=== PATIENT | female | born 1995 | race Caucasian/White ===

== ENCOUNTER 2018-04-11 11:09 | Day surgery (SDC) | payer OTHER, SELFPAY ==
[2018-04-11 11:51] VITALS: BP 120/74; PULSE 85; RESP 16; TEMP 37.8; O2SAT 100; BMI 29.8
[2018-04-11] MEDS: Celecoxib 200 MG Capsule 400 MG PO (12:02)
[2018-04-11] MEDS: Acetaminophen 500 MG Tablet 1000 MG PO (12:02)
[2018-04-11 12:16] LABS: Internal QC Validated? YES +Cl - CLEAR BKGD; Pregnancy, Urine Negative Negative
--- NOTE | 2018-04-11 14:37 | PCM.DC.TUB ---
Discharge Diet: No Restrictions - Increase fluid intake for the next 48 hours. Discharge Activity: Return to Normal Activity, May Drive - when you are no longer taking pain/narcotic meds., May Shower, May Take a Tub Bath - in 7 days Return to work on:: 04/16/18 May shower in (days): 1 May resume sexual activity in: 1-2 weeks Additional Activity Instructions:: Ambulate often the next week after surgery. Nothing in the vagina for 5 days. Call your doctor if your incision/area has: Continuous Slow Oozing, Sudden Increased Bleeding, Increased Pain/ Swelling, Increased Redness, Foul Smelling Discharge Call your doctor if you observe: Fever of 101 or Higher, Using more than one pad per hour Cleanse incision/area with: Soap & Water - YOur incisions have skin glue, it can get wet Allergies/Adverse Reactions: Allergies Penicillins Allergy (Verified 04/05/18 11:02) Hives Medications to take at Discharge Desogestrel-Ethinyl Estradiol [Apri 28 Day Tablet] 1 each PO DAILY 04/05/18 Primary Care Physician: Care Physician,No Primary [Primary Care Provider] - Test Results: Test results from this visit will be discussed in further detail at your follow-up appointment, if applicable. Please Follow Up With: Cayla Schulte MD - [phone] When: 2-4 weeks or as needed in my office
[2018-04-11] MEDS: Bupivacaine Mpf 0.5% 30 ML VIAL (14:44)
--- NOTE | 2018-04-11 15:11 | PCM.OPRPT ---
Report of Operation Date of Procedure: 04/11/18 Pre-Operative Diagnosis: chronic pelvic pain, left ovarian cyst Post-Operative Diagnosis: same, left ovarian dermoid cyst Surgery/Procedure Performed:: laparoscopic left ovarian cystectomy Description of Surgical Findings:: enlarged left ovary with complex cyst w/ hair and firm tissue and serrous fluid, normal tubes bilaterally, normal right ovary in service coordinator: Ana Toscano in service coordinator: Marvin Ramos Type of Anesthesia:: General Anesthesiologist: Delvin Daniels Special Medications: none Specimen's removed: left ovarian cyst Drains: none Estimated Blood Loss (mL): 10cc Fluids Replaced: 1300 cc Description of Procedure: The patient was taken to the operating room where she was prepped and draped in the dorsolithotomy position. A weighted speculum was placed in the vagina and the anterior lip of the cervix was grasped with a tenaculum. The Synqera uterine manipulator was placed and the remainder of the instruments were removed from the vagina. The uterus sounded to 8 cm. Attention was turned to the abdomen. All port sites were infiltrated with 0.5% Marcaine before skin incisions were made. A 5 mm intraumbilical incision was made. The anterior abdominal wall was tented up with 2 towel clamps while a 5 mm blade less trocar and sleeve were directly inserted. Intraperitoneal placement was confirmed with the laparoscope. The pneumoperitoneum was created and the underlying abdominal contents were intact. The patient was placed in Trendelenburg. Right and left lower quadrant ports were placed under direct visualization lateral to the inferior epigastric vessels. The bowel was swept away and the above findings were noted. The antimesenteric portion of the left ovarian cyst was cauterized with the scissors in a linear fashion and then an incision in the cyst wall was made. A small amount of serous fluid returned. Suction admin dir was used to suction out this fluid. The cyst wall was then stretched and the ovarian capsule was stretched to allow access to the ovarian cyst. The ovarian cyst was complex there was some hair and sebaceous type material is also some firm fleshy colored material. This was peeled away from the underlying ovarian stroma. Care was taken to ensure that the entire cyst wall was removed. The base of the cyst was hemostatic. Some fibrillar was placed into the cyst cavity and the ovary was folded over onto the fibrillar to make sure that all the exposed internal ovarian tissue was closed upon itself. The site was again examined and found to be hemostatic. The umbilical trocar sleeve was removed and the fascial incision dressed with a Kavya clamp and the skin incision extended slightly. An Endo Catch bag was placed through the umbilical port site and opened and the cyst contents were placed in the bag. The bag was brought up to the umbilical incision and the cyst was ruptured to allow to collapse more and be able to brought out through the umbilical incision. The lateral ports were removed under direct visualization and no active bleeding was noted. The pneumoperitoneum was released. The skin incisions were closed with Monocryl suture in a subcuticular fashion and skin glue by . The vaginal instruments were removed and the vaginal sweep was completed by me. The procedure was performed by me with assistance other than as dictated above. All sponge and needle counts were correct and the patient was taken to the recovery room in stable condition. Grafts/Implants Used: none - Complications none - Admit VTE Documentation VTE Present on Admission: No VTE Mechan Device Prophylaxis: SCD's VTE Pharm Prophylaxis ordered?: No Reason prophylaxis not ordered:: Procedure Not Indicated
[2018-04-11 15:28] VITALS: BP 120/74; BP 131/82; PULSE 80; RESP 16; TEMP 36.6; O2SAT 99
[2018-04-11 15:42] VITALS: BP 117/71; BP 120/74; PULSE 62; RESP 16; O2SAT 100
[2018-04-11 16:00] VITALS: BP 111/65; BP 120/74; PULSE 63; RESP 16; TEMP 36.7; O2SAT 100
[2018-04-11 17:53] VITALS: BP 110/69; BP 120/74; PULSE 81; RESP 16; TEMP 36.2; O2SAT 100
--- NOTE | 2018-04-12 | OV_PTH ---
PATIENT: BASIM OLEARY [place] [facility] [place][id number] AGE/SX: 22/F ROOM: RE04/11/[address]: Dr. Cayla Schulte MD : 1995 BED: DIS: 04/11/2018 SPEC #: [id number] RECD: 04/12/18 11:50 STATUS: JANE KAREY #: [id number] DOROTHEA: 04/12/18 00:[address]: Cayla Schulte DEPT: SURGICAL PATHOLOGY RECD BY: Narciso Segura ENTERED: 04/12/18 11:50 SP TYPE: OVARY OTHR DR: No Primary Care Phys Tissues: Left ovary Procedures: Decalcification bone/plaque Surgery Specimen Level V HEADER OPERATION: Laparoscopic ovarian cystectomy PRE-OP DIAGNOSIS: Chronic left pelvic pain, left ovarian cyst TISSUE SUBMITTED: Left ovarian cyst MICROSCOPIC DIAGNOSIS Left ovarian cyst, cystectomy: Mature cystic teratoma (dermoid cyst). SJ:all 04/17/18 MICROSCOPIC DESCRIPTION Slides are reviewed. GROSS DESCRIPTION Received in fixative is one container labeled with the patient's name and designated left ovarian cyst. The specimen consists of an ovoid previously ruptured ovary measuring 5 x 3.5 x 3 cm. Also present in the container are three detached pieces of soft tissue mixed with hemorrhagic tissue measuring in aggregate 2.5 x 2.5 x 0.7 cm. Multiple hairs are projecting through the ruptured cystic ovary. Sections reveal kimble, solid cut surfaces mixed with area of bone and teeth. Sections of the ovary and detached pieces reveal pink, solid cut surfaces mixed with area of bone including teeth formation. The entire specimen is submitted in 13 cassettes. Cassettes 8-13 are submitted after decalcification. / SJ:all 04/12/18 TC:1 CPT: 73716, 34111
== END 2018-04-11 18:08 | disposition home or self-care (01) ==
LOC: SDC 11:11 → AC 11:11
PROVIDERS: Anesthesiology; Visit Provider Obstetrics & Gynecology
PROC: (CPT 58662; principal; 2018-04-11 12:25)
DX: D27.1 Benign neoplasm of left ovary (principal)
CPT/HCPCS: 00840; 58662; 81025; 88305; 88307; 88311; J7120; J2405

== ENCOUNTER 2018-06-17 21:20 | Emergency (ER) | payer OTHER, SELFPAY ==
[2018-06-17 21:21] VITALS: BP 124/72; PULSE 101; RESP 14; TEMP 36.8; O2SAT 98; BMI 29.2
[2018-06-17] MEDS: hydrOXYzine PAM 25 MG Capsule 50 MG PO (22:17)
[2018-06-17] MEDS: predniSONE 20 MG Tablet 40 MG PO (22:17)
--- NOTE | 2018-06-17 22:35 | ED.DCSUM_ITS ---
- ER Visit Summary Date of Service: 06/17/18 Chief Complaint: rash after bactrim History of Present Illness: The patient is a 23 F who presents for a rash with onset earlier this evening. Patient is currently on Bactrim for a UTI and is taken a total of 3 doses. Rash began on her ankles and is very pruritic. It is now spread to the dorsum of her feet, her knee regions, her shoulders and her chest. Patient was not able to take Benadryl, as she becomes very anxious feeling from Benadryl. She denies fever, chest pain, shortness of breath, eye pain, oral lesions, any vaginal pain, or worsening dysuria. She is still having mild dysuria related to her recent UTI. Physical Examination: Vital signs: afebrile, hemodynamically stable, no hypoxia on room air General: well nourished, well developed, in no distress Skin: warm, dry, maculopapular rash scattered on the bilateral ankles, dorsum of the feet, distal thighs and proximal lower legs, knees, bilateral shoulders, and chest. Secondary excoriations noted. No petechiae, purpura, bullae or blisters. HEENT: normocephalic and atraumatic; PERRL, EOMI, moist mucous membranes no oropharyngeal lesions, conjunctiva are clear without erythema or discharge. Cardiovascular: regular rate and rhythm without murmurs, no peripheral edema, 2+ pulses all distal extremities Respiratory: No increased work of breathing, lungs are clear to auscultation bilaterally, no rales, rhonchi or wheezing Abdominal: Abdomen is soft, nontender with normoactive bowel sounds, no guarding or rebound, no masses MSK: Moves all extremities, no deformities, normal strength Neuro: Awake and alert, oriented ?4. No facial droop, sensation and motor f unction intact and symmetric Test Results: [] Emergency Department Course and Treatment: Patient has no findings on her exam that are concerning for acute anaphylaxis or Freire-Aníbal syndrome. Her rash appears more consistent with a drug exanthem rather than an urticarial rash. Patient was advised to stop the Bactrim and not to take it again. Patient was given nitrofurantoin to complete her course of treatment for UTI. Patient's symptoms were reviewed, and all involved lower abdominal and lower back pain with dysuria, making pyelonephritis less likely, thus nitrofurantoin was deemed appropriate. Patient was given hydroxyzine and prednisone in the emergency department for her symptoms. She was given prescriptions for the same. Return precautions were discussed, including signs to watch for that might indicate Freire-Aníbal syndrome. Patient agreed and was discharged home with pruritus somewhat improved after the hydroxyzine. Treatment Plan: [] Disposition: [] Impression: Drug exanthem secondary to Bactrim This note was generated with [employer] dictation software. It may contain incorrect words, spelling, and punctuation that were not noted in review of the chart prior to signing ED Disposition - Plan for ED Patient: Disposition: Home or Assisted Living Chief Complaint: Rash Instructions: ED Dermatitis Non Specific Rash Prescriptions: RX: Prednisone [Deltasone] 40 mg PO DAILY #10 tab Nitrofurantoin Macrocrystal [Nitrofurantoin] 100 mg PO BID #10 cap RX: Hydroxyzine Pamoate 25 mg PO TID PRN #20 cap PRN Reason: Itching Referrals: Andrew Alexis III, MD [STAFF PHYSICIAN] - 3-5 Days if not improving Care Physician,No Primary [Primary Care Provider] - Additional Instructions: Your rash is most likely due to the Bactrim use. Stop Bactrim and do not take it again. Use the nitrofurantoin to finish treating your urine infection. Use the hydroxyzine for itching and the prednisone to help calm the rash down. If at any point you develop a high fever, sores in your mouth, nose, genitals, or any redness and discomfort in your eyes, or if your rash becomes blistering, return immediately to the emergency department for another evaluation.
--- NOTE | 2018-06-17 22:35 | ED.DEP ---
ED Disposition - Plan for ED Patient: Disposition: Home or Assisted Living Chief Complaint: Rash Instructions: ED Dermatitis Non Specific Rash Prescriptions: Prednisone [Deltasone] 40 mg PO DAILY #10 tab Nitrofurantoin Macrocrystal [Nitrofurantoin] 100 mg PO BID #10 cap Hydroxyzine Pamoate 25 mg PO TID PRN #20 cap PRN Reason: Itching Referrals: Care Physician,No Primary [Primary Care Provider] - Andrew Alexis III, MD [STAFF PHYSICIAN] - 3-5 Days if not improving Additional Instructions: Your rash is most likely due to the Bactrim use. Stop Bactrim and do not take it again. Use the nitrofurantoin to finish treating your urine infection. Use the hydroxyzine for itching and the prednisone to help calm the rash down. If at any point you develop a high fever, sores in your mouth, nose, genitals, or any redness and discomfort in your eyes, or if your rash becomes blistering, return immediately to the emergency department for another evaluation.
[2018-06-17 22:58] VITALS: RESP 16
== END 2018-06-17 23:02 | disposition home or self-care (01) ==
PROVIDERS: Emergency Provider Emergency Medicine
DX: L27.0 Generalized skin eruption due to drugs and medicaments taken internally (principal); T37.0X5A Adverse effect of sulfonamides, initial encounter; Y92.9 Unspecified place or not applicable; N39.0 Urinary tract infection, site not specified
CPT/HCPCS: 99283

== ENCOUNTER 2019-05-21 18:55 | Emergency (ER) | payer OTHER, SELFPAY ==
[2019-05-21 18:56] VITALS: BP 148/80; PULSE 103; RESP 16; TEMP 36.8; BMI 32.1
--- NOTE | 2019-05-21 19:13 | CT_ITS ---
STUDY: CTA HEAD AND NECK WITH CONTRAST REASON FOR EXAM: Female, 23 years old. Vertigo and migraines RADIATION DOSAGE (If Supplied By Facility): CTDIvol = ( 28.59 ) mGy, DLP = ( 1503.07 ) mGycm TECHNIQUE: CT angiography was performed with a multi-detector CT scanner. Data acquisition was obtained from the skull base through the vertex following intravenous administration of IV Isovue 370 100. MIP images were reconstructed from the axial data set. Post-processing of the angiographic images was performed, with multiplanar reformation and 3D reconstruction. Individualized dose optimization techniques were used for this CT. COMPARISON: No relevant priors. FINDINGS: Normal bilateral petrous carotid arteries. Normal right cavernous carotid artery with a normal supraclinoid bifurcation. Normal left cavernous carotid artery with a normal supraclinoid bifurcation. Normal right A1 segments of the anterior cerebral artery. Normal left A1 segments of the anterior cerebral artery. Anterior communicating artery not visualized consistent with normal variant Normal bilateral A2 segments of the anterior cerebral arteries. Normal right M1 and M2 segments of the middle cerebral arteries, with a normal M1 bifurcation. Normal left M1 and M2 segments of the middle cerebral arteries, with a normal M1 bifurcation. Posterior communicating arteries are not visualized consistent with normal variant.). Normal bilateral vertebral arteries. Normal basilar artery with a normal basilar bifurcation. The visualized bilateral superior cerebellar (SCA) arteries are normal. Normal bilateral P1, P2 and visualized P3 segments of the posterior cerebral arteries. There is no demonstrated aneurysm of the [place] of [place]. There is no demonstrated abnormality of the visualized brain. AORTIC ARCH: Normal visualized aortic arch. Normal origins of the brachiocephalic, left common carotid, and left subclavian arteries. RIGHT CAROTID ARTERIES: Normal right common carotid artery (CCA). Normal right common carotid bulb. Normal origin of the right internal carotid (ICA) artery without a hemodynamically significant stenosis. Normal visualized cervical portion of the right internal carotid artery. Normal origin of the right external carotid artery (ECA). LEFT CAROTID ARTERIES: Normal left common carotid artery (CCA). Normal left common carotid bulb. Normal origin of the left internal carotid (ICA) artery without a hemodynamically significant stenosis. Normal visualized cervical portion of the left internal carotid artery. Normal origin of the left external carotid artery (ECA). VERTEBRAL ARTERIES: Normal bilateral vertebral arteries. Incidental finding of nonspecific bilateral thyroid enlargement without discrete nodule.. CT/CTA Head AND Neck W/ Contrast IMPRESSION: Normal CTA Head and neck with contrast. Incidental finding of nonspecific bilateral thyroid enlargement without well-defined nodule. Ultrasound would be helpful for further evaluation if clinically warranted Electronically Signed: Bharath De Paz MD at 20:07 EDT , Service support ,
[2019-05-21] MEDS: 0.9% Normal Saline 1,000 ML 1000 ML IV (19:32)
[2019-05-21] MEDS: DiphenhydrAMINE 50 MG/ML Syringe 25 MG IV (19:33)
[2019-05-21] MEDS: Metoclopramide 10 MG/2 ML Vial IV (19:33)
[2019-05-21 19:50] LABS: Internal QC Validated? YES +Cl - CLEAR BKGD; Pregnancy, Serum, hCG Quali. NEGATIVE Negative
[2019-05-21] MEDS: Ketorolac 30 MG/ML Syringe IV (20:08)
--- NOTE | 2019-05-21 20:11 | ED.VISSUMM ---
- ER Visit Summary Date of Service: 05/21/19 Chief Complaint: [Headache] History of Present Illness: The patient is a 23 F [presents to the emergency department with a headache is been worse since yesterday. She describes it as right side of her head and currently rates it a 4 5 out of 10 and is throbbing and a lot of pressure behind her right eye. Patient states that she gets headaches almost daily and she has for years but this headache seems different than usual. Patient's had some nausea with it she does have intermittent photophobia. Patient states over the last year her headaches have become more frequent. There is no family history of brain tumors or aneurysms. She denies recent illness. She denies recent head injury. Patient currently being treated for Graves' disease] Physical Examination: [HEENT-PERRLA, EOMI. Cranial nerves II through XII grossly intact. TMs clear. Mucous membranes moist. No adenopathy. Cardiovascular-regular rate and rhythm without murmur or ectopy Lungs-clear to auscultation, chest wall stable without crepitus or subcu emphysema Abdomen-normoactive bowel sounds, soft, nontender, no rebound or rigidity, no peritoneal signs. Neuro errv-kjvddm-fa-nose and heel cosby testing within normal limits, negative Romberg, negative , Fundi benign Extremities-intact ?4, normal range of motion, normal pulses, atraumatic] Test Results: [hCG was negative. Patient had CTAs of the head and neck which were unremarkable other than incidentally they noted enlargement of the thyroid gland.] Emergency Department Course and Treatment: [Patient was medicated with Reglan, Benadryl, and Toradol and she had significant improvement in her headache and the headache is mostly gone at this time.] Treatment Plan: [Patient will be referred to neurology for follow-up.] Disposition: [Discharged home in stable condition.] Impression: [Headache-suspect migraine] This note was generated with [employer] dictation software. It may contain incorrect words, spelling, and punctuation that were not noted in review of the chart prior to signing ED Disposition - Plan for ED Patient: Referrals: Emy Valencia MD [Primary Care Provider] -
--- NOTE | 2019-05-21 20:13 | ED.DEP ---
ED Disposition - Plan for ED Patient: Instructions: HEADACHE, Unspecified Referrals: Emy Valencia MD [Primary Care Provider] - Candi Forrest MD [STAFF PHYSICIAN] - 3-5 Days
== END 2019-05-21 20:48 | disposition home or self-care (01) ==
PROVIDERS: Emergency Provider Emergency Medicine; Family Provider Internal Medicine; PCP Internal Medicine
DX: R51 Headache (principal); E05.00 Thyrotoxicosis with diffuse goiter without thyrotoxic crisis or storm; Z79.899 Other long term (current) drug therapy
CPT/HCPCS: 70496; 70498; 84703; 96361; 96374; 96375; 99283; J7030; Q9967; A4216

== ENCOUNTER 2022-10-14 20:37 | Emergency (ER) | payer BC, SELFPAY ==
[2022-10-14 20:38] VITALS: BP 122/80; BP 122/86; PULSE 106; RESP 18; TEMP 36; BMI 25.9
--- NOTE | 2022-10-14 20:53 | ED.VIS.FEGU ---
HPI HPI - Female History of Present Illness Chief Complaint: Vag Bleeding Detail of Chief Complaint: Vaginal spotting for the past several days. Estimated gestation 6 weeks Informant: patient and spouse/S.O. Pain Pain: Positive for Pelvic Pain (Crampy) Onset: Days Context: Sudden Onset Timing: Intermittent Quality: Positive for Cramping Location: - (Pelvis) Current Severity: Mild Maximum Severity: Moderate Worsened by: - (Nothing specific) Relieved by: - (Nothing) Bleeding Issue: Positive for Vaginal bleeding; Negative for Passing clots or Passing tissue Onset: Days Context: Sudden Onset Timing: Intermittent Current Severity: Spotting Maximum Severity: Spotting Associated Symptoms Associated Symptoms: Positive for Frequency; Negative for Dysuria, Urgency or Hematuria Last known menstrual period: Approximately 8 weeks ago Test: Positive Sexually: Positive for Active Control: No control P: 0 Ab: 0 Narrative Narrative: Patient is a 27-year-old woman with history of ovarian cysts who is scheduled to see Dr. aDvies October 30 for her . This is her first . Significant other has A+ blood. Patient does not know blood type. She presents because of increased bleeding and darker color. She is spotting at best. She has not used more than 1 pad. She is complaining of intermittent cramping pelvic pain. She also complains of pain radiating to the lower back sacral area. She does endorse frequency. Denies dysuria or hematuria. There is family history of maternal grandmother with 6 miscarriages. Mother had history of fibroids. There is also family with history of endometriosis. Patient denies history of STI. Patient denies history of endometriosis. Prior similar symptoms: No Recent Illness/Hospitalization: No [facility] Medical History (Updated 10/14/22 @ 22:[address] Meet Reyna MD) Ovarian cyst Home Medications fluoxetine 10 mg capsule 10 mg PO DAILY 05/21/19 [History Last Taken Unknown] methimazole 5 mg tablet 5 mg PO TID 05/21/19 [History Last Taken Unknown] Allergy/AdvReac Type Severity Reaction Status Date / Time Penicillins Allergy Hives Verified 05/21/19 20:12 sulfamethoxazole Allergy Hives Verified 05/21/19 20:12 [From Bactrim] trimethoprim [From Bactrim] Allergy Hives Verified 05/21/19 20:12 Surgical History no surgical history no surgical history Social History (Updated 10/14/22 @ 20:[address] Meet Reyna MD) household members: significant other Smoking Status: Never smoker substance use type: does not use ROS ROS ED Constitutional Constitutional ED: Denies chills or fever(s) Cardiovascular Cardiovascular: Denies chest pain or palpitations Respiratory/Chest Respiratory/Chest: Denies dyspnea Gastrointestinal Gastrointestinal: Denies abdominal pain, nausea or vomiting Genitourinary Genitourinary ED: Reports urinary frequency; Denies dysuria or hematuria Musculoskeletal Musculoskeletal: Denies arthralgias, myalgias or neck pain Integumentary Denies rash Neurologic Neurologic: Denies paresthesias or weakness Psychiatric Psychiatric: Reports anxiety Hematologic/Lymphatic Hematologic/Lymphatic: Denies easy bleeding or easy bruising EXAM Physical Exam Const Vital Signs: 10/14/22 20:38 10/14/22 20:38 Temperature 96.8 F L 96.8 F L Temperature Source Temporal Temporal Pulse Rate 106 H 106 H Respiratory Rate 18 18 Blood Pressure 122/80 H 122/86 H Blood Pressure Mean 94 98 Positive well developed; Negative for obese General Appearance ED: well developed and NAD; Negative for odor of alcohol detected or pallor Nutritional Appearance: Negative for obese HEENT Reports moist mucous membranes HEENT Narrative: Head is atraumatic normocephalic. Ears normal. Nares patent. Eyes PERRL and EOMs intact bilaterally General Eye ED: Negative for pale conjunctiva or scleral icterus Neck no lymphadenopathy, supple and no JVD Chest Wall inspection of chest normal Resp normal respiratory effort and clear to auscultation bilaterally Cardio regular rate, regular rhythm, S1 normal heart sound, no murmurs and no JVD GI normal to inspection, nondistended, normoactive bowel sounds, soft to palpation, non-distended and no masses; Negative for non-tender Palpation: tender suprapubic and guarding other (Supra prepubic region.); Negative for hepatomegaly or splenomegaly Narrative: External genitalia normal. Vaginal Koza normal. Positive Pacific sign. Os is closed and circular. There is minimal blood noted. Uterus is slightly enlarged. There is no cervical motion tenderness. There is no adnexal mass or tenderness. There is no discomfort with pressure against the bladder. Neuro oriented x3 and CN's II-XII intact bilaterally Sensorium / Orientation: alert Psych Mood & Affect: anxious Skin General Skin Exam: Negative for jaundice or pallor MDM MDM MDM Narrative Medical decision making narrative: Patient presents with vaginal bleeding. Since blood type is unknown his significant other has a positive blood will need to obtain ABO Rh testing. Serum quantitative hCG was obtained. We will perform pelvic exam and transabdominal ultrasound to assess if bleeding is coming from the uterus or not and determine if there is heart tones noted. Lab Data Attestation: I reviewed the patient's lab results. Lab results narrative: hCG is 5789. On Sunday her hCG was approximately 2700. Patient has a positive blood. RhoGAM not indicated. Labs: Laboratory Results - last 24 hr 10/14/22 10/14/22 21:00 21:00 HCG, Quant 5789 H Blood Type A POSITIVE Treatment and Re-Evaluation Narrative: Patient was informed her blood type is a positive. She was informed that the quantitative hCG had doubled. She was informed that she has a threatened miscarriage. She will need to follow-up with her hyperbaric technologist Dr. Davies. Procedures Other Procedures Procedure(s): Transabdominal ultrasound was performed. There was a sac. Able to appreciate a head. Unable to appreciate a heartbeat. Patient was made aware of this. Discharge Plan Triage Chief Complaint: Vag Bleeding ED Provider: Meet Reyna Dx/Rx/DC Orders Clinical Impression: Vaginal bleeding affecting early Instructions: Bleeding During Early Prescriptions: No Action fluoxetine 10 MG capsule 10 mg PO DAILY methimazole 5 MG tablet 5 mg PO TID Primary Care Provider: Emy Valencia Referrals: Emy Valencia MD [Primary Care Provider] - Lata Miller MD [Med Staff - Active Staff] - [facility] appointment Disposition Disposition: Home, Self Care
[2022-10-14 21:48] LABS: hCG Titer Quant., Serum 5789 mIU/mL (1-3)
== END 2022-10-14 22:27 | disposition home or self-care (01) ==
PROVIDERS: Emergency Provider Emergency Medicine; PCP Internal Medicine; Visit Provider Emergency Medicine
DX: O20.9 Hemorrhage in early pregnancy, unspecified (principal); Z3A.01 Less than 8 weeks gestation of pregnancy; O26.891 Other specified pregnancy related conditions, first trimester; R10.2 Pelvic and perineal pain; O99.891 Other specified diseases and conditions complicating pregnancy; R35.0 Frequency of micturition
CPT/HCPCS: 84702; 86900; 86901; 99283; A4216

== ENCOUNTER 2022-10-17 13:30 | Emergency (ER) | payer BC, SELFPAY ==
[2022-10-17 13:30] VITALS: BP 135/78; PULSE 90; RESP 16; TEMP 36.6; O2SAT 99; BMI 25.6
[2022-10-17 14:32] LABS: Absolute Lymphocyte Count 1.38 X10^3/uL (0.83-4.51); Basophil# 0.05 X10^3/uL; Basophil% 0.7 % (0-1); Eosinophils% 1.4 % (0-5); Hematocrit 41.4 % (37-47); Lymphocyte # 1.38 X10^3/ul (0.83-4.51); Lymphocyte % 19.3 % (19-41); Mean Corp Hgb Conc 33.8 g/dL (32-36); Mean Corpuscular Hgb 29.4 pg (27.0-32.0); Mean Platelet Vol. 9.8 fl (6.2-12.0); Monocyte# 0.56 X10^3/uL; Monocyte% 7.8 % (0-10); NRBC Flagged by Analyzer 0 % (0-5); Neutrophil # 5.01 X10^3/uL (2.7-7.7); Neutrophil % 70.2 % (47-70); Platelet Count 276 K/mm3 (150-450); RBC Distribution Width CV 12.2 % (11.6-14.6); RBC Distribution Width SD 38.8 fl (35.1-43.9); Red Blood Count 4.76 M/mm3 (4.2-5.4); White Blood Count 7.1 K/mm3 (4.4-11.0)
[2022-10-17 14:45] LABS: Anion Gap 8 (5-15); BUN 7 mg/dL (7-18); BUN/Creat Ratio 9.7 RATIO (10-20); Calcium,Total 9.8 mg/dL (8.5-10.1); Chloride 107 mmol/L (98-107); Creatinine, Serum 0.72 mg/dL (0.55-1.02); EST Glomerular Filtration Rate 102 mL/min (>60); Est Glom Filt Rate - Afr Amer 124 mL/min (>60); Estimated Creatinine Clearance 117.35 ml/min; Glucose 90 mg/dL (74-106); Potassium 3.9 mmol/L (3.5-5.1); Sodium Level 138 mmol/L (136-145)
[2022-10-17] MEDS: 0.9% Normal Saline 1,000 ML 999 ML IV (14:55)
[2022-10-17 15:02] LABS: Color, Urine Yellow (Yellow); Glucose, Dipstick Normal (Normal); Leukocyte Esterase-Dipstick 100 /ul (Negative); Nitrite-Dipstick Negative (Negative); Occult Blood-Urine 150 /ul (Negative); Protein-Dipstick 30 mg/dl (Negative); Specific Gravity, Urine 1.025 (1.002-1.030); Urine Bilirubin Dipstick Negative (Negative); Urine Clarity Sl. Cloudy (Clear); Urine Urobilinogen Normal (Normal)
[2022-10-17 15:05] LABS: Ketone-Dipstick 150 mg/dl (Negative)
[2022-10-17 15:08] LABS: Bacteria 2+ /hpf (None Seen); Mucous, Urine 2+ /hpf (<or=2+); Red Blood Cells-Urine 10-25 SEEN /hpf (0-5); Squamous Epithelial Cells - UA 0-5 SEEN /hpf (5-10); White Blood Cells 10-25 SEEN /hpf (0-5)
[2022-10-17] MEDS: proMETHazine 25 MG Tablet PO (15:17)
--- NOTE | 2022-10-17 15:19 | EDS_ITS ---
HPI HPI - GI History of Present Illness Chief Complaint: Nausea/Vomiting Narrative Narrative: 27-year-old female currently approximately 7 weeks gestation HPI G1, presenting with continued nausea. She was seen a few days ago in the emergency room for vaginal spotting in . Blood type was a positive. She has not been drinking a lot of fluids but has not been vomiting. Patient states she called her TAX REVENUE OFFICER today as she has not seen her for this yet. She was referred to the ER today and she is a follow-up appointment for tomorrow. Patient states he is also having reflux symptoms. She is on omeprazole for this. She does not have any lower abdominal pain. She does have some spotting which she had from her previous visit. Previous diagnosis of threatened carriage. [facility] Medical History Ovarian cyst Home Medications fluoxetine 10 mg capsule 10 mg PO DAILY 05/21/19 [History Last Taken Unknown] methimazole 5 mg tablet 5 mg PO TID 05/21/19 [History Last Taken Unknown] promethazine 25 mg tablet 25 mg PO TID PRN nausea and vomiting #14 tabs 10/17/22 [Rx Last Taken Unknown] Allergy/AdvReac Type Severity Reaction Status Date / Time Penicillins Allergy Hives Verified 10/17/22 13:32 sulfamethoxazole Allergy Hives Verified 10/17/22 13:32 [From Bactrim] trimethoprim [From Bactrim] Allergy Hives Verified 10/17/22 13:32 Social History (Updated 10/14/22 @ 20:[address] Meet Reyna MD) household members: significant other Smoking Status: Never smoker substance use type: does not use ROS ROS ED Constitutional Constitutional ED: Denies chills or fever(s) ENT ENT ED: Denies rhinorrhea or sore throat Cardiovascular Cardiovascular: Denies chest pain Respiratory/Chest Respiratory/Chest: Denies cough or dyspnea Gastrointestinal Gastrointestinal: Reports nausea; Denies abdominal pain or vomiting Genitourinary Genitourinary ED: Denies dysuria or hematuria Musculoskeletal Musculoskeletal: Denies arthralgias or back pain Integumentary Denies abscess Neurologic Neurologic: Denies headache(s) Psychiatric Psychiatric: Denies anxiety or depression EXAM Physical Exam Const Vital Signs: 10/17/22 13:30 Temperature 98 F Temperature Source Temporal Pulse Rate 90 Respiratory Rate 16 Blood Pressure 135/78 H Blood Pressure Mean 97 Pulse Ox 99 Oxygen Delivery Method Room Air Positive well nourished General Appearance ED: Negative for pallor HEENT Reports moist mucous membranes normocephalic and atraumatic Eyes PERRL Neck no lymphadenopathy Resp normal respiratory effort Effort and Inspection: Negative for respiratory distress Cardio regular rate and regular rhythm GI non-tender and non-distended Neuro CN's II-XII intact bilaterally Sensorium / Orientation: alert Motor Exam: strength 5/5 throughout Psych mental status grossly normal Skin no wounds General Skin Exam: Negative for jaundice or pallor MDM MDM MDM Narrative Medical decision making narrative: 27-year-old female presenting with nausea and decreased p.o. intake. She is currently about 7 weeks . She supposed to see her TAX REVENUE OFFICER tomorrow. She is not reporting any vomiting or abdominal pain with exception of epigastric discomfort from a history of GERD. She is on a PPI for this. Patient has had a little bit of spotting and is known to have threatened miscarriage. She was sent to the ER by her TAX REVENUE OFFICER for dehydration and to get IV fluids. CBC was obtained to assess white blood cell count, hemoglobin, platelets, differential. BMP to assess renal function, electrolytes, glucose, anion gap. Urinalysis to assess for UTI urine ketones. Patient given a liter normal saline. She reports to me that Zofran does not help her nausea and she was given Phenergan. This did help her nausea significantly. CBC and BMP are ultimately unremarkable. Urinalysis shows urine ketones. Urinalysis also shows some occult blood and is contaminated with 10-25 white blood cells however no pleuritic she has had some vaginal spotting. She does not have any urinary symptoms. I will send the urine for culture. Patient feeling much improved so she will be discharged home follow-up with OB tomorrow. Patient given prescription for Phenergan. Return precautions discussed. Impression: 1. Trimester 2. Threatened miscarriage 3. Nausea/vomiting Lab Data Labs: Laboratory Results - last 24 hr 10/17/22 10/17/22 10/17/22 13:20 13:20 14:45 WBC 7.1 RBC 4.76 Hgb 14.0 Hct 41.4 MCV 87.0 MCH 29.4 MCHC 33.8 RDW Std Deviation 38.8 RDW Coeff of Ria 12.2 Plt Count 276 MPV 9.8 Immature Gran % (Auto) 0.600 Neut % (Auto) 70.2 H Lymph % (Auto) 19.3 [place]unnels % (Auto) 7.8 Eos % (Auto) 1.4 Baso % (Auto) 0.7 Absolute Neuts (auto) 5.0 Absolute Lymphs (auto) 1.38 Nucleated RBC % 0 Sodium 138 Potassium 3.9 Chloride 107 Carbon Dioxide 23.0 Anion Gap 8 BUN 7 Creatinine 0.72 Estim Creat Clear Calc 117.35 Est GFR (MDRD) Af Amer 124 Est GFR (MDRD) Non-Af 102 BUN/Creatinine Ratio 9.7 L Glucose 90 Calcium 9.8 Urine Color Yellow Urine Clarity Sl. Cloudy Urine pH 5.0 Ur Specific Mauldin 1.025 Urine Protein 30 H Urine Glucose (UA) Normal Urine Ketones 150 A* Urine Occult Blood 150 H Urine Nitrite Negative Urine Bilirubin Negative Urine Urobilinogen Normal Ur Leukocyte Esterase 100 H Urine RBC 10-25 SEEN Urine WBC 10-25 SEEN Ur Squamous Epith Cells 0-5 SEEN Urine Bacteria 2+ Urine Mucus 2+ Discharge Plan Triage Chief Complaint: Nausea/Vomiting ED Provider: oVn Gonzalez Dx/Rx/DC Orders Instructions: 1st Trimester, Bleeding During Early Prescriptions: New promethazine 25 mg tablet 25 mg PO TID PRN (Reason: nausea and vomiting) Qty: 14 0RF No Action fluoxetine 10 MG capsule 10 mg PO DAILY methimazole 5 MG tablet 5 mg PO TID Primary Care Provider: Emy Valencia Referrals: Emy Valencia MD [Primary Care Provider] - Disposition Disposition: Home, Self Care
[2022-10-17] MEDS: Famotidine 20 MG Tablet PO (15:27)
[2022-10-17 16:30] VITALS: BP 118/78; PULSE 78; RESP 16; O2SAT 98
== END 2022-10-17 16:32 | disposition home or self-care (01) ==
PROVIDERS: Emergency Provider Student in an Organized Health Care Education/Training Program; PCP Internal Medicine; Visit Provider Student in an Organized Health Care Education/Training Program
DX: O21.9 Vomiting of pregnancy, unspecified (principal); E86.0 Dehydration; O20.0 Threatened abortion; O99.281 Endocrine, nutritional and metabolic diseases complicating pregnancy, first trimester; O99.891 Other specified diseases and conditions complicating pregnancy; Z3A.01 Less than 8 weeks gestation of pregnancy
CPT/HCPCS: 80048; 81001; 85025; 87086; 96360; 99284; J7030; A4216

== ENCOUNTER → 2022-10-26 | Outpatient (CLI) | payer BC, SELFPAY ==
[2022-10-26 10:51] VITALS: BP 109/72; PULSE 96; RESP 16; TEMP 36.1; O2SAT 100
[2022-10-26] MEDS: Lactated Ringers 1,000 ML 999 ML IV (11:02)
[2022-10-26] MEDS: 0.9% NaCl Peripheral Flush Adult/Peds IV (11:02)
[2022-10-26] MEDS: Famotidine 20 MG in 0.9% NS 10 ML 300 MG IV (11:03)
[2022-10-26] MEDS: Metoclopramide 10 MG/2 ML Vial IV (11:09)
[2022-10-26] MEDS: Potassium Chloride 10 MEQ in Dext 5%-0.45% NS 1,000 ML 250 MEQ IV (12:29)
[2022-10-26 16:53] VITALS: BP 108/70; PULSE 88
== END | disposition home or self-care (01) ==
LOC: MEDOUTP 10:34
PROVIDERS: PCP Internal Medicine; Referring Provider Obstetrics & Gynecology; Visit Provider Obstetrics & Gynecology
DX: R11.10 Vomiting, unspecified (principal)
CPT/HCPCS: 96365; 96361; 96375 ×2; J7120; A4216; J2405; J3490; J7799

== ENCOUNTER → 2022-11-03 | Outpatient (CLI) | payer BC, SELFPAY ==
[2022-11-03] MEDS: 0.9% NaCl Peripheral Flush Adult/Peds IV (08:30)
[2022-11-03] MEDS: Dext 5%-0.45% NS 1,000 ML 999 ML IV (08:37)
[2022-11-03 08:39] VITALS: BP 107/63; PULSE 81; RESP 16; O2SAT 100
[2022-11-03] MEDS: Famotidine 20 MG in 0.9% NS 10 ML 300 MG IV (08:43)
[2022-11-03] MEDS: Dext 5%-0.45% NS 1,000 ML 333 ML IV (10:19)
[2022-11-03 13:33] VITALS: BP 110/68; PULSE 94; RESP 16
== END | disposition home or self-care (01) ==
LOC: MEDOUTP 08:13
PROVIDERS: PCP Internal Medicine; Referring Provider Obstetrics & Gynecology; Visit Provider Obstetrics & Gynecology
DX: R11.10 Vomiting, unspecified (principal)
CPT/HCPCS: 96365; 96375; 96361; A4216; J2405; J3490; J7799

== ENCOUNTER 2023-03-26 21:28 | Outpatient (CLI) | payer BC, SELFPAY ==
[2023-03-26 21:39] VITALS: BMI 26.6
[2023-03-26 21:49] VITALS: BP 119/74; PULSE 68; TEMP 36.5; O2SAT 99
[2023-03-26 22:04] VITALS: BP 112/68; PULSE 75
[2023-03-26] MEDS: Lactated Ringers 1,000 ML 999 ML IV (22:38)
[2023-03-26] MEDS: Acetaminophen 500 MG Tablet 1000 MG PO (22:42)
[2023-03-26 23:43] VITALS: BP 110/66; PULSE 69
--- NOTE | 2023-03-27 07:22 | OB.TRI.NOTE ---
HPI - General HPI Narrative BASIM OLEARY, is a 27 F at 28 weeks gestation who presents to triage with decreased movement and headache. She reports history of migraines that only Ibuprofen and medical marijuana relieve. Upon arrival to unit she stated she started feeling movement. PFSH PFSH Medical History Ovarian cyst Home Medications promethazine 25 mg tablet 25 mg PO TID PRN nausea and vomiting #14 tabs 10/17/22 [Rx Last Taken Unknown] famotidine 20 mg tablet (Pepcid) 20 mg PO BID 10/26/22 [History Last Taken 03/26/23 21:00] ondansetron HCl 4 mg tablet 4 mg PO Q6H 10/26/22 [History Last Taken 03/24/23] Allergy/AdvReac Type Severity Reaction Status Date / Time Penicillins Allergy Hives Verified 03/26/23 21:52 sulfamethoxazole Allergy Hives Verified 03/26/23 21:52 [From Bactrim] trimethoprim [From Bactrim] Allergy Hives Verified 03/26/23 21:52 Social History household members: significant other Smoking Status: Never smoker substance use type: does not use ROS Eyes Eyes: Denies blurry vision Cardiovascular Cardiovascular: Reports none; Denies chest pain at rest, chest pain with activity or dizziness Respiratory/Chest Respiratory/Chest: Denies cough or dyspnea Gastrointestinal Gastrointestinal: Reports none and other; Denies diarrhea or vomiting Genitourinary Genitourinary: Denies dysuria Musculoskeletal Musculoskeletal: Reports none Integumentary Integumentary: Reports none; Denies rash Neurologic Neurologic: Reports as per HPI and headache(s); Denies dizziness or other visual disturbances Psychiatric Psychiatric: Reports none Physical Exam Const alert and no apparent distress General Appearance: cooperative Orientation / Consciousness: awake Exam Limitations: no limitations HEENT normocephalic Eyes General Eye: normal appearance of both eyes Neck full ROM Chest inspection of chest normal Resp normal respiratory effort and normal air movement Effort and Inspection: symmetric chest movement Auscultation: clear to auscultation bilaterally Cardio regular rate GI soft to palpation, non-tender and non-distended Inspection: and other Back/Spine normal ROM Extremity full ROM, normal capillary refill and no calf tenderness Skin no rashes or lesions noted Neuro oriented x3 and CN's II-XII intact bilaterally Psych mental status grossly normal NST FHR Rate Baby A Baseline: 130 Variability:: Moderate Accelerations:: 15 x 15 Decelerations:: None NST Reactive:: Yes FHR Category:: Category I Uterine Activity:: None Assessment & Plan (1) Decreased movement: (2) 28 weeks gestation of : (3) Migraine: (4) Headache: PLAN: Plan LR 1000 cc bolus Tylenol 1000 mg PO x 1 NST reactive Patient has felt movement since arrival Patient reports headache has improved D/C home with follow up in office
== END 2023-03-26 23:55 | disposition home or self-care (01) ==
LOC: WPOUT 21:35 → WP 21:35
PROVIDERS: PCP Internal Medicine; Referring Provider Advanced Practice Midwife; Visit Provider Advanced Practice Midwife
DX: O36.8130 Decreased fetal movements, third trimester, not applicable or unspecified (principal); Z3A.28 28 weeks gestation of pregnancy; O99.353 Diseases of the nervous system complicating pregnancy, third trimester; G43.909 Migraine, unspecified, not intractable, without status migrainosus
CPT/HCPCS: 96360; 59025; 59050; 99221; J7120; G0378

== ENCOUNTER 2023-06-01 07:07 | Inpatient (IN) | payer BC, SELFPAY ==
[2023-06-01] VITALS (23 sets, daily range): BP systolic 96–130; BP diastolic 50–78; PULSE 68–91; TEMP 36.1–36.7; O2SAT 97–100; BMI 28.2
[2023-06-01] MEDS: Lactated Ringers 1,000 ML 50 ML IV (07:45)
[2023-06-01] MEDS: miSOPROStol 25 MCG TABLET PO ×2 (08:01→12:48)
[2023-06-01] MEDS: Ondansetron 4 MG/2 ML Vial IV (08:03)
--- NOTE | 2023-06-01 08:03 | PCM.HP.OB ---
Documented by User: Digna Hill CNM 06/01/23 08:10 HPI - General General Date of Admission: 06/01/23 Maternal Data Information GARY Calculator Estimated Delivery Date Method Current WG Current Estimate 06/12/23 Manual 38w 3d PFSH PFSH Medical History Ovarian cyst Home Medications ondansetron HCl 4 mg tablet 4 mg PO Q6H PRN nausea and vomiting 10/26/22 [History Last Taken 03/24/23] omeprazole 20 mg capsule,delayed release 20 mg PO DAILY heartburn 06/01/23 [History Last Taken 05/31/23] Allergy/AdvReac Type Severity Reaction Status Date / Time Penicillins Allergy Hives Verified 06/01/23 07:27 sulfamethoxazole Allergy Hives Verified 06/01/23 07:27 [From Bactrim] trimethoprim [From Bactrim] Allergy Hives Verified 06/01/23 07:27 caffeine AdvReac Other Verified 06/01/23 07:27 metoclopramide [From Reglan] AdvReac Other Verified 06/01/23 07:27 Social History household members: significant other Smoking Status: Never smoker substance use type: does not use Labs Labs Labs: Blood Type A POSITIVE Antibody Screen Pending Hct 32.7 % (37-47) L Hgb 10.6 g/dL (12.0-15.0) L Syphilis Total Ab Pending Assessment & Plan (1) 38 weeks gestation of : (2) Encounter for induction of labor: (3) Cholestasis during : (4) History of anxiety: Documented by User: Lyudmila Lazcano CNM 06/01/23 08:13 HPI - General General Date of Admission: 06/01/23 HPI Narrative BASIM OLEARY, is a 27 F at 38.3 weeks gestation who presents for induction of labor for suspected cholestasis. Maternal Data Information GARY Calculator Estimated Delivery Date Method Current WG Current Estimate 06/12/23 Manual 38w 3d PFSH PFSH Medical History Ovarian cyst Home Medications ondansetron HCl 4 mg tablet 4 mg PO Q6H PRN nausea and vomiting 10/26/22 [History Last Taken 03/24/23] omeprazole 20 mg capsule,delayed release 20 mg PO DAILY heartburn 06/01/23 [History Last Taken 05/31/23] Allergy/AdvReac Type Severity Reaction Status Date / Time Penicillins Allergy Hives Verified 06/01/23 07:27 sulfamethoxazole Allergy Hives Verified 06/01/23 07:27 [From Bactrim] trimethoprim [From Bactrim] Allergy Hives Verified 06/01/23 07:27 caffeine AdvReac Other Verified 06/01/23 07:27 metoclopramide [From Reglan] AdvReac Other Verified 06/01/23 07:27 Social History household members: significant other Smoking Status: Never smoker substance use type: does not use ROS Eyes Eyes: Denies blurry vision, change in vision or spots in vision ENT HEENT: Denies dizziness or headache(s) Cardiovascular Cardiovascular: Denies abdominal pain, chest pain or dyspnea Respiratory/Chest Respiratory/Chest: Denies cough, dyspnea, shortness of breath at rest or shortness of breath with exertion Gastrointestinal Gastrointestinal: Denies abdominal pain, diarrhea or vomiting Genitourinary Genitourinary: Denies change in urinary stream, difficulty urinating or dysuria Musculoskeletal Musculoskeletal: Reports none Integumentary Integumentary: Denies rash Neurologic Neurologic: Denies dizziness, headache(s), memory loss or weakness Psychiatric Psychiatric: Reports none Vital Signs Vital Signs Vital Signs: Weight Weight: 185 lb 12.8 oz Body Mass Index (BMI) 28.2 Physical Exam Narrative Patient seen at bedside. Continues prurtis of hands and feet. Was unable to sleep last night. Const alert and no apparent distress General Appearance: cooperative and comfortable Exam Limitations: no limitations HEENT normocephalic Eyes General Eye: normal appearance of both eyes Neck full ROM General: normal visual inspection Chest Chest: symmetrical chest wall rise Resp normal respiratory effort and normal air movement Effort and Inspection: symmetric chest movement Auscultation: clear to auscultation bilaterally Cardio regular rate and regular rhythm GI normal to inspection, nondistended, normoactive bowel sounds Back/Spine normal ROM Extremity full ROM and no calf tenderness General Extremity: normal exam except as noted Skin no rashes or lesions noted Neuro CN's II-XII intact bilaterally Psych mental status grossly normal Labs Labs Labs: Blood Type A POSITIVE Antibody Screen Pending Hct 32.7 % (37-47) L Hgb 10.6 g/dL (12.0-15.0) L Syphilis Total Ab Pending GBS negative Assessment & Plan (1) 38 weeks gestation of : (2) Encounter for induction of labor: (3) Cholestasis during : (4) History of anxiety: PLAN: Plan Admit to labor and delivery Routine labs Start Cytotec 25 mcg PO every 4 hours x 6 doses total Anticipate placement of gar bulb GBS negative
[2023-06-01 08:10] LABS: Absolute Lymphocyte Count 1.92 X10^3/uL (0.83-4.51); Absolute Neutrophil Count 6.1 X10^3/uL (2.0-7.7); Basophil# 0.04 X10^3/uL; Basophil% 0.4 % (0-1); Eosinophil# 0.09 X10^3/uL; Hematocrit 32.7 % (37-47); Hemoglobin 10.6 g/dL (12.0-15.0); Lymphocyte # 1.92 X10^3/ul (0.83-4.51); Lymphocyte % 21.5 % (19-41); Mean Corp Hgb Conc 32.4 g/dL (32-36); Mean Corpuscular Hgb 28.4 pg (27.0-32.0); Mean Corpuscular Volume 87.7 fL (81-99); Mean Platelet Vol. 10.2 fl (6.2-12.0); Monocyte# 0.67 X10^3/uL; Monocyte% 7.5 % (0-10); NRBC Flagged by Analyzer 0 % (0-5); Neutrophil # 6.13 X10^3/uL (2.7-7.7); Neutrophil % 68.7 % (47-70); Platelet Count 227 K/mm3 (150-450); RBC Distribution Width CV 12.9 % (11.6-14.6); RBC Distribution Width SD 40.2 fl (35.1-43.9); Red Blood Count 3.73 M/mm3 (4.2-5.4); White Blood Count 8.9 K/mm3 (4.4-11.0)
[2023-06-01] MEDS: 0.9% Normal Saline Single 100 ML IV.SOLN. INTRA-UTER (08:35)
--- NOTE | 2023-06-01 08:56 | PN.OBGYN_ITS ---
Subjective Subjective Resting comfortably in bed, partner at bedside Objective Data Objective Data Gar inserted through cervix with stylus, 30ml NS instilled. Patient tolerated well FT/50/-2 vertex, IBOW Vital Signs: Vital Signs Temp Pulse BP Pulse Ox 98.0 F 75 110/68 99 06/01/23 08:25 06/01/23 08:25 06/01/23 08:25 06/01/23 08:25 Weight: 185 lb 12.8 oz Body Mass Index (BMI) 28.2 Intake & Output: Intake and Output for Last 24 Hours 05/30/23 05/31/23 06/01/23 23:59 23:59 23:59 Intake Total 33.33 / 33.33 Balance 33.33 / 33.33 Lab / Micro Data 06/01/23 07:45 Labs: Laboratory Results - last 24 hr 06/01/23 07:45: WBC 8.9, RBC 3.73 L, Hgb 10.6 L, Hct 32.7 L, MCV 87.7, MCH 28.4, MCHC 32.4, RDW Std Deviation 40.2, RDW Coeff of Ria 12.9, Plt Count 227, MPV 10.2, Immature Gran % (Auto) 0.900, Neut % (Auto) 68.7, Lymph % (Auto) 21.5, [place] % (Auto) 7.5, Eos % (Auto) 1.0, Baso % (Auto) 0.4, Absolute Neuts (auto) 6.1, Absolute Lymphs (auto) 1.92, Nucleated RBC % 0 NST FHR Rate Baby A Baseline: 135 Variability:: Moderate Accelerations:: 15 x 15 Decelerations:: None FHR Category:: Category I Uterine Activity:: None Assessment & Plan (1) History of anxiety: (2) Cholestasis during : (3) Encounter for induction of labor: (4) 38 weeks gestation of : PLAN: Plan gar and cytotec for cervical ripening, will then start Pitocin per policy [address]James marcano physician and notified of patient status
[2023-06-01] MEDS: Acetaminophen 500 MG Tablet PO (09:06)
[2023-06-01 09:38] LABS: Syphilis Antibodies Non-reactive
[2023-06-01] MEDS: Oxytocin 15 Units/NS 250ml 15 UNITS/250 ML IV.SOLN 2 UNITS IV (16:55)
[2023-06-01] MEDS: 0.9% Saline Lock 10 ML Syringe IV (16:55)
[2023-06-01] MEDS: fentaNYL-bupivacaine (epidural) 100 ML BAG EPIDURAL (20:10)
--- NOTE | 2023-06-01 22:02 | NURSING ---
this RN to intermittently straight cath pt due to epidural placement.
[2023-06-01] MEDS: Lactated Ringers 1,000 ML 200 ML IV (23:36)
[2023-06-02] VITALS (38 sets, daily range): BP systolic 99–130; BP diastolic 46–90; PULSE 69–116; RESP 14–18; TEMP 36.1–36.8; O2SAT 94–100
[2023-06-02] MEDS: fentaNYL-bupivacaine (epidural) 100 ML BAG EPIDURAL ×2 (00:15→04:32)
[2023-06-02] MEDS: Mag Hydrox/Al Hydrox/Simeth 30 ML UDC PO (00:25)
[2023-06-02] MEDS: Ondansetron 4 MG/2 ML Vial IV ×2 (00:29→05:58)
[2023-06-02] MEDS: 0.9% Saline Lock 10 ML Syringe IV ×2 (00:30→05:58)
[2023-06-02] MEDS: Lactated Ringers 1,000 ML 200 ML IV (04:32)
[2023-06-02] MEDS: LACTATED RINGERS 500 ML 999 ML IV (05:58)
--- NOTE | 2023-06-02 09:28 | EX.PCM.OBRPT ---
Assessment & Plan (1) Cholestasis during : (2) Vaginal delivery: (3) First degree perineal laceration: (4) Laceration of periurethral tissue with delivery: (5) Lactating mother: Maternal Data Information GARY Calculator Estimated Delivery Date Method Current WG Current Estimate 06/12/23 Manual 38w 4d Vaginal Delivery Maternal Presentation Maternal Presentation: Medically Indicated Induction (cholestasis) Type of Induction: Pitocin, Carr Bulb and Cytotec Operative Information Date of Procedure: 06/02/23 Pre-Operative Diagnosis: Medically Indicated Induction of labor for cholestasis Post-Operative Diagnosis: , first degree perineal laceration Surgery / Procedure Performed: Spontaneous Vaginal Delivery Type of Anesthesia: Epidural Estimated Blood Loss: 350 ml Time of Delivery: 08:24 Findings Description of Procedure: Progressed to complete with urge to push . Epidural for pain management. of viable female with first degree perineal laceration . APGARS 8/9 respectively. Infant head delivered with body immediately forthcoming. CAN X 1, delivered through. Placed on maternal abdomen, strong cry. Mouth and nares suctioned for secretions.Pitocin started for active 3rd stage management. Cord double clamped and cut by FOB after pulsation ceased, delayed cord clamping. Placenta delivered intact via figueroa, 3 vessel cord intact. Perineum inspected and revealed first degree laceration and periurethral laceration Repaired with 3.0 vicryl rapide x2 and epidural. Fundus firm and hemostasis achieved. EBL 350. Mom and baby stable, planning to breast feed. Family bonding well. Dr. Arias notified of delivery. RUPINDER Mcdaniel present for delivery. Presentation: Vertex and MARIA EUGENIA Amniotic Membrane Rupture Type: Artificial Time of Membrane Rupture: 06/02/2023 0610 Amniotic Fluid Description: Clear Placental Delivery Description: Spontaneous Placenta Disposition: [facility] Cord Vessel Description: 3 Vessels Cord Entanglement: Around neck x 1, loose Infant A Gender: Female (1 minute): 8 (5 minute): 9 Delayed Cord Clamping: Yes Post Vaginal Delivery Medications Given After Delivery: IV Pitocin Episiotomy Description: None Laceration: Periurethral Extnsion/lac, Perineal Extension/lac and 1st degree Complication Complications: None
[2023-06-02] MEDS: Oxytocin 15 Units/NS 250ml 15 UNITS/250 ML IV.SOLN 83 UNITS IV (09:45)
[2023-06-02] MEDS: Ibuprofen 600 MG Tablet PO ×3 (10:36→23:52)
--- NOTE | 2023-06-02 13:19 | CASEMGMT ---
Social Work Labor and Delivery Unit Date/Time of Referral: 06/01/23 Referred by: RN Date/Time of assessment: 06/02/23, 1:10pm Reason for Referral: History of anxiety and depression. History obtained from: MOB and FOB Parent/guardian status: Both parents are guardians of this baby. Household composition: MOB, FOB and now baby Becky. MOB and FOB have been together for 10 years Medical History: MOB--history of cholestasis, anxiety, depression. Baby--born 06/02/[birth year], 8:35am, 2730 grams. Baby's Apgars were 8 and 9 at one and five minutes. Educational Status: MOB completed high school, FOB completed college Financial Status: No concerns. 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 Both plan to continue working. supplies: They have all needed supplies including diapers, wipes, crib, bassinet, clothing, bottles, formula, car seats Childcare/Caregivers: Both grandmas are available to help. Also, MOB works from home. Transportation: They have two vehicles Programs/Agencies Involved: None Children Services/Legal Issues: None Behavioral Health issues: FOB: Mental Health--no history. Substance abuse-- no history. MOB: Substance abuse: No history. No tox screens in chart for MOB or baby. Mental Health: history of anxiety and depression. DELANEY states was diagnosed in 2017. She has been on medication in the past, but not since 2019. MOB has been in counseling in the past as well, but not since November of this year. MOB would return to her prior place of counseling should she feel she needs it again. Family/Social Stressors: None Support systems: Maternal and Paternal Grandmothers Depression and Anxiety/Safe Sleeping/Help Me Grow/Shaken Baby/Mental health resources: SW gave MOB information on all of these topics and reviewed w/MOB and FOB. SW reviewed in particular information regarding depression, and warning signs. SW advised if having symptoms to speak w/PCP or CERTIFIED COURT/MEDICAL INTERPRETER about it, spoke about how going on medication short term can be helpful at times. MOB states understanding. SW also encouraged MOB to get back into counseling should she have any symptoms of depression/anxiety. MOB states understanding. Assessment: MOB and FOB both appropriate in speaking w/SW, asked all questions, good eye contact. Both seem excited to be going home tomorrow and to be new parents. FOB holding baby Becky, appropriate in his handling of the baby. Plan: Baby to go home w/MOB and FOB at discharge. No further needs anticipated at this time. CLINT Mcgrath
[2023-06-02] MEDS: SimETHICONE 80 MG Chewable Tablet PO (23:51)
[2023-06-02] MEDS: Acetaminophen 500 MG Tablet 1000 MG PO (23:51)
[2023-06-03 03:28] VITALS: BP 109/65; PULSE 75; O2SAT 99
[2023-06-03 03:30] VITALS: PULSE 73; RESP 18; TEMP 36.6; O2SAT 99
[2023-06-03] MEDS: Acetaminophen 500 MG Tablet 1000 MG PO (05:31)
[2023-06-03] MEDS: Ibuprofen 600 MG Tablet PO (05:32)
[2023-06-03 08:19] VITALS: BP 97/52; PULSE 72; O2SAT 99
[2023-06-03 08:25] VITALS: BP 97/52; PULSE 73; RESP 14; TEMP 36.1; O2SAT 99
--- NOTE | 2023-06-03 09:29 | PCM.PN.OB ---
Subjective Subjective Doing well per patient and nursing staff. Ambulating and taking PO without difficulty. Voiding and passing flatus. Pain controlled. , services for assistance. Denies headache, visual changes, chest pain, shortness of breath, leg pain or increased bleeding. Lochia normal. Objective Data Objective Data Vital Signs: Vital Signs Temp Pulse Resp BP Pulse Ox O2 Del Method 97.0 F L 73 14 97/52 L 99 Room Air 06/03/23 08:25 06/03/23 08:25 06/03/23 08:25 06/03/23 08:25 06/03/23 08:25 06/03/23 08:25 Oxygen Delivery Method Room Air Weight: 185 lb 12.8 oz Body Mass Index (BMI) 28.2 Intake & Output: Intake and Output for Last 24 Hours 06/01/23 06/02/23 06/03/23 23:59 23:59 23:59 Intake Total 2067.84 / 2067.84 2847.67 / 2847.67 Output Total 900 / 900 1450 / 1450 200 / 200 Balance 1167.84 / 1167.84 1397.67 / 1397.67 -200 / -200 Lab / Micro Data 06/01/23 07:45 ROS Constitutional Constitutional: Reports systems reviewed and no addt'l complaints, except as documented; Denies headache(s) Eyes Eyes: Denies acute decrease in peripheral vision, blurry vision or change in vision ENT HEENT: Reports systems reviewed and no addt'l complaints, except as documented Cardiovascular Cardiovascular: Denies chest pain or dizziness Respiratory/Chest Respiratory/Chest: Denies cough, dyspnea, dyspnea on exertion, shortness of breath at rest or shortness of breath with exertion Gastrointestinal Gastrointestinal: Denies abdominal pain, diarrhea, nausea or vomiting Genitourinary Genitourinary: Denies abdominal discomfort Musculoskeletal Musculoskeletal: Denies limited range of motion Integumentary Integumentary: Reports systems reviewed and no addt'l complaints, except as documented Neurologic Neurologic: Reports systems reviewed and no addt'l complaints, except as documented Psychiatric Psychiatric: Reports systems reviewed and no addt'l complaints, except as documented Endocrine Endocrinology: Reports systems reviewed and no addt'l complaints, except as documented Hematologic/Lymphatic Hematologic/Lymphatic: Reports systems reviewed and no addt'l complaints, except as documented Allergic/Immunologic Allergic/Immunologic: Reports systems reviewed and no addt'l complaints, except as documented Physical Exam Const alert and oriented x3 General Appearance: cooperative Orientation / Consciousness: awake, oriented to person, oriented to place and oriented to time Exam Limitations: no limitations HEENT normocephalic Head and Scalp: normal to inspection, normocephalic and atraumatic Face and Sinus: normal facial exam Eyes General Eye: normal appearance of both eyes Neck full ROM Chest Chest: symmetrical chest wall rise Resp normal respiratory effort and normal air movement Auscultation: clear to auscultation bilaterally Cardio regular rate, regular rhythm, S1 normal heart sound, S2 normal heart sound, no murmurs, no rub, no gallops and no clicks GI normal to inspection, nondistended, normoactive bowel sounds and non-tender appearance of the vagina normal Bladder / Kidney Exam: no CVA tenderness Back/Spine normal ROM Extremity normal to inspection and full ROM Skin no rashes or lesions noted Neuro oriented x3, CN's II-XII intact bilaterally and moves all extremities Sensorium / Orientation: awake, alert and oriented to person Assessment & Plan (1) Lactating mother: (2) Laceration of periurethral tissue with delivery: (3) First degree perineal laceration: (4) Vaginal delivery: (5) History of anxiety: PLAN: Plan 1) PPD#1 2) I&O 3) Pain management 4) 5) D/C home today 6) Follow up in 2 weeks and 6 weeks PP
--- NOTE | 2023-06-03 11:22 | PCM.DC.SUM ---
Providers Date of Admission: 06/01/23 Primary Care Physician: Dr. Emy Valencia MD Reason For Visit: VAGINAL DELIVERY Diagnosis Discharge Diagnosis (1) Lactating mother: Status: Acute Code(s): Z39.1 - Encounter for care and examination of lactating mother (2) Laceration of periurethral tissue with delivery: Status: Acute Code(s): O71.89 - Other specified obstetric trauma (3) First degree perineal laceration: Status: Acute Code(s): O70.0 - First degree perineal laceration during delivery (4) Vaginal delivery: Status: Acute Code(s): O80 - Encounter for full-term uncomplicated delivery (5) History of anxiety: Status: Acute Code(s): Z86.59 - Personal history of other mental and behavioral disorders Plan 1) PPD#1 2) I&O 3) Pain management 4) 5) D/C home today 6) Follow up in 2 weeks and 6 weeks PP Medications at Discharge Home Medications ondansetron HCl 4 mg tablet 4 mg PO Q6H PRN nausea and vomiting 10/26/22 omeprazole 20 mg capsule,delayed release 20 mg PO DAILY heartburn 06/01/23 Hospital Course Summary of Care Provided Minutes Spent on Discharge: 15 Weight / BMI Weight Weight: 185 lb 12.8 oz Body Mass Index (BMI) 28.2 ABG / Lab / Microbiology Data 06/01/23 07:45 Discharge Plan Admission Admit Date/Time: 06/01/23 07:07 Primary Reason for Your Visit: Vaginal Delivery Attending Provider: Digna Hill Primary Care Provider: Emy Valencia Instructions Patient Instructions: After a Vaginal Discharge Orders/Prescriptions Prescriptions: No Action ondansetron HCl [Zofran] 4 mg Tablet 4 mg PO Q6H PRN (Reason: nausea and vomiting) omeprazole 20 mg capsule,delayed release(DR/EC) 20 mg PO DAILY Referrals / Follow Up: Emy Valencia MD [Primary Care Provider] -
--- NOTE | 2023-06-03 11:24 | PCM.DC.SUM ---
Providers Date of Admission: 06/01/23 Primary Care Physician: Dr. Emy Valencia MD Reason For Visit: VAGINAL DELIVERY Diagnosis Discharge Diagnosis (1) Lactating mother: Status: Acute Code(s): Z39.1 - Encounter for care and examination of lactating mother (2) Laceration of periurethral tissue with delivery: Status: Acute Code(s): O71.89 - Other specified obstetric trauma (3) First degree perineal laceration: Status: Acute Code(s): O70.0 - First degree perineal laceration during delivery (4) Vaginal delivery: Status: Acute Code(s): O80 - Encounter for full-term uncomplicated delivery (5) History of anxiety: Status: Acute Code(s): Z86.59 - Personal history of other mental and behavioral disorders Plan 1) PPD#1 2) I&O 3) Pain management 4) 5) D/C home today 6) Follow up in 2 weeks and 6 weeks PP Medications at Discharge Home Medications ondansetron HCl 4 mg tablet 4 mg PO Q6H PRN nausea and vomiting 10/26/22 omeprazole 20 mg capsule,delayed release 20 mg PO DAILY heartburn 06/01/23 Weight / BMI Weight Weight: 185 lb 12.8 oz Body Mass Index (BMI) 28.2 ABG / Lab / Microbiology Data 06/01/23 07:45 Meaningful Use Info Meaningful Use Diagnoses (Choose all that apply): None applicable Discharge Plan Admission Admit Date/Time: 06/01/23 07:07 Primary Reason for Your Visit: Vaginal Delivery Attending Provider: Digna Hill Primary Care Provider: Emy Vaelncia Instructions Patient Instructions: After a Vaginal Discharge Orders/Prescriptions Prescriptions: No Action ondansetron HCl [Zofran] 4 mg Tablet 4 mg PO Q6H PRN (Reason: nausea and vomiting) omeprazole 20 mg capsule,delayed release(DR/EC) 20 mg PO DAILY Referrals / Follow Up: Digna Hill CNM [Med Staff - Adv Practice Prof] - (follow up in 2 weeks and 6 weeks PP) Emy Valencia MD [Primary Care Provider] - Disposition Disposition (needs filled in before D/C Order can be placed): Home, Self Care
[2023-06-03 12:12] VITALS: BP 117/65; PULSE 80; RESP 16; TEMP 36.2; O2SAT 97
[2023-06-03 12:13] VITALS: BP 117/65; PULSE 81
== END 2023-06-03 12:45 | disposition home or self-care (01) | DRG 805 ==
PROVIDERS: Advanced Practice Midwife; Admitting Provider Advanced Practice Midwife; PCP Internal Medicine; Referring Provider Advanced Practice Midwife; Visit Provider Advanced Practice Midwife
DX: O26.62 Liver and biliary tract disorders in childbirth (principal); Z37.0 Single live birth; K83.1 Obstruction of bile duct; O70.0 First degree perineal laceration during delivery; Z3A.38 38 weeks gestation of pregnancy
CPT/HCPCS: 59025; 59050; 85025; 86780; 86850; 86900; 86901; 99221; J7120; A4216; G0378; J2405

== ENCOUNTER 2023-08-03 04:01 | Emergency (ER) | payer BC, SELFPAY ==
[2023-08-03 04:02] VITALS: BP 124/77; PULSE 89; RESP 22; TEMP 36.8; O2SAT 100; BMI 26.6
[2023-08-03 04:22] LABS: Absolute Lymphocyte Count 2.15 X10^3/uL (0.83-4.51); Absolute Neutrophil Count 4.1 X10^3/uL (2.0-7.7); Basophil# 0.05 X10^3/uL; Basophil% 0.7 % (0-1); Eosinophil# 0.13 X10^3/uL; Eosinophils% 1.9 % (0-5); Hematocrit 36.8 % (37-47); Hemoglobin 11.5 g/dL (12.0-15.0); Lymphocyte # 2.15 X10^3/ul (0.83-4.51); Lymphocyte % 30.7 % (19-41); Mean Corp Hgb Conc 31.3 g/dL (32-36); Mean Corpuscular Hgb 26.9 pg (27.0-32.0); Mean Corpuscular Volume 86.2 fL (81-99); Mean Platelet Vol. 9.3 fl (6.2-12.0); Monocyte% 8.6 % (0-10); NRBC Flagged by Analyzer 0 % (0-5); Neutrophil # 4.05 X10^3/uL (2.7-7.7); Neutrophil % 57.7 % (47-70); Platelet Count 246 K/mm3 (150-450); RBC Distribution Width CV 13.2 % (11.6-14.6); RBC Distribution Width SD 41.3 fl (35.1-43.9); Red Blood Count 4.27 M/mm3 (4.2-5.4)
--- NOTE | 2023-08-03 04:33 | RAD_ITS ---
STUDY: X-RAY CHEST REASON FOR EXAM: Female, 28 years old. Chest pain TECHNIQUE: Single AP portable view of the chest. COMPARISON: None. FINDINGS: There is a hazy appearance of the right lung base allowing for technique. There is no demonstrated pleural abnormality. Normal size heart. Normal mediastinum and keira. Normal visualized pulmonary arteries. Normal visualized aortic arch and descending thoracic aorta. Normal visualized thoracic spine. Normal visualized ribs, clavicles, and shoulders. There is no demonstrated abnormality of the visualized soft tissue structures of the upper abdomen. RAD/Chest 1 View (Portable) IMPRESSION: Hazy appearance of the right lung base which may represent a developing infiltrate possible pneumonia, allowing for technique. Consider follow-up PA and lateral film of the chest to clarify. Electronically Signed: Sandhya Miranda MD at 5:01 EST ,
[2023-08-03 04:41] LABS: Anion Gap 8 (5-15); BUN 13 mg/dL (7-18); BUN/Creat Ratio 14.9 RATIO (10-20); Calcium,Total 9.4 mg/dL (8.5-10.1); Chloride 111 mmol/L (98-107); Creatinine, Serum 0.87 mg/dL (0.55-1.02); EST Glomerular Filtration Rate 81 mL/min (>60); Est Glom Filt Rate - Afr Amer 99 mL/min (>60); Estimated Creatinine Clearance 96.25 ml/min; Glucose 103 mg/dL (74-106); Potassium 3.5 mmol/L (3.5-5.1); Sodium Level 141 mmol/L (136-145); Troponin-I HS (w/2H Reflex) 4 pg/mL (3.0-54.0)
[2023-08-03 04:55] LABS: D-Dimer Quantitative (DVT/PE) 0.59 FEU/ug/m (0.27-0.49)
--- OUTSIDE RECORDS SUMMARY | 2023-08-03 04:55 | XMS RPT_ITS | CCD ---
Author Name Unknown Address [address] [place] [address] Organization [facility] Care Team Providers Care Insurance Marketing Rep Name Role Phone Annie COELHO, Wilson Primary Care Provider [phone] YOUSUF MENDOZA Admitting Unavailable YOUSUF MENDOZA Attending Unavailable GANTA, WILSON Primary Care Unavailable Annie COELHO, Wilson Primary Care Provider [phone] Annie COELHO, [facility] Primary Care Provider Anine COELHO, [facility] Primary Care Provider [phone] GANTA, WILSON Primary Care Unavailable SHELBY, KARMON Referring Unavailable GANTA, WILSON Primary Care Unavailable SHELBY, KARMON Referring Unavailable SHELBY, KARMON Referring Unavailable GANTA, WILSON Primary Care Unavailable GANTA, WILSON Primary Care Unavailable SHELBY, KARMON Referring Unavailable GANTA, WILSON Primary Care Unavailable SHELBY, KARMON Referring Unavailable GANTA, WILSON Primary Care Unavailable SHELBY, KARMON Referring Unavailable GANTA, WILSON Primary Care Unavailable SHELBY, KARMON Referring Unavailable GANTA, WILSON Primary Care Unavailable SHELBY, KARMON Referring Unavailable GANTA, WILSON Primary Care Unavailable SHELBY, KARMON Referring Unavailable GANTA, WILSON Primary Care Unavailable SHELBY, KARMON Referring Unavailable GANTA, WILSON Primary Care Unavailable SHELBY, KARMON Referring Unavailable GANTA, WILSON Primary Care Unavailable SHELBY, KARMON Referring Unavailable GANTA, WILSON Primary Care Unavailable SHELBY, KARMON Referring Unavailable SHELBY, KARMON Referring Unavailable GANTA, WILSON Primary Care Unavailable SHELBY, KARMON Referring Unavailable GANTA, WILSON Primary Care Unavailable GANTA, WILSON Primary Care Unavailable SHELBY, KARMON Referring Unavailable GANTA, WILSON Primary Care Unavailable LYUDMILA LAZCANO Attending Unavailable GANTA, WILSON Primary Care Unavailable SELF Referring Unavailable DIGNA HILL Attending Unavailable GANTA, WILSON Primary Care Unavailable HILL, DIGNA Referring Unavailable GANTA, WILSON Primary Care Unavailable GANTA, WILSON Primary Care Unavailable GANTA, WILSON Primary Care Unavailable NORA, RADHA Referring Unavailable KAYLEIGH PETERS Attending Unavailable NORA, RADHA Referring Unavailable GANTA, WILSON Primary Care Unavailable HILL, DIGNA Referring Unavailable GANTA, WILSON Primary Care Unavailable GANTA, WILSON Primary Care Unavailable HILL DIGNA Attending Unavailable GANTA, WILSON Primary Care Unavailable RADHA HILLSSICA Attending Unavailable GANTA, WILSON Primary Care Unavailable NORA, RADHA Referring Unavailable NORA, RADHA Attending Unavailable GANTA, WILSON Primary Care Unavailable ANANTH TOSCANO Attending Unavailable GANTA, WILSON Primary Care Unavailable NORA, RADHA Referring Unavailable GANTA, WILSON Primary Care Unavailable NORA, RADHA Attending Unavailable GANTA, WILSON Primary Care Unavailable NORA, RADHA Attending Unavailable NEAPRYLT HENRIQUEZARMINDA ELENARE Attending Unavail able GANTA, WILSON Primary Care Unavailable NEYHART HENRIQUEZ, LATA Referring Unavail able GANTA, WILSON Primary Care Unavailable NEYHART HENRIQUEZ, LATA Referring Unavail able NEYHART HENRIQUEZ, LATA Attending Unavail able GANTA, WILSON Primary Care Unavailable GANTA, WILSON Primary Care Unavailable NEAPRLYT FLORENCE LATA Attending Unavail able LYUDMILA LAZCANO Attending Unavailable GANTA, WILSON Primary Care Unavailable GANTA, WILSON Primary Care Unavailable NEYHART HENRIQUEZ, LATA Attending Unavail able GANTA, WILSON Primary Care Unavailable ANGEL LYUDMILA Referring Unavailable GANTA, WILSON Primary Care Unavailable GANTA, WILSON Attending Unavailable RADHA COOPERSSICA Attending Unavailable GANTA, WILSON Primary Care Unavailable GANTA, WILSON Primary Care Unavailable STRASBURG, DIGNA Referring Unavailable GANTA, WILSON Primary Care Unavailable GANTA, WILSON Primary Care Unavailable LUCI RYAN Attending Unavailable GANTA, WILSON Primary Care Unavailable NORA RADHA Attending Unavailable GANTA, WILSON Primary Care Unavailable LUCI RYAN Attending Unavailable GANTA, WILSON Primary Care Unavailable NORA, RADHA Attending Unavailable GANTA, WILSON Primary Care Unavailable NORA, RADHA Referring Unavailable GANTA, WILSON Primary Care Unavailable GANTA, WILSON Primary Care Unavailable GANTA, WILSON Primary Care Unavailable PIPER PEREZ Attending Unavailable LUCI RYAN Referring Unavailable GANTA, WILSON Primary Care Unavailable RADHA MELENDEZ Referring Unavailable Allergies Allergy Classification Reported Allergen(s) Allergy Type Date of Onset Reaction(s) Facility (20 sources) Caffeine; Translations: [CAFFEINE] Drug Allergy 1 Other: See Comments [facility] Work Phone: (10 sources) Penicillins; Translations: [PENICILLINS] Drug Allergy 1 [facility] Work Phone: (20 sources) Sulfamethoxazole / Trimethoprim; Translations: [SULFAMETHOXAZOLE-TR IMETHOPRIM] Drug Allergy 8 [facility] Work Phone: (20 sources) Penicillins Drug Allergy 1 [facility] Work Phone: (20 sources) Metoclopramide; Translations: [METOCLOPRAMIDE] Drug Allergy 3 Mental Status Change [facility] Medications Current Medications Medication Drug Class(es) Dates Sig (Normalized) Sig (Original) benzonatate 100 mg oral capsule (1 source) Non-narcotic Antitussive Start: 03-14-2022 End: 03-24-2022 take 1 capsule by mouth three times daily as needed benzonatate (TESSALON PERLE) 100 mg capsule Indications: Viral URI with cough Take 1 capsule by mouth three times daily as needed for up to 10 days. 30 capsule 0 03/14/2022 03/24/2022 Active Completed/Discontinued Medications Medication Drug Class(es) Dates Sig (Normalized) Sig (Original) acetaminophen 500 mg oral tablet (20 sources) Start: 05-29-2022 take 2 tablets by mouth every six hours acetaminophen (TYLENOL EXTRA STRENGTH) 500 mg tablet Take 2 tablets by mouth every 6 hours. 60 tablet 0 05/29/2022 Active Problems Active Problems Problem Classification Problem Date Documented Da te Episodic/Chronic Administrative/social admission (8 sources) Patient encounter status; Translations: [Dietary counseling and surveillance] Episodic Anal and rectal conditions (3 sources) Anorectal pain; Translations: [Other specified diseases of anus and rectum] Episodic Anxiety disorders (20 sources) Anxiety; Translations: [Anxiety disorder, unspecified] Onset: 05-16-2019 05-16-2019 Chronic Esophageal disorders (20 sources) Huizar's esophagus; Translations: [Huizar's esophagus without dysplasia] Onset: 05-10-2022 Chronic Female infertility (1 source) Female infertility; Translations: [Female infertility, unspecified] Chronic Hemorrhoids (1 source) Hemorrhoids; Translations: [Unspecified hemorrhoids] Episodic Menstrual disorders (9 sources) Dysmenorrhea; Translations: [Dysmenorrhea, unspecified] Onset: 05-29-2022 Chronic Other and unspecified benign neoplasm (2 sources) Mature cystic teratoma of left ovary; Translations: [Benign neoplasm of left ovary] 03-02-2023 Episodic Other and unspecified benign neoplasm (3 sources) Benign neoplasm, unspecified site; Translations: [Benign neoplasm of unspecified site] Onset: 07-10-2023 07-10-2023 Episodic Other complications of (14 sources) Spotting per vagina in ; Translations: [Spotting complicating , unspecified trimester] Onset: 10-05-2022 Episodic Other complications of (1 source) Mild hyperemesis gravidarum; Translations: [Mild hyperemesis gravidarum] Episodic Other complications of (1 source) Hyperemesis gravidarum before end of 22 week gestation with dehydration; Translations: [Hyperemesis gravidarum with metabolic disturbance] Episodic Other complications of (1 source) Nausea and vomiting; Translations: [Vomiting of , unspecified] 04-24-2023 Episodic Other complications of (1 source) Cholestasis of ; Translations: [Intrahepatic cholestasis of in third trimester] 05-31-2023 Episodic Other connective tissue disease (1 source) Female pelvic floor dysfunction; Translations: [Other specified disorders of muscle] Episodic Other connective tissue disease (1 source) Spasm; Translations: [Other muscle spasm] Episodic Other female genital disorders (1 source) Dyspareunia; Translations: [Other specified dyspareunia] Chronic Other female genital disorders (1 source) Vaginal discharge; Translations: [Other specified noninflammatory disorders of vagina] 07-10-2023 Episodic Other female genital disorders (1 source) Other specified noninflammatory disorders of vagina; Translations: [Vaginal discharge] Onset: 07-10-2023 Episodic Other gastrointestinal disorders (3 sources) Pain associated with defecation; Translations: [Constipation, unspecified] Episodic Other gastrointestinal disorders (2 sources) Diarrhea; Translations: [Diarrhea, unspecified] Episodic Other gastrointestinal disorders (1 source) Constipation, unspecified; Translations: [Dyschezia] Onset: 05-29-2022 Episodic Other nervous system disorders (2 sources) Central pain syndrome; 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 Other nervous system disorders (1 source) Central pain syndrome; 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] Onset: 09-08-2022 Chronic Other nutritional; endocrine; and metabolic disorders (2 sources) Obesity; Translations: [Obesity, unspecified] Chronic Other nutritional; endocrine; and metabolic disorders (1 source) Body mass index 30+ - obesity; Translations: [Obesity, unspecified] Chronic Other and delivery including normal (12 sources) Normal ; Translations: [Encounter for supervision of normal first , first trimester] Onset: 10-30-2022 Episodic Other upper respiratory infections (2 sources) Sore throat symptom; Translations: [Acute pharyngitis, unspecified] Episodic Ovarian cyst (20 sources) Cyst of left ovary; Translations: [Unspecified ovarian cyst, left side] Onset: 02-01-2023 02-01-2023 Episodic Residual codes; unclassified (3 sources) Postoperative state; Translations: [Other specified postprocedural states] Episodic Residual codes; unclassified (1 source) Gestation period, 7 weeks; Translations: [Less than 8 weeks gestation of ] Episodic Residual codes; unclassified (1 source) Gestation period, 11 weeks; Translations: [11 weeks gestation of ] Episodic Residual codes; unclassified (1 source) Gestation period, 21 weeks; Translations: [21 weeks gestation of ] Episodic Residual codes; unclassified (1 source) Gestation period, 25 weeks; Translations: [25 weeks gestation of ] 03-02-2023 Episodic Residual codes; unclassified (1 source) Gestation period, 30 weeks; Translations: [30 weeks gestation of ] 04-06-2023 Episodic Residual codes; unclassified (1 source) Gestation period, 32 weeks; Translations: [32 weeks gestation of ] 04-20-2023 Episodic Residual codes; unclassified (1 source) Gestation period, 33 weeks; Translations: [33 weeks gestation of ] 04-24-2023 Episodic Residual codes; unclassified (1 source) Gestation period, 34 weeks; Translations: [34 weeks gestation of ] 05-04-2023 Episodic Residual codes; unclassified (1 source) Gestation period, 36 weeks; Translations: [36 weeks gestation of ] 05-18-2023 Episodic Residual codes; unclassified (1 source) Gestation period, 37 weeks; Translations: [37 weeks gestation of ] 05-25-2023 Episodic Residual codes; unclassified (1 source) Gestation period, 38 weeks; Translations: [38 weeks gestation of ] 05-31-2023 Episodic Residual codes; unclassified (1 source) 37 weeks gestation of ; Translations: [37 weeks gestation of ] Onset: 05-25-2023 Episodic Substance-related disorders (20 sources) History of clinical finding in subject; Translations: [History of marijuana use] Onset: 10-05-2022 Chronic Thyroid disorders (20 sources) Hyperthyroidism; Translations: [Thyrotoxicosis, unspecified without thyrotoxic crisis or storm] Onset: 10-30-2018 10-30-2018 Chronic Unclassified (1 source) Physical Therapy Onset: 02-07-2023 Urinary tract infections (1 source) Cystitis; Translations: [Cystitis, unspecified without hematuria] Episodic Past or Other Problems Problem Classification Problem Date Documented Da te Episodic/Chronic Abdominal pain (20 sources) Pain in female pelvis; Translations: [Pelvic and perineal pain] Onset: 01-30-2023 Episodic Cardiac dysrhythmias (20 sources) Palpitations; Translations: [Palpitations] Onset: 12-31-2015 12-31-2015 Episodic Contraceptive and procreative management (1 source) Encounter for other procreative management; Translations: [Encounter for fertility planning] Onset: 09-08-2022 Episodic Fluid and electrolyte disorders (2 sources) Dehydration; Translations: [Dehydration] Onset: 10-25-2022 Episodic Gastrointestinal hemorrhage (2 sources) Rectal hemorrhage; Translations: [Hemorrhage of anus and rectum] Onset: 01-16-2023 Episodic Genitourinary symptoms and ill-defined conditions (4 sources) Dysuria; Translations: [Dysuria] Onset: 09-08-2022 Episodic Nausea and vomiting (2 sources) Nausea; Translations: [Nausea] Onset: 09-08-2022 Episodic Other aftercare (20 sources) Marijuana user; Translations: [Other terminal computer operator (current) drug therapy] Onset: 05-10-2022 Episodic Other complications of (20 sources) ; Translations: [Supervision of with history of infertility, unspecified trimester] Onset: 10-05-2022 Episodic Other complications of (20 sources) Morning sickness; Translations: [Other specified related conditions, unspecified trimester] Onset: 10-05-2022 Episodic Other complications of (1 source) Vomiting of , unspecified; Translations: [Nausea and vomiting in ] Onset: 10-30-2022 Episodic Other complications of (1 source) Supervision of with history of infertility, unspecified trimester; Translations: [ with history of infertility, antepartum] Onset: 10-05-2022 Episodic Other complications of (1 source) Hyperemesis gravidarum with metabolic disturbance; Translations: [Hyperemesis gravidarum before end of 22 week gestation with dehydration] Onset: 10-25-2022 Episodic Other complications of (1 source) Spotting complicating , unspecified trimester; Translations: [Spotting in early ] Onset: 10-03-2022 Episodic Other female genital disorders (20 sources) Pelvic floor dysfunction; Translations: [Other specified conditions associated with female genital organs and menstrual cycle] Onset: 04-21-2022 Episodic Other female genital disorders (3 sources) Other specified conditions associated with female genital organs and menstrual cycle; Translations: [High-tone pelvic floor dysfunction] Onset: 04-21-2022 Episodic Other nervous system disorders (20 sources) H/O: brain disorder; Translations: [Personal history of other diseases of the nervous system and sense organs] Onset: 05-10-2022 05-10-2022 Episodic Other nutritional; endocrine; and metabolic disorders (20 sources) H/O: hyperthyroidism; Translations: [Personal history of other endocrine, nutritional and metabolic disease] Onset: 05-10-2022 Episodic Other nutritional; endocrine; and metabolic disorders (1 source) Personal history of other endocrine, nutritional and metabolic disease; Translations: [History of hyperthyroidism] Onset: 10-05-2022 Episodic Other screening for suspected conditions (not mental disorders or infectious disease) (2 sources) Encounter for other specified screening; Translations: [Encounter for screening, unspecified] Onset: 01-15-2023 Episodic Residual codes; unclassified (1 source) 30 weeks gestation of ; Translations: [30 weeks gestation of ] Onset: 04-06-2023 Episodic Residual codes; unclassified (1 source) 25 weeks gestation of ; Translations: [25 weeks gestation of ] Onset: 03-23-2023 Episodic Residual codes; unclassified (1 source) 21 weeks gestation of ; Translations: [21 weeks gestation of ] Onset: 01-31-2023 Episodic Residual codes; unclassified (1 source) 18 weeks gestation of ; Translations: [18 weeks gestation of ] Onset: 01-15-2023 Episodic Residual codes; unclassified (1 source) 15 weeks gestation of ; Translations: [15 weeks gestation of ] Onset: 12-25-2022 Episodic Residual codes; unclassified (1 source) Less than 8 weeks gestation of ; Translations: [7 weeks gestation of ] Onset: 10-30-2022 Episodic Screening and history of mental health and substance abuse codes (20 sources) H/O: depression; Translations: [Personal history of other mental and behavioral disorders] Onset: 10-05-2022 Episodic Results Test Name Value Interpretation Reference Range Facil ity Vital Signs Date Time Vital Sign Value Performing Clinician Rose tolbert 07-10-2023 15:16-0500 Body weight 78.29 kg Digna Hill APRN.CNM Work Phone: [facility] 07-10-2023 15:16-0500 Diastolic blood pressure 64 mm[Hg] Digna Hill APRN.CNM Work Phone: [facility] 07-10-2023 15:16-0500 Systolic blood pressure 100 mm[Hg] Digna Hill APRN.CNM Work Phone: [facility] 05-31-2023 11:05-0400 Body weight 84.82 kg Lyudmila Lazcano APRN.CNM Work Phone: [facility] 05-31-2023 11:05-0400 Diastolic blood pressure 72 mm[Hg] Lyudmila Lazcano APRN.CNM Work Phone: [facility] 05-31-2023 11:05-0400 Systolic blood pressure 120 mm[Hg] Lyudmila Lazcano APRN.CNM Work Phone: [facility] 05-25-2023 15:30-0400 Body weight 84.82 kg Lata Henriquez MD Work Phone: [facility] 05-25-2023 15:30-0400 Diastolic blood pressure 66 mm[Hg] Lata Henriquez MD Work Phone: [facility] 05-25-2023 15:30-0400 Systolic blood pressure 110 mm[Hg] Lata Henriquez MD Work Phone: [facility] 05-18-2023 15:25-0400 Body weight 84.82 kg Radha Melendez MD Work Phone: [facility] 05-18-2023 15:25-0400 Diastolic blood pressure 72 mm[Hg] Radha Melendez MD Work Phone: [facility] 05-18-2023 15:25-0400 Systolic blood pressure 106 mm[Hg] Radha Melendez MD Work Phone: [facility] 05-04-2023 14:46-0400 Body weight 83.83 kg Luci Ryan MD Work Phone: [facility] 05-04-2023 14:46-0400 Diastolic blood pressure 64 mm[Hg] Luci Ryan MD Work Phone: [facility] 05-04-2023 14:46-0400 Systolic blood pressure 96 mm[Hg] Luci Ryan MD Work Phone: [facility] 04-24-2023 11:25-0400 Diastolic blood pressure 64 mm[Hg] Ob Ultrasound Work Phone: [facility] 04-24-2023 11:25-0400 Systolic blood pressure 104 mm[Hg] Ob Ultrasound Work Phone: [facility] 04-20-2023 15:26-0400 Body weight 82.1 kg Radha Melendez MD Work Phone: [facility] 04-20-2023 15:26-0400 Diastolic blood pressure 68 mm[Hg] Radha Melendez MD Work Phone: [facility] 04-20-2023 15:26-0400 Systolic blood pressure 108 mm[Hg] Radha Melendez MD Work Phone: [facility] 04-06-2023 14:28-0400 Body weight 80.74 kg Luci Ryan MD Work Phone: [facility] 04-06-2023 14:28-0400 Diastolic blood pressure 62 mm[Hg] Luci Ryan MD Work Phone: [facility] 04-06-2023 14:28-0400 Systolic blood pressure 116 mm[Hg] Luci Ryan MD Work Phone: [facility] 03-02-2023 13:26-0400 Body weight 77.11 kg Lyudmila Lazcano [employer].CNM Work Phone: [facility] 03-02-2023 13:26-0400 Diastolic blood pressure 66 mm[Hg] Lyudmila Plotts [employer].CNM Work Phone: [facility] 03-02-2023 13:26-0400 Systolic blood pressure 118 mm[Hg] Lyudmila Plotts [employer].CNM Work Phone: [facility] 02-04-2023 12:32-0400 Body temperature 98.2 [degF] Chante Kukich PA-C Work Phone: [facility] 02-04-2023 12:32-0400 Diastolic blood pressure 66 mm[Hg] Chante Kukich PA-C Work Phone: [facility] 02-04-2023 12:32-0400 Heart rate 87 /min Chante Kukich PA-C Work Phone: [facility] 02-04-2023 12:32-0400 Respiratory rate 16 /min Chante Kukich PA-C Work Phone: [facility] 02-04-2023 12:32-0400 Systolic blood pressure 102 mm[Hg] Chante Kukich PA-C Work Phone: [facility] 01-31-2023 14:51-0400 Body height 172.7 cm Kayleigh Peters MD Work Phone: [facility] 01-31-2023 14:51-0400 Body weight 73.03 kg Kayleigh Peters MD Work Phone: [facility] 01-16-2023 13:04-0400 Body height 172.7 cm Piper Perez MD Work Phone: [facility] 01-16-2023 13:04-0400 Body temperature 97.81 [degF] Piper Perez MD Work Phone: [facility] 01-16-2023 13:04-0400 Body weight 73.48 kg Piper Perez MD Work Phone: [facility] 01-16-2023 13:04-0400 Diastolic blood pressure 68 mm[Hg] Piper Perez MD Work Phone: [facility] 01-16-2023 13:04-0400 Heart rate 83 /min Piper Perez MD Work Phone: [facility] 01-16-2023 13:04-0400 SaO2% (BldA) [Mass fraction] 98 % Piper Perez MD Work Phone: [facility] 01-16-2023 13:04-0400 Systolic blood pressure 105 mm[Hg] Piper Perez MD Work Phone: [facility] 11-27-2022 15:09-0400 Body weight 73.48 kg Radha Melendez MD Work Phone: [facility] 11-27-2022 15:09-0400 Diastolic blood pressure 74 mm[Hg] Radha Melendez MD Work Phone: [facility] 11-27-2022 15:09-0400 Systolic blood pressure 112 mm[Hg] Radha Melendez MD Work Phone: [facility] 10-25-2022 15:44-0400 Body weight 73.94 kg Radha Melendez MD Work Phone: [facility] 10-25-2022 15:44-0400 Diastolic blood pressure 70 mm[Hg] Radha Melendez MD Work Phone: [facility] 10-25-2022 15:44-0400 Systolic blood pressure 112 mm[Hg] Radha Melendez MD Work Phone: [facility] 10-18-2022 11:20-0400 Body weight 76.66 kg Radha Melendez MD Work Phone: [facility] 10-18-2022 11:20-0400 Diastolic blood pressure 60 mm[Hg] Radha Melendez MD Work Phone: [facility] 10-18-2022 11:20-0400 Systolic blood pressure 108 mm[Hg] Radha Melendez MD Work Phone: [facility] 08-18-2022 14:11-0500 Body height 171.5 cm Wilson Rogers MD Work Phone: [facility] 08-18-2022 14:11-0500 Body temperature 98.1 [degF] Wilson Rogers MD Work Phone: [facility] 08-18-2022 14:11-0500 Body weight 82.56 kg Wilson Rogers MD Work Phone: [facility] 08-18-2022 14:11-0500 Diastolic blood pressure 56 mm[Hg] Wilson Rogers MD Work Phone: [facility] 08-18-2022 14:11-0500 Heart rate 77 /min Wilson Rogers MD Work Phone: [facility] 08-18-2022 14:11-0500 Respiratory rate 12 /min Wilson Rogers MD Work Phone: [facility] 08-18-2022 14:11-0500 SaO2% (BldA) [Mass fraction] 99 % Wilson Rogers MD Work Phone: [facility] 08-18-2022 14:11-0500 Systolic blood pressure 118 mm[Hg] Wilson Rogers MD Work Phone: [facility] 07-17-2022 13:03-0500 Body height 171.5 cm Yousuf Resendiz MD Work Phone: [facility] 07-17-2022 13:03-0500 Body weight 84.82 kg Yousuf Resendiz MD Work Phone: [facility] 07-17-2022 13:03-0500 Diastolic blood pressure 88 mm[Hg] Yousuf Resendiz MD Work Phone: [facility] 07-17-2022 13:03-0500 Heart rate 78 /min Yousuf Resendiz MD Work Phone: [facility] 07-17-2022 13:03-0500 Systolic blood pressure 133 mm[Hg] Yousuf Resendiz MD Work Phone: [facility] 07-05-2022 16:02-0500 Body height 171.5 cm Digna Cooper MD Work Phone: [facility] 07-05-2022 16:02-0500 Body weight 84.37 kg Digna Cooper MD Work Phone: [facility] 07-05-2022 16:02-0500 Diastolic blood pressure 80 mm[Hg] Digna Cooper MD Work Phone: [facility] 07-05-2022 16:02-0500 Systolic blood pressure 118 mm[Hg] Digna Cooper MD Work Phone: [facility] 05-29-2022 17:31-0400 Diastolic blood pressure 58 mm[Hg] Yousuf Resendiz MD Work Phone: [facility] 05-29-2022 17:31-0400 Heart rate 84 /min Yousuf Resendiz MD Work Phone: [facility] 05-29-2022 17:31-0400 Respiratory rate 16 /min Yousuf Resendiz MD Work Phone: [facility] 05-29-2022 17:31-0400 SaO2% (BldA) [Mass fraction] 98 % Yousuf Resendiz MD Work Phone: [facility] 05-29-2022 17:31-0400 Systolic blood pressure 107 mm[Hg] Yousuf Resendiz MD Work Phone: [facility] 05-29-2022 15:33-0400 Body temperature 97.2 [degF] Yousuf Resendiz MD Work Phone: [facility] 05-29-2022 13:20-0400 Body height 172.7 cm Yousuf Resendiz MD Work Phone: [facility] 05-29-2022 13:20-0400 Body weight 83.92 kg Yousuf Resendiz MD Work Phone: [facility] 05-10-2022 17:05-0400 Body height 172.7 cm [facility] 05-10-2022 17:05-0400 Body weight 83.92 kg [facility] 05-10-2022 17:05-0400 Heart rate 84 /min [facility] 04-21-2022 10:00-0400 Diastolic blood pressure 88 mm[Hg] Jenny Diaz PT Work Phone: [facility] 04-21-2022 10:00-0400 Systolic blood pressure 118 mm[Hg] Jenny Diaz PT Work Phone: [facility] 04-12-2022 14:49-0400 Body weight 87.09 kg Yousuf Resendiz MD Work Phone: [facility] 04-12-2022 14:49-0400 Diastolic blood pressure 81 mm[Hg] Yousuf Resendiz MD Work Phone: [facility] 04-12-2022 14:49-0400 Heart rate 77 /min Yousuf Resendiz MD Work Phone: [facility] 04-12-2022 14:49-0400 Systolic blood pressure 120 mm[Hg] Yousuf Resendiz MD Work Phone: [facility] 03-14-2022 11:47-0400 Body temperature 98.01 [degF] Violet Praisler-Wood COMMANDER INTERNAL AFFAIRS.DAIRY NUTRITIONIST Work Phone: [facility] 03-14-2022 11:47-0400 Body weight 87 kg Violet Praisler-Wood COMMANDER INTERNAL AFFAIRS.DAIRY NUTRITIONIST Work Phone: [facility] 03-14-2022 11:47-0400 Diastolic blood pressure 80 mm[Hg] Violet Praisler-Wood COMMANDER INTERNAL AFFAIRS.DAIRY NUTRITIONIST Work Phone: [facility] 03-14-2022 11:47-0400 Heart rate 81 /min Violet Praisler-Wood COMMANDER INTERNAL AFFAIRS.DAIRY NUTRITIONIST Work Phone: [facility] 03-14-2022 11:47-0400 Respiratory rate 18 /min Violet Praisler-Wood COMMANDER INTERNAL AFFAIRS.DAIRY NUTRITIONIST Work Phone: [facility] 03-14-2022 11:47-0400 SaO2% (BldA) [Mass fraction] 99 % Violet Praisler-Wood COMMANDER INTERNAL AFFAIRS.DAIRY NUTRITIONIST Work Phone: [facility] 03-14-2022 11:47-0400 Systolic blood pressure 122 mm[Hg] Violet Praisler-Wood COMMANDER INTERNAL AFFAIRS.DAIRY NUTRITIONIST Work Phone: [facility] 02-21-2022 13:32-0400 Body height 170.2 cm Digna Cooper MD Work Phone: [facility] 02-21-2022 13:32-0400 Body weight 88 kg Digna Cooper MD Work Phone: [facility] 02-21-2022 13:32-0400 Diastolic blood pressure 80 mm[Hg] Digna Cooper MD Work Phone: [facility] 02-21-2022 13:32-0400 Systolic blood pressure 118 mm[Hg] Digna Cooper MD Work Phone: [facility] 02-20-2022 14:45-0400 Body weight 88.45 kg Digna Hill APRN.CNM Work Phone: [facility] 02-20-2022 14:45-0400 Diastolic blood pressure 80 mm[Hg] Digna Hill COMMANDER INTERNAL AFFAIRS.CNM Work Phone: [facility] 02-20-2022 14:45-0400 Systolic blood pressure 118 mm[Hg] Digna Hill COMMANDER INTERNAL AFFAIRS.CNM Work Phone: [facility] 12-30-2021 09:24-0400 Body weight 87.54 kg Judie Older COMMANDER INTERNAL AFFAIRS.DAIRY NUTRITIONIST Work Phone: [facility] 12-30-2021 09:24-0400 Diastolic blood pressure 76 mm[Hg] Judie Older COMMANDER INTERNAL AFFAIRS.DAIRY NUTRITIONIST Work Phone: [facility] 12-30-2021 09:24-0400 Heart rate 88 /min Judie Older COMMANDER INTERNAL AFFAIRS.DAIRY NUTRITIONIST Work Phone: [facility] 12-30-2021 09:24-0400 Respiratory rate 16 /min Judie Older COMMANDER INTERNAL AFFAIRS.DAIRY NUTRITIONIST Work Phone: [facility] 12-30-2021 09:24-0400 Systolic blood pressure 112 mm[Hg] Judie Older COMMANDER INTERNAL AFFAIRS.DAIRY NUTRITIONIST Work Phone: [facility] 12-28-2021 14:45-0400 Body height 170.2 cm Piper Perez MD Work Phone: [facility] 12-28-2021 14:45-0400 Body temperature 97.59 [degF] Piper Perez MD Work Phone: [facility] 12-28-2021 14:45-0400 Body weight 88.91 kg Piper Perez MD Work Phone: [facility] 12-28-2021 14:45-0400 Diastolic blood pressure 78 mm[Hg] Piper Perez MD Work Phone: [facility] 12-28-2021 14:45-0400 Heart rate 122 /min Piper Perez MD Work Phone: [facility] 12-28-2021 14:45-0400 SaO2% (BldA) [Mass fraction] 100 % Piper Perez MD Work Phone: [facility] 12-28-2021 14:45-0400 Systolic blood pressure 102 mm[Hg] Piper Perez MD Work Phone: [facility] 12-02-2021 14:02-0400 Body weight 91.17 kg Judie Older COMMANDER INTERNAL AFFAIRS.DAIRY NUTRITIONIST Work Phone: [facility] 12-02-2021 14:02-0400 Diastolic blood pressure 84 mm[Hg] Judie Older COMMANDER INTERNAL AFFAIRS.DAIRY NUTRITIONIST Work Phone: [facility] 12-02-2021 14:02-0400 Heart rate 92 /min Judie Older COMMANDER INTERNAL AFFAIRS.DAIRY NUTRITIONIST Work Phone: [facility] 12-02-2021 14:02-0400 Respiratory rate 16 /min Judie Older COMMANDER INTERNAL AFFAIRS.DAIRY NUTRITIONIST Work Phone: [facility] 12-02-2021 14:02-0400 Systolic blood pressure 122 mm[Hg] Judie Older COMMANDER INTERNAL AFFAIRS.DAIRY NUTRITIONIST Work Phone: [facility] 11-04-2021 14:10-0400 Body weight 93.44 kg Judie Older COMMANDER INTERNAL AFFAIRS.DAIRY NUTRITIONIST Work Phone: [facility] 11-04-2021 14:10-0400 Diastolic blood pressure 76 mm[Hg] Judie Older COMMANDER INTERNAL AFFAIRS.DAIRY NUTRITIONIST Work Phone: [facility] 11-04-2021 14:10-0400 Heart rate 92 /min Judie Older COMMANDER INTERNAL AFFAIRS.DAIRY NUTRITIONIST Work Phone: [facility] 11-04-2021 14:10-0400 Respiratory rate 16 /min Judie Older COMMANDER INTERNAL AFFAIRS.DAIRY NUTRITIONIST Work Phone: [facility] 11-04-2021 14:10-0400 Systolic blood pressure 122 mm[Hg] Judie Older COMMANDER INTERNAL AFFAIRS.DAIRY NUTRITIONIST Work Phone: [facility] Encounters Encounter Date Encounter Type Care Provider Facility Start: 07-13-2023 End: 07-13-2023 [facility] Start: 07-13-2023 End: 07-13-2023 Subsequent hospital visit by physician [facility] Work Phone: Radiology Procedures Date Procedure Procedure Detail Performing Clinician Start: 05-31-2023 URINE OB DIP B/O Roscoe Lazcano COMMANDER INTERNAL AFFAIRS.CNM Work Phone: Start: 05-25-2023 URINE OB DIP B/O Lata Henriquez MD Work Phone: Start: 05-18-2023 URINE OB DIP B/O Mitzy Melendez MD Work Phone: Start: 05-04-2023 URINE OB DIP B/O Luci Ryan MD Work Phone: Start: 04-24-2023 Us preg uterus after 1st trimest 08/06 gestation Radha Melendez MD Work Phone: Start: 04-20-2023 URINE OB DIP B/O Mitzy Melendez MD Work Phone: Start: 04-06-2023 URINE OB DIP B/O Luci Ryan MD Work Phone: Start: 03-02-2023 URINE OB DIP B/O Roscoe Lazcano COMMANDER INTERNAL AFFAIRS.CNM Work Phone: Start: 02-04-2023 Urnls dip stick/tabl et rgnt auto w/o microscopy Chante Suárez PA-C Work Phone: Start: 01-31-2023 Us preg uterus after 1st trimest 08/06 gestation Radha Melendez MD Work Phone: Start: 11-27-2022 URINE OB DIP B/O Mitzy Melendez MD Work Phone: Start: 10-30-2022 Antibody screen [facility] Plan of Treatment Date Care Activity Detail Author Start: 10-30-2025 PAP TESTING PAP TESTING [facility] Start: 05-18-2024 Urine microalbumin profile DTa P,Tdap,Td Vaccine (1 - Tdap) [facility] Immunizations Immunization Date Immunization Notes Care Provider Fa cilitiny 05-16-2019 influenza virus vacc ine, unspecified formulation Hector Tabellion PT Work Phone: [facility] Payers Date Payer Category Payer Unknown YVONNE TOBIN PPO [id number] 2020-Present [phone] [address] [place] [address] PPO [id number] 2020 Unknown [id number] 2020 Unknown [id number] Social History Date Type Detail Facility Start: 05-24-2011 End: 03-14-2022 Tobacco smoking status NHIS Never smoked tobacco [facility] Work Phone: Start: 05-24-2011 End: 03-14-2022 Tobacco use and exposure Smokeless tobacco non-user [facility] Work Phone: Start: 10-04-2021 End: 08-18-2022 Alcohol intake Current drinker of alcohol (finding) [facility] Start: 02-12-2020 End: 03-16-2021 History SDOH Alcohol Frequency 1 [facility] Start: 09-10-2020 History SDOH Alcohol Comment occasionally [facility] Start: 03-16-2021 History SDOH Social Connections Phone 5 [facility] Start: 03-16-2021 History SDOH Social Connections Congregation 3 [facility] Start: 03-16-2021 End: 11-25-2021 History SDOH Physical Activity DPW 2 [facility] Start: 03-16-2021 History SDOH Physical Activity MPS 9 [facility] Start: 12-02-2019 Education 12 [facility] Start: 1995 Sex Assigned At Not on file [facility] Start: 09-04-2021 End: 07-05-2022 Exposure to SARS-CoV-2 (event) Not sure [facility] Start: 10-25-2021 End: 12-30-2021 Exposure to SARS-CoV-2 (event) Unable to assess [facility] Start: 05-10-2022 History SDOH Alcohol Comment rarely [facility] Start: 10-05-2022 End: 07-10-2023 Alcohol intake Ex-drinker (finding) [facility] Start: 10-05-2022 Education 13 [facility] Start: 09-19-2022 [facility] Start: 03-15-2021 End: 12-25-2022 History of Social function [facility] Start: 03-15-2021 End: 12-25-2022 Social connection and isolation panel [facility] Do you belong to any clubs or organizations such as confucianism groups, unions, fraternal or athletic groups, or school groups? Yes [facility] Are you now , , , , never or living with a partner? [facility] How often to you hav e a drink containing alcohol? Never [facility] Average Number of Drinks Not on file [facility] Do you feel stress - tense, restless, nervous, or anxious, or unable to sleep at night because your mind is troubled all the time - these days [OSQ] To some extent [facility] (I/We) worried wheth er (my/our) food would run out before (I/we) got money to buy more. Never true [facility] In the past 12 month s, was there a time when you were not able to pay the mortgage or rent on time? No [facility] Clinical Notes 10-30-2018 to 07-10-2023 Digna Hill APRN.CNM - 07/10/2023 3:08 PM ESTPrenatal Quick Notes - Lyudmila Lazcano APRN.CNM - 05/31/2023 2:24 PM EDTPrenatal Quick Notes - Lyudmila Lazcano APRN.CNM - 05/31/2023 11:34 AM EDT Note Date & Type Note Facility 07-10-2023 Note HNO ID: [id number] Author: Digna Hill APRN.CNM Service: ? Author Type: [employer] Type: Progress Notes Filed: 07/10/2023 3:37 PM Note Text: VISIT Mary Oleary is a 28 year old year old here for visit. Delivery Summary: Date: 06/02/2023 Time: 8:24am Sex: F Name: Becky Weight: 6# 0oz Outcome: Anesthesia: Epidural Delivered by: DINO Perineal repair: 1st degree perineal lac. ROS/ Recovery: Feeding: Bottle feeding problems: None Menses since delivery: None Menstrual pattern prior to : Regular periods Waka since delivery: Not resumed Depression: denies symptoms of depression. OB Depression and Anxiety Screening- This Encounter (since 07/09/2023) Over the past 2 weeks have you felt down, depressed, or hopeless? Negative Over the past two weeks, have you felt little interest or pleasure in doing things?? Negative Feeling nervous, anxious or on edge 0-Not at all Not being able to stop or control worrying 0-Not al all Anxiety Pre-Screening Total (If >/= 3 additional questions will be reviewed) 0 Emotional support: Yes Bowel symptoms: Negative for abdominal discomfort, blood in stools or black stools Abdomen: N/A Bladder symptoms: No dysuria, gross hematuria, urinary frequency, urinary urgency, or incontinence Other issues: None Last Pap: 2019 normal HPV: N/A PAST MEDICAL HISTORY Diagnosis Date Anal fissure Anxiety Huizar's esophagus Chronic constipation Depression Hemorrhoids internal and external History of hyperthyroidism 05/10/2022 History of seizures as a child Hyperthyroidism Hyperthyroidism 10/30/2018 Infertility, female Ovarian cyst PAST SURGICAL HISTORY Procedure Laterality Date COLONOSCOPY 07/13/2021 gastritis and colitis found EGD 07/13/2021 LAPAROSCOPY W/RMVL ADNEXAL STRUCTURES Left 04/11/2018 Left ovarian cystectomy for dermoid cyst OVARIAN CYSTECTOMY Left 2018 FAMILY HISTORY Problem Relation Age of Onset Hypothyroidism Mother Migraines Mother Hypertension Father Migraines Brother other (ginette cyst) Brother Hypertension Maternal Grandmother other (Tachycardia) Maternal Grandmother Diabetes Maternal Grandfather Heart Maternal Grandfather Hypertension Paternal Grandmother Hyperlipidemia Paternal Grandmother Ischemic Heart Disease Paternal Grandfather History of heart attacks Stroke Paternal Grandfather Hyperlipidemia Paternal Grandfather Hypertension Paternal Grandfather Aneurysm Paternal Grandfather Anesthesia Problems No Family History Social History Tobacco Use Smoking status: Never Smokeless tobacco: Never Vaping Use Vaping Use: Former Quit date: 09/30/2022 Substances: THC Substance Use Topics Alcohol use: Not Currently Comment: rarely Drug use: Yes Frequency: 7.0 times per week Types: Marijuana Comment: medical marijuana PHYSICAL EXAMINATION: LMP 09/05/2022 BP 100/64 Wt 172 lb 9.6 oz (78.3 kg) LMP 09/05/2022 (Exact Date) No BMI 26.24 kg/m? GENERAL: pleasant, female in no apparent distress HEENT: Normocephalic, atraumatic, mucus membranes moist, and no lesions NECK: Supple, full range of motion, no adenopathy, and thyroid normal DERMATOLOGY: Normal, without lesions, non-icteric, and non-hirsute BREAST: soft, non-tender, symmetric, no dominant mass, normal nipple-areolar complex, no lymphadenopathy, and no nipple discharge CHEST: Clear to auscultation, Normal inspiratory effort, Regular rate and rhythm, and No murmurs, clicks, rubs or gallops ABDOMEN: soft, non-tender, and no masses. INCISION: N/A PELVIC: external genitalia normal, normal Bartholin's glands, urethra, Peters's glands, no vulvar lesions, no cervical lesions, good vaginal support, physiologic discharge present, normal appearing perineal body and perianal region BIMANUAL: uterus normal size, shape and consistency, no adnexal masses, and non-tender NEURO: alert and oriented x3,exam grossly non-focal EXTREMITIES: normal ASSESSMENT AND PLAN: 28 year old status post with normal course. Contraception plan: condoms Follow up: RTC for annual exams and PRN, Pelvic US for prior dermoid cyst Digna Hill APRN.[facility] 07-10-2023 History of Presen t illness Narrative VISIT Mary Oleary is a 28 year old year old here for visit. Delivery Summary: Date: 06/02/2023 Time: 8:24am Sex: F Name: Becky Weight: 6# 0oz Outcome: Anesthesia: Epidural Delivered by: DINO Perineal repair: 1st degree perineal lac. ROS/ Recovery: Feeding: Bottle feeding problems: None Menses since delivery: None Menstrual pattern prior to : Regular periods Waka since delivery: Not resumed Depression: denies symptoms of depression. OB Depression and Anxiety Screening- This Encounter (since 07/09/2023) Over the past 2 weeks have you felt down, depressed, or hopeless? Negative Over the past two weeks, have you felt little interest or pleasure in doing things? Negative Feeling nervous, anxious or on edge 0-Not at all Not being able to stop or control worrying 0-Not al all Anxiety Pre-Screening Total (If >/= 3 additional questions will be reviewed) 0 Emotional support: Yes Bowel symptoms: Negative for abdominal discomfort, blood in stools or black stools Abdomen: N/A Bladder symptoms: No dysuria, gross hematuria, urinary frequency, urinary urgency, or incontinence Other issues: None Last Pap: 2019 normal HPV: N/A PAST MEDICAL HISTORY Diagnosis Date Anal fissure Anxiety Huizar's esophagus Chronic constipation Depression Hemorrhoids internal and external History of hyperthyroidism 05/10/2022 History of seizures as a child Hyperthyroidism Hyperthyroidism 10/30/2018 Infertility, female Ovarian cyst PAST SURGICAL HISTORY Procedure Laterality Date COLONOSCOPY 07/13/2021 gastritis and colitis found EGD 07/13/2021 LAPAROSCOPY W/RMVL ADNEXAL STRUCTURES Left 04/11/2018 Left ovarian cystectomy for dermoid cyst OVARIAN CYSTECTOMY Left 2018 FAMILY HISTORY Problem Relation Age of Onset Hypothyroidism Mother Migraines Mother Hypertension Father Migraines Brother other (ginette cyst) Brother Hypertension Maternal Grandmother other (Tachycardia) Maternal Grandmother Diabetes Maternal Grandfather Heart Maternal Grandfather Hypertension Paternal Grandmother Hyperlipidemia Paternal Grandmother Ischemic Heart Disease Paternal Grandfather History of heart attacks Stroke Paternal Grandfather Hyperlipidemia Paternal Grandfather Hypertension Paternal Grandfather Aneurysm Paternal Grandfather Anesthesia Problems No Family History Social History Tobacco Use Smoking status: Never Smokeless tobacco: Never Vaping Use Vaping Use: Former Quit date: 09/30/2022 Substances: THC Substance Use Topics Alcohol use: Not Currently Comment: rarely Drug use: Yes Frequency: 7.0 times per week Types: Marijuana Comment: medical marijuana PHYSICAL EXAMINATION: LMP 09/05/2022 BP 100/64 Wt 172 lb 9.6 oz (78.3 kg) LMP 09/05/2022 (Exact Date) No BMI 26.24 kg/m GENERAL: pleasant, female in no apparent distress HEENT: Normocephalic, atraumatic, mucus membranes moist, and no lesions NECK: Supple, full range of motion, no adenopathy, and thyroid normal DERMATOLOGY: Normal, without lesions, non-icteric, and non-hirsute BREAST: soft, non-tender, symmetric, no dominant mass, normal nipple-areolar complex, no lymphadenopathy, and no nipple discharge CHEST: Clear to auscultation, Normal inspiratory effort, Regular rate and rhythm, and No murmurs, clicks, rubs or gallops ABDOMEN: soft, non-tender, and no masses. INCISION: N/A PELVIC: external genitalia normal, normal Bartholin's glands, urethra, Peters's glands, no vulvar lesions, no cervical lesions, good vaginal support, physiologic discharge present, normal appearing perineal body and perianal region BIMANUAL: uterus normal size, shape and consistency, no adnexal masses, and non-tender NEURO: alert and oriented x3,exam grossly non-focal EXTREMITIES: normal ASSESSMENT AND PLAN: 28 year old status post with normal course. Contraception plan: condoms Follow up: RTC for annual exams and PRN, Pelvic US for prior dermoid cyst Digna Hill APRN.CNM documented in this encounter [facility] 06-04-2023 Note HNO ID: [id number] Author: Arely Louis RN Service: ? Author Type: ? Type: Progress Notes Filed: 06/04/2023 9:53 AM Note Text: Patient delivered via at [facility] on 06/02/23 per Digna Hill CNM. See OB Outcome note. Arely Louis RN [facility] 05-31-2023 Miscellaneous Notes Patient spoke with and decided would like to start induction of labor tonight. Unit called and patient scheduled for 7 pm. Lyudmila Lazcano APRN.CNM Mary Oleary is a 27 year old female who presents as add on visit for itchy hands and feet. Stated for the past two days has noticed soles of feet and palms itching. Unable to sleep last night due to itching. Not taking any medications. Positive movement. Occasional contractions. CE - C/T/H S=D ASSESSMENT/PLAN: 1. Encounter for supervision of normal first in third trimester - ICD9: V22.0, ICD10: Z34.03 (primary diagnosis) 2. 38 weeks gestation of - ICD9: V22.2, ICD10: Z3A.38 3. Intrahepatic cholestasis of in third trimester - ICD9: 646.73, 576.8, ICD10: O26.643 - Reviewed ICP diagnosis and lab work to confirm diagnosis - Discussed recommendation of delivery is 37-38.6 weeks gestation if bile salts are <40 - Bile salts take over 1 week to return - options are to start medications today for itching, draw labs and close monitoring as outpatient or induction of labor today. - R/B/A to induction of labor reviewed with patient - Patient asking for primary elective C/S initially but unsure after discussing options for induction of labor and asking questions - Patient would like to go home and discuss with - will call office - Dr. Toscano aware and involved with plan of care. Lyudmila Lazcano APRN.CNM documented in this encounter [facility] 05-31-2023 Instructions Kaushik Mathis Cma - 05/31/2023 11:02 AM EDT SEQUENTIAL SCREENINGS The [facility] offers sequential screenings for women who are interested in screenings for chromosomal abnormalities and certain defects during a . The sequential screen combines ultrasound and blood tests to determine the risk of chromosomal abnormalities, including Down's Syndrome (Trisomy 21) and Trisomy 18, as well as open neural tube defects including spina bifida. Ultrasound examination is performed between 11 weeks and 13 weeks gestational age. Blood tests are drawn after the ultrasound and again later in the between 15 and 21 weeks gestational age. Please let your physician know if you are interested in this testing. It will require an appointment with our lidar technician. This is not an ultrasound performed by a physician in our office during a routine visit. SIGNS AND SYMPTOMS OF LABOR 1. Contractions every 10 minutes or more often 2. Clear, pink, or brownish fluid (water) leaking from vagina 3. Feeling that baby is pushing down, pressure 4. Low, dull backache 5. Cramps that feel like a period 6. Cramps with or without diarrhea If you notice any of the above symptoms, contact our office at [phone] and ask to speak with a nurse. After hours, you can call doctors registry at [phone] OR call [facility] at [phone] and ask to have the doctor resident surgeon paged. If you consider this an emergency, dial [phone] or go to your nearest emergency department. NEED HELP? Are you dealing with a violent or abusive relationship? Are you a victim of rape or sexual assult? Call [facility] ([place]) 24 hour Crisis Hotline: 241.153.5915 or 435-497-9039. MANUAL Your Guide to a Healthy manual is now on-line. Visit [email or web address] to download your free copy documented in this encounter [facility] 05-31-2023 Miscellaneous Notes Spoke with pt and she was assisted to schedule appointment to be seen today. Karla Matamoros LPN Please work patient into office visit today. Lyudmila Lazcano APRN.CNM Please see pt's mychart and advise from here. Karla Matamoros LPN' documented in this encounter [facility] 05-29-2023 Note Patient Outreach (SUAD PLATAAV) MARY OLEARY ([id number]) 1995 F Date Time Provider Department 05/29/23 CHITRA MONAHAN During your visit today, we recorded the following information about you: Chitra Monahan MA 05/29/2023 11:29 AM Signed POPULATION HEALTH NAVIGATION OUTREACH Action/FYI Called and spoke with pt and updated hospice clinical marketer. Patient Identified by Name and : YES, via phone Outreach Outcome/Action OB/PEDS field updated Did you use a PCP flex slot to schedule this appointment? N/A Reason for Outreach Payer: Payor: YVONNE / Plan: BLUE ACCESS PPO / Product Type: PPO / Care Gap Reviewed:: N/A Reminder: Reminder note to check Health Maintenance for items below Health Maintenance items due: Hepatitis B Vaccine(1 of 3 - 3-dose series) Never done Covid-19 Vaccine(1) Never done Navigation Signature: Chitra Fernandez MA May 29, 2023 11:28 AM Allergies As of Date: 05/29/2023 Noted Allergy Reaction BACTRIM (SULFAMETHOXAZOLE-TRIMETH*2017 4 - Hives CAFFINE (CAFFEINE) 05/24/2011 14 - Other: See Comments Comments: tachycardia PENICILLINS 05/24/2011 4 - Hives REGLAN (METOCLOPRAMIDE) 11/27/2022 1 - Mental Status Change Date Reviewed: 05/25/2023 Reviewed by: Rina Lambert Ma - Fully Assessed Reason for Visit: Population Health Navigation Outreach [3910] Cmt: Peds/OB Prescriptions as of 05/29/2023 - omeprazole magnesium (PRILOSEC ORAL) Take by mouth. - Dzkperpd-Kd-Fho-Fe-FA tab Take 1 tablet by mouth once daily. - ferrous sulfate (SLOW FE) 140 mg (45 mg iron) TbER Take 1 tablet by mouth every other day. Facility-Administered Medications as of 05/29/2023 - onabotulinum toxin type A 100 Units injection (BOTOX) Problem List As Of Date 05/29/2023 Noted Resolved Palpitation [R00.2] 12/31/2015 11/27/2022 Hyperthyroidism [E05.90] 10/30/2018 08/18/2022 Anxiety [F41.9] 05/16/2019 High-tone pelvic floor dysfunction [N94.89] 04/21/2022 Medical marijuana use [Z79.899] 05/10/2022 Huizar's esophagus without dysplasia [K22.70] 05/10/2022 History of hyperthyroidism [Z86.39] 05/10/2022 History of seizures as a child [Z86.69] 05/10/2022 with history of infertility, antepart*10/05/2022 History of depression [Z86.59] 10/05/2022 Spotting in [O26.859] 10/05/2022 11/27/2022 History of marijuana use [F12.91] 10/05/2022 related nausea, antepartum [O26.899, *10/05/2022 Ovarian cyst, left [N83.202] 02/01/2023 Encounter Status:Closed by CHITRA MONAHAN on 05/29/23 [facility] 05-29-2023 Note HNO ID: [id number] Author: Chitra Monahan MA Service: ? Author Type: Director Perioperative Type: Progress Notes Filed: 05/29/2023 11:29 AM Note Text: POPULATION HEALTH NAVIGATION OUTREACH Action/FYI Called and spoke with pt and updated hospice clinical marketer. Patient Identified by Name and : YES, via phone Outreach Outcome/Action OB/PEDS field updated Did you use a PCP flex slot to schedule this appointment? N/A Reason for Outreach Payer: Payor: YVONNE / Plan: BLUE ACCESS PPO / Product Type: PPO / Care Gap Reviewed:: N/A Reminder: Reminder note to check Health Maintenance for items below Health Maintenance items due: Hepatitis B Vaccine(1 of 3 - 3-dose series) Never done Covid-19 Vaccine(1) Never done Navigation Signature: Chitra Fernandez MA May 29, 2023 11:28 AM [facility] 05-29-2023 History of Presen t illness Narrative POPULATION HEALTH NAVIGATION OUTREACH Action/FYI Called and spoke with pt and updated hospice clinical marketer. Patient Identified by Name and : YES, via phone Outreach Outcome/Action OB/PEDS field updated Did you use a PCP flex slot to schedule this appointment? N/A Reason for Outreach Derry Payer: Payor: YVONNE / Plan: BLUE ACCESS PPO / Product Type: PPO / Care Gap Reviewed:: N/A Reminder: Reminder note to check Health Maintenance for items below Health Maintenance items due: Hepatitis B Vaccine(1 of 3 - 3-dose series) Never done Covid-19 Vaccine(1) Never done Navigation Signature: Chitra Fernandez MA May 29, 2023 11:28 AM documented in this encounter [facility] 05-25-2023 Miscellaneous Notes DM- Pt doing well today. Denies Vaginal Bleeding, Leaking fluid, or contractions. Pt reports good movement. GBS negative. RTO 1 week. Kick counts and labor reviewed. Lata Miller MD documented in this encounter [facility] 05-25-2023 Instructions Rina Lambert Ma - 05/25/2023 3:26 PM EDT SEQUENTIAL SCREENINGS The [facility] offers sequential screenings for women who are interested in screenings for chromosomal abnormalities and certain defects during a . The sequential screen combines ultrasound and blood tests to determine the risk of chromosomal abnormalities, including Down's Syndrome (Trisomy 21) and Trisomy 18, as well as open neural tube defects including spina bifida. Ultrasound examination is performed between 11 weeks and 13 weeks gestational age. Blood tests are drawn after the ultrasound and again later in the between 15 and 21 weeks gestational age. Please let your physician know if you are interested in this testing. It will require an appointment with our lidar technician. This is not an ultrasound performed by a physician in our office during a routine visit. SIGNS AND SYMPTOMS OF LABOR 1. Contractions every 10 minutes or more often 2. Clear, pink, or brownish fluid (water) leaking from vagina 3. Feeling that baby is pushing down, pressure 4. Low, dull backache 5. Cramps that feel like a period 6. Cramps with or without diarrhea If you notice any of the above symptoms, contact our office at [phone] and ask to speak with a nurse. After hours, you can call doctors registry at [phone] OR call [facility] at [phone] and ask to have the doctor resident surgeon paged. If you consider this an emergency, dial 9-1-7 or go to your nearest emergency department. NEED HELP? Are you dealing with a violent or abusive relationship? Are you a victim of rape or sexual assult? Call [facility] ([place]) 24 hour Crisis Hotline: 209.722.4709 or 634-878-6979. MANUAL Your Guide to a Healthy manual is now on-line. Visit [email or web address] to download your free copy documented in this encounter [facility] 05-18-2023 Miscellaneous Notes RR- No VB/LOF. Good FM. No regular ctxs. F./units in 1 week or prn GBS done declines flu vaccine declines tdap brief US confirms vtx Radha Melendez MD documented in this encounter [facility] 05-18-2023 Instructions Kateryna Vergara Ma - 05/18/2023 3:09 PM EDT SEQUENTIAL SCREENINGS The [facility] offers sequential screenings for women who are interested in screenings for chromosomal abnormalities and certain defects during a . The sequential screen combines ultrasound and blood tests to determine the risk of chromosomal abnormalities, including Down's Syndrome (Trisomy 21) and Trisomy 18, as well as open neural tube defects including spina bifida. Ultrasound examination is performed between 11 weeks and 13 weeks gestational age. Blood tests are drawn after the ultrasound and again later in the between 15 and 21 weeks gestational age. Please let your physician know if you are interested in this testing. It will require an appointment with our lidar technician. This is not an ultrasound performed by a physician in our office during a routine visit. SIGNS AND SYMPTOMS OF LABOR 1. Contractions every 10 minutes or more often 2. Clear, pink, or brownish fluid (water) leaking from vagina 3. Feeling that baby is pushing down, pressure 4. Low, dull backache 5. Cramps that feel like a period 6. Cramps with or without diarrhea If you notice any of the above symptoms, contact our office at [phone] and ask to speak with a nurse. After hours, you can call doctors registry at [phone] OR call [facility] at [phone] and ask to have the doctor resident surgeon paged. If you consider this an emergency, dial 04-06-4 or go to your nearest emergency department. NEED HELP? Are you dealing with a violent or abusive relationship? Are you a victim of rape or sexual assult? Call [facility] ([place]) 24 hour Crisis Hotline: 670.612.8005 or 165-303-2037. MANUAL Your Guide to a Healthy manual is now on-line. Visit [email or web address] to download your free copy documented in this encounter [facility] 05-16-2023 Note HNO ID: [id number] Author: Hector Muniz PT Service: ? Author Type: Physical Therapist Type: Progress Notes Filed: 05/16/2023 8:05 AM Note Text: 05/16/2023 [facility]TS [facility]ER[facility] PHYSICAL THERAPY DISCONTINUANCE OF CARE Plan of Care Period: Start of Care Date: 01/30/23 Last Visit Date: 04/19/2023 Therapy Program: Patient did not return for follow up care as planned. Please refer to last visit note for interventions provided for this episode of care.Patient feels like she has all the tools she needs to be successful until she has the baby. Going to continue with HEP at home. Assessment: Unable to formally assess goal achievement. Reason for Discontinuation of Care: Patient has not returned to therapy or scheduled additional follow-up appointments. Hector Muniz PT [facility] 05-04-2023 Miscellaneous Notes KJ - No VB/LOF/ctxs. Reports good FM. A&P: Reviewed normal growth US from last week Reviewed PTL & FM precautions Luci Ryan MD documented in this encounter [facility] 05-04-2023 Instructions Lana Pepe Marilyn - 05/04/2023 2:41 PM EDT SEQUENTIAL SCREENINGS The [facility] offers sequential screenings for women who are interested in screenings for chromosomal abnormalities and certain defects during a . The sequential screen combines ultrasound and blood tests to determine the risk of chromosomal abnormalities, including Down's Syndrome (Trisomy 21) and Trisomy 18, as well as open neural tube defects including spina bifida. Ultrasound examination is performed between 11 weeks and 13 weeks gestational age. Blood tests are drawn after the ultrasound and again later in the between 15 and 21 weeks gestational age. Please let your physician know if you are interested in this testing. It will require an appointment with our lidar technician. This is not an ultrasound performed by a physician in our office during a routine visit. SIGNS AND SYMPTOMS OF LABOR 1. Contractions every 10 minutes or more often 2. Clear, pink, or brownish fluid (water) leaking from vagina 3. Feeling that baby is pushing down, pressure 4. Low, dull backache 5. Cramps that feel like a period 6. Cramps with or without diarrhea If you notice any of the above symptoms, contact our office at [phone] and ask to speak with a nurse. After hours, you can call doctors registry at [phone] OR call [facility] at [phone] and ask to have the doctor resident surgeon paged. If you consider this an emergency, dial 9-1-1 or go to your nearest emergency department. NEED HELP? Are you dealing with a violent or abusive relationship? Are you a victim of rape or sexual assult? Call [facility] ([place]) 24 hour Crisis Hotline: 114.212.2619 or 056-248-7259. MANUAL Your Guide to a Healthy manual is now on-line. Visit [email or web address] to download your free copy documented in this encounter [facility] 04-24-2023 Miscellaneous Notes Anatomy ultrasound reviewed. No abnormalities identified. Follow up as clinically indicated. Please place copy in ob chart. Radha Melendez MD documented in this encounter [facility] 04-20-2023 Miscellaneous Notes RR- VB No. LOF No. CTXS No. Movement: present. Other c/o: No. Medication list reviewed. Physical Exam See Flow Sheet Abd: soft, nontender, gravid Ext: edema: Trace A/P 32w3d Estimated Date of Delivery: 06/12/23 Growth US scheduled, recommended at anatomy US f/u in 2 weeks or prn. declines flu vaccine Radha Melendez M.D. documented in this encounter [facility] 04-20-2023 Instructions Rina Lambert Ma - 04/20/2023 3:26 PM EDT SEQUENTIAL SCREENINGS The [facility] offers sequential screenings for women who are interested in screenings for chromosomal abnormalities and certain defects during a . The sequential screen combines ultrasound and blood tests to determine the risk of chromosomal abnormalities, including Down's Syndrome (Trisomy 21) and Trisomy 18, as well as open neural tube defects including spina bifida. Ultrasound examination is performed between 11 weeks and 13 weeks gestational age. Blood tests are drawn after the ultrasound and again later in the between 15 and 21 weeks gestational age. Please let your physician know if you are interested in this testing. It will require an appointment with our lidar technician. This is not an ultrasound performed by a physician in our office during a routine visit. SIGNS AND SYMPTOMS OF LABOR 1. Contractions every 10 minutes or more often 2. Clear, pink, or brownish fluid (water) leaking from vagina 3. Feeling that baby is pushing down, pressure 4. Low, dull backache 5. Cramps that feel like a period 6. Cramps with or without diarrhea If you notice any of the above symptoms, contact our office at [phone] and ask to speak with a nurse. After hours, you can call doctors registry at [phone] OR call [facility] at [phone] and ask to have the doctor resident surgeon paged. If you consider this an emergency, dial 04-06- or go to your nearest emergency department. NEED HELP? Are you dealing with a violent or abusive relationship? Are you a victim of rape or sexual assult? Call [facility] ([place]) 24 hour Crisis Hotline: 755.581.2272 or 247-157-5135. MANUAL Your Guide to a Healthy manual is now on-line. Visit [email or web address] [email or web address] to download your free copy documented in this encounter [facility] 04-19-2023 Note HNO ID: [id number] Author: Hector Muniz, PT Service: ? Author Type: Physical Therapist Type: Progress Notes Filed: 04/19/2023 4:40 PM Note Text: Episode Visit Count: 16 Therapist That Will Accept/Oversee The Plan Of Care: HECTOR MUNIZ Start of Care Date: 01/30/23 Onset Date: 04/21/18 Patient Identified by Name and Date of : Yes REHABILITATION AND SPORTS THERAPY PHYSICAL THERAPY TREATMENT NOTE ASSESSMENT: Mary Oleary tolerated the session with expected muscle soreness. She demonstrated difficulty with burning during trigger point release internally. She did have slightly less pain and burning during treatment today and after treatment. The patient will continue to benefit from ongoing skilled physical therapy to progress toward set goals. Current Frequency: 1x every other week Duration: 8 weeks Total Number of Visits Planned: 4 Planned Treatment Interventions: Therapeutic exercise (97510), Neuromuscular re-education (95203), Manual therapy (83033), Therapeutic activities (82411), Self-usp management (94647), Patient/Family/Caregiver Education PLAN FOR NEXT VISIT: Internal TPR SUBJECTIVE: She ordered the pelvic wand. She walked around the fair and was in a pretty good amount of pain, but it did subside with rest. She would like to decrease to every other week instead of 2x a week. This would be more doable for her. Pain: OBJECTIVE MEASURES WITH LEVEL OF FUNCTION: Pelvic Floor Muscle Assessment Consent for pelvic assessment/testing and treatment: Patient was educated regarding pelvic floor physical therapy assessment/treatment which may include pelvic floor and girdle muscle assessment externally or internally (vaginal or rectal approach)., Patient verbalized consent for the above treatment approaches today. Patient understands they have control of the treatment and an opportunity to stop treatment at any time. Pelvic Floor Manual Assessment Levator Ani: Bilateral (R 2/2 L 2+/3-) Bulbocavernosus: Bilateral (R 2/2 L 2+/3-) Superficial transverse perineal: Bilateral (R 2/2 L 2+/3-) Ischiocavernosus: Bilateral (R 2/2 L 2+/3-) Deep transverse perineal: Bilateral (R 2/2 L 2+/3-) Anterior pelvic floor: Bilateral (R 2/2 L 2+/3-) Iliococcygeus: Bilateral (R 2+/2 L 2+/3) Coccygeus: Bilateral (R 2+/2 L 2+/3) Obturator internus: Bilateral (R 2/2 L 2+/3-) Pubococcygeus: Bilateral (R 2+/2 L 2+/3) Puborectalis: Bilateral (R 2+/2 L 2+/3) Tissue Restriction/Tenderness Scale: 1= mild, 2= moderate, 3= severe TREATMENT: Manual Therapy: 1: Internal PFM TPR layers 1 and 2 using gentle distraction and stumming to muscle bellys. Skilled Intervention: Manual skills to improve joint mobility, ROM, and decrease pain. Utilized anatomy knowledge of the therapist, and assessment of patient's response to intervention. Self-Senior Care Management: 2: Discussed current HEP and continuing with therapy. PAtient still with significant muscle spasm and became emotional thinking about not continuing. Decided that every other week would be a better option for her to help manage her muscle spasm until she delivers. Skilled Intervention: Reviewed patient specific diagnosis in relation to activities of daily living/home management. Billing Manual TherapyTreatment Minutes: 45 Self-Care/Home Management Treatment Minutes: 10 Total Session Time (minutes): 55 Session Start Time : 1445 Session Stop Time : 1540 Hector Muniz, PT [facility] 04-19-2023 Miscellaneous Notes Addended by: HECTOR MUNIZ on: 04/19/2023 04:41 PM Modules accepted: Orders documented in this encounter [facility] 04-19-2023 History of Presen t illness Narrative Episode Visit Count: 16 Therapist That Will Accept/Oversee The Plan Of Care: HECTOR MUNIZ Start of Care Date: 01/30/23 Onset Date: 04/21/18 Patient Identified by Name and Date of : Yes REHABILITATION AND SPORTS THERAPY PHYSICAL THERAPY TREATMENT NOTE ASSESSMENT: Mary Oleary tolerated the session with expected muscle soreness. She demonstrated difficulty with burning during trigger point release internally. She did have slightly less pain and burning during treatment today and after treatment. The patient will continue to benefit from ongoing skilled physical therapy to progress toward set goals. Current Frequency: 1x every other week Duration: 8 weeks Total Number of Visits Planned: 4 Planned Treatment Interventions: Therapeutic exercise (76298), Neuromuscular re-education (24702), Manual therapy (01527), Therapeutic activities (27254), Self-usp management (45317), Patient/Family/Caregiver Education PLAN FOR NEXT VISIT: Internal TPR SUBJECTIVE: She ordered the pelvic wand. She walked around the fair and was in a pretty good amount of pain, but it did subside with rest. She would like to decrease to every other week instead of 2x a week. This would be more doable for her. Pain: OBJECTIVE MEASURES WITH LEVEL OF FUNCTION: Pelvic Floor Muscle Assessment Consent for pelvic assessment/testing and treatment: Patient was educated regarding pelvic floor physical therapy assessment/treatment which may include pelvic floor and girdle muscle assessment externally or internally (vaginal or rectal approach)., Patient verbalized consent for the above treatment approaches today. Patient understands they have control of the treatment and an opportunity to stop treatment at any time. Pelvic Floor Manual Assessment Levator Ani: Bilateral (R 2/2 L 2+/3-) Bulbocavernosus: Bilateral (R 2/2 L 2+/3-) Superficial transverse perineal: Bilateral (R 2/2 L 2+/3-) Ischiocavernosus: Bilateral (R 2/2 L 2+/3-) Deep transverse perineal: Bilateral (R 2/2 L 2+/3-) Anterior pelvic floor: Bilateral (R 2/2 L 2+/3-) Iliococcygeus: Bilateral (R 2+/2 L 2+/3) Coccygeus: Bilateral (R 2+/2 L 2+/3) Obturator internus: Bilateral (R 2/2 L 2+/3-) Pubococcygeus: Bilateral (R 2+/2 L 2+/3) Puborectalis: Bilateral (R 2+/2 L 2+/3) Tissue Restriction/Tenderness Scale: 1= mild, 2= moderate, 3= severe TREATMENT: Manual Therapy: 1: Internal PFM TPR layers 1 and 2 using gentle distraction and stumming to muscle bellys. Skilled Intervention: Manual skills to improve joint mobility, ROM, and decrease pain. Utilized anatomy knowledge of the therapist, and assessment of patient's response to intervention. Self-Senior Care Management: 2: Discussed current HEP and continuing with therapy. PAtient still with significant muscle spasm and became emotional thinking about not continuing. Decided that every other week would be a better option for her to help manage her muscle spasm until she delivers. Skilled Intervention: Reviewed patient specific diagnosis in relation to activities of daily living/home management. Billing Manual TherapyTreatment Minutes: 45 Self-Care/Home Management Treatment Minutes: 10 Total Session Time (minutes): 55 Session Start Time : 1445 Session Stop Time : 1540 Hector Muniz PT documented in this encounter [facility] 04-16-2023 Note HNO ID: [id number] Author: Hector Muniz PT Service: ? Author Type: Physical Therapist Type: Progress Notes Filed: 04/16/2023 2:27 PM Note Text: Episode Visit Count: 15 Therapist That Will Accept/Oversee The Plan Of Care: HECTOR MUNIZ Start of Care Date: 01/30/23 Onset Date: 04/21/18 REHABILITATION AND SPORTS THERAPY PHYSICAL THERAPY TREATMENT NOTE ASSESSMENT: Mary Oleary tolerated the session with expected muscle soreness. She demonstrated difficulty with severe muscle tenderness and stiffness on the left side of her pelvic floor greater than the right side he has had difficulty being consistent with her dilatorsshe feels like she cannot reach places that. The therapist reaches during treatment. Today discussed using the pelvic wand for HEP to reach these places better than the dilator. Patient reports she does have a lot of tools at home she is preparing for baby, and next visit she may be comfortable with discharge. The patient will continue to benefit from ongoing skilled physical therapy for reassessment by supervising therapist. PLAN FOR NEXT VISIT: Discussed further needs with therapy and possible discharge progress note. SUBJECTIVE: She has not been as consistent using her dilators. She feels like she cannot reach some places with her dilators and she potentially may need to purchase the pelvic wand. Pain: OBJECTIVE MEASURES WITH LEVEL OF FUNCTION: Pelvic Floor Muscle Assessment Consent for pelvic assessment/testing and treatment: Patient was educated regarding pelvic floor physical therapy assessment/treatment which may include pelvic floor and girdle muscle assessment externally or internally (vaginal or rectal approach)., Patient verbalized consent for the above treatment approaches today. Patient understands they have control of the treatment and an opportunity to stop treatment at any time. Pelvic Floor Manual Assessment Levator Ani: Bilateral (R 2/2 L 2+/3-) Bulbocavernosus: Bilateral (R 2/2 L 2+/3-) Superficial transverse perineal: Bilateral (R 2/2 L 2+/3-) Ischiocavernosus: Bilateral (R 2/2 L 2+/3-) Deep transverse perineal: Bilateral (R 2/2 L 2+/3-) Anterior pelvic floor: Bilateral (R 2/2 L 2+/3-) Iliococcygeus: Bilateral (R 2+/2 L 2+/3) Coccygeus: Bilateral (R 2+/2 L 2+/3) Obturator internus: Bilateral (R 2/2 L 2+/3-) Pubococcygeus: Bilateral (R 2+/2 L 2+/3) Puborectalis: Bilateral (R 2+/2 L 2+/3) Pelvic Floor Tenderness/Hyperactivity Comments: Tenderness and burning on the left side greater than right Tissue Restriction/Tenderness Scale: 1= mild, 2= moderate, 3= severe TREATMENT: Manual Therapy: 1: Internal PFM TPR layers 1 and 2 using gentle distraction and stumming to muscle bellys. Skilled Intervention: Manual skills to improve joint mobility, ROM, and decrease pain. Utilized anatomy knowledge of the therapist, and assessment of patient's response to intervention. Self-Senior Care Management: 1: They discussed possible discharge with patient. She is 31 weeks she has a lot of tools at home to use for her pain. She is wearing an abdominal binder when she does work around the house, she understands how to use her dilators, and she is going to purchase the pelvic wand. Next visit potentially discuss further needs and possible discharge. Skilled Intervention: Reviewed patient specific diagnosis in relation to activities of daily living/home management. Billing Manual TherapyTreatment Minutes: 30 Self-Care/Home Management Treatment Minutes: 8 Skilled Treatment Time Minutes (timed and untimed codes): 38 Total Session Time (minutes): 40 Session Start Time : 1337 Session Stop Time : 1417 Hector Muniz, PT [facility] 04-16-2023 History of Presen t illness Narrative Episode Visit Count: 15 Therapist That Will Accept/Oversee The Plan Of Care: HECTOR MUNIZ Start of Care Date: 01/30/23 Onset Date: 04/21/18 REHABILITATION AND SPORTS THERAPY PHYSICAL THERAPY TREATMENT NOTE ASSESSMENT: Mary Olaery tolerated the session with expected muscle soreness. She demonstrated difficulty with severe muscle tenderness and stiffness on the left side of her pelvic floor greater than the right side he has had difficulty being consistent with her dilatorsshe feels like she cannot reach places that. The therapist reaches during treatment. Today discussed using the pelvic wand for HEP to reach these places better than the dilator. Patient reports she does have a lot of tools at home she is preparing for baby, and next visit she may be comfortable with discharge. The patient will continue to benefit from ongoing skilled physical therapy for reassessment by supervising therapist. PLAN FOR NEXT VISIT: Discussed further needs with therapy and possible discharge progress note. SUBJECTIVE: She has not been as consistent using her dilators. She feels like she cannot reach some places with her dilators and she potentially may need to purchase the pelvic wand. Pain: OBJECTIVE MEASURES WITH LEVEL OF FUNCTION: Pelvic Floor Muscle Assessment Consent for pelvic assessment/testing and treatment: Patient was educated regarding pelvic floor physical therapy assessment/treatment which may include pelvic floor and girdle muscle assessment externally or internally (vaginal or rectal approach)., Patient verbalized consent for the above treatment approaches today. Patient understands they have control of the treatment and an opportunity to stop treatment at any time. Pelvic Floor Manual Assessment Levator Ani: Bilateral (R 2/2 L 2+/3-) Bulbocavernosus: Bilateral (R 2/2 L 2+/3-) Superficial transverse perineal: Bilateral (R 2/2 L 2+/3-) Ischiocavernosus: Bilateral (R 2/2 L 2+/3-) Deep transverse perineal: Bilateral (R 2/2 L 2+/3-) Anterior pelvic floor: Bilateral (R 2/2 L 2+/3-) Iliococcygeus: Bilateral (R 2+/2 L 2+/3) Coccygeus: Bilateral (R 2+/2 L 2+/3) Obturator internus: Bilateral (R 2/2 L 2+/3-) Pubococcygeus: Bilateral (R 2+/2 L 2+/3) Puborectalis: Bilateral (R 2+/2 L 2+/3) Pelvic Floor Tenderness/Hyperactivity Comments: Tenderness and burning on the left side greater than right Tissue Restriction/Tenderness Scale: 1= mild, 2= moderate, 3= severe TREATMENT: Manual Therapy: 1: Internal PFM TPR layers 1 and 2 using gentle distraction and stumming to muscle bellys. Skilled Intervention: Manual skills to improve joint mobility, ROM, and decrease pain. Utilized anatomy knowledge of the therapist, and assessment of patient's response to intervention. Self-Senior Care Management: 1: They discussed possible discharge with patient. She is 31 weeks she has a lot of tools at home to use for her pain. She is wearing an abdominal binder when she does work around the house, she understands how to use her dilators, and she is going to purchase the pelvic wand. Next visit potentially discuss further needs and possible discharge. Skilled Intervention: Reviewed patient specific diagnosis in relation to activities of daily living/home management. Billing Manual TherapyTreatment Minutes: 30 Self-Care/Home Management Treatment Minutes: 8 Skilled Treatment Time Minutes (timed and untimed codes): 38 Total Session Time (minutes): 40 Session Start Time : 1337 Session Stop Time : 1417 Hector Tabellion, PT documented in this encounter [facility] 04-06-2023 Miscellaneous Notes KJ - No VB/LOF/ctxs. Reports good FM. A&P: High tone pelvic floor - continue pelvic floor PT. Patient plans for epidural in labor. Discussed would minimize cervical exams prior to epidural. Reviewed PTL & FM precautions Luci yRan MD documented in this encounter [facility] 04-06-2023 Instructions Rina Lambert Ma - 04/06/2023 2:27 PM EDT SEQUENTIAL SCREENINGS The [facility] offers sequential screenings for women who are interested in screenings for chromosomal abnormalities and certain defects during a . The sequential screen combines ultrasound and blood tests to determine the risk of chromosomal abnormalities, including Down's Syndrome (Trisomy 21) and Trisomy 18, as well as open neural tube defects including spina bifida. Ultrasound examination is performed between 11 weeks and 13 weeks gestational age. Blood tests are drawn after the ultrasound and again later in the between 15 and 21 weeks gestational age. Please let your physician know if you are interested in this testing. It will require an appointment with our lidar technician. This is not an ultrasound performed by a physician in our office during a routine visit. SIGNS AND SYMPTOMS OF LABOR 1. Contractions every 10 minutes or more often 2. Clear, pink, or brownish fluid (water) leaking from vagina 3. Feeling that baby is pushing down, pressure 4. Low, dull backache 5. Cramps that feel like a period 6. Cramps with or without diarrhea If you notice any of the above symptoms, contact our office at [phone] and ask to speak with a nurse. After hours, you can call doctors registry at [phone] OR call [facility] at [phone] and ask to have the doctor resident surgeon paged. If you consider this an emergency, dial 9-- or go to your nearest emergency department. NEED HELP? Are you dealing with a violent or abusive relationship? Are you a victim of rape or sexual assult? Call [facility] ([place]) 24 hour Crisis Hotline: 327.940.9772 or 296-084-2645. MANUAL Your Guide to a Healthy manual is now on-line. Visit [email or web address] to download your free copy documented in this encounter [facility] 03-26-2023 Note HNO ID: [id number] Author: Hector Muniz, PT Service: ? Author Type: Physical Therapist Type: Progress Notes Filed: 03/26/2023 6:31 PM Note Text: Episode Visit Count: 14 Therapist That Will Accept/Oversee The Plan Of Care: HECTOR MUNIZ Start of Care Date: 01/30/23 Onset Date: 04/21/18 Patient Identified by Name and Date of : Yes REHABILITATION AND SPORTS THERAPY PHYSICAL THERAPY TREATMENT NOTE ASSESSMENT: Mary Oleary tolerated the session with no issues. She demonstrated improvements in overwhelm and anxiety after the treatment session discussing options and weighing pros and cons. The patient will continue to benefit from ongoing skilled physical therapy to progress toward set goals. PLAN FOR NEXT VISIT: tailbone mobilizations. SUBJECTIVE: She is afraid her baby will get stuck in her pelvis, or that her tailbone would break. She is feeling very overwhelmed with information and would like help with her plan. Pain: OBJECTIVE MEASURES WITH LEVEL OF FUNCTION: TREATMENT: Self-Senior Care Management: 1: At patient request assisted her with plan. Discussed and educated patient on options regarding birthing positions, pain managment, educated vaginal vs options such as a gentle . 2: Educated the patient that plans can change and she may want to prepare herself for changes in her plan if needed. That at any time she can deny treatment and state a different preferance. Skilled Intervention: Reviewed patient specific diagnosis in relation to activities of daily living/home management. Billing Self-Care/Home Management Treatment Minutes: 25 Total Treatment Time Minutes (timed/untimed): 30 Session Start Time : 1430 Session Stop Time : 1500 Hector Muniz PT [facility] 03-26-2023 History of Presen t illness Narrative Episode Visit Count: 14 Therapist That Will Accept/Oversee The Plan Of Care: HECTOR MUNIZ Start of Care Date: 01/30/23 Onset Date: 04/21/18 Patient Identified by Name and Date of : Yes REHABILITATION AND SPORTS THERAPY PHYSICAL THERAPY TREATMENT NOTE ASSESSMENT: Mary Oleary tolerated the session with no issues. She demonstrated improvements in overwhelm and anxiety after the treatment session discussing options and weighing pros and cons. The patient will continue to benefit from ongoing skilled physical therapy to progress toward set goals. PLAN FOR NEXT VISIT: tailbone mobilizations. SUBJECTIVE: She is afraid her baby will get stuck in her pelvis, or that her tailbone would break. She is feeling very overwhelmed with information and would like help with her plan. Pain: OBJECTIVE MEASURES WITH LEVEL OF FUNCTION: TREATMENT: Self-Senior Care Management: 1: At patient request assisted her with plan. Discussed and educated patient on options regarding birthing positions, pain managment, educated vaginal vs options such as a gentle . 2: Educated the patient that plans can change and she may want to prepare herself for changes in her plan if needed. That at any time she can deny treatment and state a different preferance. Skilled Intervention: Reviewed patient specific diagnosis in relation to activities of daily living/home management. Billing Self-Care/Home Management Treatment Minutes: 25 Total Treatment Time Minutes (timed/untimed): 30 Session Start Time : 1430 Session Stop Time : 1500 Hector Muniz PT documented in this encounter [facility] 03-22-2023 Note HNO ID: [id number] Author: Hector Muniz PT Service: ? Author Type: Physical Therapist Type: Progress Notes Filed: 03/22/2023 4:00 PM Note Text: Episode Visit Count: 13 Therapist That Will Accept/Oversee The Plan Of Care: HECTOR MUNIZ Start of Care Date: 01/30/23 Onset Date: 04/21/18 Patient Identified by Name and Date of : Yes REHABILITATION AND SPORTS THERAPY PHYSICAL THERAPY TREATMENT NOTE ASSESSMENT: Mary Oleary tolerated the session with expected muscle soreness and severe pain in the anal sphincters. She demonstrated improvements in soft tissue extensibility after treatment.. The patient will continue to benefit from ongoing skilled physical therapy to progress toward set goals. PLAN FOR NEXT VISIT: tailbone mobilizations. SUBJECTIVE: She had a lot of pain and could barely walk the evening after her last session. Pain: OBJECTIVE MEASURES WITH LEVEL OF FUNCTION: Pelvic Floor Muscle Assessment Consent for pelvic assessment/testing and treatment: Patient was educated regarding pelvic floor physical therapy assessment/treatment which may include pelvic floor and girdle muscle assessment externally or internally (vaginal or rectal approach)., Patient verbalized consent for the above treatment approaches today. Patient understands they have control of the treatment and an opportunity to stop treatment at any time. Pelvic Floor Manual Assessment Pelvic Floor Tenderness/Hyperactivity: Tested Rectally in Tested Rectally in : Sidelying Levator Ani: Bilateral (3/3) Deep transverse perineal: Bilateral (3/3) Iliococcygeus: Bilateral (3/3) Coccygeus: Bilateral (3/3) Obturator internus: Bilateral (3/3) Pubococcygeus: Bilateral (3/3) Puborectalis: Bilateral (3/3) Anterior pelvic floor: Bilateral (3/3) Coccyx: Bilateral (3/3) /Tissue Restriction/Tenderness Scale: 1= mild, 2= moderate, 3= severe TREATMENT: Manual Therapy: 1: Internal PFM TPR layers 1 and 2 using gentle distraction and stumming to muscle bellys. 2: Try to do internal rectal at home with xsmall dilator. Skilled Intervention: Manual skills to improve joint mobility, ROM, and decrease pain. Utilized anatomy knowledge of the therapist, and assessment of patient's response to intervention. Billing Manual TherapyTreatment Minutes: 40 Total Treatment Time Minutes (timed/untimed): 45 Session Start Time : 1400 Session Stop Time : 1445 Hector Muniz, PT [facility] 03-22-2023 History of Presen t illness Narrative Episode Visit Count: 13 Therapist That Will Accept/Oversee The Plan Of Care: HECTOR MUNIZ Start of Care Date: 01/30/23 Onset Date: 04/21/18 Patient Identified by Name and Date of : Yes REHABILITATION AND SPORTS THERAPY PHYSICAL THERAPY TREATMENT NOTE ASSESSMENT: Mary Oleary tolerated the session with expected muscle soreness and severe pain in the anal sphincters. She demonstrated improvements in soft tissue extensibility after treatment.. The patient will continue to benefit from ongoing skilled physical therapy to progress toward set goals. PLAN FOR NEXT VISIT: tailbone mobilizations. SUBJECTIVE: She had a lot of pain and could barely walk the evening after her last session. Pain: OBJECTIVE MEASURES WITH LEVEL OF FUNCTION: Pelvic Floor Muscle Assessment Consent for pelvic assessment/testing and treatment: Patient was educated regarding pelvic floor physical therapy assessment/treatment which may include pelvic floor and girdle muscle assessment externally or internally (vaginal or rectal approach)., Patient verbalized consent for the above treatment approaches today. Patient understands they have control of the treatment and an opportunity to stop treatment at any time. Pelvic Floor Manual Assessment Pelvic Floor Tenderness/Hyperactivity: Tested Rectally in Tested Rectally in : Sidelying Levator Ani: Bilateral (3/3) Deep transverse perineal: Bilateral (3/3) Iliococcygeus: Bilateral (3/3) Coccygeus: Bilateral (3/3) Obturator internus: Bilateral (3/3) Pubococcygeus: Bilateral (3/3) Puborectalis: Bilateral (3/3) Anterior pelvic floor: Bilateral (3/3) Coccyx: Bilateral (3/3) /Tissue Restriction/Tenderness Scale: 1= mild, 2= moderate, 3= severe TREATMENT: Manual Therapy: 1: Internal PFM TPR layers 1 and 2 using gentle distraction and stumming to muscle bellys. 2: Try to do internal rectal at home with xsmall dilator. Skilled Intervention: Manual skills to improve joint mobility, ROM, and decrease pain. Utilized anatomy knowledge of the therapist, and assessment of patient's response to intervention. Billing Manual TherapyTreatment Minutes: 40 Total Treatment Time Minutes (timed/untimed): 45 Session Start Time : 1400 Session Stop Time : 1445 Hector Muniz PT documented in this encounter [facility] 03-20-2023 Note HNO ID: [id number] Author: Hector Muniz PT Service: ? Author Type: Physical Therapist Type: Progress Notes Filed: 03/20/2023 3:23 PM Note Text: Episode Visit Count: 12 Therapist That Will Accept/Oversee The Plan Of Care: HECTOR MUNIZ Start of Care Date: 01/30/23 Onset Date: 04/21/18 REHABILITATION AND SPORTS THERAPY PHYSICAL THERAPY TREATMENT NOTE ASSESSMENT: Mary Oleary tolerated the session with expected muscle soreness. She demonstrated difficulty with the pelvic rebalancing exercise. Therefore did the right sidelying pelvic correction and she was able to correct her postural faults independently without pain. Gave for HEP. The patient will continue to benefit from ongoing skilled physical therapy to progress toward set goals. PLAN FOR NEXT VISIT: tailbone mobilizations. SUBJECTIVE: She has a flexed tailbone. She is worried about tailbone fracture with baby delivery. She is in the 3rd trimester. She is wondering if all the manual work is not holding because she has to wait to get into the chiropractor to correct her pelvic alignment. Pain: OBJECTIVE MEASURES WITH LEVEL OF FUNCTION: Significantly flexed coccyx. TREATMENT: Neuromuscular Re-Education: 1: Discussed log rolling to get up and get down. 2: Pelvic rebalancing exercise 1 3: Right sidelying correction 4: Gave handout for stretches. 5: Discussed wearing a brace Skilled Intervention: Education in proprioceptive/kinesthetic awareness during dynamic activities. Provided written instruction for home program to facilitate proper performance and compliance. Correct performance of home program was facilitated with verbal and tactile cueing. Billing Neuromuscular Re-Education Treatment Minutes: 40 Total Treatment Time Minutes (timed/untimed): 45 Session Start Time : 1430 Session Stop Time : 1522 Hector Muniz PT [facility] 03-20-2023 History of Presen t illness Narrative Episode Visit Count: 12 Therapist That Will Accept/Oversee The Plan Of Care: HECTOR MUNIZ Start of Care Date: 01/30/23 Onset Date: 04/21/18 REHABILITATION AND SPORTS THERAPY PHYSICAL THERAPY TREATMENT NOTE ASSESSMENT: Mary Oleary tolerated the session with expected muscle soreness. She demonstrated difficulty with the pelvic rebalancing exercise. Therefore did the right sidelying pelvic correction and she was able to correct her postural faults independently without pain. Gave for HEP. The patient will continue to benefit from ongoing skilled physical therapy to progress toward set goals. PLAN FOR NEXT VISIT: tailbone mobilizations. SUBJECTIVE: She has a flexed tailbone. She is worried about tailbone fracture with baby delivery. She is in the 3rd trimester. She is wondering if all the manual work is not holding because she has to wait to get into the chiropractor to correct her pelvic alignment. Pain: OBJECTIVE MEASURES WITH LEVEL OF FUNCTION: Significantly flexed coccyx. TREATMENT: Neuromuscular Re-Education: 1: Discussed log rolling to get up and get down. 2: Pelvic rebalancing exercise 1 3: Right sidelying correction 4: Gave handout for stretches. 5: Discussed wearing a brace Skilled Intervention: Education in proprioceptive/kinesthetic awareness during dynamic activities. Provided written instruction for home program to facilitate proper performance and compliance. Correct performance of home program was facilitated with verbal and tactile cueing. Billing Neuromuscular Re-Education Treatment Minutes: 40 Total Treatment Time Minutes (timed/untimed): 45 Session Start Time : 1430 Session Stop Time : 1522 Hector Muniz PT documented in this encounter [facility] 03-16-2023 Note HNO ID: [id number] Author: Hecotr Muniz PT Service: ? Author Type: Physical Therapist Type: Progress Notes Filed: 03/16/2023 3:34 PM Note Text: Episode Visit Count: 11 Therapist That Will Accept/Oversee The Plan Of Care: HECTOR MUNIZ Start of Care Date: 01/30/23 Onset Date: 04/21/18 REHABILITATION AND SPORTS THERAPY PHYSICAL THERAPY TREATMENT NOTE ASSESSMENT: Mary Oleary tolerated the session with expected muscle soreness. She demonstrated difficulty with trigger points releasing today. Mild or no release in tissues today. May use her dilators in the future for perineal stretching and massage and other manual techniques to the pelvis to help with relaxation. The patient will continue to benefit from ongoing skilled physical therapy to progress toward set goals. PLAN FOR NEXT VISIT: Dry needling, lumbar parspinals, left glutes, hip, pelvic floor, sacrotuberous ligament. sacral rocking and sacral mobs SUBJECTIVE: She is on the medium and large dilator. She as sore after last treatment from the chiropractor and from PT. Pain: OBJECTIVE MEASURES WITH LEVEL OF FUNCTION: TREATMENT: Manual Therapy: 1: Internal PFM TPR layers 1 and 2 using gentle distraction and stumming to muscle bellys. Skilled Intervention: Manual skills to improve joint mobility, ROM, and decrease pain. Utilized anatomy knowledge of the therapist, and assessment of patient's response to intervention. Billing Manual TherapyTreatment Minutes: 55 Total Treatment Time Minutes (timed/untimed): 60 Session Start Time : 1420 Session Stop Time : 1530 Hector Muniz PT [facility] 03-16-2023 History of Presen t illness Narrative Episode Visit Count: 11 Therapist That Will Accept/Oversee The Plan Of Care: HECTOR MUNIZ Start of Care Date: 01/30/23 Onset Date: 04/21/18 REHABILITATION AND SPORTS THERAPY PHYSICAL THERAPY TREATMENT NOTE ASSESSMENT: Mary Oleary tolerated the session with expected muscle soreness. She demonstrated difficulty with trigger points releasing today. Mild or no release in tissues today. May use her dilators in the future for perineal stretching and massage and other manual techniques to the pelvis to help with relaxation. The patient will continue to benefit from ongoing skilled physical therapy to progress toward set goals. PLAN FOR NEXT VISIT: Dry needling, lumbar parspinals, left glutes, hip, pelvic floor, sacrotuberous ligament. sacral rocking and sacral mobs SUBJECTIVE: She is on the medium and large dilator. She as sore after last treatment from the chiropractor and from PT. Pain: OBJECTIVE MEASURES WITH LEVEL OF FUNCTION: TREATMENT: Manual Therapy: 1: Internal PFM TPR layers 1 and 2 using gentle distraction and stumming to muscle bellys. Skilled Intervention: Manual skills to improve joint mobility, ROM, and decrease pain. Utilized anatomy knowledge of the therapist, and assessment of patient's response to intervention. [facility] Manual TherapyTreatment Minutes: 55 Total Treatment Time Minutes (timed/untimed): 60 Session Start Time : 1419 Session Stop Time : 1530 Hector Muniz PT documented in this encounter [facility] 03-14-2023 Note HNO ID: [id number] Author: Hector Muniz PT Service: ? Author Type: Physical Therapist Type: Progress Notes Filed: 03/14/2023 4:15 PM Note Text: Episode Visit Count: 10 Therapist That Will Accept/Oversee The Plan Of Care: HECTOR MUNIZ Start of Care Date: 01/30/23 Onset Date: 04/21/18 Patient Identified by Name and Date of : Yes REHABILITATION AND SPORTS THERAPY PHYSICAL THERAPY TREATMENT NOTE ASSESSMENT: Mary Oleary tolerated the session with expected muscle soreness. She demonstrated improvements in pain and pressure after treatment. Severe tension and tenderness. The patient will continue to benefit from ongoing skilled physical therapy to progress toward set goals. PLAN FOR NEXT VISIT: Dry needling, Sacrotuberous ligament release, internal rectal release. SUBJECTIVE: She was just at the chiropractor. She said her tailbone points to the right which pulls the left hip up. Makes it looks like its a leg length difference. Left sacrotuberous ligament needs worked on . She was adjusted (her tailbone) and he hurt really bad so she went to lay on ice. She also said her tailbone is extended. Pain: OBJECTIVE MEASURES WITH LEVEL OF FUNCTION: Pelvic Floor Muscle Assessment Consent for pelvic assessment/testing and treatment: Patient was educated regarding pelvic floor physical therapy assessment/treatment which may include pelvic floor and girdle muscle assessment externally or internally (vaginal or rectal approach)., Patient verbalized consent for the above treatment approaches today. Patient understands they have control of the treatment and an opportunity to stop treatment at any time. Pelvic Floor Manual Assessment Pelvic Floor Tenderness/Hyperactivity: Tested Rectally in Tested Rectally in : Sidelying Levator Ani: Bilateral (3/3) Deep transverse perineal: Bilateral (3/3) Iliococcygeus: Bilateral (3/3) Coccygeus: Bilateral (3/3) Obturator internus: Bilateral (3/3) Pubococcygeus: Bilateral (3/3) Puborectalis: Bilateral (3/3) Anterior pelvic floor: Bilateral (3/3) Coccyx: Bilateral (3/3) Tissue Restriction/Tenderness Scale: 1= mild, 2= moderate, 3= severe TREATMENT: Manual Therapy: 1: Internal PFM TPR rectally gentle distraction and strumming to muscle listed in objective above concurrent with DB for lengthening, and mobilization along muscle belly, with use of STM, MFR, TPR, strain/counterstrain, hold/relax, and sweeping techniques to layers 1-3 PFMs in order to address myofascial restrictions, pain, TrP, tenderness to palpation, and spasm. 2: Sacrotuberous ligament release Skilled Intervention: Manual skills to improve joint mobility, ROM, and decrease pain. Utilized anatomy knowledge of the therapist, and assessment of patient's response to intervention. Billing Manual TherapyTreatment Minutes: 40 Total Treatment Time Minutes (timed/untimed): 44 Session Start Time : 1425 Session Stop Time : 1530 Hector Muniz, PT [facility] 03-14-2023 History of Presen t illness Narrative Episode Visit Count: 10 Therapist That Will Accept/Oversee The Plan Of Care: HECTOR MUNIZ Start of Care Date: 01/30/23 Onset Date: 04/21/18 Patient Identified by Name and Date of : Yes REHABILITATION AND SPORTS THERAPY PHYSICAL THERAPY TREATMENT NOTE ASSESSMENT: Mary Oleary tolerated the session with expected muscle soreness. She demonstrated improvements in pain and pressure after treatment. Severe tension and tenderness. The patient will continue to benefit from ongoing skilled physical therapy to progress toward set goals. PLAN FOR NEXT VISIT: Dry needling, Sacrotuberous ligament release, internal rectal release. SUBJECTIVE: She was just at the chiropractor. She said her tailbone points to the right which pulls the left hip up. Makes it looks like its a leg length difference. Left sacrotuberous ligament needs worked on . She was adjusted (her tailbone) and he hurt really bad so she went to lay on ice. She also said her tailbone is extended. Pain: OBJECTIVE MEASURES WITH LEVEL OF FUNCTION: Pelvic Floor Muscle Assessment Consent for pelvic assessment/testing and treatment: Patient was educated regarding pelvic floor physical therapy assessment/treatment which may include pelvic floor and girdle muscle assessment externally or internally (vaginal or rectal approach)., Patient verbalized consent for the above treatment approaches today. Patient understands they have control of the treatment and an opportunity to stop treatment at any time. Pelvic Floor Manual Assessment Pelvic Floor Tenderness/Hyperactivity: Tested Rectally in Tested Rectally in : Sidelying Levator Ani: Bilateral (3/3) Deep transverse perineal: Bilateral (3/3) Iliococcygeus: Bilateral (3/3) Coccygeus: Bilateral (3/3) Obturator internus: Bilateral (3/3) Pubococcygeus: Bilateral (3/3) Puborectalis: Bilateral (3/3) Anterior pelvic floor: Bilateral (3/3) Coccyx: Bilateral (3/3) Tissue Restriction/Tenderness Scale: 1= mild, 2= moderate, 3= severe TREATMENT: Manual Therapy: 1: Internal PFM TPR rectally gentle distraction and strumming to muscle listed in objective above concurrent with DB for lengthening, and mobilization along muscle belly, with use of STM, MFR, TPR, strain/counterstrain, hold/relax, and sweeping techniques to layers 1-3 PFMs in order to address myofascial restrictions, pain, TrP, tenderness to palpation, and spasm. 2: Sacrotuberous ligament release Skilled Intervention: Manual skills to improve joint mobility, ROM, and decrease pain. Utilized anatomy knowledge of the therapist, and assessment of patient's response to intervention. Billing Manual TherapyTreatment Minutes: 40 Total Treatment Time Minutes (timed/untimed): 44 Session Start Time : 1425 Session Stop Time : 1530 Hector Muniz PT documented in this encounter [facility] 03-12-2023 Miscellaneous Notes Please see pt's IndexTank message and further advise. Karla Matamoros LPN documented in this encounter [facility] 03-09-2023 Note HNO ID: [id number] Author: Hector Muniz PT Service: ? Author Type: Physical Therapist Type: Progress Notes Filed: 03/09/2023 3:52 PM Note Text: Episode Visit Count: 9 Therapist That Will Accept/Oversee The Plan Of Care: HECTOR MUNIZ Start of Care Date: 01/30/23 Onset Date: 04/21/18 REHABILITATION AND SPORTS THERAPY PHYSICAL THERAPY TREATMENT NOTE ASSESSMENT: Mary Oleary tolerated the session with expected muscle soreness. She demonstrated improvements in soft tissue extensibility after treatment. Overall tone improved slightly on the right side and she was not as sore after treatment as she was the first time she had an internal PF treatment. The patient will continue to benefit from ongoing skilled physical therapy to progress toward set goals. PLAN FOR NEXT VISIT: SUBJECTIVE: She is having some pain over the weekend and was having a difficult time walking. She was able to use the largest dilator int he medium pack. It was very painful. She had to start and work her way up. She does it every day in the shower. Pain: OBJECTIVE MEASURES WITH LEVEL OF FUNCTION: Pelvic Floor Muscle Assessment Consent for pelvic assessment/testing and treatment: Patient was educated regarding pelvic floor physical therapy assessment/treatment which may include pelvic floor and girdle muscle assessment externally or internally (vaginal or rectal approach)., Patient verbalized consent for the above treatment approaches today. Patient understands they have control of the treatment and an opportunity to stop treatment at any time. Pelvic Floor Manual Assessment Levator Ani: Bilateral (R 2/2 L 2+/3-) Bulbocavernosus: Bilateral (R 2/2 L 2+/3-) Superficial transverse perineal: Bilateral (R 2/2 L 2+/3-) Ischiocavernosus: Bilateral (R 2/2 L 2+/3-) Deep transverse perineal: Bilateral (R 2/2 L 2+/3-) Anterior pelvic floor: Bilateral (R 2/2 L 2+/3-) Obturator internus: Bilateral (R 2/2 L 2+/3-) Tissue Restriction/Tenderness Scale: 1= mild, 2= moderate, 3= severe TREATMENT: Manual Therapy: 1: Internal PFM TPR ntle distraction and strumming to muscle listed in objective above concurrent with DB for lengthening, and mobilization along muscle belly, with use of STM, MFR, TPR, strain/counterstrain, hold/relax, and sweeping techniques to layers 1-3 PFMs in order to address myofascial restrictions, pain, TrP, tenderness to palpation, and spasm. Skilled Intervention: Manual skills to improve joint mobility, ROM, and decrease pain. Utilized anatomy knowledge of the therapist, and assessment of patient's response to intervention. Billing Manual TherapyTreatment Minutes: 40 Total Treatment Time Minutes (timed/untimed): 45 Session Start Time : 1420 Session Stop Time : 1510 Hector Muniz, PT [facility] 03-09-2023 History of Presen t illness Narrative Episode Visit Count: 9 Therapist That Will Accept/Oversee The Plan Of Care: HECTOR MUNIZ Start of Care Date: 01/30/23 Onset Date: 04/21/18 REHABILITATION AND SPORTS THERAPY PHYSICAL THERAPY TREATMENT NOTE ASSESSMENT: Mary Oleary tolerated the session with expected muscle soreness. She demonstrated improvements in soft tissue extensibility after treatment. Overall tone improved slightly on the right side and she was not as sore after treatment as she was the first time she had an internal PF treatment. The patient will continue to benefit from ongoing skilled physical therapy to progress toward set goals. PLAN FOR NEXT VISIT: SUBJECTIVE: She is having some pain over the weekend and was having a difficult time walking. She was able to use the largest dilator int he medium pack. It was very painful. She had to start and work her way up. She does it every day in the shower. Pain: OBJECTIVE MEASURES WITH LEVEL OF FUNCTION: Pelvic Floor Muscle Assessment Consent for pelvic assessment/testing and treatment: Patient was educated regarding pelvic floor physical therapy assessment/treatment which may include pelvic floor and girdle muscle assessment externally or internally (vaginal or rectal approach)., Patient verbalized consent for the above treatment approaches today. Patient understands they have control of the treatment and an opportunity to stop treatment at any time. Pelvic Floor Manual Assessment Levator Ani: Bilateral (R 2/2 L 2+/3-) Bulbocavernosus: Bilateral (R 2/2 L 2+/3-) Superficial transverse perineal: Bilateral (R 2/2 L 2+/3-) Ischiocavernosus: Bilateral (R 2/2 L 2+/3-) Deep transverse perineal: Bilateral (R 2/2 L 2+/3-) Anterior pelvic floor: Bilateral (R 2/2 L 2+/3-) Obturator internus: Bilateral (R 2/2 L 2+/3-) Tissue Restriction/Tenderness Scale: 1= mild, 2= moderate, 3= severe TREATMENT: Manual Therapy: 1: Internal PFM TPR ntle distraction and strumming to muscle listed in objective above concurrent with DB for lengthening, and mobilization along muscle belly, with use of STM, MFR, TPR, strain/counterstrain, hold/relax, and sweeping techniques to layers 1-3 PFMs in order to address myofascial restrictions, pain, TrP, tenderness to palpation, and spasm. Skilled Intervention: Manual skills to improve joint mobility, ROM, and decrease pain. Utilized anatomy knowledge of the therapist, and assessment of patient's response to intervention. Billing Manual TherapyTreatment Minutes: 40 Total Treatment Time Minutes (timed/untimed): 45 Session Start Time : 1420 Session Stop Time : 1510 Hector Muniz PT documented in this encounter [facility] 03-06-2023 Miscellaneous Notes Patient notified. Arely Louis RN That would be fine to use nolvia. Still considered safe. Radha Melendez MD 26w0d Asking if she can take Nolvia for allergies. States that typically what she uses instead of benadryl, Claritin or zyrtec and would rather take that if able. Please advise. Krystina Cha RN documented in this encounter [facility] 03-02-2023 Miscellaneous Notes Mary Oleary is a 27 year old female who presents at 25w3d Estimated Date of Delivery: 06/12/23 for a routine visit. Good movement. Denies current headache, visual changes, chest pain, shortness of breath, vaginal bleeding, leakage of fluid, or dysuria. Reports weekly headaches/possible tension or migraine. Discussed trying Zyrtec daily. Currently involved with pelvic floor therapy. Concerned over diagnosis of high tone pelvic floor dysfunction . She is considering elective primary section for delivery mode. Would like to speak with physician in more depth. ASSESSMENT/PLAN: 1. 25 weeks gestation of - ICD9: V22.2, ICD10: Z3A.25 (primary diagnosis) 2. High-tone pelvic floor dysfunction - ICD9: 629.89, ICD10: N94.89 - Continue pelvic floor therapy - Starting direct care worker next week 3. Dermoid cyst of left ovary - ICD9: 220, ICD10: D27.1 - Reevaluate in 3rd trimester PTL precautions reviewed. RTC in 3 weeks for AMANDA with GCT Lyudmila Lazcano APRN.CNM documented in this encounter [facility] 03-02-2023 Instructions Kaushik Mathis Cma - 03/02/2023 1:24 PM EDT SEQUENTIAL SCREENINGS The [facility] offers sequential screenings for women who are interested in screenings for chromosomal abnormalities and certain defects during a . The sequential screen combines ultrasound and blood tests to determine the risk of chromosomal abnormalities, including Down's Syndrome (Trisomy 21) and Trisomy 18, as well as open neural tube defects including spina bifida. Ultrasound examination is performed between 11 weeks and 13 weeks gestational age. Blood tests are drawn after the ultrasound and again later in the between 15 and 21 weeks gestational age. Please let your physician know if you are interested in this testing. It will require an appointment with our lidar technician. This is not an ultrasound performed by a physician in our office during a routine visit. SIGNS AND SYMPTOMS OF LABOR 1. Contractions every 10 minutes or more often 2. Clear, pink, or brownish fluid (water) leaking from vagina 3. Feeling that baby is pushing down, pressure 4. Low, dull backache 5. Cramps that feel like a period 6. Cramps with or without diarrhea If you notice any of the above symptoms, contact our office at [phone] and ask to speak with a nurse. After hours, you can call doctors registry at [phone] OR call [facility] at [phone] and ask to have the doctor resident surgeon paged. If you consider this an emergency, dial or go to your nearest emergency department. NEED HELP? Are you dealing with a violent or abusive relationship? Are you a victim of rape or sexual assult? Call [facility] ([place]) 24 hour Crisis Hotline: 459.230.1793 or 159-925-7584. MANUAL Your Guide to a Healthy manual is now on-line. Visit [email or web address] to download your free copy documented in this encounter [facility] 03-01-2023 Note HNO ID: [id number] Author: Hector Muniz PT Service: ? Author Type: Physical Therapist Type: Progress Notes Filed: 03/01/2023 4:10 PM Note Text: Episode Visit Count: 8 Therapist That Will Accept/Oversee The Plan Of Care: HECTOR MUNIZ Start of Care Date: 01/30/23 Onset Date: 04/21/18 Patient Identified by Name and Date of : Yes REHABILITATION AND SPORTS THERAPY PHYSICAL THERAPY TREATMENT NOTE ASSESSMENT: Mary Oleary tolerated the session with expected muscle soreness. She demonstrated difficulty with burning on the left side with even gentle palpation. Burning after treatment present today. Gave ice [ack for car ride home.. The patient will continue to benefit from ongoing skilled physical therapy to progress toward set goals. PLAN FOR NEXT VISIT: dr arellano? Pelvic rebalancing and then external TPR pFM SUBJECTIVE: This morning she woke up and really had to urinate and she kamila had to push to start again. It has only happened one time this extreme. Pain: OBJECTIVE MEASURES WITH LEVEL OF FUNCTION: Pelvic Floor Muscle Assessment Consent for pelvic assessment/testing and treatment: Patient was educated regarding pelvic floor physical therapy assessment/treatment which may include pelvic floor and girdle muscle assessment externally or internally (vaginal or rectal approach)., Patient verbalized consent for the above treatment approaches today. Patient understands they have control of the treatment and an opportunity to stop treatment at any time. Pelvic Floor Manual Assessment Levator Ani: Bilateral (R 2+/2 L 2+/3) Bulbocavernosus: Bilateral (R 2+/2 L 2+/3) Superficial transverse perineal: Bilateral (R 2+/2 L 2+/3) Ischiocavernosus: Bilateral (R 2+/2 L 2+/3) Deep transverse perineal: Bilateral (R 2+/2 L 2+/3) Anterior pelvic floor: Bilateral (R 2+/2 L 2+/3) TREATMENT: Manual Therapy: 1: Internal PFM TPR using sustained holds concurrently with DB and hip ER/IR for soft tissue release. 2: Educated on pelvivc floor try needling. Skilled Intervention: Manual skills to improve joint mobility, ROM, and decrease pain. Utilized anatomy knowledge of the therapist, and assessment of patient's response to intervention. Billing Manual TherapyTreatment Minutes: 40 Total Treatment Time Minutes (timed/untimed): 45 Session Start Time : 1452 Session Stop Time : 1530 Hector Muniz, PT [facility] 03-01-2023 History of Presen t illness Narrative Episode Visit Count: 8 Therapist That Will Accept/Oversee The Plan Of Care: HECTOR MUNIZ Start of Care Date: 01/30/23 Onset Date: 04/21/18 Patient Identified by Name and Date of : Yes REHABILITATION AND SPORTS THERAPY PHYSICAL THERAPY TREATMENT NOTE ASSESSMENT: Mary Oleary tolerated the session with expected muscle soreness. She demonstrated difficulty with burning on the left side with even gentle palpation. Burning after treatment present today. Gave ice [ack for car ride home.. The patient will continue to benefit from ongoing skilled physical therapy to progress toward set goals. PLAN FOR NEXT VISIT: dr arellano? Pelvic rebalancing and then external TPR pFM SUBJECTIVE: This morning she woke up and really had to urinate and she kamila had to push to start again. It has only happened one time this extreme. Pain: OBJECTIVE MEASURES WITH LEVEL OF FUNCTION: Pelvic Floor Muscle Assessment Consent for pelvic assessment/testing and treatment: Patient was educated regarding pelvic floor physical therapy assessment/treatment which may include pelvic floor and girdle muscle assessment externally or internally (vaginal or rectal approach)., Patient verbalized consent for the above treatment approaches today. Patient understands they have control of the treatment and an opportunity to stop treatment at any time. Pelvic Floor Manual Assessment Levator Ani: Bilateral (R 2+/2 L 2+/3) Bulbocavernosus: Bilateral (R 2+/2 L 2+/3) Superficial transverse perineal: Bilateral (R 2+/2 L 2+/3) Ischiocavernosus: Bilateral (R 2+/2 L 2+/3) Deep transverse perineal: Bilateral (R 2+/2 L 2+/3) Anterior pelvic floor: Bilateral (R 2+/2 L 2+/3) TREATMENT: Manual Therapy: 1: Internal PFM TPR using sustained holds concurrently with DB and hip ER/IR for soft tissue release. 2: Educated on pelvivc floor try needling. Skilled Intervention: Manual skills to improve joint mobility, ROM, and decrease pain. Utilized anatomy knowledge of the therapist, and assessment of patient's response to intervention. Billing Manual TherapyTreatment Minutes: 40 Total Treatment Time Minutes (timed/untimed): 45 Session Start Time : 2 Session Stop Time : 1530 Hector Muniz PT documented in this encounter [facility] 02-26-2023 Note HNO ID: [id number] Author: Hector Muniz PT Service: ? Author Type: Physical Therapist Type: Progress Notes Filed: 02/26/2023 5:35 PM Note Text: Episode Visit Count: 7 Therapist That Will Accept/Oversee The Plan Of Care: HECTOR MUNIZ Start of Care Date: 01/30/23 Onset Date: 04/21/18 Patient Identified by Name and Date of : Yes REHABILITATION AND SPORTS THERAPY PHYSICAL THERAPY TREATMENT NOTE ASSESSMENT: Mary Oleary tolerated the session with expected muscle soreness. She demonstrated improvements in soft tissue extensibility after treatment. She reported greater relief of pain with external PFM TPR than internal. She could relax a little better. The patient will continue to benefit from ongoing skilled physical therapy to progress toward set goals. PLAN FOR NEXT VISIT: Pelvic rebalancing and then external TPR pFM SUBJECTIVE: She uses the dilators every day in the shower. She has progress to the medium dilator. Inserting it is painful and then it goes away and she doesn't feel the dilator anymore. When she takes it out it is painful, and it hurts after for awhile. Pain: OBJECTIVE MEASURES WITH LEVEL OF FUNCTION: TREATMENT: Manual Therapy: 1: External PFM TPR B gentle distraction and strumming to muscle listed in objective above concurrent with DB for lengthening, and mobilization along muscle belly, with use of STM, MFR, TPR, strain/counterstrain, hold/relax, and sweeping techniques to layers 1-3 PFMs in order to address myofascial restrictions, pain, TrP, tenderness to palpation, and spasm. Skilled Intervention: Manual skills to improve joint mobility, ROM, and decrease pain. Utilized anatomy knowledge of the therapist, and assessment of patient's response to intervention. Self-Senior Care Management: 1: Trying lubircation in the shower to help with insertion and removal pain from the dilator. 2: Do happy baby, cat cow and big hip circles in quadruped 3: Remined her to wear her SI belt if she is feeling uncomfortable in her pubic area as well as do the pelvic corrections. Skilled Intervention: Reviewed patient specific diagnosis in relation to activities of daily living/home management. Billing Manual TherapyTreatment Minutes: 30 Self-Care/Home Management Treatment Minutes: 10 Total Treatment Time Minutes (timed/untimed): 40 Session Start Time : 1544 Session Stop Time : 1625 Hector Muniz PT [facility] 02-20-2023 Note HNO ID: [id number] Author: Hector Muniz PT Service: ? Author Type: Physical Therapist Type: Progress Notes Filed: 02/20/2023 3:32 PM Note Text: Episode Visit Count: 6 Therapist That Will Accept/Oversee The Plan Of Care: HECTOR MUNIZ Start of Care Date: 01/30/23 Onset Date: 04/21/18 REHABILITATION AND SPORTS THERAPY PHYSICAL THERAPY TREATMENT NOTE ASSESSMENT: Mary Oleary tolerated the session with no issues. She demonstrated Good understanding of all education this visit. . The patient will continue to benefit from ongoing skilled physical therapy to progress toward set goals. PLAN FOR NEXT VISIT: Internal TPR SUBJECTIVE: she feels like she got some relief with her back pain after internal. She feels like she is not making progress with the dilators. She is only doing it a few times a week. She is on the smallest dilator in her set from intimate sunni. She has the medium set. Pain: OBJECTIVE MEASURES WITH LEVEL OF FUNCTION: TREATMENT: Self-Senior Care Management: 1: plan discussion. Would like to go naturally. Fear is she wont be able to. She is not against an epidural. 2: Advised on labor positions with and without an epidural. Discussed the stages of labor and postions for each stage and benefits of each positions 3: Discussed pain managment besides epidural 4: Encouraged patient to be more compliant with her dilator HEP to avoid tearing during delivery. Skilled Intervention: Educated the patient regarding recommendations and provided written instruction to facilitate compliance. Billing Self-Care/Home Management Treatment Minutes: 45 Total Treatment Time Minutes (timed/untimed): 50 Hector Muniz PT [facility] 02-20-2023 History of Presen t illness Narrative Episode Visit Count: 6 Therapist That Will Accept/Oversee The Plan Of Care: HECTOR MUNIZ Start of Care Date: 01/30/23 Onset Date: 04/21/18 REHABILITATION AND SPORTS THERAPY PHYSICAL THERAPY TREATMENT NOTE ASSESSMENT: Mary Oleary tolerated the session with no issues. She demonstrated Good understanding of all education this visit. . The patient will continue to benefit from ongoing skilled physical therapy to progress toward set goals. PLAN FOR NEXT VISIT: Internal TPR SUBJECTIVE: she feels like she got some relief with her back pain after internal. She feels like she is not making progress with the dilators. She is only doing it a few times a week. She is on the smallest dilator in her set from intimate sunni. She has the medium set. Pain: OBJECTIVE MEASURES WITH LEVEL OF FUNCTION: TREATMENT: Self-Senior Care Management: 1: plan discussion. Would like to go naturally. Fear is she wont be able to. She is not against an epidural. 2: Advised on labor positions with and without an epidural. Discussed the stages of labor and postions for each stage and benefits of each positions 3: Discussed pain managment besides epidural 4: Encouraged patient to be more compliant with her dilator HEP to avoid tearing during delivery. Skilled Intervention: Educated the patient regarding recommendations and provided written instruction to facilitate compliance. Billing Self-Care/Home Management Treatment Minutes: 45 Total Treatment Time Minutes (timed/untimed): 50 Hector Muniz PT documented in this encounter [facility] 02-14-2023 Note HNO ID: [id number] Author: Hector Muniz PT Service: ? Author Type: Physical Therapist Type: Progress Notes Filed: 02/14/2023 4:12 PM Note Text: Episode Visit Count: 5 Therapist That Will Accept/Oversee The Plan Of Care: HECTOR MUNIZ Start of Care Date: 01/30/23 Onset Date: 04/21/18 REHABILITATION AND SPORTS THERAPY PHYSICAL THERAPY TREATMENT NOTE ASSESSMENT: Mary Oleary tolerated the session with expected muscle soreness. She demonstrated improvements in pain after treatment. The patient will continue to benefit from ongoing skilled physical therapy to progress toward set goals. PLAN FOR NEXT VISIT: Internal TPR? Has she tried wearing the heel lift? How did she do after the dry needling. SUBJECTIVE: The heel lift is in, but she has not had a chance to wear it. Pain: Post Treatment Pain Post Treatment Pain Level: Better OBJECTIVE MEASURES WITH LEVEL OF FUNCTION: TREATMENT: Manual Therapy: 1: MFr to lower abdomen. Gave patient ilya to do at home. Dry Needling: Dry needling to following Homeostatic points: Superior cluneal and Inferior glutenal and Paravertebral points: L1, L2, L3, L4, and L5 Needle length: 30mm 1.2 in and 50mm 2.0 in . Dry needling technique used Basic needling. Patient education on purpose, precautions, safety, risks, and other treatment options regarding dry needling. Verbal consent received.Dry needling performed to cause a micro lesion within pathological tissue decreasing tension/tone, inhibit a reflex arc from the nervous system to the tissue, normalizing the inflammatory response, centrally mediating pain and decreasing peripheral neurogenic sensitivity. Skilled Intervention: Manual skills to improve joint mobility, ROM, and decrease pain. Utilized anatomy knowledge of the therapist, and assessment of patient's response to intervention. Billing Manual TherapyTreatment Minutes: 40 Total Treatment Time Minutes (timed/untimed): 45 Hector Muniz, PT [facility] 02-14-2023 History of Presen t illness Narrative Episode Visit Count: 5 Therapist That Will Accept/Oversee The Plan Of Care: HECTOR MUNIZ Start of Care Date: 01/30/23 Onset Date: 04/21/18 REHABILITATION AND SPORTS THERAPY PHYSICAL THERAPY TREATMENT NOTE ASSESSMENT: Mary Oleary tolerated the session with expected muscle soreness. She demonstrated improvements in pain after treatment. The patient will continue to benefit from ongoing skilled physical therapy to progress toward set goals. PLAN FOR NEXT VISIT: Internal TPR? Has she tried wearing the heel lift? How did she do after the dry needling. SUBJECTIVE: The heel lift is in, but she has not had a chance to wear it. Pain: Post Treatment Pain Post Treatment Pain Level: Better OBJECTIVE MEASURES WITH LEVEL OF FUNCTION: TREATMENT: Manual Therapy: 1: MFr to lower abdomen. Gave patient ilya to do at home. Dry Needling: Dry needling to following Homeostatic points: Superior cluneal and Inferior glutenal and Paravertebral points: L1, L2, L3, L4, and L5 Needle length: 30mm 1.2 in and 50mm 2.0 in . Dry needling technique used Basic needling. Patient education on purpose, precautions, safety, risks, and other treatment options regarding dry needling. Verbal consent received.Dry needling performed to cause a micro lesion within pathological tissue decreasing tension/tone, inhibit a reflex arc from the nervous system to the tissue, normalizing the inflammatory response, centrally mediating pain and decreasing peripheral neurogenic sensitivity. Skilled Intervention: Manual skills to improve joint mobility, ROM, and decrease pain. Utilized anatomy knowledge of the therapist, and assessment of patient's response to intervention. Billing Manual TherapyTreatment Minutes: 40 Total Treatment Time Minutes (timed/untimed): 45 Hector Muniz PT documented in this encounter [facility] 02-12-2023 Note HNO ID: [id number] Author: Hector Muniz PT Service: ? Author Type: Physical Therapist Type: Progress Notes Filed: 02/12/2023 3:19 PM Note Text: Episode Visit Count: 4 Therapist That Will Accept/Oversee The Plan Of Care: HECTOR MUNIZ Start of Care Date: 01/30/23 Onset Date: 04/21/18 REHABILITATION AND SPORTS THERAPY PHYSICAL THERAPY TREATMENT NOTE ASSESSMENT: Mary Oleary tolerated the session with decreased symptoms. She demonstrated a stretch with the 3rd exercise for pelvic rebalancing. No pain with any of the exercises. She could really feel a difference when standing on the 3 magazines and an instant relief in symptoms in her pelvis and back. The patient will continue to benefit from ongoing skilled physical therapy to progress toward set goals. PLAN FOR NEXT VISIT: heel lift.. Dry needling to back paraspinals and sacrum.... MET for SI, internal TPR. SUBJECTIVE: I feel like I use the dilators, but I am getting the same result. She has not received her SI belt yet. Pain: OBJECTIVE MEASURES WITH LEVEL OF FUNCTION: [place] test for leg length - 3 magazines TREATMENT: Neuromuscular Re-Education: 1: [place] test for heel lift 2: Pelvic rebalancing exercise 1 3: PElvic rebalancing exercise 2A 4: Pelvic rebalancing exercise 3 5: Discussed purchasing a heel lift on [employer] to help with leg length symptoms. Skilled Intervention: Education and demonstration for posture and positioning for tone management. Provided written instruction for home program to facilitate proper performance and compliance. Patient education as noted. Billing Neuromuscular Re-Education Treatment Minutes: 38 Total Treatment Time Minutes (timed/untimed): 40 Hector Muniz PT [facility] 02-12-2023 History of Presen t illness Narrative Episode Visit Count: 4 Therapist That Will Accept/Oversee The Plan Of Care: HECTOR MUNIZ Start of Care Date: 01/30/23 Onset Date: 04/21/18 REHABILITATION AND SPORTS THERAPY PHYSICAL THERAPY TREATMENT NOTE ASSESSMENT: Mary Oleary tolerated the session with decreased symptoms. She demonstrated a stretch with the 3rd exercise for pelvic rebalancing. No pain with any of the exercises. She could really feel a difference when standing on the 3 magazines and an instant relief in symptoms in her pelvis and back. The patient will continue to benefit from ongoing skilled physical therapy to progress toward set goals. PLAN FOR NEXT VISIT: heel lift.. Dry needling to back paraspinals and sacrum.... MET for SI, internal TPR. SUBJECTIVE: I feel like I use the dilators, but I am getting the same result. She has not received her SI belt yet. Pain: OBJECTIVE MEASURES WITH LEVEL OF FUNCTION: [place] test for leg length - 3 magazines TREATMENT: Neuromuscular Re-Education: 1: [place] test for heel lift 2: Pelvic rebalancing exercise 1 3: PElvic rebalancing exercise 2A 4: Pelvic rebalancing exercise 3 5: Discussed purchasing a heel lift on [employer] to help with leg length symptoms. Skilled Intervention: Education and demonstration for posture and positioning for tone management. Provided written instruction for home program to facilitate proper performance and compliance. Patient education as noted. Billing Neuromuscular Re-Education Treatment Minutes: 38 Total Treatment Time Minutes (timed/untimed): 40 Hector Muniz PT documented in this encounter [facility] 02-07-2023 Note HNO ID: [id number] Author: Hector Muniz PT Service: ? Author Type: Physical Therapist Type: Progress Notes Filed: 02/07/2023 4:36 PM Note Text: Episode Visit Count: 3 Therapist That Will Accept/Oversee The Plan Of Care: HECTOR MUNIZ Start of Care Date: 01/30/23 Onset Date: 04/21/18 REHABILITATION AND SPORTS THERAPY PHYSICAL THERAPY TREATMENT NOTE ASSESSMENT: Mary Oleary tolerated the session with expected muscle soreness. She demonstrated difficulty with releasing trigger points and relaxing secondary to pain especially on the left side.. The patient will continue to benefit from ongoing skilled physical therapy to progress toward set goals. PLAN FOR NEXT VISIT: LEg length discrepancy Gentle internal PF SUBJECTIVE: She was very sore after last visit. It took a few hours and then it went away. Her HEP is going good. She called and got an appt with zs Pain: OBJECTIVE MEASURES WITH LEVEL OF FUNCTION: Pelvic Floor Manual Assessment Pelvic Floor Tenderness/Hyperactivity: Tested Vaginally in Tested Vaginally in : Supine/hooklying Levator Ani: Bilateral (R 2+/2 L 2+/3) Bulbocavernosus: Bilateral (R 2+/2 L 2+/3) Superficial transverse perineal: Bilateral (R 2+/2 L 2+/3) Ischiocavernosus: Bilateral (R 2+/2 L 2+/3) Deep transverse perineal: Bilateral (R 2+/2 L 2+/3) Anterior pelvic floor: Bilateral (R 2+/2 L 2+/3) Tissue Restriction/Tenderness Scale: 1= mild, 2= moderate, 3= severe TREATMENT: Manual Therapy: 1: Internal PFM TPR to layers 1 and 2 using sustained pressure concurrently with diaphragmatic breathing Skilled Intervention: Manual skills to improve joint mobility, ROM, and decrease pain. Utilized anatomy knowledge of the therapist, and assessment of patient's response to intervention. Self-Senior Care Management: 1: Tried on SI belt. [place] relief. Advised to purchase a belt to provide stabilization and pain relief Skilled Intervention: Reviewed patient specific diagnosis in relation to activities of daily living/home management. Billing Manual TherapyTreatment Minutes: 55 Self-Care/Home Management Treatment Minutes: 5 Total Treatment Time Minutes (timed/untimed): 60 Hector Muniz PT [facility] 02-07-2023 History of Presen t illness Narrative Episode Visit Count: 3 Therapist That Will Accept/Oversee The Plan Of Care: HECTOR MUNIZ Start of Care Date: 01/30/23 Onset Date: 04/21/18 REHABILITATION AND SPORTS THERAPY PHYSICAL THERAPY TREATMENT NOTE ASSESSMENT: Mary Oleary tolerated the session with expected muscle soreness. She demonstrated difficulty with releasing trigger points and relaxing secondary to pain especially on the left side.. The patient will continue to benefit from ongoing skilled physical therapy to progress toward set goals. PLAN FOR NEXT VISIT: LEg length discrepancy Gentle internal PF SUBJECTIVE: She was very sore after last visit. It took a few hours and then it went away. Her HEP is going good. She called and got an appt with zs Pain: OBJECTIVE MEASURES WITH LEVEL OF FUNCTION: Pelvic Floor Manual Assessment Pelvic Floor Tenderness/Hyperactivity: Tested Vaginally in Tested Vaginally in : Supine/hooklying Levator Ani: Bilateral (R 2+/2 L 2+/3) Bulbocavernosus: Bilateral (R 2+/2 L 2+/3) Superficial transverse perineal: Bilateral (R 2+/2 L 2+/3) Ischiocavernosus: Bilateral (R 2+/2 L 2+/3) Deep transverse perineal: Bilateral (R 2+/2 L 2+/3) Anterior pelvic floor: Bilateral (R 2+/2 L 2+/3) Tissue Restriction/Tenderness Scale: 1= mild, 2= moderate, 3= severe TREATMENT: Manual Therapy: 1: Internal PFM TPR to layers 1 and 2 using sustained pressure concurrently with diaphragmatic breathing Skilled Intervention: Manual skills to improve joint mobility, ROM, and decrease pain. Utilized anatomy knowledge of the therapist, and assessment of patient's response to intervention. Self-Senior Care Management: 1: Tried on SI belt. [place] relief. Advised to purchase a belt to provide stabilization and pain relief Skilled Intervention: Reviewed patient specific diagnosis in relation to activities of daily living/home management. Billing Manual TherapyTreatment Minutes: 55 Self-Care/Home Management Treatment Minutes: 5 Total Treatment Time Minutes (timed/untimed): 60 Hector Muniz PT documented in this encounter [facility] 02-05-2023 Note HNO ID: [id number] Author: Hector Muniz PT Service: ? Author Type: Physical Therapist Type: Progress Notes Filed: 02/05/2023 6:05 PM Note Text: Episode Visit Count: 2 Therapist That Will Accept/Oversee The Plan Of Care: HECTOR MUNIZ Start of Care Date: 01/30/23 Onset Date: 04/21/18 REHABILITATION AND SPORTS THERAPY PHYSICAL THERAPY TREATMENT NOTE ASSESSMENT: Mary Oleary tolerated the session with expected muscle soreness. She demonstrated difficulty with increased symptoms after treatment. Burning on the left. The patient will continue to benefit from ongoing skilled physical therapy to progress toward set goals. PLAN FOR NEXT VISIT: Chiro? LEg length discrepancy Gentle internal PF SUBJECTIVE: Yesterday she went to urgent care with UTI symptoms and she did not test + for a UTI. She has also been having headaches. She tried the extra small dilator 1x and she had pain with just putting it in. She has pain when she walks vaginally. Constant left sided pain. Could be round ligament pain. Pain: OBJECTIVE MEASURES WITH LEVEL OF FUNCTION: Dr Kitchen internal exam. Pelvic Floor Muscle Assessment Consent for pelvic assessment/testing and treatment: Patient was educated regarding pelvic floor physical therapy assessment/treatment which may include pelvic floor and girdle muscle assessment externally or internally (vaginal or rectal approach)., Patient verbalized consent for the above treatment approaches today. Patient understands they have control of the treatment and an opportunity to stop treatment at any time. Pelvic Floor Muscle Assessment: Muscle Dynamics Contracton Pressure: Weak squeeze, felt as flick at various points along finger surface, not all the way around Recruitment of pelvic floor muscles: Coordinated Ability to Lengthen pelvic floor: Yes Relaxation Postcontraction: Yes Paradoxical Contraction: No Breathing Pattern : Required cuing for deep breathing during internal TPR. Breath holding and shallow breathing present Diaphragmatic Breathing : Fair Pelvic Floor Manual Assessment Pelvic Floor Tenderness/Hyperactivity: Tested Vaginally in, Pelvic Floor Tenderness/Hyperactivity Comments Tested Vaginally in : Supine/hooklying Levator Ani: Bilateral (R 2+/2 L 2+/3) Bulbocavernosus: Bilateral (R 2+/2 L 2+/3) Superficial transverse perineal: Bilateral (R 2+/2 L 2+/3) Ischiocavernosus: Bilateral (R 2+/2 L 2+/3) Deep transverse perineal: Bilateral (R 2+/2 L 2+/3) Anterior pelvic floor: Bilateral (R 2+/2 L 2+/3) Iliococcygeus: Bilateral (R 2+/2 L 2+/3) Coccygeus: Bilateral (R 2+/2 L 2+/3) Obturator internus: Bilateral (R 2+/2 L 2+/3) Pubococcygeus: Bilateral (R 2+/2 L 2+/3) Puborectalis: Bilateral (R 2+/2 L 2+/3) Pelvic Floor Tenderness/Hyperactivity Comments: Tenderness and burning on the left side greater than right Tissue Restriction/Tenderness Scale: 1= mild, 2= moderate, 3= severe Special Tests - Hip and Spine Special Test Comments: Patient's left leg is shorter than the right in supine and in hooklying left knee lower than right. TREATMENT: Manual Therapy: 1: Internal PFM TPR to layers 1 and 2 using sustained pressure concurrently with diaphragmatic breathing 2: Internal PFM assessment 3: *HEP 2 BREATHS AND LENGTHEN HOLD FOR 3 SECS. CAN DO DURING THE DAY IF FEELING TIGHT OR PAINFUL Skilled Intervention: Manual skills to improve joint mobility, ROM, and decrease pain. Utilized anatomy knowledge of the therapist, and assessment of patient's response to intervention. Billing Manual TherapyTreatment Minutes: 40 Total Treatment Time Minutes (timed/untimed): 45 Hector Muniz, PT [facility] 02-05-2023 History of Presen t illness Narrative Episode Visit Count: 2 Therapist That Will Accept/Oversee The Plan Of Care: HECTOR MUNIZ Start of Care Date: 01/30/23 Onset Date: 04/21/18 REHABILITATION AND SPORTS THERAPY PHYSICAL THERAPY TREATMENT NOTE ASSESSMENT: Mary Oleary tolerated the session with expected muscle soreness. She demonstrated difficulty with increased symptoms after treatment. Burning on the left. The patient will continue to benefit from ongoing skilled physical therapy to progress toward set goals. PLAN FOR NEXT VISIT: Chiro? LEg length discrepancy Gentle internal PF SUBJECTIVE: Yesterday she went to urgent care with UTI symptoms and she did not test + for a UTI. She has also been having headaches. She tried the extra small dilator 1x and she had pain with just putting it in. She has pain when she walks vaginally. Constant left sided pain. Could be round ligament pain. Pain: OBJECTIVE MEASURES WITH LEVEL OF FUNCTION: Dr Kitchen internal exam. Pelvic Floor Muscle Assessment Consent for pelvic assessment/testing and treatment: Patient was educated regarding pelvic floor physical therapy assessment/treatment which may include pelvic floor and girdle muscle assessment externally or internally (vaginal or rectal approach)., Patient verbalized consent for the above treatment approaches today. Patient understands they have control of the treatment and an opportunity to stop treatment at any time. Pelvic Floor Muscle Assessment: Muscle Dynamics Contracton Pressure: Weak squeeze, felt as flick at various points along finger surface, not all the way around Recruitment of pelvic floor muscles: Coordinated Ability to Lengthen pelvic floor: Yes Relaxation Postcontraction: Yes Paradoxical Contraction: No Breathing Pattern : Required cuing for deep breathing during internal TPR. Breath holding and shallow breathing present Diaphragmatic Breathing : Fair Pelvic Floor Manual Assessment Pelvic Floor Tenderness/Hyperactivity: Tested Vaginally in, Pelvic Floor Tenderness/Hyperactivity Comments Tested Vaginally in : Supine/hooklying Levator Ani: Bilateral (R 2+/2 L 2+/3) Bulbocavernosus: Bilateral (R 2+/2 L 2+/3) Superficial transverse perineal: Bilateral (R 2+/2 L 2+/3) Ischiocavernosus: Bilateral (R 2+/2 L 2+/3) Deep transverse perineal: Bilateral (R 2+/2 L 2+/3) Anterior pelvic floor: Bilateral (R 2+/2 L 2+/3) Iliococcygeus: Bilateral (R 2+/2 L 2+/3) Coccygeus: Bilateral (R 2+/2 L 2+/3) Obturator internus: Bilateral (R 2+/2 L 2+/3) Pubococcygeus: Bilateral (R 2+/2 L 2+/3) Puborectalis: Bilateral (R 2+/2 L 2+/3) Pelvic Floor Tenderness/Hyperactivity Comments: Tenderness and burning on the left side greater than right Tissue Restriction/Tenderness Scale: 1= mild, 2= moderate, 3= severe Special Tests - Hip and Spine Special Test Comments: Patient's left leg is shorter than the right in supine and in hooklying left knee lower than right. TREATMENT: Manual Therapy: 1: Internal PFM TPR to layers 1 and 2 using sustained pressure concurrently with diaphragmatic breathing 2: Internal PFM assessment 3: *HEP 2 BREATHS AND LENGTHEN HOLD FOR 3 SECS. CAN DO DURING THE DAY IF FEELING TIGHT OR PAINFUL Skilled Intervention: Manual skills to improve joint mobility, ROM, and decrease pain. Utilized anatomy knowledge of the therapist, and assessment of patient's response to intervention. Billing Manual TherapyTreatment Minutes: 40 Total Treatment Time Minutes (timed/untimed): 45 Hector Muniz PT documented in this encounter [facility] 02-05-2023 Miscellaneous Notes Spoke to patient. She did take 1000mg of Tylenol and has tried caffeine today along with increasing water intake and resting. States she does have BP monitor and her blood pressure this morning was 102/66. Asking if she still needs to come in or if that BP is sufficient? Krystina Cha RN If she has tried 1000 mg Tylenol with a little caffeine, increasing hydration, rest, and BLISS is severe and persistent needs to come in for BP check given > 20 weeks. If BP ok can try Reglan and Benadryl 21w6d today. documented in this encounter [facility] 02-04-2023 Note HNO ID: [id number] Author: Chante Suárez PA-C Service: ? Author Type: Physician Print Line Inspector Type: Progress Notes Filed: 02/04/2023 12:56 PM Note Text: This note was created using Proximagenriter. Subjective Mary Oleary is a 27 year old female. Cc - 'Burning with urination started last night, worse this morning. Currently . HPI This is a 27-year-old female with 21.5 weeks gestation presenting [facility] for the onset of burning during urination that started yesterday. Patient notes symptoms increased on awakening this morning. Additional symptoms include urinary urgency and frequency. Currently denies any fever or chills, nausea or vomiting, abdominal pain, dysuria, flank pain, hematuria, vaginal bleeding or discharge. Denies any treatment to date. Review of Systems Constitutional: Negative for chills, fatigue and fever. Gastrointestinal: Negative for abdominal pain, diarrhea, nausea and vomiting. Genitourinary: Positive for frequency and urgency. Negative for dysuria, flank pain, hematuria, vaginal bleeding and vaginal discharge. Burning during urination Skin: Negative for rash. Neurological: Negative for light-headedness and headaches. Objective BP 102/66 (BP Site: Left Arm, BP Position: Sitting, BP Cuff Size: Regular Adult) Pulse 87 Temp 36.8 ?C (98.2 ?F) Resp 16 LMP 09/05/2022 (Exact Date) PAST MEDICAL HISTORY Diagnosis Date Anal fissure Anxiety Huziar's esophagus Chronic constipation Depression Hemorrhoids internal and external History of hyperthyroidism 05/10/2022 History of seizures as a child Hyperthyroidism Hyperthyroidism 10/30/2018 Infertility, female Ovarian cyst PAST SURGICAL HISTORY Procedure Laterality Date COLONOSCOPY 07/13/2021 gastritis and colitis found EGD 07/13/2021 LAPAROSCOPY W/RMVL ADNEXAL STRUCTURES Left 04/11/2018 Left ovarian cystectomy for dermoid cyst OVARIAN CYSTECTOMY Left 2018 ALLERGIES Bactrim [Sulfamethoxazole-Trimethoprim], Caffine [Caffeine], Penicillins, and Reglan [Metoclopramide] MEDICATIONS ondansetron orally disintegrating (ZOFRAN ODT) 4 mg disintegrating tabletTake 2 tablets by mouth three times daily as needed for nausea/vomiting. 30 min before mealsDisp: 90 tabletRfl: 1 promethazine (PHENERGAN) 25 mg tabletTake 0.5-1 tablets by mouth every 6 hours as needed.Disp: 30 tabletRfl: 1 famotidine (PEPCID) 20 mg tabletTake 1 tablet by mouth twice daily.Disp: 60 tabletRfl: 1 FAMILY HISTORY Problem Relation Age of Onset Hypothyroidism Mother Migraines Mother Hypertension Father Migraines Brother other (ginette cyst) Brother Hypertension Maternal Grandmother other (Tachycardia) Maternal Grandmother Diabetes Maternal Grandfather Heart Maternal Grandfather Hypertension Paternal Grandmother Hyperlipidemia Paternal Grandmother Ischemic Heart Disease Paternal Grandfather History of heart attacks Stroke Paternal Grandfather Hyperlipidemia Paternal Grandfather Hypertension Paternal Grandfather Aneurysm Paternal Grandfather Anesthesia Problems No Family History Social History Tobacco Use Smoking status: Never Smokeless tobacco: Never Vaping Use Vaping Use: Former Quit date: 09/30/2022 Substances: THC Substance Use Topics Alcohol use: Not Currently Comment: rarely Drug use: Yes Frequency: 7.0 times per week Types: Marijuana Comment: medical marijuana Physical Exam Constitutional: General: She is not in acute distress. Appearance: Normal appearance. She is not ill-appearing or toxic-appearing. HENT: Head: Normocephalic and atraumatic. Eyes: Conjunctiva/sclera: Conjunctivae normal. Cardiovascular: Rate and Rhythm: Normal rate and regular rhythm. Heart sounds: Normal heart sounds. Pulmonary: Effort: Pulmonary effort is normal. No respiratory distress. Comments: CTA x 4 w/o wheezes, rhonchi or crackles. No retractions or accessory muscle usage noted. Abdominal: Palpations: Abdomen is soft. Tenderness: There is no abdominal tenderness. There is no right CVA tenderness or left CVA tenderness. Musculoskeletal: Cervical back: Neck supple. Skin: General: Skin is warm and dry. Findings: No rash. Neurological: Mental Status: She is alert. Psychiatric: Mood and Affect: Mood normal. Assessment and Plan ASSESSMENT/PLAN: 1. UTI symptoms - ICD9: 788.99, ICD10: R39.9 (primary diagnosis) - UA DIP, URINE (POC) - Protein, Trace Leuks - URINE CULTURE Will contact patient with any necessary treatment changes pending results 2. Cystitis - ICD9: 595.9, ICD10: N30.90 - Maintain good hydration - Follow up with PCP / Hair Colorist if continued or worsening symptoms. - Reviewed warning signs of worsening disease and need for immediate eval in ER. - Pt acknowledges understanding and is in agreement with plan. - Pt discharged in stable condition DHIRAJ Timmons; SHAVONNE [facility] 02-04-2023 Instructions Chante Suárez PA-C - 02/04/2023 12:48 PM EDT ASSESSMENT/PLAN: 1. UTI symptoms - ICD9: 788.99, ICD10: R39.9 (primary diagnosis) - UA DIP, URINE (POC) - Protein, Trace Leuks - URINE CULTURE Will contact patient with any necessary treatment changes pending results 2. Cystitis - ICD9: 595.9, ICD10: N30.90 - Maintain good hydration - Follow up with PCP / Hair Colorist if continued or worsening symptoms. - Reviewed warning signs of worsening disease and need for immediate eval in ER. - Pt acknowledges understanding and is in agreement with plan. - Pt discharged in stable condition DHIRAJ Timmons; SHAVONNE documented in this encounter [facility] 02-04-2023 History of Presen t illness Narrative This note was created using Framebench. Subjective Mary Oleary is a 27 year old female. Cc - 'Burning with urination started last night, worse this morning. Currently . HPI This is a 27-year-old female with 21.5 weeks gestation [facility] for the onset of burning during urination that started yesterday. Patient notes symptoms increased on awakening this morning. Additional symptoms include urinary urgency and frequency. Currently denies any fever or chills, nausea or vomiting, abdominal pain, dysuria, flank pain, hematuria, vaginal bleeding or discharge. Denies any treatment to date. Review of Systems Constitutional: Negative for chills, fatigue and fever. Gastrointestinal: Negative for abdominal pain, diarrhea, nausea and vomiting. Genitourinary: Positive for frequency and urgency. Negative for dysuria, flank pain, hematuria, vaginal bleeding and vaginal discharge. Burning during urination Skin: Negative for rash. Neurological: Negative for light-headedness and headaches. Objective BP 102/66 (BP Site: Left Arm, BP Position: Sitting, BP Cuff Size: Regular Adult) Pulse 87 Temp 36.8 C (98.2 F) Resp 16 LMP 09/05/2022 (Exact Date) PAST MEDICAL HISTORY Diagnosis Date Anal fissure Anxiety Huizar's esophagus Chronic constipation Depression Hemorrhoids internal and external History of hyperthyroidism 05/10/2022 History of seizures as a child Hyperthyroidism Hyperthyroidism 10/30/2018 Infertility, female Ovarian cyst PAST SURGICAL HISTORY Procedure Laterality Date COLONOSCOPY 07/13/2021 gastritis and colitis found EGD 07/13/2021 LAPAROSCOPY W/RMVL ADNEXAL STRUCTURES Left 04/11/2018 Left ovarian cystectomy for dermoid cyst OVARIAN CYSTECTOMY Left 2018 ALLERGIES Bactrim [Sulfamethoxazole-Trimethoprim], Caffine [Caffeine], Penicillins, and Reglan [Metoclopramide] MEDICATIONS ondansetron orally disintegrating (ZOFRAN ODT) 4 mg disintegrating tablet^Take 2 tablets by mouth three times daily as needed for nausea/vomiting. 30 min before meals^Disp: 90 tablet^Rfl: 1 promethazine (PHENERGAN) 25 mg tablet^Take 0.5-1 tablets by mouth every 6 hours as needed.^Disp: 30 tablet^Rfl: 1 famotidine (PEPCID) 20 mg tablet^Take 1 tablet by mouth twice daily.^Disp: 60 tablet^Rfl: 1 FAMILY HISTORY Problem Relation Age of Onset Hypothyroidism Mother Migraines Mother Hypertension Father Migraines Brother other (ginette cyst) Brother Hypertension Maternal Grandmother other (Tachycardia) Maternal Grandmother Diabetes Maternal Grandfather Heart Maternal Grandfather Hypertension Paternal Grandmother Hyperlipidemia Paternal Grandmother Ischemic Heart Disease Paternal Grandfather History of heart attacks Stroke Paternal Grandfather Hyperlipidemia Paternal Grandfather Hypertension Paternal Grandfather Aneurysm Paternal Grandfather Anesthesia Problems No Family History Social History Tobacco Use Smoking status: Never Smokeless tobacco: Never Vaping Use Vaping Use: Former Quit date: 09/30/2022 Substances: THC Substance Use Topics Alcohol use: Not Currently Comment: rarely Drug use: Yes Frequency: 7.0 times per week Types: Marijuana Comment: medical marijuana Physical Exam Constitutional: General: She is not in acute distress. Appearance: Normal appearance. She is not ill-appearing or toxic-appearing. HENT: Head: Normocephalic and atraumatic. Eyes: Conjunctiva/sclera: Conjunctivae normal. Cardiovascular: Rate and Rhythm: Normal rate and regular rhythm. Heart sounds: Normal heart sounds. Pulmonary: Effort: Pulmonary effort is normal. No respiratory distress. Comments: CTA x 4 w/o wheezes, rhonchi or crackles. No retractions or accessory muscle usage noted. Abdominal: Palpations: Abdomen is soft. Tenderness: There is no abdominal tenderness. There is no right CVA tenderness or left CVA tenderness. Musculoskeletal: Cervical back: Neck supple. Skin: General: Skin is warm and dry. Findings: No rash. Neurological: Mental Status: She is alert. Psychiatric: Mood and Affect: Mood normal. Assessment and Plan ASSESSMENT/PLAN: 1. UTI symptoms - ICD9: 788.99, ICD10: R39.9 (primary diagnosis) - UA DIP, URINE (POC) - Protein, Trace Leuks - URINE CULTURE Will contact patient with any necessary treatment changes pending results 2. Cystitis - ICD9: 595.9, ICD10: N30.90 - Maintain good hydration - Follow up with PCP / Hair Colorist if continued or worsening symptoms. - Reviewed warning signs of worsening disease and need for immediate eval in ER. - Pt acknowledges understanding and is in agreement with plan. - Pt discharged in stable condition DHIRAJ Timmons; SHAVONNE documented in this encounter [facility] 01-30-2023 Note HNO ID: [id number] Author: Hector Muniz PT Service: ? Author Type: Physical Therapist Type: Progress Notes Filed: 01/30/2023 9:17 AM Note Text: Episode Visit Count: 1 Therapist That Will Accept/Oversee The Plan Of Care: HECTOR MUNIZ Start of Care Date: 01/30/23 Onset Date: 04/21/18 Patient Identified by Name and Date of : Yes REHABILITATION AND SPORTS THERAPY PHYSICAL THERAPY EVALUATION PLAN OF CARE: Assessment: Mary Oleary presents with chief complaint of pain with intercourse, urination, and bowel movements. She is currently 20 weeks and she feels like her constipation and her pain is gradually getting worse. Her symptoms interfere with bladder function, bowel function, altered sexual function . She presents with impairments in ADL's, coordination, independence in exercise, overall function, posture, strength, stress management, symptom management, and tissue tenderness. PROMIS? (Patient-Reported Outcomes Measurement Information System) scores were reviewed and physical function domain identified as a rehabilitation concern. Prognosis for therapy is Good due to: current objective clinical presentation . She will benefit from skilled therapy services to meet the goals established for this plan of care as noted below. Goals for Episode of Care: created on 01/30/23 through 07/17/23 Patient demonstrates independence and compliance with home exercise program. Patient displays improved range of motion, coordination, and muscle dynamics of pelvic floor as evidenced by the ability to lengthen without paradoxical contraction at least 75% of the time to normalize bladder/bowel function; reduce pelvic pain. Patient reports at least 75% less pain with voiding bladder/bowels to normalize bladder/bowel function. Patient demonstrates ability to perform diaphragmatic breathing and relaxation practice independently to allow for decreased muscle tightness, decreased pain, and improved bladder/bowel function. Coordinate pelvic floor with thoracic diaphragm during Functional mobility and change in position to decreasing incontinence and/or pain. Patient will report decreased pain rating by 2 points to meet minimal clinical important difference for numeric pain rating scale. Patient to report at least 75% improvement in pain with sexual intercourse and activities of daily living. Patient Goals: To go to the bathroom without pain. And without manual assistance. Planned Interventions, Frequency, and Duration: Current Frequency: 1x/week Duration: (24 WEEKS) Total Number of Visits Planned: 24 Planned Treatment Interventions: Therapeutic exercise (83827), Neuromuscular re-education (02629), Manual therapy (73416), Therapeutic activities (33495), Self-usp management (03012), Patient/Family/Caregiver Education PLAN FOR NEXT VISIT: With Dr. KURTZ will do internal treatment rectally for PFM spasm. Patient demonstrates good understanding of plan of care and treatment. The above goals and plan of care were discussed and agreed upon by patient/family. SUBJECTIVE: Mary Oleary is a 27 year old female seen today for She was in pelvic floor therapy at the end of 2021 and june. At that time they said she had high tone in her pelvic floor. She is now and her pain has gotten way worse than it was before. Now it is to the point she can hardly have BM and urination is becoming more painful and difficult to empty. She does not know what to do. She is 20 weeks along. She can not have intercourse either. She has had pain since she was 13. When she tried to wear tampons she couldn't. She has had consitpation for years. Hemrhoids and fissures. Patient Goals: To go to the bathroom without pain. And without manual assistance. Functional Limitations: bladder function, bowel function, altered sexual function Relevant History Employment: [employer]: See Comment [employer] Occupation: [employer] Recreation / Current Exercise: none (in PT previously she did breathing exercises. Pushing out. She has dilators but she hasn't used them because she did not know what she was restricted with with , the stretches she was given is painful.) Home Environment Patient Lives With: Spouse Intake Information: Prescription present Previous Treatment: Pelvic Floor Physical Therapy Pain: Pain Pain Level: 3 Pain Location: Vaginal (Round ligament pain maybe too) Description: Burning (Was [facility] pelvic [facility] and they thought it was nerves.) Frequency: Intermittent Detailed Pain Score: Yes Worst Pain Level: 5 Average Pain Level: 3 Best Pain Level: 2 PROMIS Scales Higher is Better 01/30/2023 06/21/2020 Phys Func - Score 40 (mild dysfunction) 47 (within normal limits) Phys Func - Percentile 16 % 38 % Self-Eff Symptom - Score 43 (Average) - Self-Eff Symptom - Percentile 24 % - T-scores: mean of gen (more content not included)... [facility] 01-30-2023 History of Presen t illness Narrative Episode Visit Count: 1 Therapist That Will Accept/Oversee The Plan Of Care: HECTOR MUNIZ Start of Care Date: 01/30/23 Onset Date: 04/21/18 Patient Identified by Name and Date of : Yes REHABILITATION AND SPORTS THERAPY PHYSICAL THERAPY EVALUATION PLAN OF CARE: Assessment: Mary Oleary presents with chief complaint of pain with intercourse, urination, and bowel movements. She is currently 20 weeks and she feels like her constipation and her pain is gradually getting worse. Her symptoms interfere with bladder function, bowel function, altered sexual function . She presents with impairments in ADL's, coordination, independence in exercise, overall function, posture, strength, stress management, symptom management, and tissue tenderness. PROMIS (Patient-Reported Outcomes Measurement Information System) scores were reviewed and physical function domain identified as a rehabilitation concern. Prognosis for therapy is Good due to: current objective clinical presentation . She will benefit from skilled therapy services to meet the goals established for this plan of care as noted below. Goals for Episode of Care: created on 01/30/23 through 07/17/23 Patient demonstrates independence and compliance with home exercise program. Patient displays improved range of motion, coordination, and muscle dynamics of pelvic floor as evidenced by the ability to lengthen without paradoxical contraction at least 75% of the time to normalize bladder/bowel function; reduce pelvic pain. Patient reports at least 75% less pain with voiding bladder/bowels to normalize bladder/bowel function. Patient demonstrates ability to perform diaphragmatic breathing and relaxation practice independently to allow for decreased muscle tightness, decreased pain, and improved bladder/bowel function. Coordinate pelvic floor with thoracic diaphragm during Functional mobility and change in position to decreasing incontinence and/or pain. Patient will report decreased pain rating by 2 points to meet minimal clinical important difference for numeric pain rating scale. Patient to report at least 75% improvement in pain with sexual intercourse and activities of daily living. Patient Goals: To go to the bathroom without pain. And without manual assistance. Planned Interventions, Frequency, and Duration: Current Frequency: 1x/week Duration: (24 WEEKS) Total Number of Visits Planned: 24 Planned Treatment Interventions: Therapeutic exercise (12596), Neuromuscular re-education (11282), Manual therapy (03073), Therapeutic activities (85275), Self-usp management (76303), Patient/Family/Caregiver Education PLAN FOR NEXT VISIT: With Dr. KURTZ will do internal treatment rectally for PFM spasm. Patient demonstrates good understanding of plan of care and treatment. The above goals and plan of care were discussed and agreed upon by patient/family. SUBJECTIVE: Mary Oleary is a 27 year old female seen today for She was in pelvic floor therapy at the end of 2021 and june. At that time they said she had high tone in her pelvic floor. She is now and her pain has gotten way worse than it was before. Now it is to the point she can hardly have BM and urination is becoming more painful and difficult to empty. She does not know what to do. She is 20 weeks along. She can not have intercourse either. She has had pain since she was 13. When she tried to wear tampons she couldn't. She has had consitpation for years. Hemrhoids and fissures. Patient Goals: To go to the bathroom without pain. And without manual assistance. 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 Pushing out. She has dilators but she hasn't used them because she did not know what she was restricted with with , the stretches she was given is painful.) Home Environment Patient Lives With: Spouse Intake Information: Prescription present Previous Treatment: Pelvic Floor Physical Therapy Pain: Pain Pain Level: 3 Pain Location: Vaginal (Round ligament pain maybe too) Description: Burning (Was seeing pelvic pain at [facility] and they thought it was nerves.) Frequency: Intermittent Detailed Pain Score: Yes Worst Pain Level: 5 Average Pain Level: 3 Best Pain Level: 2 PROMIS Scales Higher is Better 01/30/2023 06/21/2020 Phys Func - Score 40 (mild dysfunction) 47 (within normal limits) Phys Func - Percentile 16 % 38 % Self-Eff Symptom - Score 43 (Average) - Self-Eff Symptom - Percentile 24 % - T-scores: mean of general population = 50. 5 points is clinically meaningfully difference Percentiles provide an indication of how the patient's score ranks in relation to the general population. Higher percentile rankings indicate better function/quality of life. 50th percentile is the average of the general population and indicates half of respondents had a worse score. OBJECTIVE MEASURES WITH LEVEL OF FUNCTION: Pelvic Floor Menstruation: 20 weeks Pregnancies: 1 Births: 0 Aggravates Pain: Walking, Waka, Sitting, Urination, Defecation Alleviates Pain: Rest Pain with penetration: Deep and superficial, Pain during intercourse, Pain after intercourse, Pain with internal medical exam, Fear avoidance Sexual Health: It is almost like it is closed off and nothing can even go in there. History of low back pain: Yes (worse with ovulation and period. Intermittent. Sometimes goes down her legs.) Urinary/Bowel History : Urinary History, Bowel History Difficulty starting stream: Yes slow or intermittent stream: Yes strains to void: Sometimes Incomplete emptying: No Spraying: Yes Hesitancy: Yes Post Void Dribble: No Urgency: Sometimes Frequency of Urgency Episodes: 1x a day Frequency of Leaks Secondary to Urge: none Nocturia (times per night): 1 Daytime Frequency (hours): Every 2 hours Fluid Intake: Water, Juice Water : 64oz or more. Juice : Cranapple or Crangrape not often Enuresis: No Difficulty evacuating / Excessive Straining: Yes Incomplete emptying: Yes Bowel Movement Frequency: 2x a week Bowel Movement Consistency ([place]) : 2: Sausage-shaped but lumpy Bloating / abdominal pain: No Fecal incontinence: No Decreased warning time: No Daily Dietary Fiber/ Food Intake: Lots of puking lately. She lost 30lbs and in and out of the hospital. Within the last 3 weeks starting to get back to normal diet. Bowel Aides / Supplements: Prunes trying 5-6 a day, drinks apple juice, trying to eat more fiber, Education: Education Learning Preferences: Demonstration, Explanation, Performance, Printed Materials Barriers: None Learning/educational needs: Lifestyle changes, Health promotion, Home exercise program, Plan of Care, Posture Education Provided: Yes, see treatment interventions for education provided Education Provided To: Patient Education Mode/Type: Explanation/Discussion, Literature/Printed Materials Response to Education/Teach Back: States/Identifies TREATMENT: PT Treatment Interventions: Self-Senior Care Management Evaluation Self-Senior Care Management: 1: Today reached out to the physician to okay internal work for her pelvic floor 2: Educated the patient that as long as she is cleared to have intercourse that she can do internal work with her dilators at home and reviewed dilator technique 3: Discussed doing stretching of her external anal sphincters using the extra small dilator that was given to her today to help reduce pain and anal fissures with bowel movements 4: Educated the patient on fiber type soluble and insoluble. Advised the patient to search eating flaxseeds or Darwin seeds to help soften the stool as well as begin natural calm to help soften the stool for more regular bowel movements 5: Educated the patient in order to have a bowel movement she needs to relax both her nervous system and for pelvic floor. If she starts to find herself guarding due to pain to stop and take a deep breath practice for diaphragmatic breathing to see if she cannot relax enough to allow bowel movements to come out. If she is having pain then to maybe get up and come back later and try to have a bowel movement. Also advised the patient to get the squatty potty or stool so that way her toileting posture eases evacuation. Skilled Intervention: Provided written instruction for activities of daily living techniques to facilitate proper performance and compliance. Reviewed patient specific diagnosis in relation to activities of daily living/home management. Billing * Evaluation Low Complexity: 1 Unit Self-Care/Home Management Treatment Minutes: 25 Total Treatment Time Minutes (timed/untimed): 45 Hector Muniz PT documented in this encounter [facility] 01-16-2023 Note HNO ID: [id number] Author: Piper Perez MD Service: ? Author Type: Physician Type: Progress Notes Filed: 01/20/2023 4:07 PM Note Text: Mary Oleary 1995 REFERRING PHYSICIAN: Luci Ryan MD CHIEF COMPLAINT: Consult (Chronic constipation, internal and external hemorrhoids, anal fissure and rectal bleeding. ) HPI: The patient is a 27 year old female with a complaint of bright red blood - rectal bleeding She had a colonoscopy in July 2021 - findings of hemorrhoids. She also note recurrent anal fissures, has had multiple treatments with nifedipine cream. She is presently and due in June. She does note chronic constipation She has been diagnosed with hypertonic pelvic musculature. PAST MEDICAL HISTORY Diagnosis Date Anal fissure Anxiety Huizar's esophagus Chronic constipation Depression Hemorrhoids internal and external History of hyperthyroidism 05/10/2022 History of seizures as a child Hyperthyroidism Hyperthyroidism 10/30/2018 Infertility, female Ovarian cyst PAST SURGICAL HISTORY Procedure Laterality Date COLONOSCOPY 07/13/2021 gastritis and colitis found EGD 07/13/2021 LAPAROSCOPY W/RMVL ADNEXAL STRUCTURES Left 04/11/2018 Left ovarian cystectomy for dermoid cyst OVARIAN CYSTECTOMY Left 2018 Current Outpatient Medications Medication Sig ondansetron orally disintegrating (ZOFRAN ODT) 4 mg disintegrating tablet Take 2 tablets by mouth three times daily as needed for nausea/vomiting. 30 min before meals promethazine (PHENERGAN) 25 mg tablet Take 0.5-1 tablets by mouth every 6 hours as needed. famotidine (PEPCID) 20 mg tablet Take 1 tablet by mouth twice daily. ALLERGIES: Bactrim [Sulfamethoxazole-Trimethoprim], Caffine [Caffeine], Penicillins, and Reglan [Metoclopramide] PERSONAL HISTORY: Social History Tobacco Use Smoking status: Never Smokeless tobacco: Never Vaping Use Vaping Use: Former Quit date: 09/30/2022 Substances: THC Substance Use Topics Alcohol use: Not Currently Comment: rarely Drug use: Yes Frequency: 7.0 times per week Types: Marijuana Comment: medical marijuana FAMILY HISTORY Problem Relation Age of Onset Hypothyroidism Mother Migraines Mother Hypertension Father Migraines Brother other (ginette cyst) Brother Hypertension Maternal Grandmother other (Tachycardia) Maternal Grandmother Diabetes Maternal Grandfather Heart Maternal Grandfather Hypertension Paternal Grandmother Hyperlipidemia Paternal Grandmother Ischemic Heart Disease Paternal Grandfather History of heart attacks Stroke Paternal Grandfather Hyperlipidemia Paternal Grandfather Hypertension Paternal Grandfather Aneurysm Paternal Grandfather Anesthesia Problems No Family History The review of systems data was entered by the nurse and reviewed by az Nursing Notes: Shaista Crystal RN 01/16/2023 2:07 PM Signed REVIEW OF SYSTEMS: General: The patient NOTES fatigue, NOTES weight loss, denies weight gain, denies feeling hot, and denies feelings of cold. Eyes: The patient denies glaucoma, denies eye injury/surgery, does not wear glasses or contacts. Ear/Nose/Throat: The patient NOTES allergies, denies hayfever, denies ear infections, and denies bloody noses. Cardiovascular: The patient denies chest pain, denies heart disease, denies high blood pressure,denies cardiac stent, denies prior heart attack, denies irregular heart beat, denies high cholesterol, denies poor circulation, denies heart failure, other cardiac issues, denies claudication, denies cold feet, denies peripheral arterial stent. Respiratory: The patient denies tuberculosis, denies pneumonia, denies frequent cough, denies pulmonary embolism, denies shortness of breath, and denies coughing up blood. Gastrointestinal: The patient denies difficulty swallowing, NOTES acid reflux, denies ulcers, denies vomiting, denies jaundice/hepatitis, denies gallbladder problems, denies black or tarry stools, NOTES hemorrhoids, NOTES bleeding from rectum, denies diverticulitis, NOTES constipation, denies diarrhea, denies loss of stool control, and denies hernias. Kidney/Bladder: The patient denies kidney stones, denies urine infections, and denies bloody urine. Skin: The patient denies a history of skin cancer, denies bleeding/changing moles, and denies a history of skin rash. Neurologic: The patient NOTES a history of epilepsy/convulsions, NOTES headaches, denies head/spinal injuries, and denies stroke/TIA. Psychiatric: The patient denies psychiatric medications, NOTES depression, and denies voices, denies substance abuse. Endocrine: The patient NOTES thyroid disorders, denies diabetes, and denies hormonal problems. Hematologic: The patient denies a history of bruising, denies bleeding, and denies anemia, denies blood clots. Infections: The patient denies a history of measles and mumps, denies rheumatic fever, and chris (more content not included)... [facility] 01-16-2023 History of Presen t illness Narrative Mary Nilson Oleary 1995 REFERRING PHYSICIAN: Luci Ryan MD CHIEF COMPLAINT: Consult (Chronic constipation, internal and external hemorrhoids, anal fissure and rectal bleeding. ) HPI: The patient is a 27 year old female with a complaint of bright red blood - rectal bleeding She had a colonoscopy in July 2021 - findings of hemorrhoids. She also note recurrent anal fissures, has had multiple treatments with nifedipine cream. She is presently and due in June. She does note chronic constipation She has been diagnosed with hypertonic pelvic musculature. PAST MEDICAL HISTORY Diagnosis Date Anal fissure Anxiety Huizar's esophagus Chronic constipation Depression Hemorrhoids internal and external History of hyperthyroidism 05/10/2022 History of seizures as a child Hyperthyroidism Hyperthyroidism 10/30/2018 Infertility, female Ovarian cyst PAST SURGICAL HISTORY Procedure Laterality Date COLONOSCOPY 07/13/2021 gastritis and colitis found EGD 07/13/2021 LAPAROSCOPY W/RMVL ADNEXAL STRUCTURES Left 04/11/2018 Left ovarian cystectomy for dermoid cyst OVARIAN CYSTECTOMY Left 2018 Current Outpatient Medications Medication Sig ondansetron orally disintegrating (ZOFRAN ODT) 4 mg disintegrating tablet Take 2 tablets by mouth three times daily as needed for nausea/vomiting. 30 min before meals promethazine (PHENERGAN) 25 mg tablet Take 0.5-1 tablets by mouth every 6 hours as needed. famotidine (PEPCID) 20 mg tablet Take 1 tablet by mouth twice daily. ALLERGIES: Bactrim [Sulfamethoxazole-Trimethoprim], Caffine [Caffeine], Penicillins, and Reglan [Metoclopramide] PERSONAL HISTORY: Social History Tobacco Use Smoking status: Never Smokeless tobacco: Never Vaping Use Vaping Use: Former Quit date: 09/30/2022 Substances: THC Substance Use Topics Alcohol use: Not Currently Comment: rarely Drug use: Yes Frequency: 7.0 times per week Types: Marijuana Comment: medical marijuana FAMILY HISTORY Problem Relation Age of Onset Hypothyroidism Mother Migraines Mother Hypertension Father Migraines Brother other (ginette cyst) Brother Hypertension Maternal Grandmother other (Tachycardia) Maternal Grandmother Diabetes Maternal Grandfather Heart Maternal Grandfather Hypertension Paternal Grandmother Hyperlipidemia Paternal Grandmother Ischemic Heart Disease Paternal Grandfather History of heart attacks Stroke Paternal Grandfather Hyperlipidemia Paternal Grandfather Hypertension Paternal Grandfather Aneurysm Paternal Grandfather Anesthesia Problems No Family History The review of systems data was entered by the nurse and reviewed by me Nursing Notes: Shaista Crystal RN 01/16/2023 2:07 PM Signed REVIEW OF SYSTEMS: General: The patient NOTES fatigue, NOTES weight loss, denies weight gain, denies feeling hot, and denies feelings of cold. Eyes: The patient denies glaucoma, denies eye injury/surgery, does not wear glasses or contacts. Ear/Nose/Throat: The patient NOTES allergies, denies hayfever, denies ear infections, and denies bloody noses. Cardiovascular: The patient denies chest pain, denies heart disease, denies high blood pressure,denies cardiac stent, denies prior heart attack, denies irregular heart beat, denies high cholesterol, denies poor circulation, denies heart failure, other cardiac issues, denies claudication, denies cold feet, denies peripheral arterial stent. Respiratory: The patient denies tuberculosis, denies pneumonia, denies frequent cough, denies pulmonary embolism, denies shortness of breath, and denies coughing up blood. Gastrointestinal: The patient denies difficulty swallowing, NOTES acid reflux, denies ulcers, denies vomiting, denies jaundice/hepatitis, denies gallbladder problems, denies black or tarry stools, NOTES hemorrhoids, NOTES bleeding from rectum, denies diverticulitis, NOTES constipation, denies diarrhea, denies loss of stool control, and denies hernias. Kidney/Bladder: The patient denies kidney stones, denies urine infections, and denies bloody urine. Skin: The patient denies a history of skin cancer, denies bleeding/changing moles, and denies a history of skin rash. Neurologic: The patient NOTES a history of epilepsy/convulsions, NOTES headaches, denies head/spinal injuries, and denies stroke/TIA. Psychiatric: The patient denies psychiatric medications, NOTES depression, and denies voices, denies substance abuse. Endocrine: The patient NOTES thyroid disorders, denies diabetes, and denies hormonal problems. Hematologic: The patient denies a history of bruising, denies bleeding, and denies anemia, denies blood clots. Infections: The patient denies a history of measles and mumps, denies rheumatic fever, and denies sexually transmitted diseases. Musculoskeletal: The patient denies back pain/injury, denies back problems, denies sciatica, denies knee/foot trouble, denies arthritis, or denies gout. When was patient's last Mammogram screening? N/A Last Colonoscopy: None Shaista Crystal RN PHYSICAL EXAMINATION: General: The patient is 27 year old female, well nourished, well hydrated in no acute distress. The patient is oriented to time, place, and person. VITALS: Blood pressure 105/68, pulse 83, temperature 36.6 C (97.8 F), height 172.7 cm (5' 8 ), weight 73.5 kg (162 lb), last menstrual period 09/05/2022, SpO2 98 %. Body mass index is 24.63 kg/m . Head - Normocephalic. EOM intact with sclera clear and no icterus noted. Neck - supple with no jugular venous distention noted. Trachea is midline. Lungs - clear to auscultation. Normal breath sounds. No rales/rhonchi/wheezing noted. No labored breathing noted, such as retractions. No cough heard. Heart - normal S1 and S2 auscultated. No rubs/clicks/murmurs noted. Regular rate. Abdomen - soft and benign. Rectal - small posterior anal fissure with sentinel tag, small external hemorrhoidal tags, grade 2 internal hemorrhoids Extremities - no calf tenderness noted. No pitting edema noted. Skin - normal skin integrity. Neurological - gait normal, no focal deficits noted. Psych - calm and appropriate Assessment IMPRESSION: chronic anal fissure, hemorrhoidal disease PLAN: I have discussed the above with the patient and her who is present with her. I have recommended consideration for Botox injections. She will be referred to main [facility] for this after her delivery. Consider use of mineral oil to lubricate stools. Avoid prolonged sitting on toilet, etc. The patient acknowledges the above I have answered all questions to the patient s satisfaction and the patient has no further questions. I have confirmed and edited as necessary, the PFSH and ROS obtained by others. Consultation requested by Dr. Luci Ryan for an opinion regarding patient's chronic anal fissures. My final recommendations will be communicated back to the requesting physician by way of shared Medical record or letter to requesting physician via US mail. . Diagnoses: (K60.2) Anal fissure Medical Decision Making: Problems: Minimal: Self-limited or minor problem Risk: Low: Low risk from testing/treatment Medical Decision Making Level: 2 - Straightforward Piper Perez MD documented in this encounter [facility] 01-16-2023 Nurse Note REVIEW OF SYSTEMS: General: The patient NOTES fatigue, NOTES weight loss, denies weight gain, denies feeling hot, and denies feelings of cold. Eyes: The patient denies glaucoma, denies eye injury/surgery, does not wear glasses or contacts. Ear/Nose/Throat: The patient NOTES allergies, denies hayfever, denies ear infections, and denies bloody noses. Cardiovascular: The patient denies chest pain, denies heart disease, denies high blood pressure,denies cardiac stent, denies prior heart attack, denies irregular heart beat, denies high cholesterol, denies poor circulation, denies heart failure, other cardiac issues, denies claudication, denies cold feet, denies peripheral arterial stent. Respiratory: The patient denies tuberculosis, denies pneumonia, denies frequent cough, denies pulmonary embolism, denies shortness of breath, and denies coughing up blood. Gastrointestinal: The patient denies difficulty swallowing, NOTES acid reflux, denies ulcers, denies vomiting, denies jaundice/hepatitis, denies gallbladder problems, denies black or tarry stools, NOTES hemorrhoids, NOTES bleeding from rectum, denies diverticulitis, NOTES constipation, denies diarrhea, denies loss of stool control, and denies hernias. Kidney/Bladder: The patient denies kidney stones, denies urine infections, and denies bloody urine. Skin: The patient denies a history of skin cancer, denies bleeding/changing moles, and denies a history of skin rash. Neurologic: The patient NOTES a history of epilepsy/convulsions, NOTES headaches, denies head/spinal injuries, and denies stroke/TIA. Psychiatric: The patient denies psychiatric medications, NOTES depression, and denies voices, denies substance abuse. Endocrine: The patient NOTES thyroid disorders, denies diabetes, and denies hormonal problems. Hematologic: The patient denies a history of bruising, denies bleeding, and denies anemia, denies blood clots. Infections: The patient denies a history of measles and mumps, denies rheumatic fever, and denies sexually transmitted diseases. Musculoskeletal: The patient denies back pain/injury, denies back problems, denies sciatica, denies knee/foot trouble, denies arthritis, or denies gout. When was patient's last Mammogram screening? N/A Last Colonoscopy: None Shaista Crystal RN documented in this encounter [facility] 01-11-2023 Miscellaneous Notes Pelvic floor PT consult order placed. Also consult to general surgery placed for rectal bleeding. I would encourage her to try eating 5-6 prunes and 1 kiwi per day in addition to the other measures for constipation. Luci Ryan MD Please review in RR absence and further advise. Karla Matamoros LPN documented in this encounter [facility] 11-27-2022 Miscellaneous Notes RR- feeling well overall. Less nausea. Not taking PNV. d/w her recommend ASA and folic acid for now if cannot tolerate whole PNV. Declines aneuploidy screening. F/u in 4 weeks. Now taking phenergan prn and 8 mg zofran approx bid. Radha Melendez MD documented in this encounter [facility] 11-27-2022 Instructions Kateryna Vergara Ma - 11/27/2022 3:04 PM EDT SEQUENTIAL SCREENINGS The [facility] offers sequential screenings for women who are interested in screenings for chromosomal abnormalities and certain defects during a . The sequential screen combines ultrasound and blood tests to determine the risk of chromosomal abnormalities, including Down's Syndrome (Trisomy 21) and Trisomy 18, as well as open neural tube defects including spina bifida. Ultrasound examination is performed between 11 weeks and 13 weeks gestational age. Blood tests are drawn after the ultrasound and again later in the between 15 and 21 weeks gestational age. Please let your physician know if you are interested in this testing. It will require an appointment with our lidar technician. This is not an ultrasound performed by a physician in our office during a routine visit. SIGNS AND SYMPTOMS OF LABOR 1. Contractions every 10 minutes or more often 2. Clear, pink, or brownish fluid (water) leaking from vagina 3. Feeling that baby is pushing down, pressure 4. Low, dull backache 5. Cramps that feel like a period 6. Cramps with or without diarrhea If you notice any of the above symptoms, contact our office at [phone] and ask to speak with a nurse. After hours, you can call doctors registry at [phone] OR call [facility] at [phone] and ask to have the doctor resident surgeon paged. If you consider this an emergency, dial 9-1-1 or go to your nearest emergency department. NEED HELP? Are you dealing with a violent or abusive relationship? Are you a victim of rape or sexual assult? Call [facility] ([facility] 24 hour Crisis Hotline: 389.591.5974 or 119-006-9355. MANUAL Your Guide to a Healthy manual is now on-line. Visit [email or web address] to download your free copy documented in this encounter [facility] 11-09-2022 Miscellaneous Notes Patient notified. She is going to try taking increased dose prior to starting the Zofran pump. She will update office for new rx if this does help. If it doesn't she will contact [facility] to start pump. Krystina Cha RN She can take 2 of her 4mg tablets and see if that helps. If it does we will put in a new rx for her. She can take that every 8 hrs. 9w2d Previously was on Reglan pump, but that was d/c'd d/t side effects she was having. New order for Zofran pump was faxed to [facility] yesterday and she is in process with them to get that initiated. Before she does she was wanting to know if she would be able to increase her PO Zofran dose and try that first instead of the pump. She is currently taking 4mg tablet every 6 hours. Please advise. Krystina Cha RN documented in this encounter [facility] 11-08-2022 Miscellaneous Notes Order signed by RR and faxed to [facility]. Krystina Cha RN Spoke to patient and she is agreeable to this change. Spoke to [facility] and they just need updated order form completed for Zofran pump. Order form to RR to sign. Krystina Cha RN Very reasonable. Agree w/ d/c reglan pump and start zofran pump. thanks. Radha Melendez MD 9w1d [facility] called. Patient has been feeling restless, anxious, and having trouble sleeping with the Reglan pump. Common side effects with the medication. She discontinued the pump today. She started back on her Zofran BY MOUTH. [facility] suggested switching to the Zofran pump if provider agreeable. They believe the patient would be open to that. Next OB visit is on 11/27. Arely Louis RN documented in this encounter [facility] 10-30-2022 Note HNO ID: [id number] Author: Lata Henriquez MD Service: ? Author Type: Physician Type: Progress Notes Filed: 10/30/2022 12:14 PM Note Text: OB point of care ultrasound was performed. See imaging tab for details. Lata Miller MD [facility] 10-30-2022 History of Presen t illness Narrative OB point of care ultrasound was performed. See imaging tab for details. Lata Miller MD documented in this encounter [facility] 10-30-2022 Note HNO ID: [id number] Author: Lata Henriquez MD Service: ? 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 INITIAL OB ASSESSMENT OB Provider: Lata Henriquez MD HPI: Mary Oleary is a 27 year old female here to establish Obstetrical Care. Patient's last menstrual period was 09/05/2022 (exact date). from OB Dating Form. Cycle length: 28-34 days Complaints: nausea without vomiting, spotting but has resolved. was planned. OB History T0 L0 SAB0 IAB0 Ectopic0 Multiple0 Live Births0 Prior : never History of 4th degree laceration: No Patient's Risk Screening for delivery: History of abnormal pap: No Prior treatment for cervical dysplasia: none. 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 No Marital Status: Partner: Name: Fausto Age: 26 Occupation: [employer] Gender: male History of STDs: None PAST MEDICAL HISTORY Diagnosis Date Anxiety Huizar's esophagus Depression History of hyperthyroidism 05/10/2022 History of seizures as a child Hyperthyroidism Hyperthyroidism 10/30/2018 Infertility, female Ovarian cyst PAST SURGICAL HISTORY Procedure Laterality Date COLONOSCOPY 07/13/2021 gastritis and colitis found EGD 07/13/2021 LAPAROSCOPY W/RMVL ADNEXAL STRUCTURES Left 04/11/2018 Left ovarian cystectomy for dermoid cyst OVARIAN CYSTECTOMY Left 2018 Current Outpatient Medications on File Prior to Visit Medication Sig promethazine (PHENERGAN) 25 mg tablet Take 0.5-1 tablets by mouth every 6 hours as needed. doxylamine-pyridoxine, vit B6, (DICLEGIS) 10-10 mg TbEC Take 2 tabs at night. If symptoms persist after 2 days add one tab in the morning. If symptoms still persist after 4 days add a tab mid-day famotidine (PEPCID) 20 mg tablet Take 1 tablet by mouth twice daily. ondansetron orally disintegrating (ZOFRAN ODT) 4 mg disintegrating tablet Take 1 tablet by mouth three times daily. 30 min before meals Current Facility-Administered Medications on File Prior to Visit Medication onabotulinum toxin type A 100 Units injection (BOTOX) Review of Systems: GENERAL: Negative for: Fever or Chills HEENT: Negative for: Headache, Impaired Vision, Ringing in Ears, Nosebleeds NECK: Negative for: Swelling, Pain, Stiffness RESPIRATORY: Negative for: Cough, Shortness of breath, Wheezing GASTROINTESTINAL: Negative for: Heartburn, Intermittent constipation/diarrhea, NO Blood in stool, ++ nausea MUSCULOSKELETAL: Negative for: Muscle or joint pain, stiffness, Joint swelling NEUROLOGIC/PSYCHIATRIC: Negative for: Weakness, Paralysis, Numbness, h/o anxiety SKIN: Negative for: Rash, Itching GENITOURINARY: Negative for: vaginal itching, vaginal discharge, hematuria or dysuria PHYSICAL EXAM: BP 118/70 Ht 5' 8 (1.73m) Wt 164 lb (74.4kg) LMP 09/05/2022 BMI 24.94 kg/(m2). GENERAL: pleasant female in no apparent distress DERMATOLOGY: Normal, without lesions, non-icteric, and non-hirsute NECK: Supple, full range of motion, no adenopathy, and thyroid normal BREAST: soft, non-tender, symmetric, no dominant mass, normal nipple-areolar complex, no lymphadenopathy, and no nipple discharge ABDOMEN: soft, non-tender, and no masses NEURO: alert and oriented x3,exam grossly non-focal PELVIS: External genitalia normal without lesions. Perineal body intact. No vaginal or cervical lesions. Cervix closed. Clinical Pelvimetry: not done Limited OB ultrasound exam: single intrauterine and positive cardiac activity OB Risk Screening: Completed, no positive findings documented. ASSESSMENT: 27 year old at 7.3 wks gestational age PLAN: 1) Patient oriented to practice. Discussed nutrition, folic acid supplementation, dietary guidelines, exercise, smoking, alcohol, caffeine, and drug use. Discussed routine OB labs including STD/HIV. Discussed aneuploidy screening options including serum screening and nuchal translucency. Patient declines all aneuploidy screening. 2) ASA reviewed 3) vaccine reviewed in Follow up in 4 weeks or sooner prn. Lata Miller MD [facility] 10-25-2022 Note HNO ID: [id number] Author: Radha Melendez MD Service: ? Author Type: Physician Type: Progress Notes Filed: 10/25/2022 5:21 PM Note Text: dillan Oleary is a 27 year old female who presents for problem visit for nausea in . No emesis but if eats/drinks feels worse. She fights vomiting and just feels terrible. Has lost 6 lbs since last week. trying zofran and diclegis and has taken phenergan but doesn't seems to be helping. No BM in 2 weeks. Doesn't feel uncomfortable or urge for this or bloated. Urinating about twice a day very concentrated. OB History T0 L0 SAB0 IAB0 Ectopic0 Multiple0 Live Births0 Manager Investigations History LMP: 09/05/2022 (Exact Date), Age at Menarche: Age at First : Age at Menopause: Manager Investigations History Comments: Sexual Activity: Yes; Male Contraception: Condom PAST MEDICAL HISTORY Diagnosis Date Anxiety Huizar's esophagus Depression History of hyperthyroidism 05/10/2022 History of seizures as a child Hyperthyroidism Hyperthyroidism 10/30/2018 Infertility, female Ovarian cyst PAST SURGICAL HISTORY Procedure Laterality Date COLONOSCOPY 07/13/2021 gastritis and colitis found EGD 07/13/2021 LAPAROSCOPY W/RMVL ADNEXAL STRUCTURES Left 04/11/2018 Left ovarian cystectomy for dermoid cyst OVARIAN CYSTECTOMY Left 2018 FAMILY HISTORY Problem Relation Age of Onset Hypothyroidism Mother Migraines Mother Hypertension Father Migraines Brother other (ginette cyst) Brother Hypertension Maternal Grandmother other (Tachycardia) Maternal Grandmother Diabetes Maternal Grandfather Heart Maternal Grandfather Hypertension Paternal Grandmother Hyperlipidemia Paternal Grandmother Ischemic Heart Disease Paternal Grandfather History of heart attacks Stroke Paternal Grandfather Hyperlipidemia Paternal Grandfather Hypertension Paternal Grandfather Aneurysm Paternal Grandfather Anesthesia Problems No Family History Social History Tobacco Use Smoking status: Never Smokeless tobacco: Never Vaping Use Vaping Use: Former Quit date: 09/30/2022 Substances: THC Substance Use Topics Alcohol use: Not Currently Comment: rarely Drug use: Yes Frequency: 7.0 times per week Types: Marijuana Comment: medical marijuana Current Outpatient Medications Medication Sig promethazine (PHENERGAN) 25 mg tablet TAKE 1 TABLET BY MOUTH THREE TIMES DAILY NEEDED FOR NAUSEA AND VOMITING doxylamine-pyridoxine, vit B6, (DICLEGIS) 10-10 mg TbEC Take 2 tabs at night. If symptoms persist after 2 days add one tab in the morning. If symptoms still persist after 4 days add a tab mid-day famotidine (PEPCID) 20 mg tablet Take 1 tablet by mouth twice daily. ondansetron orally disintegrating (ZOFRAN ODT) 4 mg disintegrating tablet Take 1 tablet by mouth three times daily. 30 min before meals Current Facility-Administered Medications Medication Dose Route Frequency onabotulinum toxin type A 100 Units injection (BOTOX) 100 Units INTRAMUSCULAR q 3 MONTHS Allergies As of Date: 10/25/2022 Allergen Noted Reaction BACTRIM [SULFAMETHOXAZOLE-TRIMETH*11/12/ 2018 Hives CAFFINE [CAFFEINE] 05/24/2011 Other: See Comments PENICILLINS 05/24/2011 Hives Fully Assessed 10/25/2022 REVIEW OF SYSTEMS Abdomen: No bloating, early satiety, indigestion, or increased flatulence. No abdominal pain, nausea, vomiting, diarrhea, or constipation. Bladder: No dysuria, gross hematuria, urinary frequency, urinary urgency, or incontinence. Breast: No breast lumps, nipple d/c, overlying skin changes, redness or skin retraction. Expanded ROS: N/A Allergies and current medication updated:Yes EXAM: LMP 09/05/2022 GENERAL: pleasant, female in mild distress HEENT: Normocephalic, atraumatic, no lesions, and dry mucous membranes, pale ASSESSMENT AND PLAN: hyperemesis w/ dehydration, failing oral regimen. D/ wher need for IVF. [facility] 23 [facility] Patient desires this. F/u with a week. Cont. current oral meds prn. Push fluids. She agrees w/ plan. Medical Decision Making: Problems: Moderate: New problem with uncertain prognosis Risk: Moderate: Drug management Medical Decision Making Level: 4 - Moderate Radha Melendez MD [facility] 10-25-2022 History of Presen t illness Narrative dillan Oleary is a 27 year old female who presents for problem visit for nausea in . No emesis but if eats/drinks feels worse. She fights vomiting and just feels terrible. Has lost 6 lbs since last week. trying zofran and diclegis and has taken phenergan but doesn't seems to be helping. No BM in 2 weeks. Doesn't feel uncomfortable or urge for this or bloated. Urinating about twice a day very concentrated. OB History T0 L0 SAB0 IAB0 Ectopic0 Multiple0 Live Births0 Manager Investigations History LMP: 09/05/2022 (Exact Date), Age at Menarche: Age at First : Age at Menopause: Manager Investigations History Comments: Sexual Activity: Yes; Male Contraception: Condom PAST MEDICAL HISTORY Diagnosis Date Anxiety Huizar's esophagus Depression History of hyperthyroidism 05/10/2022 History of seizures as a child Hyperthyroidism Hyperthyroidism 10/30/2018 Infertility, female Ovarian cyst PAST SURGICAL HISTORY Procedure Laterality Date COLONOSCOPY 07/13/2021 gastritis and colitis found EGD 07/13/2021 LAPAROSCOPY W/RMVL ADNEXAL STRUCTURES Left 04/11/2018 Left ovarian cystectomy for dermoid cyst OVARIAN CYSTECTOMY Left 2018 FAMILY HISTORY Problem Relation Age of Onset Hypothyroidism Mother Migraines Mother Hypertension Father Migraines Brother other (ginette cyst) Brother Hypertension Maternal Grandmother other (Tachycardia) Maternal Grandmother Diabetes Maternal Grandfather Heart Maternal Grandfather Hypertension Paternal Grandmother Hyperlipidemia Paternal Grandmother Ischemic Heart Disease Paternal Grandfather History of heart attacks Stroke Paternal Grandfather Hyperlipidemia Paternal Grandfather Hypertension Paternal Grandfather Aneurysm Paternal Grandfather Anesthesia Problems No Family History Social History Tobacco Use Smoking status: Never Smokeless tobacco: Never Vaping Use Vaping Use: Former Quit date: 09/30/2022 Substances: THC Substance Use Topics Alcohol use: Not Currently Comment: rarely Drug use: Yes Frequency: 7.0 times per week Types: Marijuana Comment: medical marijuana Current Outpatient Medications Medication Sig promethazine (PHENERGAN) 25 mg tablet TAKE 1 TABLET BY MOUTH THREE TIMES DAILY NEEDED FOR NAUSEA AND VOMITING doxylamine-pyridoxine, vit B6, (DICLEGIS) 10-10 mg TbEC Take 2 tabs at night. If symptoms persist after 2 days add one tab in the morning. If symptoms still persist after 4 days add a tab mid-day famotidine (PEPCID) 20 mg tablet Take 1 tablet by mouth twice daily. ondansetron orally disintegrating (ZOFRAN ODT) 4 mg disintegrating tablet Take 1 tablet by mouth three times daily. 30 min before meals Current Facility-Administered Medications Medication Dose Route Frequency onabotulinum toxin type A 100 Units injection (BOTOX) 100 Units INTRAMUSCULAR q 3 MONTHS Allergies As of Date: 10/25/2022 Allergen Noted Reaction BACTRIM [SULFAMETHOXAZOLE-TRIMETH*2017 Hives CAFFINE [CAFFEINE] 05/24/2011 Other: See Comments PENICILLINS 05/24/2011 Hives Fully Assessed 10/25/2022 REVIEW OF SYSTEMS Abdomen: No bloating, early satiety, indigestion, or increased flatulence. No abdominal pain, nausea, vomiting, diarrhea, or constipation. Bladder: No dysuria, gross hematuria, urinary frequency, urinary urgency, or incontinence. Breast: No breast lumps, nipple d/c, overlying skin changes, redness or skin retraction. Expanded ROS: N/A Allergies and current medication updated:Yes EXAM: LMP 09/05/2022 GENERAL: pleasant, female in mild distress HEENT: Normocephalic, atraumatic, no lesions, and dry mucous membranes, pale ASSESSMENT AND PLAN: hyperemesis w/ dehydration, failing oral regimen. D/ wher need for IVF. Of[facility] admit for 23 hr obs [facility] Patient desires this. F/u with a week. Cont. current oral meds prn. Push fluids. She agrees w/ plan. Medical Decision Making: Problems: Moderate: New problem with uncertain prognosis Risk: Moderate: Drug management Medical Decision Making Level: 4 - Moderate Radha Melendez MD documented in this encounter [facility] 10-18-2022 Note HNO ID: [id number] Author: Radha Melendez MD Service: ? Author Type: Physician Type: Progress Notes Filed: 10/18/2022 11:47 AM Note Text: Mayr Oleary is a 27 year old female who presents for problem visit for c/o nausea vomting in . HPI: 27 YOF at approx 6 weeks who has had severe nausea, no emesis but lost 13 lb since August. Tried zofran ODT and didn't help. Went to ED yesterday and had fluids and was able to eat and drink then. This am. Crackers. When eats does not feel better. Has a lot of heartburn and even before had that. Did not take any meds today. Tried unisom and vit b6 but didn't seem to help. OB History T0 L0 SAB0 IAB0 Ectopic0 Multiple0 Live Births0 Manager Investigations History LMP: 09/05/2022 (Exact Date), Age at Menarche: Age at First : Age at Menopause: Manager Investigations History Comments: Sexual Activity: Yes; Male Contraception: Condom PAST MEDICAL HISTORY Diagnosis Date Anxiety Huizar's esophagus Depression History of hyperthyroidism 05/10/2022 History of seizures as a child Hyperthyroidism Hyperthyroidism 10/30/2018 Infertility, female Ovarian cyst PAST SURGICAL HISTORY Procedure Laterality Date COLONOSCOPY 07/13/2021 gastritis and colitis found EGD 07/13/2021 LAPAROSCOPY W/RMVL ADNEXAL STRUCTURES Left 04/11/2018 Left ovarian cystectomy for dermoid cyst OVARIAN CYSTECTOMY Left 2018 FAMILY HISTORY Problem Relation Age of Onset Hypothyroidism Mother Migraines Mother Hypertension Father Migraines Brother other (ginette cyst) Brother Hypertension Maternal Grandmother other (Tachycardia) Maternal Grandmother Diabetes Maternal Grandfather Heart Maternal Grandfather Hypertension Paternal Grandmother Hyperlipidemia Paternal Grandmother Ischemic Heart Disease Paternal Grandfather History of heart attacks Stroke Paternal Grandfather Hyperlipidemia Paternal Grandfather Hypertension Paternal Grandfather Aneurysm Paternal Grandfather Anesthesia Problems No Family History Social History Tobacco Use Smoking status: Never Smokeless tobacco: Never Vaping Use Vaping Use: Former Quit date: 09/30/2022 Substances: THC Substance Use Topics Alcohol use: Not Currently Comment: rarely Drug use: Yes Frequency: 7.0 times per week Types: Marijuana Comment: medical marijuana Current Outpatient Medications Medication Sig promethazine (PHENERGAN) 25 mg tablet TAKE 1 TABLET BY MOUTH THREE TIMES DAILY NEEDED FOR NAUSEA AND VOMITING ondansetron orally disintegrating (ZOFRAN ODT) 4 mg disintegrating tablet Take 1 tablet by mouth every 6 hours as needed for nausea/vomiting. pyridoxine, vitamin B6, (VITAMIN B6) 25 mg tablet Take 25 mg by mouth once daily. (Patient not taking: Reported on 10/18/2022) doxylamine succinate (UNISOM, DOXYLAMINE, ORAL) Take by mouth. (Patient not taking: Reported on 10/18/2022) Current Facility-Administered Medications Medication Dose Route Frequency onabotulinum toxin type A 100 Units injection (BOTOX) 100 Units INTRAMUSCULAR q 3 MONTHS Allergies As of Date: 10/18/2022 Allergen Noted Reaction BACTRIM [SULFAMETHOXAZOLE-TRIMETH*2017 Hives CAFFINE [CAFFEINE] 05/24/2011 Other: See Comments PENICILLINS 05/24/2011 Hives Fully Assessed 10/05/2022 Allergies and current medication updated:Yes EXAM: BP 108/60 Wt 169 lb (76.7kg) LMP 09/05/2022 GENERAL: pleasant, female in no apparent distress HEENT: Normocephalic, atraumatic, mucus membranes moist, and no lesions ASSESSMENT AND PLAN: hyperemesis, rx regimen w/ phenergan prn f/u in 1 week or prn for this keep NOB as scheduled. reviewed ED labs from yesterday call if symptoms of dehydration Medical Decision Making: Problems: Moderate: New problem with uncertain prognosis Data: Unique test result(s) reviewed: 2 Risk: Moderate: Drug management Medical Decision Making Level: 4 - Moderate Radha Melendez MD [facility] 10-18-2022 History of Presen t illness Narrative Mary Oleary is a 27 year old female who presents for problem visit for c/o nausea vomting in . HPI: 27 YOF at approx 6 weeks who has had severe nausea, no emesis but lost 13 lb since August. Tried zofran ODT and didn't help. Went to ED yesterday and had fluids and was able to eat and drink then. This am. Crackers. When eats does not feel better. Has a lot of heartburn and even before had that. Did not take any meds today. Tried unisom and vit b6 but didn't seem to help. OB History T0 L0 SAB0 IAB0 Ectopic0 Multiple0 Live Births0 Manager Investigations History LMP: 09/05/2022 (Exact Date), Age at Menarche: Age at First : Age at Menopause: Manager Investigations History Comments: Sexual Activity: Yes; Male Contraception: Condom PAST MEDICAL HISTORY Diagnosis Date Anxiety Huizar's esophagus Depression History of hyperthyroidism 05/10/2022 History of seizures as a child Hyperthyroidism Hyperthyroidism 10/30/2018 Infertility, female Ovarian cyst PAST SURGICAL HISTORY Procedure Laterality Date COLONOSCOPY 07/13/2021 gastritis and colitis found EGD 07/13/2021 LAPAROSCOPY W/RMVL ADNEXAL STRUCTURES Left 04/11/2018 Left ovarian cystectomy for dermoid cyst OVARIAN CYSTECTOMY Left 2018 FAMILY HISTORY Problem Relation Age of Onset Hypothyroidism Mother Migraines Mother Hypertension Father Migraines Brother other (ginette cyst) Brother Hypertension Maternal Grandmother other (Tachycardia) Maternal Grandmother Diabetes Maternal Grandfather Heart Maternal Grandfather Hypertension Paternal Grandmother Hyperlipidemia Paternal Grandmother Ischemic Heart Disease Paternal Grandfather History of heart attacks Stroke Paternal Grandfather Hyperlipidemia Paternal Grandfather Hypertension Paternal Grandfather Aneurysm Paternal Grandfather Anesthesia Problems No Family History Social History Tobacco Use Smoking status: Never Smokeless tobacco: Never Vaping Use Vaping Use: Former Quit date: 09/30/2022 Substances: THC Substance Use Topics Alcohol use: Not Currently Comment: rarely Drug use: Yes Frequency: 7.0 times per week Types: Marijuana Comment: medical marijuana Current Outpatient Medications Medication Sig promethazine (PHENERGAN) 25 mg tablet TAKE 1 TABLET BY MOUTH THREE TIMES DAILY NEEDED FOR NAUSEA AND VOMITING ondansetron orally disintegrating (ZOFRAN ODT) 4 mg disintegrating tablet Take 1 tablet by mouth every 6 hours as needed for nausea/vomiting. pyridoxine, vitamin B6, (VITAMIN B6) 25 mg tablet Take 25 mg by mouth once daily. (Patient not taking: Reported on 10/18/2022) doxylamine succinate (UNISOM, DOXYLAMINE, ORAL) Take by mouth. (Patient not taking: Reported on 10/18/2022) Current Facility-Administered Medications Medication Dose Route Frequency onabotulinum toxin type A 100 Units injection (BOTOX) 100 Units INTRAMUSCULAR q 3 MONTHS Allergies As of Date: 10/18/2022 Allergen Noted Reaction BACTRIM [SULFAMETHOXAZOLE-TRIMETH*2017 Hives CAFFINE [CAFFEINE] 05/24/2011 Other: See Comments PENICILLINS 05/24/2011 Hives Fully Assessed 10/05/2022 Allergies and current medication updated:Yes EXAM: BP 108/60 Wt 169 lb (76.7kg) LMP 09/05/2022 GENERAL: pleasant, female in no apparent distress HEENT: Normocephalic, atraumatic, mucus membranes moist, and no lesions ASSESSMENT AND PLAN: hyperemesis, rx regimen w/ phenergan prn f/u in 1 week or prn for this keep NOB as scheduled. reviewed ED labs from yesterday call if symptoms of dehydration Medical Decision Making: Problems: Moderate: New problem with uncertain prognosis Data: Unique test result(s) reviewed: 2 Risk: Moderate: Drug management Medical Decision Making Level: 4 - Moderate Radha Melendez MD documented in this encounter [facility] 10-17-2022 Miscellaneous Notes Spoke to patient again and she is going to ER now. Scheduled for tomorrow with RR for f/u then. Krystina Cha RN 6w0d Calling c/o n/v. Has had limited intake the past 24 hours d/t nausea. Only voided twice in last 24 hours. States she 'feels miserable and dehydrated.' Advised to go to ER for IV fluids and antiemetic. Patient will go to ER if necessary, but is asking if there is something else she can try first. She has tried vitamin B6, Unisom and Zofran. None of them have helped so far. Is the [facility] infusion center an option? Please advise. Krystina Cha RN documented in this encounter [facility] 10-12-2022 Miscellaneous Notes HCG levels increasing appropriately. No further labs needed at this time. Keep NOB appointment! Lyudmila Lazcano APRN.CNM Last HCG was drawn on 10/11. Do you want any other labs drawn? New OB on 10/30. hCG Quantitative, Blood (mIU/mL) Date Value 10/11/2022 2,862.0 10/05/2022 296.9 10/03/2022 89.2 Roshni Caruso RN documented in this encounter [facility] 10-06-2022 Miscellaneous Notes Lyudmila reviewed labs as pt sent in [employer] message and was told that her levels were rising appropriately and to keep scheduled NOB. Karla Matamoros LPN Please see HCG quant from 10/05/22 296.9 High Pt has upcoming NOB. Karla Matamoros LPN Quant HCG 10/03 89.2 High Has an appt tomorrow for PNOB and repeat quant.Dr Melendez sent patient MyChart message regarding quant result. Keep phone note open for repeat quant 10/05 Patient notified. Leave open for 10/03/22 and 10/05/22 hcg quant results. Krystina Cha RN agree w/ quants. Pelvic rest until bleeding stops and we will go from there. Radha Melendez MD Pt calling and stated that she is early . LMP 09/05/22, and is having some spotting that is dark red to brown in color. Pt has only noted this 1 time today and is a small amount. Pt has NOB scheduled will assist with PNOB. Do you want any quants? Please advise. Karla Matamoros LPN documented in this encounter [facility] 10-06-2022 Miscellaneous Notes Yes, levels are increasing appropriately. Please notify patient. Lyudmila Lazcano APRN.CNM Please see pt's mychart message and further advise. Karla Matamoros LPN documented in this encounter [facility] documented as of this encounter (statuses as of 11/28/2022) [facility]-02[facility]2023 History of Past illness Narrative* Problem Noted Date Resolved Date Spotting in 10/05/2022 11/27/2022 Overview: 10/05/2022atient called in complaining of dark brown spotting October 03October 04. States she has had cramping that she rates a 4 on the pain scale that is very intermittent. Currently patient has had 1 quant hCG drawn and she is due to have 1 drawn today. I have discussed with her the importance of reporting any increased bleeding or pain and being evaluated immediately. TKRN Hyperthyroidism 10/30/2018 08/18/2022 Palpitation 12/31/2015 11/27/2022 documented as of this encounter (statuses as of 01/11/2023) [facility]-02[facility]2023 History of Past illness Narrative* Problem Noted Date Resolved Date Spotting in 10/05/2022 11/27/2022 Overview: 3Patient called in complaining of dark brown spotting October 03October 04. States she has had cramping that she rates a 4 on the pain scale that is very intermittent. Currently patient has had 1 quant hCG drawn and she is due to have 1 drawn today. I have discussed with her the importance of reporting any increased bleeding or pain and being evaluated immediately. TKRN Hyperthyroidism 10/30/2018 08/18/2022 Palpitation 12/31/2015 11/27/2022 documented as of this encounter (statuses as of 01/20/2023) [facility]2023 History of Past illness Narrative* Problem Noted Date Resolved Date Spotting in 10/05/2022 11/27/2022 Overview: 3Patient called in complaining of dark brown spotting October 03October 04. States she has had cramping that she rates a 4 on the pain scale that is very intermittent. Currently patient has had 1 quant hCG drawn and she is due to have 1 drawn today. I have discussed with her the importance of reporting any increased bleeding or pain and being evaluated immediately. TKRN Hyperthyroidism 10/30/2018 08/18/2022 Palpitation 12/31/2015 11/27/2022 documented as of this encounter (statuses as of 01/30/2023) [facility]2023 History of Past illness Narrative* Problem Noted Date Resolved Date Spotting in 10/05/2022 11/27/2022 Overview: 10/05/2022atient called in complaining of dark brown spotting October 03October 04. States she has had cramping that she rates a 4 on the pain scale that is very intermittent. Currently patient has had 1 quant hCG drawn and she is due to have 1 drawn today. I have discussed with her the importance of reporting any increased bleeding or pain and being evaluated immediately. TKRN Hyperthyroidism 10/30/2018 08/18/2022 Palpitation 12/31/2015 11/27/2022 documented as of this encounter (statuses as of 02/01/2023) [facility]2023 History of Past illness Narrative* Problem Noted Date Resolved Date Spotting in 10/05/2022 11/27/2022 Overview: 3Patient called in complaining of dark brown spotting October 03October 04. States she has had cramping that she rates a 4 on the pain scale that is very intermittent. Currently patient has had 1 quant hCG drawn and she is due to have 1 drawn today. I have discussed with her the importance of reporting any increased bleeding or pain and being evaluated immediately. TKRN Hyperthyroidism 10/30/2018 08/18/2022 Palpitation 12/31/2015 11/27/2022 documented as of this encounter (statuses as of 02/04/2023) [facility]2023 History of Past illness Narrative* Problem Noted Date Resolved Date Spotting in 10/05/2022 11/27/2022 Overview: 10/05/2022atient called in complaining of dark brown spotting October 03October 04. States she has had cramping that she rates a 4 on the pain scale that is very intermittent. Currently patient has had 1 quant hCG drawn and she is due to have 1 drawn today. I have discussed with her the importance of reporting any increased bleeding or pain and being evaluated immediately. TKRN Hyperthyroidism 10/30/2018 08/18/2022 Palpitation 12/31/2015 11/27/2022 documented as of this encounter (statuses as of 02/06/2023) [facility]2023 History of Past illness Narrative* Problem Noted Date Resolved Date Spotting in 10/05/2022 11/27/2022 Overview: 3Patient called in complaining of dark brown spotting October 03October 04. States she has had cramping that she rates a 4 on the pain scale that is very intermittent. Currently patient has had 1 quant hCG drawn and she is due to have 1 drawn today. I have discussed with her the importance of reporting any increased bleeding or pain and being evaluated immediately. TKRN Hyperthyroidism 10/30/2018 08/18/2022 Palpitation 12/31/2015 11/27/2022 documented as of this encounter (statuses as of 02/06/2023) [facility]2023 History of Past illness Narrative* Problem Noted Date Resolved Date Spotting in 10/05/2022 11/27/2022 Overview: 3Patient called in complaining of dark brown spotting October 03October 04. States she has had cramping that she rates a 4 on the pain scale that is very intermittent. Currently patient has had 1 quant hCG drawn and she is due to have 1 drawn today. I have discussed with her the importance of reporting any increased bleeding or pain and being evaluated immediately. TKRN Hyperthyroidism 10/30/2018 08/18/2022 Palpitation 12/31/2015 11/27/2022 documented as of this encounter (statuses as of 02/08/2023) [facility]2023 History of Past illness Narrative* Problem Noted Date Diagnosed Date Resolved Date Spotting in 10/05/20222022 Overview: 3Patient called in complaining of dark brown spotting October 03October 04. States she has had cramping that she rates a 4 on the pain scale that is very intermittent. Currently patient has had 1 quant hCG drawn and she is due to have 1 drawn today. I have discussed with her the importance of reporting any increased bleeding or pain and being evaluated immediately. TKRN Hyperthyroidism 10/30/2018 08/18/2022 Palpitation 12/31/2015 11/27/2022 documented as of this encounter (statuses as of 02/13/2023) [facility] History of Past illness Narrative* Problem Noted Date Diagnosed Date Resolved Date Spotting in 10/05/20222022 Overview: 10/05/2022atient called in complaining of dark brown spotting October 03October 04. States she has had cramping that she rates a 4 on the pain scale that is very intermittent. Currently patient has had 1 quant hCG drawn and she is due to have 1 drawn today. I have discussed with her the importance of reporting any increased bleeding or pain and being evaluated immediately. TKRN Hyperthyroidism 10/30/2018 08/18/2022 Palpitation 12/31/2015 11/27/2022 documented as of this encounter (statuses as of 02/15/2023) [facility]2023 History of Past illness Narrative* Problem Noted Date Diagnosed Date Resolved Date Spotting in 10/05/20222022 Overview: 3Patient called in complaining of dark brown spotting October 03October 04. States she has had cramping that she rates a 4 on the pain scale that is very intermittent. Currently patient has had 1 quant hCG drawn and she is due to have 1 drawn today. I have discussed with her the importance of reporting any increased bleeding or pain and being evaluated immediately. TKRN Hyperthyroidism 10/30/2018 08/18/2022 Palpitation 12/31/2015 11/27/2022 documented as of this encounter (statuses as of 02/21/2023) [facility]2023 History of Past illness Narrative* Problem Noted Date Diagnosed Date Resolved Date Spotting in 10/05/20222022 Overview: 03/02/2023Patient called in complaining of dark brown spotting October 03October 04. States she has had cramping that she rates a 4 on the pain scale that is very intermittent. Currently patient has had 1 quant hCG drawn and she is due to have 1 drawn today. I have discussed with her the importance of reporting any increased bleeding or pain and being evaluated immediately. TKRN Hyperthyroidism 10/30/2018 08/18/2022 Palpitation 12/31/2015 11/27/2022 documented as of this encounter (statuses as of 03/02/2023) [facility]2023 History of Past illness Narrative* Problem Noted Date Diagnosed Date Resolved Date Spotting in 10/05/20222022 Overview: 10/05/2022atient called in complaining of dark brown spotting October 03October 04. States she has had cramping that she rates a 4 on the pain scale that is very intermittent. Currently patient has had 1 quant hCG drawn and she is due to have 1 drawn today. I have discussed with her the importance of reporting any increased bleeding or pain and being evaluated immediately. TKRN Hyperthyroidism 10/30/2018 08/18/2022 Palpitation 12/31/2015 11/27/2022 documented as of this encounter (statuses as of 03/02/2023) [facility]2023 History of Past illness Narrative* Problem Noted Date Diagnosed Date Resolved Date Spotting in 10/05/20222022 Overview: 3Patient called in complaining of dark brown spotting October 03October 04. States she has had cramping that she rates a 4 on the pain scale that is very intermittent. Currently patient has had 1 quant hCG drawn and she is due to have 1 drawn today. I have discussed with her the importance of reporting any increased bleeding or pain and being evaluated immediately. TKRN Hyperthyroidism 10/30/2018 08/18/2022 Palpitation 12/31/2015 11/27/2022 documented as of this encounter (statuses as of 03/07/2023) [facility]2023 History of Past illness Narrative* Problem Noted Date Diagnosed Date Resolved Date Spotting in 10/05/20222022 Overview: 10/05/2022atient called in complaining of dark brown spotting October 03October 04. States she has had cramping that she rates a 4 on the pain scale that is very intermittent. Currently patient has had 1 quant hCG drawn and she is due to have 1 drawn today. I have discussed with her the importance of reporting any increased bleeding or pain and being evaluated immediately. TKRN Hyperthyroidism 10/30/2018 08/18/2022 Palpitation 12/31/2015 11/27/2022 documented as of this encounter (statuses as of 03/10/2023) [facility]2023 History of Past illness Narrative* Problem Noted Date Diagnosed Date Resolved Date Spotting in 10/05/20222022 Overview: 3Patient called in complaining of dark brown spotting October 03October 04. States she has had cramping that she rates a 4 on the pain scale that is very intermittent. Currently patient has had 1 quant hCG drawn and she is due to have 1 drawn today. I have discussed with her the importance of reporting any increased bleeding or pain and being evaluated immediately. TKRN Hyperthyroidism 10/30/2018 08/18/2022 Palpitation 12/31/2015 11/27/2022 documented as of this encounter (statuses as of 03/12/2023) [facility]2023 History of Past illness Narrative* Problem Noted Date Diagnosed Date Resolved Date Spotting in 10/05/20222022 Overview: 3Patient called in complaining of dark brown spotting October 03October 04. States she has had cramping that she rates a 4 on the pain scale that is very intermittent. Currently patient has had 1 quant hCG drawn and she is due to have 1 drawn today. I have discussed with her the importance of reporting any increased bleeding or pain and being evaluated immediately. TKRN Hyperthyroidism 10/30/2018 08/18/2022 Palpitation 12/31/2015 11/27/2022 documented as of this encounter (statuses as of 03/15/2023) [facility]2023 History of Past illness Narrative* Problem Noted Date Diagnosed Date Resolved Date Spotting in 10/05/20222022 Overview: 3Patient called in complaining of dark brown spotting October 03October 04. States she has had cramping that she rates a 4 on the pain scale that is very intermittent. Currently patient has had 1 quant hCG drawn and she is due to have 1 drawn today. I have discussed with her the importance of reporting any increased bleeding or pain and being evaluated immediately. TKRN Hyperthyroidism 10/30/2018 08/18/2022 Palpitation 12/31/2015 11/27/2022 documented as of this encounter (statuses as of 03/17/2023) [facility]2023 History of Past illness Narrative* Problem Noted Date Diagnosed Date Resolved Date Spotting in 10/05/20222022 Overview: 3Patient called in complaining of dark brown spotting October 03October 04. States she has had cramping that she rates a 4 on the pain scale that is very intermittent. Currently patient has had 1 quant hCG drawn and she is due to have 1 drawn today. I have discussed with her the importance of reporting any increased bleeding or pain and being evaluated immediately. TKRN Hyperthyroidism 10/30/2018 08/18/2022 Palpitation 12/31/2015 11/27/2022 documented as of this encounter (statuses as of 03/21/2023) [facility]2023 History of Past illness Narrative* Problem Noted Date Diagnosed Date Resolved Date Spotting in 10/05/20222022 Overview: 3Patient called in complaining of dark brown spotting October 03October 04. States she has had cramping that she rates a 4 on the pain scale that is very intermittent. Currently patient has had 1 quant hCG drawn and she is due to have 1 drawn today. I have discussed with her the importance of reporting any increased bleeding or pain and being evaluated immediately. TKRN Hyperthyroidism 10/30/2018 08/18/2022 Palpitation 12/31/2015 11/27/2022 documented as of this encounter (statuses as of 03/23/2023) [facility]2023 History of Past illness Narrative* Problem Noted Date Diagnosed Date Resolved Date Spotting in 10/05/20222022 Overview: 3Patient called in complaining of dark brown spotting October 03October 04. States she has had cramping that she rates a 4 on the pain scale that is very intermittent. Currently patient has had 1 quant hCG drawn and she is due to have 1 drawn today. I have discussed with her the importance of reporting any increased bleeding or pain and being evaluated immediately. TKRN Hyperthyroidism 10/30/2018 08/18/2022 Palpitation 12/31/2015 11/27/2022 documented as of this encounter (statuses as of 03/27/2023) [facility]2023 History of Past illness Narrative* Problem Noted Date Diagnosed Date Resolved Date Spotting in 10/05/20222022 Overview: 3Patient called in complaining of dark brown spotting October 03October 04. States she has had cramping that she rates a 4 on the pain scale that is very intermittent. Currently patient has had 1 quant hCG drawn and she is due to have 1 drawn today. I have discussed with her the importance of reporting any increased bleeding or pain and being evaluated immediately. TKRN Hyperthyroidism 10/30/2018 08/18/2022 Palpitation 12/31/2015 11/27/2022 documented as of this encounter (statuses as of 04/06/2023) [facility]2023 History of Past illness Narrative* Problem Noted Date Diagnosed Date Resolved Date Spotting in 10/05/20222022 Overview: 3Patient called in complaining of dark brown spotting October 03October 04. States she has had cramping that she rates a 4 on the pain scale that is very intermittent. Currently patient has had 1 quant hCG drawn and she is due to have 1 drawn today. I have discussed with her the importance of reporting any increased bleeding or pain and being evaluated immediately. TKRN Hyperthyroidism 10/30/2018 08/18/2022 Palpitation 12/31/2015 11/27/2022 documented as of this encounter (statuses as of 04/17/2023) [facility]2023 History of Past illness Narrative* Problem Noted Date Diagnosed Date Resolved Date Spotting in 10/05/20222022 Overview: 10/05/2022atient called in complaining of dark brown spotting October 03October 04. States she has had cramping that she rates a 4 on the pain scale that is very intermittent. Currently patient has had 1 quant hCG drawn and she is due to have 1 drawn today. I have discussed with her the importance of reporting any increased bleeding or pain and being evaluated immediately. TKRN Hyperthyroidism 10/30/2018 08/18/2022 Palpitation 12/31/2015 11/27/2022 documented as of this encounter (statuses as of 04/20/2023) [facility]2023 History of Past illness Narrative* Problem Noted Date Diagnosed Date Resolved Date Spotting in 10/05/20222022 Overview: 3Patient called in complaining of dark brown spotting October 03October 04. States she has had cramping that she rates a 4 on the pain scale that is very intermittent. Currently patient has had 1 quant hCG drawn and she is due to have 1 drawn today. I have discussed with her the importance of reporting any increased bleeding or pain and being evaluated immediately. TKRN Hyperthyroidism 10/30/2018 08/18/2022 Palpitation 12/31/2015 11/27/2022 documented as of this encounter (statuses as of 04/21/2023) [facility]03-02-2023 History of Past illness Narrative* Problem Noted Date Diagnosed Date Resolved Date Spotting in 10/05/20222022 Overview: 10/05/2022atient called in complaining of dark brown spotting October 03October 04. States she has had cramping that she rates a 4 on the pain scale that is very intermittent. Currently patient has had 1 quant hCG drawn and she is due to have 1 drawn today. I have discussed with her the importance of reporting any increased bleeding or pain and being evaluated immediately. TKRN Hyperthyroidism 10/30/2018 08/18/2022 Palpitation 12/31/2015 11/27/2022 documented as of this encounter (statuses as of 04/24/2023) [facility]03-02-2023 History of Past illness Narrative* Problem Noted Date Diagnosed Date Resolved Date Spotting in 10/05/20222022 Overview: 10/05/2022atient called in complaining of dark brown spotting October 03October 04. States she has had cramping that she rates a 4 on the pain scale that is very intermittent. Currently patient has had 1 quant hCG drawn and she is due to have 1 drawn today. I have discussed with her the importance of reporting any increased bleeding or pain and being evaluated immediately. TKRN Hyperthyroidism 10/30/2018 08/18/2022 Palpitation 12/31/2015 11/27/2022 documented as of this encounter (statuses as of 05/05/2023) [facility]03-02[facility]2023 History of Past illness Narrative* Problem Noted Date Diagnosed Date Resolved Date Spotting in 10/05/20222022 Overview: 3Patient called in complaining of dark brown spotting October 03October 04. States she has had cramping that she rates a 4 on the pain scale that is very intermittent. Currently patient has had 1 quant hCG drawn and she is due to have 1 drawn today. I have discussed with her the importance of reporting any increased bleeding or pain and being evaluated immediately. TKRN Hyperthyroidism 10/30/2018 08/18/2022 Palpitation 12/31/2015 11/27/2022 documented as of this encounter (statuses as of 05/18/2023) [facility]-02[facility]2023 History of Past illness Narrative* Problem Noted Date Diagnosed Date Resolved Date Spotting in 10/05/20222022 Overview: 10/05/2022atient called in complaining of dark brown spotting October 03October 04. States she has had cramping that she rates a 4 on the pain scale that is very intermittent. Currently patient has had 1 quant hCG drawn and she is due to have 1 drawn today. I have discussed with her the importance of reporting any increased bleeding or pain and being evaluated immediately. TKRN Hyperthyroidism 10/30/2018 08/18/2022 Palpitation 12/31/2015 11/27/2022 documented as of this encounter (statuses as of 05/25/2023) [facility]03-02-2023 History of Past illness Narrative* Problem Noted Date Diagnosed Date Resolved Date Spotting in 10/05/20222022 Overview: 3Patient called in complaining of dark brown spotting October 03October 04. States she has had cramping that she rates a 4 on the pain scale that is very intermittent. Currently patient has had 1 quant hCG drawn and she is due to have 1 drawn today. I have discussed with her the importance of reporting any increased bleeding or pain and being evaluated immediately. TKRN Hyperthyroidism 10/30/2018 08/18/2022 Palpitation 12/31/2015 11/27/2022 documented as of this encounter (statuses as of 05/29/2023) [facility]-02[facility]2023 History of Past illness Narrative* Problem Noted Date Diagnosed Date Resolved Date Spotting in 10/05/20222022 Overview: 3Patient called in complaining of dark brown spotting October 03October 04. States she has had cramping that she rates a 4 on the pain scale that is very intermittent. Currently patient has had 1 quant hCG drawn and she is due to have 1 drawn today. I have discussed with her the importance of reporting any increased bleeding or pain and being evaluated immediately. TKRN Hyperthyroidism 10/30/2018 08/18/2022 Palpitation 12/31/2015 11/27/2022 documented as of this encounter (statuses as of 05/31/2023) [place] [address]-02-2023 History of Past illness Narrative* Problem Noted Date Diagnosed Date Resolved Date Spotting in 10/05/20222022 Overview: 10/05/2022atient called in complaining of dark brown spotting October 03October 04. States she has had cramping that she rates a 4 on the pain scale that is very intermittent. Currently patient has had 1 quant hCG drawn and she is due to have 1 drawn today. I have discussed with her the importance of reporting any increased bleeding or pain and being evaluated immediately. TKRN Hyperthyroidism 10/30/2018 08/18/2022 Palpitation 12/31/2015 11/27/2022 documented as of this encounter (statuses as of 05/31/2023) [facility]03-02[facility]2023 History of Past illness Narrative* Problem Noted Date Diagnosed Date Resolved Date with history of in fertility, antepartum 10/05/2022 07/10/2023 Overview: 10/05/2022atient and have been trying to conceive for 3 years. She had an upcoming appointment this month for a fertility evaluation by SORAYA.TKRN Spotting in 10/05/20222022 Overview: 10/05/2022atient called in complaining of dark brown spotting October 03October 04. States she has had cramping that she rates a 4 on the pain scale that is very intermittent. Currently patient has had 1 quant hCG drawn and she is due to have 1 drawn today. I have discussed with her the importance of reporting any increased bleeding or pain and being evaluated immediately. TKRN related nausea, antepartum 10/05/2022 07/10/2023 Overview: 10/05/2022atient is complaining of nausea in . Denies any vomiting. Dietary considerations discussed . Vitamin B6 recommended. Patient currently taking Zofran prescribed by Dr. Apodaca. She believes this is a helping to relieve her symptoms. Advised patient to call/come in if she is unable to keep any food or fluids down in a 24-hour period. Mila Loaiza RN Hyperthyroidism 10/30/2018 08/18/2022 Palpitation 12/31/2015 11/27/2022 documented as of this encounter (statuses as of 07/11/2023) [facility]-02-2023 History of Past illness Narrative* Problem Noted Date Diagnosed Date Resolved Date with history of in fertility, antepartum 10/05/2022 07/10/2023 Overview: 10/05/2022atient and have been trying to conceive for 3 years. She had an upcoming appointment this month for a fertility evaluation by SORAYA.TKRN Spotting in 10/05/20222022 Overview: 10/05/2022atient called in complaining of dark brown spotting October 03 and October 04. States she has had cramping that she rates a 4 on the pain scale that is very intermittent. Currently patient has had 1 quant hCG drawn and she is due to have 1 drawn today. I have discussed with her the importance of reporting any increased bleeding or pain and being evaluated immediately. TKRN related nausea, antepartum 10/05/2022 07/10/2023 Overview: 10/05/2022atient is complaining of nausea in . Denies any vomiting. Dietary considerations discussed . Vitamin B6 recommended. Patient currently taking Zofran prescribed by Dr. Apodaca. She believes this is a helping to relieve her symptoms. Advised patient to call/come in if she is unable to keep any food or fluids down in a 24-hour period. Mila Loaiza RN Hyperthyroidism 10/30/2018 08/18/2022 Palpitation 12/31/2015 11/27/2022 documented as of this encounter (statuses as of 07/14/2023) [facility]03-02-2023 Miscellaneous Notes* Quick Notes - Mila Loaiza RN - 10/05/2022 8:32 AM EST DISTANCE HEALTH VISIT This Team Access Model visit is a phone encounter. It required patient-provider interaction for themedical decision making as documented below. Mary Oleary is a 27 year old female seen for PNOB. Patient and have been trying to conceive for 3 years. She had an upcoming appointment this month for a fertility evaluation by SORAYA.Pt has a history of anxiety/depression diagnosed in 2017 but patient states she has been having symptomsof anxiety since 2001. She has been off medication since 2021. She believes she is doing well off medication. Discussed increased risks of depression during and and importance ofreporting the development or worsening of symptoms should they occur. Pt denies ever having any suicidal thoughts or tendencies or thoughts of hurting others. Patient has a history of hyperthyroidismtreated by Dr. Marshall. States she took medication from [id number]. Last thyroid labs were drawn on September 14. Patient called in complaining of dark brown spotting October 03 and October 04. States she has had cramping that she rates a 4 on the pain scale that is very intermittent. Currently patient has had 1 quant hCG drawn and she is due to have 1 drawn today. I have discussed with her the importance of reporting any increased bleeding or pain and being evaluated immediately. Patient recently stopped using medical marijuana.Patient is complaining of nausea in . Denies any vomiting. Dietary considerations discussed . Vitamin B6 recommended. Patient currently taking Zofran prescribed by Dr. Apodaca. She believes this is a helping to relieve her symptoms. Advised patient to call/come in if she is unable to keep any food or fluids down in a 24-hour period. Patient declines aneuploidy screening and genetic carrier screening testing. Mila Loaiza RN documented [facility] Miscellaneous Notes* Telephone Encounter - Digna Cooper MD - 10/03/2022 8:33 AM EST Encounter Diagnosis ICD-10-CM 1. High-tone pelvic floor dysfunction N94.89 onabotulinum toxin type A 100 Units injection (BOTOX) 2. Muscle spasm M62.838 onabotulinum toxin type A 100 Units injection (BOTOX) * Telephone Encounter - Digna Cooper MD - 09/12/2022 8:26 AM EST Please contact when Botox is approved documented in this encounterK[facility] Miscellaneous Notes* Telephone Encounter - Marilyn Zacarias RN - 09/12/2022 10:22 AM EST Done see MC message Marilyn Zacarias RN * Telephone Encounter - Digna Cooper MD - 09/12/2022 8:25 AM EST Please tell her ordres in for labs Cbc, comp, tsh, follicular stimulating hormone, AMH * Telephone Encounter - Tanna Reagan RN - 09/11/2022 1:39 PM EST Patient requesting lab orders from recent visit. Would like to obtain this week. LV: [facility]: 09/08/2022 PLAN: 1) Consider Botox or trigger point injections in the future. 2) Stop the gabapentin, due to adverse effects. 3) refill of baclofen/lidocaine vaginal suppository 4) Referral to infertility clinic placed today. Perform [facility]SH labs and blood work (CBC). 5) Discussed trial of Cymbalta in the future but will not start right now. Please place orders for labs. Routing to Dr. Cooper. Tanna Reagan RN September 11, 2022 1:43 PM * Telephone Encounter - Keily Mcfarlane - 09/11/2022 12:46 PM EST Patient called in and stated that she would like to have her lab work completed this week and the orders are not in. Contact the patient [phone] Anuja Michaud documented in this encounterK[facility]23 NoteHNO ID: [id number] Author: Digna Cooper MD Service: ? Author Type: Physician Type: Progress Notes Filed: 09/12/2022 8:25 AM Note Text: CHRONIC PELVIC PAIN VIRTUAL VISIT PROGRESS NOTE Duration of Call: 30 minutes Zoom Platform This is a virtual visit. It required patient-provider interaction for the medical decision making as documented below. Patient identified by and name. I obtained consent from the patient to complete the visit virtually. Mary Oleary is a 27 year old female seen for follow up on chronic pelvic pain. HISTORY SINCE LAST VISIT: Has been having lower left side pain. Pain is achy. Will have sharp pains in both anus and vagina. That is worse during periods but will randomly have it during the months. Will have radiating pain that will start at tailbone and radiate down legs. With surgery the pain has been the same. Notes that it is painful when urinating. Currently, still having monthly periods. Attempted to use control, nuvaring and mirena iud, but they all lead to sickness. Has since discontinued them all. Has been recently trying to have a child with . Notes that pain during sexual intercourse is so bad that it is almost impossible. Has been going to [facility]. Has done 11 weeks of therapy with her. However there were no major improvement with PT. Stopped going after being prescribed gabapentin. However, gabapentin has been causing adverse effects, such as dizziness and nausea. Will have pain with PT and hurts even worse after. Notes that the baclofen/lidocaine vag supp will take the edge off internal vaginal pain. Will experience headaches and is constantly nauseous. LAST VISIT: 07/05/22 ASSESSMENT Encounter Diagnosis ICD-10-CM 1. High-tone pelvic floor dysfunction N94.89 UA DIP, URINE (POC) baclofen 10 mg lidocaine 50 mg vaginal suppository (CPD) gabapentin (NEURONTIN) 100 mg capsule 2. Pelvic pain in female R10.2 3. Dysmenorrhea N94.6 4. Dysuria R30.0 UA DIP, URINE (POC) URINE CULTURE 5. 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 gabapentin (NEURONTIN) 100 mg capsule Surgery-no endo Painful periods Side effects to hormonal suppression PFD on exam PLAN Baclofen-lidocaine suppositories trial Gabapentin for central nervous system pain will titrate from 100mg x 7 days to 200 then 300mg Urine culture for trace leukocytes and dysuria AND contact if + 4 consider aygestin to suppress periods but wants to try one thing at a time Follow up in 2 month virtually or in person Digna Cooper MD PAST MEDICAL HISTORY Diagnosis Date Anxiety Huizar's esophagus Depression History of hyperthyroidism 05/10/2022 History of seizures as a child Hyperthyroidism Hyperthyroidism 10/30/2018 Ovarian cyst PAST SURGICAL HISTORY Procedure Laterality Date COLONOSCOPY 07/13/2021 gastritis and colitis found EGD 07/13/2021 LAPAROSCOPY W/RMVL ADNEXAL STRUCTURES Left 04/11/2018 Left ovarian cystectomy for dermoid cyst FAMILY HISTORY Problem Relation Age of Onset Hypothyroidism Mother Hypertension Father No Known Problems Brother other (Tachycardia) Maternal Grandmother Diabetes Maternal Grandfather Diabetes Paternal Grandmother Hypertension Paternal Grandmother Hyperlipidemia Paternal Grandmother Ischemic Heart Disease Paternal Grandfather History of heart attacks Stroke Paternal Grandfather Hyperlipidemia Paternal Grandfather Hypertension Paternal Grandfather Anesthesia Problems No Family History Social History Tobacco Use Smoking status: Never Smokeless tobacco: Never Vaping Use Vaping Use: Never used Substance Use Topics Alcohol use: Yes Comment: rarely Drug use: Yes Frequency: 7.0 times per week Types: Marijuana Comment: medical marijuana Current Outpatient Medications Medication Sig Dispense Refill LORazepam (ATIVAN) 0.5 mg Take half to one pill, 2 times weeks as needed. Not to exceed use of 2 times a week 8 tablet 2 baclofen 10 mg lidocaine 50 mg vaginal suppository (CPD) Unwrap and insert 1 suppository vaginally once daily at bedtime as directed. 30 Suppository 4 gabapentin (NEURONTIN) 100 mg capsule Take 3 capsules by mouth daily at bedtime. 90 capsule 3 omeprazole (PRILOSEC) 20 mg capsule Take 1 capsule by mouth twice daily. 60 capsule 1 ondansetron (ZOFRAN) 4 mg tablet Take 1 tablet by mouth every 8 hours as needed for nausea/vomiting. 30 tablet 0 ibuprofen (MOTRIN) 600 mg tablet Take 1 tablet by mouth every 6 hours. 60 tablet 0 acetaminophen (TYLENOL EXTRA STRENGTH) 500 mg tablet Take 2 tablets by mouth every 6 hours. 60 tablet 0 No current facility-administered medications for this visit. ALLER (more content not included)...[facility]02-03-2023 Instructions* Patient Instructions* Nabor Barboza - 09/08/2022 3:21 PM EST PLAN: 1) Consider Botox or trigger point injections in the future. 2) Discontinue the gabapentin, due to adverse effects. 3) Refill of baclofen/lidocaine vaginal suppository placed today. 4) Referral to infertility clinic placed today. Perform FSH labs and blood work (CBC). 5) Discussed trial of Cymbalta in the future but will not start right now Follow up in 1 month. documented in this encounterK[facility] History of Present illness Narrative* Digna Cooper MD - 09/08/2022 3:00 PM EST CHRONIC PELVIC PAIN VIRTUAL VISIT PROGRESS NOTE Duration of Call: 30 minutes Zoom Platform This is a virtual visit. It required patient-provider interaction for the medical decision making as documented below. Patient identified by and name. I obtained consent from the patient to complete the visit virtually. Mary Oleary is a 27 year old female seen for follow up on chronic pelvic pain. HISTORY SINCE LAST VISIT: Has been having lower left side pain. Pain is achy. Will have sharp pains in both anus and vagina. That is worse during periods but will randomly have it during the months. Will have radiating pain that will start at tailbone and radiate down legs. With surgery the pain has been the same. Notes that it is painful when urinating. Currently, still having monthly periods. Attempted to use control, nuvaring and mirena iud, but they all lead to sickness. Has since discontinued them all. Has been recently trying to have a child with . Notes that pain during sexual intercourse is so bad that it is almost impossible. Has been going to [facility]. Has done 11 weeks of therapy with her. However there were no major improvement with PT. Stopped going after being prescribed gabapentin. However, gabapentin has been causing adverse effects, such as dizziness and nausea. Will have pain with PT and hurts even worse after. Notes that the baclofen/lidocaine vag supp will take the edge off internal vaginal pain. Will experience headaches and is constantly nauseous. LAST VISIT: 07/05/22 ASSESSMENT Encounter Diagnosis ICD-10-CM 1. High-tone pelvic floor dysfunction N94.89 UA DIP, URINE (POC) baclofen 10 mg lidocaine 50 mg vaginal suppository (CPD) gabapentin (NEURONTIN) 100 mg capsule 2. Pelvic pain in female R10.2 3. Dysmenorrhea N94.6 4. Dysuria R30.0 UA DIP, URINE (POC) URINE CULTURE 5. 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 gabapentin (NEURONTIN) 100 mg capsule Surgery-no endo Painful periods Side effects to hormonal suppression PFD on exam PLAN Baclofen-lidocaine suppositories trial Gabapentin for central nervous system pain will titrate from 100mg x 7 days to 200 then 300mg Urine culture for trace leukocytes and dysuria & contact if + 4 consider aygestin to suppress periods but wants to try one thing at a time Follow up in 2 month virtually or in person Digna Cooper MD PAST MEDICAL HISTORY Diagnosis Date Anxiety Huizar's esophagus Depression History of hyperthyroidism 05/10/2022 History of seizures as a child Hyperthyroidism Hyperthyroidism 10/30/2018 Ovarian cyst PAST SURGICAL HISTORY Procedure Laterality Date COLONOSCOPY 07/13/2021 gastritis and colitis found EGD 07/13/2021 LAPAROSCOPY W/RMVL ADNEXAL STRUCTURES Left 04/11/2018 Left ovarian cystectomy for dermoid cyst FAMILY HISTORY Problem Relation Age of Onset Hypothyroidism Mother Hypertension Father No Known Problems Brother other (Tachycardia) Maternal Grandmother Diabetes Maternal Grandfather Diabetes Paternal Grandmother Hypertension Paternal Grandmother Hyperlipidemia Paternal Grandmother Ischemic Heart Disease Paternal Grandfather History of heart attacks Stroke Paternal Grandfather Hyperlipidemia Paternal Grandfather Hypertension Paternal Grandfather Anesthesia Problems No Family History Social History Tobacco Use Smoking status: Never Smokeless tobacco: Never Vaping Use Vaping Use: Never used Substance Use Topics Alcohol use: Yes Comment: rarely Drug use: Yes Frequency: 7.0 times per week Types: Marijuana Comment: medical marijuana Current Outpatient Medications Medication Sig Dispense Refill LORazepam (ATIVAN) 0.5 mg Take half to one pill, 2 times weeks as needed. Not to exceed use of 2 times a week 8 tablet 2 baclofen 10 mg lidocaine 50 mg vaginal suppository (CPD) Unwrap and insert 1 suppository vaginally once daily at bedtime as directed. 30 Suppository 4 gabapentin (NEURONTIN) 100 mg capsule Take 3 capsules by mouth daily at bedtime. 90 capsule 3 omeprazole (PRILOSEC) 20 mg capsule Take 1 capsule by mouth twice daily. 60 capsule 1 ondansetron (ZOFRAN) 4 mg tablet Take 1 tablet by mouth every 8 hours as needed for nausea/vomiting. 30 tablet 0 ibuprofen (MOTRIN) 600 mg tablet Take 1 tablet by mouth every 6 hours. 60 tablet 0 acetaminophen (TYLENOL EXTRA STRENGTH) 500 mg tablet Take 2 tablets by mouth every 6 hours. 60 tablet 0 No current facility-administered medications for this visit. ALLERGIES Allergen Reactions Bactrim [Sulfametho* Hives Caffine [Caffeine] Other: See Comments tachycardia Penicillins Hives REVIEW OF SYSTEMS: ROS collected on September 08, 2022 by Nabor Barboza ; reviewed and confirmed by me today. GENERAL: feeling well without fatigue, no recent change in weight, no fever PHYSICAL EXAMINATION: VIDEO EXAM: (if completed, performed via video enabled technology) No exam performed ASSESSMENT: Mary Oleary is a 27 year old female with: Encounter Diagnosis ICD-10-CM 1. High-tone pelvic floor dysfunction N94.89 onabotulinum toxin type A (BOTOX) 100 unit solr 2. 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 Dysmenorrhea N94.6 FSH BLD WHIIVF ANTI MULLERIAN HORMONE CBC 4. Dysuria R30.0 5. Encounter for fertility planning Z31.89 CONSULT TO INFERTILITY CLINIC FSH BLD 6. Nausea R11.0 COMP METABOLIC PANEL TSH BLD No improvement after surgery Wants to have a child in the near future, so will hold off on suppression of menses Still experiencing some dyspareunia Has stopped PT Side effects with gabapentin Regular cycle with dysmenorrhea PLAN: 1) Consider Botox or trigger point injections in the future. 2) Stop the gabapentin, due to adverse effects. 3) refill of baclofen/lidocaine vaginal suppository 4) Referral to infertility clinic placed today. Perform FSH labs and blood work (CBC). 5) Discussed trial of Cymbalta in the future but will not start right now. I spent more than 21-40 minutes [id number] with the patient and over half the time was devoted tocounseling and/or coordination of care. CPP SUMMARY DIAGNOSES: pfd, dysmenorrhea, centralized pain, Pain x 13 years . Surgery 1. 05/29/2022 exam under anesthesia, diagnostic laparoscopy, peritoneal biopsies with Dr. Wright - noendometriosis Procedures (TPI, botox, pain bocks, etc) 1. none Nonhormonal Medications 1. Acetaminophen and motrin Hormonal medications (IUD, control pill, GNRH) 1. control pill-migraines 2. nuvaring-depression 3. IUDmirena pain Services (GI, urology, pain psych,PFPT) 1. PFPT Jovita Tat, DO PGYIV, ONMM ATTESTATION: By signing my name below, I, Nabor Barboza, attest that this documentation has been prepared under the direction and in the presence of Dr. Cooper Electronically signed, Tana Pimentel September 08, 2022 9:03 AM I agree with the Chief Compliant, ROS, and Past Histories independently gathered by the clinical air support control officer and the remaining scribed note accurately describes my personal service to the patient. Digna Cooper MD documented in this encounterK[facility]23 NoteHNO ID: [id number] Author: Wilson Rogers MD Service: ? Author Type: Physician Type: Progress Notes Filed: 08/18/2022 3:03 PM Note Text: Reason for Visit Patient presents with: Follow Up: anxiety Mary Oleary is a 27 year old female who presents here today for Above Complaints.. Health Maintenance HEPATITIS B(1 of 3 - 3-dose series) COVID-19 VACCINE(1) HEPATITIS C SCREENING HIV SCREENING DTAP,TDAP,TD(1 - Tdap) INFLUENZA(1) DEPRESSION ASSESSMENT PAP TESTING HPI She is seeing Dr loera for pelvic pain , did 11 weeks of pelvic floor therapy and she is on gabapentin with out much improvement. She had a biopsy and laparoscopic exploration which showed no endometriosis. She is dizzy with the gabapentin and it did not improve despite being on the medication for a while She has been nauseas everyday since taking. She would like to discuss anxiety today. She has had anxiety and panic since she was 7 years old She has attacks that are debilitating. Does have some depression but intermittently. Wants something for panic attack. Gabapentin is not helping her at all. She is having around 1 to 2 attacks a week, and they last 6 to 10 hours. She has been in counseling and is working through a lot of these on her own but when she cant help herself she would need the medication. She is using medical marijuana. Currently vaping daily at night, to help her sleep and she can use it for anxiety. We discussed limiting her benzo to 2 days a week and we would like to stick to that. She is agreeable No problem-specific Assessment AND Plan notes found for this encounter. PAST MEDICAL HISTORY Diagnosis Date Anxiety Huizar's esophagus Depression History of seizures as a child Hyperthyroidism Ovarian cyst PAST SURGICAL HISTORY Procedure Laterality Date COLONOSCOPY 07/13/2021 gastritis and colitis found EGD 07/13/2021 LAPAROSCOPY W/RMVL ADNEXAL STRUCTURES Left 04/11/2018 Left ovarian cystectomy for dermoid cyst FAMILY HISTORY Problem Relation Age of Onset Hypothyroidism Mother Hypertension Father No Known Problems Brother other (Tachycardia) Maternal Grandmother Diabetes Maternal Grandfather Diabetes Paternal Grandmother Hypertension Paternal Grandmother Hyperlipidemia Paternal Grandmother Ischemic Heart Disease Paternal Grandfather History of heart attacks Stroke Paternal Grandfather Hyperlipidemia Paternal Grandfather Hypertension Paternal Grandfather Anesthesia Problems No Family History Social History Tobacco Use Smoking status: Never Smokeless tobacco: Never Vaping Use Vaping Use: Never used Substance Use Topics Alcohol use: Yes Comment: rarely Drug use: Yes Frequency: 7.0 times per week Types: Marijuana Comment: medical marijuana Past medical history, appointments, medications, allergies reviewed. Pertinent Lab/Diagnostic Studies are reviewed and discussed today Current Outpatient Medications: baclofen 10 mg lidocaine 50 mg vaginal suppository (CPD) gabapentin (NEURONTIN) 100 mg capsule omeprazole (PRILOSEC) 20 mg capsule ondansetron (ZOFRAN) 4 mg tablet ibuprofen (MOTRIN) 600 mg tablet acetaminophen (TYLENOL EXTRA STRENGTH) 500 mg tablet Review of Systems CONSTITUTIONAL: No fevers, chills night sweats, unintended weight loss CARDIOVASCULAR: No chest pain, dyspnea, palpitations, orthopnea, PND, ankle edema. PULM: No dyspnea, unexplained cough. GI: No dysphagia/odynophagia, problematic reflux, constipation, diarrhea, changes in stool habits, hematochezia, melena. : No new urinary complaints, including dysuria, gross hematuria or pyuria. NEURO: No new balance problems, peripheral weakness/paresthesias or numbness of concern. Physical Exam BP 118/56 (BP Site: Left Arm, BP Position: Sitting, BP Cuff Size: Large Adult) Pulse 77 Temp 36.7 ?C (98.1 ?F) Resp 12 Ht 171.5 cm (5' 7.5 ) Wt 82.6 kg (182 lb) LMP 07/09/2022 (Exact Date) SpO2 99% BMI 28.08 kg/m? General appearance: Well appearing, alert, in no acute distress, well nourished. Skin: Skin color, texture, turgor normal, no suspicious rashes or lesions Head: Normocephalic, no masses, lesions, tenderness or abnormalities Eyes: Anicteric sclera. Pupils are equally round and reactive to light. Extraocular movements are intact. Lungs: Lungs clear to auscultation. No wheezing, rhonchi, rales Heart: RRR without murmur, gallop, or rubs. Extremities: No deformities, edema, skin discoloration, clubbing or cyanosis. Good capillary refill. ASSESSMENT/PLAN: 1. Panic attack - ICD9: 300.01, ICD10: F41.0 (primary diagnosis) Gave some ativan We discussed not taking more than 2 pills a week. Discussed the risks of benzos ralph dependence with increased use. 2. Anxiety - ICD9: 300.00, ICD10: F41.9 Does not tolerate side effects of most ssris 3. Medical marijuana use - ICD9: V58.69, ICD10: Z79.899 Says it helps her Wilson Rogers, (more content not included)...[facility]01-13-2023 History of Present illness Narrative* Wilson Rogers MD - 08/18/2022 2:37 PM EST Reason for Visit Patient presents with: Follow Up: anxiety Mary Oleary is a 27 year old female who presents here today for Above Complaints.. Health Maintenance HEPATITIS B(1 of 3 - 3-dose series) COVID-19 VACCINE(1) HEPATITIS C SCREENING HIV SCREENING DTAP,TDAP,TD(1 - Tdap) INFLUENZA(1) DEPRESSION ASSESSMENT PAP TESTING HPI She is seeing Dr loera for pelvic pain , did 11 weeks of pelvic floor therapy and she is on gabapentin with out much improvement. She had a biopsy and laparoscopic exploration which showed no endometriosis. She is dizzy with the gabapentin and it did not improve despite being on the medication for a while She has been nauseas everyday since taking. She would like to discuss anxiety today. She has had anxiety and panic since she was 7 years old She has attacks that are debilitating. Does have some depression but intermittently. Wants something for panic attack. Gabapentin is not helping her at all. She is having around 1 to 2attacks a week, and they last 6 to 10 hours. She has been in counseling and is working through a lot of these on her own but when she cant help herself she would need the medication. She is using medical marijuana. Currently vaping daily at night, to help her sleep and she can use it for anxiety. We discussed limiting her benzo to 2 days a week and we would like to stick to that. She is agreeable No problem-specific Assessment & Plan notes found for this encounter. PAST MEDICAL HISTORY Diagnosis Date Anxiety Huizar's esophagus Depression History of seizures as a child Hyperthyroidism Ovarian cyst PAST SURGICAL HISTORY Procedure Laterality Date COLONOSCOPY 07/13/2021 gastritis and colitis found EGD 07/13/2021 LAPAROSCOPY W/RMVL ADNEXAL STRUCTURES Left 04/11/2018 Left ovarian cystectomy for dermoid cyst FAMILY HISTORY Problem Relation Age of Onset Hypothyroidism Mother Hypertension Father No Known Problems Brother other (Tachycardia) Maternal Grandmother Diabetes Maternal Grandfather Diabetes Paternal Grandmother Hypertension Paternal Grandmother Hyperlipidemia Paternal Grandmother Ischemic Heart Disease Paternal Grandfather History of heart attacks Stroke Paternal Grandfather Hyperlipidemia Paternal Grandfather Hypertension Paternal Grandfather Anesthesia Problems No Family History Social History Tobacco Use Smoking status: Never Smokeless tobacco: Never Vaping Use Vaping Use: Never used Substance Use Topics Alcohol use: Yes Comment: rarely Drug use: Yes Frequency: 7.0 times per week Types: Marijuana Comment: medical marijuana Past medical history, appointments, medications, allergies reviewed. Pertinent Lab/Diagnostic Studies are reviewed and discussed today Current Outpatient Medications: baclofen 10 mg lidocaine 50 mg vaginal suppository (CPD) gabapentin (NEURONTIN) 100 mg capsule omeprazole (PRILOSEC) 20 mg capsule ondansetron (ZOFRAN) 4 mg tablet ibuprofen (MOTRIN) 600 mg tablet acetaminophen (TYLENOL EXTRA STRENGTH) 500 mg tablet Review of Systems CONSTITUTIONAL: No fevers, chills night sweats, unintended weight loss CARDIOVASCULAR: No chest pain, dyspnea, palpitations, orthopnea, PND, ankle edema. PULM: No dyspnea, unexplained cough. GI: No dysphagia/odynophagia, problematic reflux, constipation, diarrhea, changes in stool habits, hematochezia, melena. : No new urinary complaints, including dysuria, gross hematuria or pyuria. NEURO: No new balance problems, peripheral weakness/paresthesias or numbness of concern. Physical Exam BP 118/56 (BP Site: Left Arm, BP Position: Sitting, BP Cuff Size: Large Adult) Pulse 77 Temp 36.7 C (98.1 F) Resp 12 Ht 171.5 cm (5' 7.5 ) Wt 82.6 kg (182 lb) LMP 07/09/2022 (Exact Date) SpO2 99% BMI 28.08 kg/m General appearance: Well appearing, alert, in no acute distress, well nourished. Skin: Skin color, texture, turgor normal, no suspicious rashes or lesions Head: Normocephalic, no masses, lesions, tenderness or abnormalities Eyes: Anicteric sclera. Pupils are equally round and reactive to light. Extraocular movements are intact. Lungs: Lungs clear to auscultation. No wheezing, rhonchi, rales Heart: RRR without murmur, gallop, or rubs. Extremities: No deformities, edema, skin discoloration, clubbing or cyanosis. Good capillary refill. ASSESSMENT/PLAN: 1. Panic attack - ICD9: 300.01, ICD10: F41.0 (primary diagnosis) Gave some ativan We discussed not taking more than 2 pills a week. Discussed the risks of benzos ralph dependence with increased use. 2. Anxiety - ICD9: 300.00, ICD10: F41.9 Does not tolerate side effects of most ssris 3. Medical marijuana use - ICD9: V58.69, ICD10: Z79.899 Says it helps her Wilson Rogers MD [facility] History of Present illness Narrative* Jenny Diaz, PT - 07/21/2022 3:04 PM EST Episode Visit Count: 10 Therapist That Will Accept/Oversee The Plan Of Care: Jenny Diaz Start of Care Date: 04/21/22 Onset Date: 04/21/18 Patient Identified by Name and Date of : Yes REHABILITATION AND SPORTS THERAPY PHYSICAL THERAPY PROGRESS REPORT PLAN OF CARE UPDATE: Assessment: Mary Oleary demonstrates no improvement in pelvic pain and bowel function. She hasprogressed toward goals slower than expected. Patient continues to present with impairments in pelvic floor muscle tightness/tenderness, bowel dysfunction. She will benefit from continued skilled therapy services to meet the updated goals for this plan of care as noted below. Goals for Episode of Care: created on 04/21/22 Updated on: 05/23/2022, 06/20/2022, 07/21/2022 [place] in home exercise program.-MET Patient will increase flexibility of B hamstrings to WNL to decrease pain.-MET Incontinence: Patient reports ability to start stream in less than 5 Seconds-MET Patient reports increased ability to fully empty bowels without straining-NOT MET Pelvic Pain: Patient reports painfree intercourse-NOT MET Patient displays decreased muscle spasms in pelvic floor to allow for decreased pain levels-PROGRESSING Patient displays improved muscle dynamics of pelvic floor including ability to lengthen-MET Patient Goals: improve pain, improve bladder/bowel function Planned Interventions, Frequency, and Duration: 1 visit, One month (reassess in 1 month and progress as indicated) Total Number of Visits Planned: 1 Patient to be seen for Therapeutic exercise ([id number]);Manual therapy ([id number]);Self- usp management ([id number]);Patient/Family/Caregiver Education PLAN FOR NEXT VISIT: recheck in 1 month SUBJECTIVE: Patient Reason for Visit: Pt reports no change in pelvic pain, has not noticed any difference with the gabapentin. Pt reports starting to take max dose of gabapentin tonight, hopeful thatthis will help. Pt reports continued pain with using L4 dilator. Pt reports bowel function has worsened, feels the urge to defecate but doesn't feel like she can empty. Pt reports having an appt withpelvic pain in about a month, would like to follow up with PFPT after that. Pain: Pain Pain Level: 3 Pain Location: Abdomen;Back Description: Cramping Frequency: Continuous Post Treatment Pain Post Treatment Pain Level: No Change PROMIS Scales Higher is Better 06/21/2020 03/15/2021 05/10/2022 Phys Func - Score 47 (within normal limits) - - Phys Func - Percentile 38 % - - GH Physical - Score 44.9 42.3 (Good) 44.9 (Good) GH Physical - Percentile 31 % 22 % 31 % GH Mental - Score 56 53.3 (Very Good) 56 (Excellent) GH Mental - Percentile 73 % 63 % 73 % T-scores: mean of general population = 50. 5 points is clinically meaningfully difference Percentiles provide an indication of how the patient's score ranks in relation to the general population. Higher percentile rankings indicate better function/quality of life. 50th percentile is the average of the general population and indicates half of respondents had a worse score. Lower is Better 06/21/2020 Fatigue - Score 68 (moderate) Fatigue - Percentile 4 % T-scores: mean of general population = 50. 5 points is clinically meaningfully difference Percentiles provide an indication of how the patient's score ranks in relation to the general population. Higher percentile rankings indicate better function/quality of life. 50th percentile is the average of the general population and indicates half of respondents had a worse score. OBJECTIVE MEASURES WITH LEVEL OF FUNCTION: Pelvic Floor Pain with penetration: Deep and superficial Difficulty evacuating / Excessive Straining: Sometimes Incomplete emptying: Sometimes Pelvic Floor Muscle Assessment Consent for pelvic assessment/testing and treatment: Patient was educated regarding pelvic floor physical therapy assessment/treatment which may include pelvic floor and girdle muscle assessment externally or internally (vaginal or rectal approach).;Patient verbalized consent for the above treatment approaches today. Patient understands they have control of the treatment and an opportunity to stop treatment at any time. Range of Motion: Normal Ability to Lengthen pelvic floor: Yes Pelvic Floor Manual Assessment External Pelvic Region Tenderness/ Hyperactivity - Trunk: Lower abdominals Lower abdominals: Bilateral (1/1) External Pelvic Region Tenderness/ Hyperactivity - Lower Extremity: Glut medius Glut medius: Bilateral (2/2) Pelvic Floor Tenderness/Hyperactivity: Tested Vaginally in Tested Vaginally in : Supine/hooklying Superficial transverse perineal: Bilateral (1/1) Deep transverse perineal: Bilateral (1/1) Iliococcygeus: Bilateral (08/06) Tissue Restriction/Tenderness Scale: 1= mild, 2= moderate, 3= severe TREATMENT: Manual Therapy: 1: Reassessment 2: Gentle stretching to B pelvic floor, supine 3: MFR to B lower abdominals, supine 4: MFR to B gluteals, sidelying Skilled Intervention: Manual skills to improve joint mobility, ROM, and decrease pain. Utilized anatomy knowledge of the therapist, and assessment of patient's response to intervention. Billing Manual TherapyTreatment Minutes: 40 Total Treatment Time Minutes (timed/untimed): 40 Jenny Diaz PT documented in this encounterK[facility]12-12-2022 Instructions* Patient Instructions* Yousuf Resendiz MD - 07/17/2022 1:13 PM EST ICT DEVELOPMENT MANAGER [phone] OFFICE [phone] documented in this encounterK[facility]12-12-2022 History of Present illness Narrative* Yousuf Resendiz MD - 07/17/2022 12:45 PM EST Images from the original note were not included. [facility] [place] SECTION FOR MINIMALLY INVASIVE GYNECOLOGIC SURGERY OUTPATIENT VISIT DATE 07/17/2022 OUTPATIENT VISIT TYPE POST OPERATIVE FOLLOW UP History: Mary Oleary is a 27 year old female here for post operative follow up appointment. She underwent LAPAROSCOPY WITH BIOPSY on 05/29/2022 indicated for evaluation of endometriosis. She reports feeling good since her procedure. Her appetite is good. She describes her pain as no painpresently. She is currently taking nothing for pain control. She has had sexual intercourse since the procedure. Denies nausea/vomiting/chest pain/shortness of breath. Ambulating well. No issues withvoiding or BMs. Operative findings included: FINDINGS 1) Exam under anesthesia: 8 week sized, mobile uterus, no USL nodularity 2) Laparoscopy: Anterior cul-de-sac - no endometriosis Posterior cul-de-sac - no endometriosis Left ovarian fossa - normal-appearing Right ovarian fossa - normal-appearing Uterosacral ligaments - normal-appearing Uterus - normal-appearing Ovaries and fallopian tubes - normal bilaterally Bowel and appendix - normal-appearing Diaphragmatic peritoneum - normal-appearing Right ureter appeared to be duplicated. The pathology report reveals: FINAL DIAGNOSIS 1. Left uterosacral ligament, biopsy (A) - Benign fibrovascular tissue. - Negative for endometriosis. 2. Right uterosacral ligament, biopsy (B) - Benign fibrovascular tissue. - Negative for endometriosis. ROS: Per HPI Exam: Vitals: 07/17/22 1303 BP: 133/88 Pulse: 78 Weight: 84.8 kg (187 lb) Height: 171.5 cm (5' 7.5 ) @HTWT@ Body mass index is 28.86 kg/m . Neuro/psych: Alert and oriented x 3 in a pleasant mood Skin: Warm, dry and intact Abdomen: Soft, non tender, non distended, no hepatosplenomegaly or hernias. Incision: Well healed. Pelvic: Def Assessment: Ms. Mary Oleary is a 27 year old female presenting for postop check status post diagnostic laparoscopy with peritoneal biopsies. She reports doing well, but has been experiencing pelvic pain and dysmenorrhea. Pathology discussed and surgical details reviewed. She has recently been prescribed gabapentin and will be following up with Dr. Cooper. No endometriosis identified on laparoscopy. Plan: -Follow up with general provider for annual care -Pathology was discussed -Continue follow-up with Dr. oCoper for management of chronic pelvic Scribe Attestation: By signing my name below, I, Alesha Desai, attest that this documentation has been prepared under the direction and in the presence of Dr. Yousuf Wright MD. Electronically Signed:tana Saunders, July 11, 2022 10:56 AM Yousuf Resendiz MD documented in this encounterK[facility]12-06-2022 History of Present illness Narrative* Jenny Diaz, PT - 07/11/2022 2:28 PM EST Episode Visit Count: 9 Therapist That Will Accept/Oversee The Plan Of Care: Jenny Diaz Start of Care Date: 04/21/22 Onset Date: 04/21/18 Patient Identified by Name and Date of : Yes REHABILITATION AND SPORTS THERAPY PHYSICAL THERAPY TREATMENT NOTE ASSESSMENT: Mary Oleary tolerated the session with no issues. She demonstrated difficulty withno change in pelvic pain. The patient will continue to benefit from ongoing skilled physical therapy to progress toward set goals. PLAN FOR NEXT VISIT: reassessment SUBJECTIVE: Patient Reason for Visit: Pt reports no change in pelvic pain. Pt reports not using thedilator for the past week. Pt reports not starting yoga yet, has started to look into it. Pain: Pain Pain Level: 4 Pain Location: Abdomen;Back Description: Cramping Frequency: Continuous Post Treatment Pain Post Treatment Pain Level: No Change OBJECTIVE MEASURES WITH LEVEL OF FUNCTION: Pelvic Floor Muscle Assessment Consent for pelvic assessment/testing and treatment: Patient was educated regarding pelvic floor physical therapy assessment/treatment which may include pelvic floor and girdle muscle assessment externally or internally (vaginal or rectal approach).;Patient verbalized consent for the above treatment approaches today. Patient understands they have control of the treatment and an opportunity to stop treatment at any time. (Internal manual work deferred due to pt request.) Pelvic Floor Manual Assessment External Pelvic Region Tenderness/ Hyperactivity - Trunk: Lower abdominals Lower abdominals: Bilateral (1/1) External Pelvic Region Tenderness/ Hyperactivity - Lower Extremity: Glut medius Glut medius: Bilateral (2/2) Tissue Restriction/Tenderness Scale: 1= mild, 2= moderate, 3= severe TREATMENT: Manual Therapy: 1: MFR to B lower abdominals, supine 2: MFR to B gluteals, sidelying Skilled Intervention: Manual skills to improve joint mobility, ROM, and decrease pain. Utilized anatomy knowledge of the therapist, and assessment of patient's response to intervention. Billing Manual TherapyTreatment Minutes: 25 Total Treatment Time Minutes (timed/untimed): 25 Decreased visit time due to patient arriving late to appointment. Jenny Diaz PT documented in this encounterK[facility]12-02-2022 History of Present illness Narrative* Jenny Diaz PT - 07/07/2022 8:29 AM EST Episode Visit Count: 8 Therapist That Will Accept/Oversee The Plan Of Care: Jenny Diaz Start of Care Date: 04/21/22 Onset Date: 04/21/18 Patient Identified by Name and Date of : Yes REHABILITATION AND SPORTS THERAPY PHYSICAL THERAPY TREATMENT NOTE ASSESSMENT: Mary Oleary tolerated the session with no issues. She demonstrated difficulty withcontinued internal/external pelvic muscle tightness/tenderness. The patient will continue to benefit from ongoing skilled physical therapy to progress toward set goals. PLAN FOR NEXT VISIT: continue manual work SUBJECTIVE: Patient Reason for Visit: Pt reports having appt with pelvic pain specialist last week,started taking gabapentin for nerve pain, has follow up with physician in August. Pt reports no change in pelvic pain since last session. Pt reports looking into yoga, has not started yet. Pt reports painful urination began last week, radiates to R ribs. Pt reports using L4 dilator, has some pain during and after. Pain: Pain Pain Level: 4 Pain Location: Abdomen;Back;Coccyx Description: Dull Frequency: Continuous Post Treatment Pain Post Treatment Pain Level: No Change OBJECTIVE MEASURES WITH LEVEL OF FUNCTION: Pelvic Floor Muscle Assessment Consent for pelvic assessment/testing and treatment: Patient was educated regarding pelvic floor physical therapy assessment/treatment which may include pelvic floor and girdle muscle assessment externally or internally (vaginal or rectal approach).;Patient verbalized consent for the above treatment approaches today. Patient understands they have control of the treatment and an opportunity to stop treatment at any time. Pelvic Floor Manual Assessment External Pelvic Region Tenderness/ Hyperactivity - Trunk: Lower abdominals Lower abdominals: Bilateral (1/1) External Pelvic Region Tenderness/ Hyperactivity - Lower Extremity: Glut medius Glut medius: Bilateral (2/2) Pelvic Floor Tenderness/Hyperactivity: Tested Vaginally in Tested Vaginally in : Supine/hooklying Superficial transverse perineal: Bilateral (1/1) Deep transverse perineal: Bilateral (2/2) Iliococcygeus: Bilateral (2/2) Tissue Restriction/Tenderness Scale: 1= mild, 2= moderate, 3= severe TREATMENT: Therapeutic Exercise: 1: *cat/cow, 2x10 2: *child's pose, [id number] Skilled Intervention: Patient was educated in proper exercise technique and purpose for exercises. Reviewed and educated patient on additions/changes for home exercise program as above (*). Skilled judgment was provided in selection of appropriate interventions. Provided written instruction for home exercise program to facilitate proper performance and compliance. Manual Therapy: 1: Gentle stretching to B pelvic floor, supine 2: MFR to B lower abdominals, supine 3: MFR to B gluteals, sidelying Skilled Intervention: Manual skills to improve joint mobility, ROM, and decrease pain. Utilized anatomy knowledge of the therapist, and assessment of patient's response to intervention. Billing Therapeutic Exercise Treatment Minutes: 9 Manual TherapyTreatment Minutes: 32 Total Treatment Time Minutes (timed/untimed): 41 Jenny Diaz PT documented in this encounterK[facility]12-01-2022 Miscellaneous Notes* Telephone Encounter - Alexandria Ham RN - 07/06/2022 3:42 PM EST ASSESSMENT Encounter Diagnosis ICD-10-CM 1. High-tone pelvic floor dysfunction N94.89 UA DIP, URINE (POC) baclofen 10 mg lidocaine 50 mg vaginal suppository (CPD) gabapentin (NEURONTIN) 100 mg capsule 2. Pelvic pain in female R10.2 3. Dysmenorrhea N94.6 4. 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 Surgery 1. 05/29/2022 exam under anesthesia, diagnostic laparoscopy, peritoneal biopsies with Dr. Wright - trangometriosis Procedures (TPI, botox, pain bocks, etc) 1. none Nonhormonal Medications 1. Acetaminophen and motrin Hormonal medications (IUD, control pill, GNRH) 1. control pill-migraines 2. nuvaring-depression 3. IUDmirena pain Services (GI, urology, pain psych,PFPT) 1. PFPT documented in this encounterKettering [facility] Instructions* Patient Instructions* Digna Cooper MD - 07/05/2022 4:52 PM EST For the nerve pain, start gabapentin 100 mg nightly x 7d ays Increase to 200mg x 7 days Then 300mg Can c ause sedation Use the vaginal baclofen suppositiry nightly [facility] will contact you to set up delivery Consider pain psychgology Myofascial pain( also known as Pelvic floor dysfunction, high tone pelvic floor,pelvic floor tightness) : Based on the patient s physical exam and history, it is evident that there is a significant component of myofascial pain that is contributing to her symptoms. Myofascial pain is pain that arises from dysfunction, spasticity, and/or hypersensitivity of the muscle, fascia or joints in the abdominalwall, pelvic floor, and/or low back. This is an extremely common, but under-recognized source of pain in women with chronic pelvic pain. We discussed that the most effective treatment modality is usually physical therapy, and that it is extremely important that the patient be seen and evaluated by a physical therapist with specialty training in female pelvic pain. We have ordered a consult to a pelvic floor physical therapist. We counseled her that her pelvic pain may initially worsen during and after the first several visits, and that it may take time and repetitive visits before she noticesan improvement. Unfortunately, there are few alternative treatments for this type of pain, and repetitive surgery can often make myofascial pain worse. Therefore, we strongly encouraged her to complete an entire course of physical therapy. If this treatment is not helpful, we are happy to discuss adjuvant therapies such as trigger point injections or muscle relaxers. SUGGESTED BEGINNER YOGA POSES: HAPPY BABY AND BRIDGE POSE Do reverse kegels , avoid kegel exercises until seen by physical therapist. Resources: Regina Lama P.T. Heal Pelvic Pain (website and book and has DVDs that can be ordered) Www.pelvicpain.org (International pelvic pain society) FOR learning to cope with pain (the modules are free, lasting 1 min each) :www.retrainpain.org TIRED OF WAITING FOR PAIN TO GO AWAY? Learn a science based approach to overcome chronic pain. Contact information: My chart messages will go to the RN or blueprint assembler first to be addressed. If questions are urgent, please call [phone] and press nurse prompt. For urgent Questions: call my attendance secretary with questions, appts related to chronic pelvic pain, [place] ,fax [phone] For refills, I prefer these be sent through [employer] We also have a nurse coordinator Alesha Oneil RN (CELL) My schedule: I see patients in office Sunday/Sunday/ and Fridays: virtual visits only documented in this encounterK[facility] History of Present illness Narrative* Digna Cooper MD - 07/05/2022 3:45 PM EST CHRONIC PELVIC PAIN FOLLOW UP VISIT Mary Oleary is a 27 year old female who presents for continued management of chronic pelvic pain. HISTORY SINCE LAST VISIT: Patient states that her pain has increased Sxs started age 13 YO. Last 9 months pain constant. Denies trauma. PFPT with internal work, no improvement. Pain has been worse , constant pain some days are worse. Pain is worse with menstrual cycle and ovulation, crippling pain. Motrin, acetaminophen w/o relief. Heating pain does hlep with some pain. Has also tried TENS unit, medical MJ Pain described as stabbing, located LLQ and radiates to L Pain with urination, squeezing bladder. Pain with BM. First starts in suprapubic region then radiates up to abdomen. Described as pain as stabbing and shooting, worse when on menstrual period. Menstrual periods occurs monthly, heavy and lot clots. Unable to have intercourse - through out and with penetration. Has not had any trigger point injections done. Has tried OCP, Mirena, Nuvaring - all with side effects. Pain has affected her ability to work, takes days off work. 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 Pt reports mother had to use vaginal cream on pt when after she was born because her vagina was closing Intensity of pain: moderate to severe Average Pain level: 5 on a scale of 0-10 Emergency room visits for pain since last visit: no Level of physical activity and mobility: the pain stops me from exercising Quality of sleep: its okay Mood: good Side effects of medications for pain: no SURGERY & DATE: 05/29/2022 SURGERY/PROCEDURE(S): exam under anesthesia, diagnostic laparoscopy,peritoneal biopsies with Dr. Wright FINDINGS 1) Exam under anesthesia: 8 week sized, mobile uterus, no USL nodularity 2) Laparoscopy: Anterior cul-de-sac - no endometriosis Posterior cul-de-sac - no endometriosis Left ovarian fossa - normal-appearing Right ovarian fossa - normal-appearing Uterosacral ligaments - normal-appearing Uterus - normal-appearing Ovaries and fallopian tubes - normal bilaterally Bowel and appendix - normal-appearing Diaphragmatic peritoneum - normal-appearing Right ureter appeared to be duplicated. COMPLICATIONS: None PRE-OP/PRE-PROCEDURE DIAGNOSIS: chronic pelvic pain POST-OP/POST-PROCEDURE DIAGNOSIS: Same PATHOLOGY: FINAL DIAGNOSIS 1. Left uterosacral ligament, biopsy (A) - Benign fibrovascular tissue. - Negative for endometriosis. 2. Right uterosacral ligament, biopsy (B) - Benign fibrovascular tissue. - Negative for endometriosis. Pain Scales FSFI6: 11 (<19 can indicate FSD) PDI: 23 GAD7: 5 PHQ9: 0 Notes from last visit 02/21/2022: CPP SUMMARY DIAGNOSES: pfd, dysmenorrhea, menorrhagia Infertility 1st cpp visit February 21, 2022 Surgery 1. none Procedures (TPI, botox, pain bocks, etc) 1. none Nonhormonal Medications 1. none Hormonal medications (IUD, control pill, GNRH) 1. control pill-migraines 2. nuvaring-depression 3. IUDmirena pain Services (GI, urology, pain psych,PFPT) 1. Refer to pfpt and MIGS 2. sched MRI ASSESSMENT Mary Oleary is a 26 year old female with Pelvic pain in female Pelvic and perineal pain Dysmenorrhea (primary encounter diagnosis) Dyschezia Diarrhea, unspecified type Other specified dyspareunia High-tone pelvic floor dysfunction Encounter Diagnosis ICD-10-CM 1. Dysmenorrhea N94.6 MRI FEMALE PELVIS WO/W IVCON iv contrast (will be provided with radiology test) Surgical Lubricant Jelly gel CONSULT TO MINIMALLY INVASIVE GYNECOLOGIC SURGERY 2. Pelvic pain in female R10.2 3. Pelvic and perineal pain R10.2 4. Dyschezia K59.00 CONSULT TO MINIMALLY INVASIVE GYNECOLOGIC SURGERY 5. Diarrhea, unspecified type R19.7 CONSULT TO MINIMALLY INVASIVE GYNECOLOGIC SURGERY 6. Other specified dyspareunia N94.19 7. High-tone pelvic floor dysfunction N94.89 CONSULT TO PHYSICAL THERAPY PLAN Suspect endo/adenomyosis Get MRI then Migs consult Follow up contact after MRI For PFD refer to PFPT, names given. Need to do internal work SUBJECTIVE Review of Systems Constitutional: Negative for chills and fever. Respiratory: Negative for shortness of breath. Cardiovascular: Negative for chest pain. Gastrointestinal: Positive for abdominal pain, heartburn and nausea. Negative for blood in stool and vomiting. Genitourinary: Positive for dysuria. Negative for flank pain and hematuria. Musculoskeletal: Negative for back pain. OBJECTIVE BP 118/80 Ht 5' 7.5 (1.72m) Wt 186 lb (84.4kg) LMP 06/02/2022 BMI 28.68 kg/(m^2). PHYSICAL EXAMINATION: Physical Exam Vitals reviewed. Constitutional: General: She is not in acute distress. Appearance: Normal appearance. She is not ill-appearing or toxic-appearing. HENT: Head: Normocephalic and atraumatic. Cardiovascular: Rate and Rhythm: Normal rate and regular rhythm. Pulses: Normal pulses. Pulmonary: Effort: Pulmonary effort is normal. No respiratory distress. Breath sounds: Normal breath sounds. No wheezing. Abdominal: General: Abdomen is flat. Comments: Diffuse abdominal TTP Pain LUQ with palpation of RUQ Skin: General: Skin is warm. Coloration: Skin is not jaundiced. Neurological: Mental Status: She is alert. Psychiatric: Mood and Affect: Mood normal. MWDPAINEXAM Spine tenderness neg SI joint neg CVA tenderness - neg Leg length - equivocal Pubic symphysis tenderness neg Pubic bones L TTP Abdominal tenderness- diffuse Abdominal myofacial trigger points - diffuse Vaginal Vestibular tenderness - diffuse left side Rectal tenderness neg Bladder base tenderness neg Uterus neg Retrocervix neg Adnexa neg Pelvic Floor Musculature RIGHT SIDED Pubococcygeus 1-2 Iliococcygeus 1-2 Coccygeus 1-2 Obturator 1 LEFT SIDED Pubococcygeus 3 Iliococcygeus 1-2 Coccygeus 1-2 Obturator 1 Pain with very light palpation (Pain Scale 1 to 3, 3= extreme) RV exam - deferred Ua tr LE ASSESSMENT Encounter Diagnosis ICD-10-CM 1. High-tone pelvic floor dysfunction N94.89 UA DIP, URINE (POC) baclofen 10 mg lidocaine 50 mg vaginal suppository (CPD) gabapentin (NEURONTIN) 100 mg capsule 2. Pelvic pain in female R10.2 3. Dysmenorrhea N94.6 4. 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 Surgery 1. 05/29/2022 exam under anesthesia, diagnostic laparoscopy, peritoneal biopsies with Dr. Wright - noendometriosis Procedures (TPI, botox, pain bocks, etc) 1. none Nonhormonal Medications 1. Acetaminophen and motrin Hormonal medications (IUD, control pill, GNRH) 1. control pill-migraines 2. nuvaring-depression 3. IUDmirena pain Services (GI, urology, pain psych,PFPT) 1. PFPT Jovita Tat, DO PGYIV, ONMM I agree with the assessment and plan as documented in the resident s note. Participation in shin components and discussion of management with resident. I evaluated the patientand personally participated in the shin components. Pt see and evaluated with Dr. Cooper Medical Decision Making: Problems: Moderate: 1+ chronic illnesses with change Data: Unique test result(s) reviewed: 1 Risk: Moderate: Moderate risk from testing/treatment and Drug management Medical Decision Making Level: 4 - Moderate documented in this encounterK[facility]11[facility] History of Present illness Narrative* Jenny Diaz, PT - 06/28/2022 2:16 PM EST Episode Visit Count: 7 Therapist That Will Accept/Oversee The Plan Of Care: Jenny Diaz Start of Care Date: 04/21/22 Onset Date: 04/21/18 Patient Identified by Name and Date of : Yes REHABILITATION AND SPORTS THERAPY PHYSICAL THERAPY TREATMENT NOTE ASSESSMENT: Mary Oleary tolerated the session with no issues. She demonstrated difficulty withunchanged pelvic pain. The patient will continue to benefit from ongoing skilled physical therapy to progress toward set goals. PLAN FOR NEXT VISIT: continue manual work SUBJECTIVE: Patient Reason for Visit: Pt reports no change in pelvic pain since last session. Pt reports good compliance with HEP and dilator use, tried using L4 dilator with some pain. Pain: Pain Pain Level: 3 Pain Location: Low Back/Lumbar Spine - Left;Abdomen Description: Dull Frequency: Continuous Post Treatment Pain Post Treatment Pain Level: No Change OBJECTIVE MEASURES WITH LEVEL OF FUNCTION: Pelvic Floor Muscle Assessment Consent for pelvic assessment/testing and treatment: Patient was educated regarding pelvic floor physical therapy assessment/treatment which may include pelvic floor and girdle muscle assessment externally or internally (vaginal or rectal approach).;Patient verbalized consent for the above treatment approaches today. Patient understands they have control of the treatment and an opportunity to stop treatment at any time. Pelvic Floor Manual Assessment External Pelvic Region Tenderness/ Hyperactivity - Trunk: Lower abdominals External Pelvic Region Tenderness/ Hyperactivity - Lower Extremity: Glut medius Pelvic Floor Tenderness/Hyperactivity: Tested Vaginally in Tested Vaginally in : Supine/hooklying Superficial transverse perineal: Bilateral (1/1) Deep transverse perineal: Bilateral (2/2) Iliococcygeus: Bilateral (2/2) Pubococcygeus: Bilateral (2/2) Tissue Restriction/Tenderness Scale: 1= mild, 2= moderate, 3= severe TREATMENT: Manual Therapy: 1: Gentle stretching to B pelvic floor, supine 2: MFR to B lower abdominals, supine 3: MFR to B gluteals, sidelying 4: Reviewed benefits of foamrolling for external self-STM 5: Discussed benefits of yoga for pelvic pain Skilled Intervention: Manual skills to improve joint mobility, ROM, and decrease pain. Utilized anatomy knowledge of the therapist, and assessment of patient's response to intervention. Billing Manual TherapyTreatment Minutes: 42 Total Treatment Time Minutes (timed/untimed): 42 Jenny Diaz PT documented in this encounterK[facility]11-15-2022 History of Present illness Narrative* Jenny Diaz PT - 06/20/2022 8:51 AM EST Episode Visit Count: 6 Therapist That Will Accept/Oversee The Plan Of Care: Jenny Diaz Start of Care Date: 04/21/22 Onset Date: 04/21/18 Patient Identified by Name and Date of : Yes REHABILITATION AND SPORTS THERAPY PHYSICAL THERAPY RE-EVALUATION PLAN OF CARE UPDATE: Assessment: Mary Oleary demonstrates difficulty with unchanged pain levels, unchanged bowel function. She has not progressed towards goals since last reassessment. Patient continues to present with impairments in pelvic floor muscle tightness/tenderness, bowel dysfunction. She will benefit from continued skilled therapy services to meet the updated goals for this plan of care as noted below. Goals for Episode of Care: created on 04/21/22 Updated on: 05/23/2022, 06/20/2022 [place] in home exercise program.-MET Patient will increase flexibility of B hamstrings to WNL to decrease pain.-MET Incontinence: Patient reports ability to start stream in less than 5 Seconds-MET Patient reports increased ability to fully empty bowels without straining-NOT MET Pelvic Pain: Patient reports painfree intercourse-NOT MET Patient displays decreased muscle spasms in pelvic floor to allow for decreased pain levels-PROGRESSING Patient displays improved muscle dynamics of pelvic floor including ability to lengthen-MET Patient Goals: improve pain, improve bladder/bowel function Planned Interventions, Frequency, and Duration: 1x/week, 4 weeks (reassess at 4 weeks and progress as indicated) Total Number of Visits Planned: 4 Patient to be seen for Therapeutic exercise ([id number]);Manual therapy (83140);Self- usp management ([id number]);Patient/Family/Caregiver Education PLAN FOR NEXT VISIT: continue manual work SUBJECTIVE: Patient Reason for Visit: Pt reports having surgery on May 29 with no endometriosisfound. Pt reports no change in pelvic pain. Pt reports superficial pain with dilators then burning once the dilator is fully inserted, using L3 dilator. Pt reports heating pads don't help pain. Pt reports poor compliance with HEP due to pain. Pt reports no change in bowel function, denies having intercourse since surgery. Pain: Pain Pain Level: 4 Pain Location: Low Back/Lumbar Spine - Left;Abdomen Description: Dull Frequency: Continuous Post Treatment Pain Post Treatment Pain Level: No Change PROMIS Scales Higher is Better 06/21/2020 03/15/2021 05/10/2022 Phys Func - Score 47 (within normal limits) - - Phys Func - Percentile 38 % - - GH Physical - Score 44.9 42.3 (Good) 44.9 (Good) GH Physical - Percentile 31 % 22 % 31 % GH Mental - Score 56 53.3 (Very Good) 56 (Excellent) GH Mental - Percentile 73 % 63 % 73 % T-scores: mean of general population = 50. 5 points is clinically meaningfully difference Percentiles provide an indication of how the patient's score ranks in relation to the general population. Higher percentile rankings indicate better function/quality of life. 50th percentile is the average of the general population and indicates half of respondents had a worse score. Lower is Better 06/21/2020 Fatigue - Score 68 (moderate) Fatigue - Percentile 4 % T-scores: mean of general population = 50. 5 points is clinically meaningfully difference Percentiles provide an indication of how the patient's score ranks in relation to the general population. Higher percentile rankings indicate better function/quality of life. 50th percentile is the average of the general population and indicates half of respondents had a worse score. OBJECTIVE MEASURES WITH LEVEL OF FUNCTION: Pelvic Floor Difficulty evacuating / Excessive Straining: Sometimes Pelvic Floor Muscle Assessment Consent for pelvic assessment/testing and treatment: Patient was educated regarding pelvic floor physical therapy assessment/treatment which may include pelvic floor and girdle muscle assessment externally or internally (vaginal or rectal approach).;Patient verbalized consent for the above treatment approaches today. Patient understands they have control of the treatment and an opportunity to stop treatment at any time. Range of Motion: Normal Ability to Lengthen pelvic floor: Yes Pelvic Floor Manual Assessment External Pelvic Region Tenderness/ Hyperactivity - Trunk: Lower abdominals Lower abdominals: Bilateral (1/1) External Pelvic Region Tenderness/ Hyperactivity - Lower Extremity: Glut medius Glut medius: Bilateral (2/2) Pelvic Floor Tenderness/Hyperactivity: Tested Vaginally in Tested Vaginally in : Supine/hooklying Superficial transverse perineal: Bilateral (2/2) Deep transverse perineal: Bilateral (2/2) Iliococcygeus: Bilateral (2/2) Pubococcygeus: Bilateral (2/2) Tissue Restriction/Tenderness Scale: 1= mild, 2= moderate, 3= severe TREATMENT: Re-evaluation: Performed due to return of patient to therapy for same diagnosis. Manual Therapy: 1: Gentle stretching to B pelvic floor, supine 2: MFR to B lower abdominals, supine 3: MFR to B gluteals, sidelying Skilled Intervention: Manual skills to improve joint mobility, ROM, and decrease pain. Utilized anatomy knowledge of the therapist, and assessment of patient's response to intervention. Billing * Re-Evaluation Complexity: 1 Unit Manual TherapyTreatment Minutes: 32 Total Treatment Time Minutes (timed/untimed): 44 Jenny Diaz PT documented in this encounterK[facility]11-09-2022 History of Present illness Narrative* Mary Jo Gonzalez APRN.DAIRY NUTRITIONIST - 06/14/2022 9:00 AM EST Images from the original note were not included. [facility] [place] Department of Benign Gynecology [facility] PATIENT NAME: Mary Oleary DATE: 06/14/2022 Patient Name and verified: Yes Patient Location: [place] This Virtual Visit was completed using My Chart Zoom platform. Chief Complaint CC/REASON FOR TELEVISIT: Post Op visit History of Present Illness: Mary is a 27 year old who presents for a post op [facility] visit. SURGERY & DATE: 05/29/2022 SURGERY/PROCEDURE(S): exam under anesthesia, diagnostic laparoscopy,peritoneal biopsies with Dr. Wright FINDINGS 1) Exam under anesthesia: 8 week sized, mobile uterus, no USL nodularity 2) Laparoscopy: Anterior cul-de-sac - no endometriosis Posterior cul-de-sac - no endometriosis Left ovarian fossa - normal-appearing Right ovarian fossa - normal-appearing Uterosacral ligaments - normal-appearing Uterus - normal-appearing Ovaries and fallopian tubes - normal bilaterally Bowel and appendix - normal-appearing Diaphragmatic peritoneum - normal-appearing Right ureter appeared to be duplicated. COMPLICATIONS: None PRE-OP/PRE-PROCEDURE DIAGNOSIS: chronic pelvic pain POST-OP/POST-PROCEDURE DIAGNOSIS: Same PATHOLOGY: FINAL DIAGNOSIS 1. Left uterosacral ligament, biopsy (A) - Benign fibrovascular tissue. - Negative for endometriosis. 2. Right uterosacral ligament, biopsy (B) - Benign fibrovascular tissue. - Negative for endometriosis. SUBJECTIVE/INTERVAL HISTORY: Mary Oleary reports that she feels well. No fever or chills. No shortness of breath, cough, or chest pain. No incisional redness, swelling, or drainage. Patient reports that her appetite is fair. No abdominal pain, nausea, vomiting, diarrhea, or constipation. No dysuria, gross hematuria, urinary frequency, urinary urgency, or incontinence. Had some severe pain 06/04 - but menses started shortly after. Pain is tolerable now. Surgery pain is pretty much gone . Reports chronic pelvic pain she had before is unchanged. Past Medical History: PAST MEDICAL HISTORY Diagnosis Date Anxiety Huizar's esophagus Depression History of seizures as a child Hyperthyroidism Ovarian cyst Family History: Family History Problem Relation Age of Onset Hypothyroidism Mother Hypertension Father No Known Problems Brother other (Tachycardia) Maternal Grandmother Diabetes Maternal Grandfather Diabetes Paternal Grandmother Hypertension Paternal Grandmother Hyperlipidemia Paternal Grandmother Ischemic Heart Disease Paternal Grandfather History of heart attacks Stroke Paternal Grandfather Hyperlipidemia Paternal Grandfather Hypertension Paternal Grandfather Anesthesia Problems No Family History Past Surgical History: PAST SURGICAL HISTORY Procedure Laterality Date COLONOSCOPY 07/13/2021 gastritis and colitis found EGD 07/13/2021 LAPAROSCOPY W/RMVL ADNEXAL STRUCTURES Left 04/11/2018 Left ovarian cystectomy for dermoid cyst Social History: Social History Tobacco Use Smoking status: Never Smokeless tobacco: Never Vaping Use Vaping Use: Never used Substance Use Topics Alcohol use: Yes Comment: rarely Drug use: Yes Frequency: 7.0 times per week Types: Marijuana Comment: medical marijuana Allergies: ALLERGIES Allergen Reactions Bactrim [Sulfametho* Hives Caffine [Caffeine] Other: See Comments tachycardia Penicillins Hives Allergies updated: Yes Medications: Current Outpatient Medications Medication Sig omeprazole (PRILOSEC) 20 mg capsule Take 1 capsule by mouth twice daily. ondansetron (ZOFRAN) 4 mg tablet Take 1 tablet by mouth every 8 hours as needed for nausea/vomiting. ibuprofen (MOTRIN) 600 mg tablet Take 1 tablet by mouth every 6 hours. acetaminophen (TYLENOL EXTRA STRENGTH) 500 mg tablet Take 2 tablets by mouth every 6 hours. oxyCODONE IR (ROXICODONE) 5 mg immediate release tablet Take 1 tablet by mouth every 6 hours as needed for pain (pain not relieved by ibuprofen and tylenol). Sennosides (SENNA) 8.6 mg cap Take 1 capsule by mouth twice daily. Until bowel movements normal melatonin 1 mg tablet Take 10-20 mg by mouth daily at bedtime. No current facility-administered medications for this visit. Medications reviewed in detail and updated PRN. Yes Physical Exam: LMP 05/07/2022 (Exact Date) VIDEO PHYSICAL EXAMINATION: VS: not taken General Appearance: 27 year old female in no apparent distress; not ill or toxic appearing HEENT normal facies, no self-reported vision or hearing impairment, normal speech CHEST normal speech pace and normal respiratory effort Extremities: no self-reported swelling or edema Recent labs/Diagnostic studies: I have thoroughly reviewed this patients previous notes, encounters, labs, and results prior to this visit. Assessment and Plan Encounter Diagnosis ICD-10-CM 1. Postoperative state Z98.890 2. High-tone pelvic floor dysfunction N94.89 CONSULT TO PHYSICAL THERAPY 3. Pelvic pain in female R10.2 1) Discussed results of pathology and implications with patient. 2) Postop restrictions and wound care reviewed. 3) Consult to PFPT 4) Recommend follow up with Dr. Cooper. 5) Keep follow up with Dr. Wright on 07/17/2022. Appointments for Next 60 Days Date Time Provider Location Dept Phone 06/14/2022 9:00 AM MARY JO GONZALEZ [facility] [phone] 07/12/2022 4:00 PM JUDIE BIGGS [facility] [phone] 07/17/2022 12:45 PM ADRIANA LIZ [facility] AT [phone] SIGNATURE: Mary Jo Gonzalez APRN.DAIRY NUTRITIONIST PAGER: [phone] documented in this encounterK[facility]10-24-2022 Nurse Note* Graciela Everett RN - 05/29/2022 5:51 PM EDT Discharge instructions and prescriptions reviewed with patient, verbalized understanding and had noadditional questions. Tolerating PO intake. PIV removed with cath intact. Pt assisted in dressing. Family present for discharge. 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 Staffing Resident: Félix Rodríguez DO Performed by: resident Indications and Patient Condition Indications for airway management: anesthesia Preoxygenated: yes anesthesia circuit Patient position: sniffing Method: asleep Cricoid Pressure: Yes Final Airway Details Final airway type: endotracheal airway Final Endotracheal Airway: ETT Cuffed: yes Successful intubation technique: direct laryngoscopy Endotracheal tube insertion site: oral Blade: Rachel Blade size: #3.5 ETT size (mm): 7.0 Measured from: teeth Measurement (cm): 22 Placement verified by: chest auscultation and capnometry Cormack-Lehane Classification: grade I - full view of glottis Number of attempts at approach: 2 Comments First attempt by medical student second attempt by resident. SIGNATURE: Félix Rodríguez DO PATIENT NAME: Mary Oleary DATE: May 29, 2022 TIME: 2:34 PM CSN: [id number] [id number] Hospital Discharge instructions* Discharge Instr - Other Orders* Germaine Johnston MD - 05/29/2022 1:34 PM EDT MINIMALLY INVASIVE SURGERY POSTOPERATIVE INSTRUCTIONS ACTIVITY No heavy lifting/pushing/pulling for 4 weeks. Do not lift anything more than 10 lbs (such as laundry, groceries, children, pets), vacuum, push heavy doors or grocery carts, etc, for 4 weeks. You may climb stairs as tolerated. Do not put anything in the vagina for at least 2 weeks after surgery unless otherwise instructed byyour doctor (including tampons, douching, sexual intercourse, etc). No driving for 1 week after surgery and not while taking narcotic pain medication. Drive defensively when you are ready. Avoid sitting or lying in bed for more than 2 hours at a time while you are awake to reduce your risk of blood clots. You may return to work when you are ready as long as you do not lift more than 10 pounds for 4 weeks. If you have a sedentary job or waterworks supervisor you can return in 1-2 weeks. You may return to workin 2 weeks if your job requires a lot of movement. Please contact your doctor if you need any return to work letters or medical leave paperwork to be completed. WOUND CARE You will have small incisions on your abdomen. There will be dissolvable stitches under your skin that do not need to be removed. If you have band aids or tegaderms on your incisions, these may be removed when you shower. If you have steri-strips (paper tape) on the incisions, these may be removed in about 1-2 weeks. It is OK to remove them if they are falling off. If skin glue is present, leave in place for at least 2 weeks. Shower daily after surgery. Clean your incision with mild antibacterial soap and water. Pat your incision dry with a clean towel. No tub baths or swimming pools for six weeks or until wound is completely healed. No ointments or antibacterial creams are required for incisions. Do NOT use cleansing agents like alcohol or hydrogen peroxide. Wash your hands frequently, especially before touching your incision or changing any dressings. PAIN MANAGEMENT Take your oral pain medication as needed. Alternate Tylenol and ibuprofen/Motrin (if you are eligible). Each of these medications can be taken every six hours. Take them at the same time. Dosages Tylenol - 1000 mg every 6 hours as needed Motrin - 600 mg every 6 hours as needed Oxycodone 5mg every 6 hours as needed for pain not relieved with tylenol and ibuprofen. The maximum dose of Tylenol is 3000 mg in 24 hours, the maximum dose of Motrin/ibuprofen is 2400mg in 24 hours Some pain medications can cause constipation. We recommend a stool softener (i.e. Colace or Senna) while you take these medications. You may also take milk of magnesia or Miralax for constipation as directed on the bottle. There is a risk for addiction with narcotic pain medication, so take with caution and do not take more than the recommended amount. Please be sure to dispose of leftover pain medication after you have recovered. You may dispose of unused narcotic medications in the trash with an unpleasant substance such as coffee grounds or cat litter or you can turn them in to a designated law enforcement/pharmacy narcotic box. You can also check FDA.gov to assess which medications can be safely flushed down the toilet. There are locations to dispose of unused medications at three [facility] locations: [facility] pharmacy, [facility] pharmacy, and the Pharmacy at the [facility] for [facility] (inside the parking garage on the first floor). WHAT TO EXPECT AT HOME Recovery from surgery is generally 2-4 weeks, but sometimes longer for more strenuous activity. It is normal to be very tired during this time. It is normal to have some drainage or a small amount of vaginal bleeding after surgery that would require the use of a light pantiliner. This discharge may last a couple weeks. The bleeding and discharge should be light and should have no odor. You may experience gas pain, abdominal swelling, or shoulder pain for 24-72 hours after surgery. This is from the carbon dioxide gas put into your abdomen to better visualize your organs. A warm shower, heating pad, and/or walking may help. WHEN TO CALL YOUR DOCTOR: Fever (>100.4 F or 38.0 C) or chills. Incision problems such as redness, warmth, swelling, or foul smelling drainage. Severe nausea or persistent vomiting. Bright red vaginal bleeding (soaking >1 pad/hour) or foul smelling vaginal drainage. IT IS NORMAL TO HAVE A MINIMAL AMOUNT OF VAGINAL SPOTTING OR VAGINAL DISCHARGE FOR SEVERAL WEEKS Severe pain not relieved with pain medication. Pain and swelling in your legs, especially if it is only on one side. Pain with urination, cloudy urine, or foul smelling urine. Severe redness/irritation at sites where adhesive bandages were applied. Or if you have any other problems or questions. FREQUENTLY ASKED QUESTIONS/CONCERNS: Constipation Constipation is common and it is normal to not have a bowel movement for up to one week after surgery. You should still be passing gas despite constipation and should be able to tolerate both liquid and solid food without nausea or vomiting. Concerning symptoms would be constipation without gas, with fever, or nausea/vomiting and inabilityto eat. Call your doctor if these symptoms occur. Over the counter stool softeners including Colace/Senna twice daily and Miralax up to twice daily can help with constipation. Colace (docusate sodium) 100 mg (1 capsule) two times a day Miralax (polyethylene glycol) 17 g (1 measured capful or 1 packet) once a day. If you have not had a bowel movement 3 days after surgery, you may take the Miralax two times a day. If you have any discomfort because of the need to have a bowel movement, you may add milk of magnesia or magnesium citrate (available at your local pharmacy without a prescription) at any time. Do not take milk of magnesia or magnesium citrate if you have kidney failure. If you have loose or watery stools, stop taking the medications. Call your doctor's office if you have questions. Drainage from incisions Clear/pink drainage or a minimal amount of bleeding from incisions can be normal after laparoscopicsurgery. Concerning drainage that is persistent, thick/cloudy, or foul smelling can be an indication of infection and should prompt you to call your doctor. Post-operative pain Pain after surgery is a challenging part of the healing process. Pain may be present for weeks but should gradually get better. Increasing pain or pain that is unbearable warrants evaluation by your doctor or in the emergency department. By state law we cannot immediately provide narcotic pain medication over the phone. Stitches If 2 weeks have passed and you have a visible stitch at a laparoscopic incision site it is OK for you to cut it to remove it. CALL 911 OR GO TO THE EMERGENCY ROOM IF YOU HAVE: Any shortness of breath, difficulty breathing, orchest pain. ? GYNECOLOGY PHYSICIAN CONTACT INFORMATION Minimally Invasive Gynecologic Surgery (MIGS) /Benign Gynecology: Dr. Piper Cannon Dr. Yousuf Resendiz Dr. Jenny Abarca Dr. Suzy Hercules Dr. Valeri Dias Dr. Roshni Sheets [facility] Nurse Practitioner Uzma Jimenez, DAIRY NUTRITIONIST Adriana Marrero, [facility] Mary Jo Gonzalez, DAIRY NUTRITIONIST Fanny Medina, DAIRY NUTRITIONIST Joanna Pandya, [facility] ? After 4:30pm or on holidays or weekends, call: or . Ask the mower operator to page the 'Gynecology Resident resident surgeon'. documented in this encounterK[facility]22 History and physical note * Carissa Orozco PA-C - 05/29/2022 1:08 PM EDT UPDATED HISTORY AND PHYSICAL EXAMINATION SERVICE DATE: 05/29/2022 SERVICE TIME: 1:08 PM SERVICE: Gynecology PHYSICAL EXAM MUST BE COMPLETED ON ADMISSION The History and Physical (completed in the past 30 days) has been reviewed and the patient has beenexamined. The contents accurately reflect the patient's condition with the following additions or revisions since the H&P was completed. This is a 26 y/o female that presents for laparoscopy. 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 She states she is having lower left sided abdominal pain that radiates into her back. No other complaints at this time. Patient denies any changes to health since last examination. Patient DENIES CHEST PAIN, PALPITATIONS, FATIGUE, DIZZINESS Shortness of breath, COUGHING, WHEEZING ABDOMINAL PAIN, N/V/D Medication reconciliation list reviewed in [facility]. Past medical history, past surgical history, social history and family history reviewed and updatedin [facility]. ALLERGIES Allergies: Bactrim [Sulfametho* Hives Caffine [Caffeine] Other: See Comments Comment:tachycardia Penicillins Hives SEE [facility] LMP 05/07/2022 (Exact Date) BP 128/66 Pulse 92 Temp 37.6 C (99.7 F) (Temporal) Ht 172.7 cm (5' 8 ) LMP 05/07/2022 (Exact Date) SpO2 96% BMI 28.13 kg/m Examination indicates no changes. On examination today: Lungs: Clear to auscultation bilaterally. Heart: RRR, Normal S1/S2, No murmurs, rubs, gallops or thrills appreciated. Abdomen: BS+ in all quadrants, abdomen is soft, non tender, and without guarding. Assessment: 1. N94.6 Dysmenorrhea (Dysmenorrhea [N94.6]) K59.00 Dyschezia (Dyschezia [K59.00]) N94.89 High-tone pelvic floor dysfunction (High-tone pelvic floor dysfunction [N94.89]) Plan: 1.LAPAROSCOPY DIAGNOSTIC (Pelvis) This H&P can be found in the Electronic Medical Record dated 05/10/2022 completed by Radha Calvillo PA-C. SIGNATURE: Carissa Orozco PA-C PATIENT NAME: Mary Oleary DATE: 05/29/2022 TIME: 1:08 PM documented in this encounterK[facility]10-18-2022 History of Present illness Narrative* Jenny Diaz, PT - 05/23/2022 1:29 PM EDT Episode Visit Count: 5 Therapist That Will Accept/Oversee The Plan Of Care: Jenny Diaz Start of Care Date: 04/21/22 Onset Date: 04/21/18 Patient Identified by Name and Date of : Yes REHABILITATION AND SPORTS THERAPY PHYSICAL THERAPY DISCONTINUANCE OF CARE PLAN OF CARE UPDATE: Assessment: Mary Oleary is discontinued from Physical Therapy services due to patient/clinician mutual decision to discontinue current plan of care due to patient's upcoming surgery . Patient was seen for 5 visits from Start of Care Date: 04/21/22 to 05/23/2022 and treatment included: Therapeutic exercise, Manual therapy, and Self-usp management. Goals for Episode of Care: created on 04/21/22 Updated on: 05/23/2022 [place] in home exercise program.-MET Patient will increase flexibility of B hamstrings to WNL to decrease pain.-MET Incontinence: Patient reports ability to start stream in less than 5 Seconds-MET Patient reports increased ability to fully empty bowels without straining-NOT MET Pelvic Pain: Patient reports painfree intercourse-NOT MET Patient displays decreased muscle spasms in pelvic floor to allow for decreased pain levels-PROGRESSING Patient displays improved muscle dynamics of pelvic floor including ability to lengthen-MET Patient Goals: improve pain, improve bladder/bowel function SUBJECTIVE: Patient Reason for Visit: Pt reports pain has been pretty bad the past few days. Pt reports good compliance with HEP, feels more pain a few hours after doing exercises. Pt reports using L4 dilator a couple times a week, still has pain with intercourse. Pt reports occasional straining while having a bowel movement. Pt reports having surgery scheduled for next Sunday, will continue on her own at home and return to PFPT after recovery if desired. Pain: Pain Pain Level: 5 Pain Location: Low Back/Lumbar Spine - Right;Low Back/Lumbar Spine - Left;Abdomen Description: Dull;Stabbing;Throbbing Frequency: Continuous Post Treatment Pain Post Treatment Pain Level: No Change PROMIS Scales Higher is Better 06/21/2020 03/15/2021 05/10/2022 Phys Func - Score 47 (within normal limits) - - Phys Func - Percentile 38 % - - GH Physical - Score 44.9 42.3 (Good) 44.9 (Good) GH Physical - Percentile 31 % 22 % 31 % GH Mental - Score 56 53.3 (Very Good) 56 (Excellent) GH Mental - Percentile 73 % 63 % 73 % T-scores: mean of general population = 50. 5 points is clinically meaningfully difference Percentiles provide an indication of how the patient's score ranks in relation to the general population. Higher percentile rankings indicate better function/quality of life. 50th percentile is the average of the general population and indicates half of respondents had a worse score. Lower is Better 06/21/2020 Fatigue - Score 68 (moderate) Fatigue - Percentile 4 % T-scores: mean of general population = 50. 5 points is clinically meaningfully difference Percentiles provide an indication of how the patient's score ranks in relation to the general population. Higher percentile rankings indicate better function/quality of life. 50th percentile is the average of the general population and indicates half of respondents had a worse score. OBJECTIVE MEASURES WITH LEVEL OF FUNCTION: Pelvic Floor Pain with penetration: Deep and superficial;Pain during intercourse Difficulty starting stream: No Incomplete emptying: No Difficulty evacuating / Excessive Straining: Sometimes Pelvic Floor Muscle Assessment Consent for pelvic assessment/testing and treatment: Patient was educated regarding pelvic floor physical therapy assessment/treatment which may include pelvic floor and girdle muscle assessment externally or internally (vaginal or rectal approach).;Patient verbalized consent for the above treatment approaches today. Patient understands they have control of the treatment and an opportunity to stop treatment at any time. Pelvic Floor Muscle Assessment: PERFECT;Muscle Dynamics Range of Motion: Normal Ability to Lengthen pelvic floor: Yes Pelvic Floor Manual Assessment External Pelvic Region Tenderness/ Hyperactivity - Trunk: Lower abdominals Lower abdominals: Bilateral (1/1) External Pelvic Region Tenderness/ Hyperactivity - Lower Extremity: Glut medius Glut medius: Bilateral (2/2) Pelvic Floor Tenderness/Hyperactivity: Tested Vaginally in Tested Vaginally in : Supine/hooklying Superficial transverse perineal: Bilateral (1/1) Deep transverse perineal: Bilateral (1/1) Iliococcygeus: Bilateral (1/1) Pubococcygeus: Bilateral (1/1) LE Flexibility Flexibility: Hamstring Flexibility R Hamstring Flexibility: WNL L Hamstring Flexibility: WNL Tissue Restriction/Tenderness Scale: 1= mild, 2= moderate, 3= severe TREATMENT: Manual Therapy: 1: Reassessment 2: Gentle stretching to B pelvic floor, supine 3: MFR to B lower abdominals, supine 4: MFR to B gluteals, sidelying 5: Discussed discharge planning Skilled Intervention: Manual skills to improve joint mobility, ROM, and decrease pain. Utilized anatomy knowledge of the therapist, and assessment of patient's response to intervention. Billing Manual TherapyTreatment Minutes: 40 Total Treatment Time Minutes (timed/untimed): 40 Jenny Diaz PT documented in this encounterK[facility]10-17-2022 History of Present illness Narrative* Germaine Johnston MD - 05/22/2022 10:53 PM EDT TYPE AND SCREEN AND 30-DAY ORDERED FOR 05/29 PROCEDURE. documented in this encounterK[facility]10-12-2022 History of Present illness Narrative* Hector Villela LPN - 05/17/2022 1:14 PM EDT DATE OF SERVICE: 05/17/2022 PROBLEM: Mary Oleary presents for pre-op teaching. PRE-OP DIAGNOSIS: Dysmenorrhea, Dyschezia, High-tone pelvic floor dysfunction SCHEDULED SURGERY AND DATE: 05/29/22- [facility] LAPAROSCOPY DIAGNOSTIC PRIMARY SURGEON: Yousuf Resendiz MD NURSING PREOP ASSESSMENT: Fevers, chills, cough, or nasal congestion: No Vaginal itching, burning, discharge, or odor: No Pain with urination, frequency, urgency, cloudy or foul smelling urine: No If yes to any of the above then MD notified: Not Applicable ADVANCED CARE PLANNING: Does the patient have an advanced directive: No Does [facility] have a copy of the patient's advanced directive: No Was advanced directive given to the patient: No PATIENT LEARNING ASSESSMENT: Individual patient/family learning needs evaluated and addressed: Yes Cognitive ability: Alert and oriented Motivation to learn: Eager Interested Factors affecting learning: None Physical limitations affecting learning: None Patient learns best by: Multiple Methods Method of instruction: Individual instruction Instructions provided to: Patient via telephone. Written material provided prior to education appointment. Family support: High - Very involved in pt care PRE- AND POST-OPERATIVE TEACHING Pre-operative teaching and supplemental material provided and reviewed with patient: Written pre-opand post-op instructions Antibacterial soap: patient declined, will use own Pre-operative instructions provided and reviewed with patient/family: No eating, drinking, or smoking after midnight prior to surgery unless otherwise directed No alcohol the day before surgery Medications as prescribed by anesthesia, internal medicine, surgeon, or PAYROLL REPRESENTATIVE Stop NSAIDs, Aspirin (ASA), vitamins, herbal supplements, herbal teas, and diet pills 7-10 days prior to surgery OK to take tylenol prn pain unless otherwise directed by physician Call surgery coordinators if any other questions about surgery date or pre-op appointments Bowel prep instructions: NPO after midnight Day of surgery instructions provided and reviewed with patient/family: Arrival time (call surgical coordinators on the office day prior to surgery for verification) No jewelry, body piercing, makeup, contacts, lotions, nail tanzanian on fingers, or anything in hair on arrival to surgery Wear low healed shoes and loose fitting clothing Leave all valuables at home or with a family member Directions to [facility] Parking/parking validation on the day prior to surgery Admission/check in Holding area Placement of IV Surgical positioning Family waiting area Surgical recovery room Post-operative instructions provided and reviewed with patient/family: SEE PATIENT INSTRUCTION SECTION FOR DETAILS. SYMPTOMS TO NOTIFY MD - Fever, chills, nausea, vomiting, increased or severe pain, heavy vaginal bleeding, foul smelling vaginal drainage, pain or swelling in extremities. URGENT SYMPTOMS - Call 911 or go to ER if any shortness of breath, difficulty breathing, or chest pain. HOW TO CONTACT PHYSICIAN - Physician's office phone number given to patient, if after hours patientinstructed to call mower operator and ask for resident surgeon health unit coordinator onc resident. SUDHA program offered to patient: Yes Additional teaching as indicated by patient/family learning needs. PATIENT LEARNING EVALUATION & FOLLOW UP PLAN: Patient and/or family express understanding of upcoming surgery, pre-operative preparation, the operative process, and post-operative instructions. Follow up plan: Patient instructed to call with any further issues Patient has a post-op appointment scheduled: Yes Referral (recommentation): None Educator: Hector Villela LPN [facility] [place] documented in this encounterK[facility]10-12-2022 Instructions* Patient Instructions* Hector Villela LPN - 05/17/2022 1:14 PM EDT Images from the original note were not included. MINIMALLY INVASIVE GYNECOLOGIC SURGERY (MIGS)/BENIGN GYNECOLOGY CONTACTS: Surgeons: Dr. Hector Bone Dr. Piper Cannon Dr. Jenny Abarca Dr. Suzy Hercules Dr. Yousuf Resendiz Dr. Valeri Dias Dr. Kelley Burroughs Dr. Roshni Sheets [facility] Nurse Practitioners: Ardiana Marrero, COMMANDER INTERNAL AFFAIRS.DAIRY NUTRITIONIST Mary Jo Gonzalez, COMMANDER INTERNAL AFFAIRS.DAIRY NUTRITIONIST Fanny Medina, COMMANDER INTERNAL AFFAIRS.DAIRY NUTRITIONIST Joanna Pandya, COMMANDER INTERNAL AFFAIRS.DAIRY NUTRITIONIST Surgery Scheduling Office: Call the day before surgery after 2pm for your surgery arrival time After hours phone number: or toll free Ask the mower operator to page the health unit coordinator resident surgeon.' Business hours are Sunday - Sunday from 8:00am - 4:30pm. We are closed on weekends and major holidays. PRE-OPERATIVE CHECKLIST: PATIENT INSTRUCTIONS PRIOR TO SURGERY Our guidelines have changed, so please read these instructions carefully. Your surgery may be cancelled if you do not follow these instructions. MY ARRIVAL TIME IS: I have been instructed not to have any solid food to eat after midnight prior to my surgery (this includes no gum, mints, smoking). I am allowed to drink small amounts (up to 12 oz) of clear liquids up until 2 hours prior to my arrival time. Clear liquids include water, fruit juices without pulp, carbonated beverages (i.e. adrianne cindy), electrolyte beverages (i.e. Gatorade), clear tea and black coffee, clear broth, popsicles and jello. (No milk). No alcohol the day before or day of surgery. I will bring this binder to all pre and post-operative appointments AND day of surgery. MEDICATION STOPPAGE: Unless my surgeon tells me differently, I will STOP THESE MEDICATIONS 7 DAYS PRIOR TO SURGERY: (Motrin/ibuprofen/Naproxen/Aleve/Advil), Aspirin, vitamin E, herbal medications, diet pills, and qxkj-zhy-vvbayid medications. Tylenol (acetaminophen) is okay. I will not wear jewelry, body piercing(s), makeup, nail tanzanian, hairpins, or contacts on the day ofsurgery. I am to leave valuables and money at home or with family members. If I am prescribed inhalers for breathing, I will use them and bring them to the hospital. Medication(s) to be taken on the morning of surgery with a few sips of water: If I am taking any of the following blood thinning medications - Aspirin, clopidogrel (Plavix), ticagrelor (Brilinta), prasugrel (Efficient), ticlodipine (Ticlid), warfarin (Coumadin), dibigatran (Pradaxa) or rivaroxaban (Xarelto) - I will discuss whether or not I should stop them before surgery with my surgeon. Discuss medication changes with your psychologist personnel or primary care physician as well. If I stopped taking my blood-thinning medication, I will ask the surgeon when to resume taking it. If I am an outpatient, a responsible person will drive me home and it was suggested that someone stay with me for 24 hours. I understand that a franchise business consultant or cabdriver is NOT a responsible caregiver. Patients with diabetes,I will not take my morning diabetes medication (pills) on the morning of surgery. If I am on insulin, someone has gone over those instructions with me for the morning of surgery. I understand if my surgery is delayed, I will notify the check in desk that I have diabetes. See the Diabetic GuidelinesBefore Surgery in the patient education section. If I have Obstructive Sleep Apnea and use a CPAP/BiPAP machine, I will bring my mask, tubing, and machine with me on the day of surgery. Pain management education material found in Your Surgical Guide was reviewed with me. To find out my arrival time for surgery, I must call my surgical supplies sterilizer after 2pm the day beforesurgery. Pre-operative instructions given by: PREOP INSTRUCTIONS THE DAY OF SURGERY/CHECK IN The online version of the surgical guide book can be found at: [email or web address] The [place] [address] [place] [address] INFECTION PREVENTION Please notify your doctor if you have any signs of an infection (i.e. fever, severe cough, nasal congestion, pain with urination, abnormal vaginal discharge, diarrhea, etc). Your surgeon will let you know if a bowel prep is needed before your surgery. If so, please see theattached instructions. Shower the night before surgery AND the morning of surgery with Hibiclens (provided by your surgeon). If you are allergic to Hibiclens or unable to obtain the Hibiclens, please wash with antibacterial soap. Wash your body from the neck down, focusing on your abdomen, belly button and external genitalia. Do not forget to scrub any skin folds and creases. No lotions, oils, creams, or powders after your shower. Underarm deodorant is okay. No shaving (abdominal or pubic hair) or douching the day before surgery. You may be asked to apply an antiseptic solution called Chlorhexidine Gluconate (CHG) which will beprovided to you on arrival to the preop area. Hand washing is extremely important in preventing infection (for both you as the patient and for the caregivers). HOSPITALIZATION Before you leave the hospital, you typically need to be able to eat/drink, urinate, and have your pain controlled with oral medication. Your surgeon or other members of your surgeon s team will discuss any other specific medical issues related to your discharge with you. Your surgeon may order intermittent compression sleeves. These are massaging leg pumps to help prevent blood clots after surgery. See Your Surgical Guide Book for more information. It is also very important that you walk as soon as possible and as frequently as possible after surgery. This will help decrease your risk of blood clots, exercise your lungs and speed up your recovery after surgery. If you are admitted to the hospital overnight, you will be given an incentive spirometer, which is a breathing machine that will help make sure that you are taking deep breaths and expanding your lungs while in the hospital. See Your Surgical Guide Book for more information. [facility] At the [facility], we have a multidisciplinary team of caregivers that includes fellows, residents, nurse practitioners, physician assistants, clinical nurse specialists, nurses, medical assistants, patient care nursing assistants, social workers, human services case manager and many others. We all have different roles and responsibilities but we are all here to help. MINIMALLY INVASIVE LAPAROSCOPY POSTOPERATIVE INSTRUCTIONS ACTIVITY * No heavy lifting/pushing/pulling for 6 weeks. Do not lift anything more than 10 lbs (such as laundry, groceries, children, pets), vacuum, push heavy doors or grocery carts, etc, for 6 weeks. * You may climb stairs as tolerated. * Do not put anything in the vagina for 2 weeks after surgery unless otherwise instructed by your doctor (including tampons, douching, sexual intercourse, etc). * No driving for 1 week after surgery and not while taking narcotic pain medication. Drive defensively when you are ready. * Avoid sitting or lying in bed for more than 2 hours at a time while you are awake to reduce your risk of blood clots. * You may return to work when you are ready as long as you do not lift more than 10 pounds for 6 weeks. If you have a sedentary job or waterworks supervisor 1-2 weeks before returning to work is appropriate. You may return to work in 2-4 weeks if your job requires a lot of movement. Please contact your doctor if you need any return to work letters or medical leave paperwork to be completed. WOUND CARE * You will have small incisions on your abdomen. There will be dissolvable stitches under your skinthat do not need to be removed. If you have a piece of gauze with a clear bandage over your belly button, please remove that the day after surgery when you shower. If you have steri-strips (paper tape) on the incisions, these may be removed in about 1-2 weeks. It is OK to remove them if they are falling off. If skin glue is present, leave in place for at least 2 weeks. * Shower daily after surgery. Clean your incision with mild antibacterial soap and water. Pat your incision dry with a clean towel. No tub baths or swimming pools for six weeks or until wound is completely healed. * No ointments or antibacterial creams are required for incisions. Do NOT use cleansing agents likealcohol or hydrogen peroxide. * Wash your hands frequently, especially before touching your incision or changing any dressings. PAIN MANAGEMENT * Take your oral pain medication as needed. * Alternate Tylenol and ibuprofen/Motrin (if you are eligible). Each of these medications can be taken every six hours. Try to stagger them so that you are taking something for pain every three hours(ex. Take Motrin at 12:00, Tylenol at 3:00, Motrin at 6:00, etc.) to maximize pain relief. You should be taking 600mg of ibuprofen every 6 hours. You should be taking 1,000mg of tylenol every 6 hours. You should take every 6 hours with staggering and alternating. For example. 9am - ibuprofen 12pm - tylenol 3pm - ibuprofen 6pm - tylenol 9pm - ibuprofen 12am - tylenol 3am - ibuprofen 6am - tylenol Studies show this is as effective as narcotics for pain control without the side effects. Dosages * Tylenol - 500-650 mg every 6 hours as needed * Motrin - 600 mg every 6 hours as needed * The maximum dose of Tylenol is 3000 mg in 24 hours, the maximum dose of Motrin/ibuprofen is 2400mg in 24 hours * Some pain medications can cause constipation. We recommend a stool softener (i.e. Colace) while you take these medications. * You may also take milk of magnesia or Miralax for constipation as directed on the bottle. * There is a risk for addiction with narcotic pain medication, so take with caution and do not takemore than the recommended amount. * Please be sure to dispose of leftover pain medication after you have recovered. You may dispose of unused narcotic medications in the trash with an unpleasant substance such as coffee grounds or cat litter or you can turn them in to a designated law enforcement/pharmacy narcotic box. You can alsocheck FDA.gov to assess which medications can be safely flushed down the toilet. * There are locations to dispose of unused medications at three [facility] locations: [facility] pharmacy, [facility] pharmacy, and the Pharmacy at the [facility] for [facility] (inside the parking garage on the first floor). WHAT TO EXPECT AT HOME * Recovery from surgery is generally 2-4 weeks, but sometimes longer for more strenuous activity. It is normal to be very tired during this time. * It is normal to have some drainage or a small amount of vaginal bleeding after surgery that wouldrequire the use of a light pantiliner. This discharge may last up to 6 weeks. The bleeding and discharge should be light and should have no odor. * You may experience gas pain, abdominal swelling, or shoulder pain for 24-72 hours after surgery. This is from the carbon dioxide gas put into your abdomen to better visualize your organs. A warm shower, heating pad, and/or walking may help. WHEN TO CALL YOUR DOCTOR: * Fever (>100.4 F or 38.0 C) or chills. * Incision problems such as redness, warmth, swelling, or foul smelling drainage. * Severe nausea or persistent vomiting. * Bright red vaginal bleeding (soaking >1 pad/hour) or foul smelling vaginal drainage. * IT IS NORMAL TO HAVE A MINIMAL AMOUNT OF VAGINAL SPOTTING OR VAGINAL DISCHARGE FOR SEVERAL WEEKS * Severe pain not relieved with pain medication. * Pain and swelling in your legs, especially if it is only on one side. * Pain with urination, cloudy urine, or foul smelling urine. * Severe redness/irritation at sites where adhesive bandages were applied. * Or if you have any other problems or questions. FREQUENTLY ASKED QUESTIONS/CONCERNS: Constipation Constipation is common and it is normal to not have a bowel movement for up to one week after surgery. You should still be passing gas despite constipation and should be able to tolerate both liquid and solid food without nausea or vomiting. Concerning symptoms would be constipation without gas, with fever, or nausea/vomiting and inabilityto eat. Call your doctor if these symptoms occur. Over the counter stool softeners including Colace twice daily and Miralax up to twice daily can help with constipation. 1. Senna (1 capsule) two times a day 2. Miralax (polyethylene glycol) 17 g (1 measured capful or 1 packet) once a day. If you have not had a bowel movement 3 days after surgery, you may take the Miralax two times a day. If you have any discomfort because of the need to have a bowel movement, you may add milk of magnesia or magnesium citrate (available at your local pharmacy without a prescription) at any time. Do not take milk of magnesia or magnesium citrate if you have kidney failure. If you have loose or watery stools, stop taking the medications. Call your doctor s office if you have questions. Drainage from incisions Clear/pink drainage or a minimal amount of bleeding from incisions can be normal after laparoscopicsurgery. Concerning drainage that is persistent, thick/cloudy, or foul smelling can be an indication of infection and should prompt you to call your doctor. Post-operative pain Pain after surgery is a challenging part of the healing process. Pain may be present for weeks but should gradually get better. Increasing pain or pain that is unbearable warrants evaluation by your doctor or in the emergency department. By state law we cannot immediately provide narcotic pain medication over the phone. Stitches If 2 weeks have passed and you have a visible stitch at a laparoscopic incision site it is OK for you to cut it to remove it. CALL 911 OR GO TO THE EMERGENCY ROOM IF YOU HAVE: Any shortness of breath, difficulty breathing, orchest pain. IF YOU FEEL YOU NEED TO GO TO THE EMERGENCY DEPARTMENT POST OPERATIVELY, WE RECOMMEND THE MAIN CAMPUS EMERGENCY DEPARTMENT FOR CONTINUITY OF CARE AND THE BEST ACCESS TO ONE OF THE SURGEONS ON OUR TEAM. Address: [address] [place] [address] documented [facility] History of Present illness Narrative* Jenny Joe, PT - 05/16/2022 1:34 PM EDT Episode Visit Count: 4 Therapist That Will Accept/Oversee The Plan Of Care: Jenny Diaz Start of Care Date: 04/21/22 Onset Date: 04/21/18 Patient Identified by Name and Date of : Yes REHABILITATION AND SPORTS THERAPY PHYSICAL THERAPY TREATMENT NOTE ASSESSMENT: Mary Oleary tolerated the session with no issues. She demonstrated difficulty withunchanged pain levels, improvement in ability to have a steady stream of urine. The patient will continue to benefit from ongoing skilled physical therapy to progress toward set goals. PLAN FOR NEXT VISIT: reassessment SUBJECTIVE: Patient Reason for Visit: Pt reports no changes in pain. Pt reports improvement in bladder function, able to have a more steady stream of urine. Pt reports not having sex since last session. Pt reports good compliance with HEP. Pain: Pain Pain Level: 5 Pain Location: Low Back/Lumbar Spine - Left Description: Sharp;Shooting Frequency: Continuous Post Treatment Pain Post Treatment Pain Level: No Change OBJECTIVE MEASURES WITH LEVEL OF FUNCTION: Pelvic Floor Difficulty starting stream: Sometimes slow or intermittent stream: No Difficulty evacuating / Excessive Straining: No Incomplete emptying: No Bowel Movement Frequency: 3x/week Pelvic Floor Muscle Assessment Consent for pelvic assessment/testing and treatment: Patient was educated regarding pelvic floor physical therapy assessment/treatment which may include pelvic floor and girdle muscle assessment externally or internally (vaginal or rectal approach).;Patient verbalized consent for the above treatment approaches today. Patient understands they have control of the treatment and an opportunity to stop treatment at any time. Pelvic Floor Manual Assessment External Pelvic Region Tenderness/ Hyperactivity - Trunk: Lower abdominals Lower abdominals: Bilateral (1/1) External Pelvic Region Tenderness/ Hyperactivity - Lower Extremity: Glut medius Glut medius: Bilateral (2/2) Pelvic Floor Tenderness/Hyperactivity: Tested Vaginally in Tested Vaginally in : Supine/hooklying Superficial transverse perineal: Bilateral (1/1) Deep transverse perineal: Bilateral (1/1) Iliococcygeus: Bilateral (1/1) Pubococcygeus: Bilateral (1/1) Tissue Restriction/Tenderness Scale: 1= mild, 2= moderate, 3= severe TREATMENT: Manual Therapy: 1: Gentle stretching to B pelvic floor, supine 2: MFR to B lower abdominals, supine 3: MFR to B gluteals, sidelying Skilled Intervention: Manual skills to improve joint mobility, ROM, and decrease pain. Utilized anatomy knowledge of the therapist, and assessment of patient's response to intervention. Billing Manual TherapyTreatment Minutes: 39 Total Treatment Time Minutes (timed/untimed): 39 Jenny Diaz PT documented in this encounterK[facility]10-[facility]22 Instructions* Patient Instructions* Radha Calvillo PA-C - 05/10/2022 5:14 PM EDT PATIENT PREOPERATIVE INSTRUCTIONS Yousuf Mendoza MD has scheduled you for your procedure at this surgery center: [facility]: [phone] -- [place] [id number]. Please read below carefully for your personalized instructions. Dietary Restrictions: - No solid food after midnight. - You may have 12 ounces of clear liquids (water, clear juices such as apple juice or gatorade, carbonated beverages, clear tea, black coffee, jello) until 2 hours before scheduled arrival at facility. Medications: Unless instructed differently below, stay on all of your medications until your surgery. Approved medications to take the morning of surgery with a sip of water: Prilosec, Zofran if needed If you start any new medications after today's visit, please contact the surgeon's office. Blood Thinning Medications: - Stop NSAIDS (Ibuprofen, Advil, Aleve, Motrin, Celebrex, Mobic, etc.) 7 days before surgery, as directed by your surgeon. - Stop Aspirin 7 days before surgery, as directed by your surgeon. - Stop Vitamin E, ALL multi-vitamins, herbals and dietary supplements 14 days before surgery. - You may take Tylenol (Acetaminophen) or any of your pain medications that do not contain aspirin or NSAIDS as needed. Important Reminders: - Candy, mints, and tobacco products are NOT permitted the morning of surgery. - Hearing aids, dentures and glasses may be worn the morning of surgery. - NO jewelry, body piercings, makeup, hairpins or contacts are to be worn the day of surgery. If you develop symptoms such as a fever, cold, or flu, or have other changes to your health within TWO DAYS of scheduled surgery or the morning of surgery, please contact the surgery center above. Personal Belongings: -Please have photo ID and insurance cards. -If you do not have a copy of advance directives on file with us, please bring a copy with you on the day of surgery. - Leave ALL valuables and money at home or with family members. For Outpatient Procedures: - YOU MUST HAVE A RESPONSIBLE HOSPICE CARE TRANSITIONS COORDINATOR TAKE YOU HOME. A TELEPHONE ANSWERING SERVICE OPERATOR OR SALES AGENT FINANCIAL REPORT SERVICE CANNOT BE MADE A RESPONSIBLE HOSPICE CARE TRANSITIONS COORDINATOR. - We recommend that a responsible person stays with you overnight to take care of you. - You cannot stay in a hotel alone after outpatient surgery. You will not be permitted to have yoursurgery, if you do not have someone to take care of you. Arrival Time for Surgery: - The Surgery Center or hospital where you are having surgery will call the afternoon before surgery (or Sunday for Sunday surgery) with a scheduled arrival time. - If you have not heard by 4 pm, please contact the surgery center above. Please be aware that emergency situations arise, which may delay or change your surgical time. If this happens, we will notify you as soon as possible and regret any inconvenience. If you already have an Advance Directive, please fax a copy to [phone] or email to for it to be added to your chart. If you do not have an Advance Directive, you can find the appropriate form and more information at [email or web address]. We recommend that youcomplete the Advance Directive form found on the website and bring it with you the day of your surgery. It can be witnessed and scanned into your chart that day. Radha Calvillo PA-C documented in this encounterK[facility]10-[facility]22 History and physical note * Radha Calvillo PA-C - 05/10/2022 5:02 PM EDT PREANESTHESIA CONSULT CLINIC TELEHEALTH VISIT Patient has been identified by name and date of : Yes This is a virtual visit using Mimecast video visit. It require patient-provider interaction for the medical decision making as documented below. Reason for contact: PACC visit Accompanied by: Self Scheduled Surgery: LAPAROSCOPY DIAGNOSTIC Subjective CHIEF COMPLAINT: Patient presents with: Pre-Op Visit HPI: This is a 26 year old female who presents with chronically painful periods since age 12 that have worsened in the last 4 years. She admits to chronic pelvic pain that is worse on the left. Pain is 3/10 currently, but can get up to 9-10/10. She reports pain is the worst during ovulation and thefirst two days of her cycle. Periods are regular and last 3-4 days. She uses medical marijuana for chronic pain. 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 History of Hyperthyroidism History of Seizures As A Child PAST MEDICAL HISTORY Diagnosis Date Anxiety Huizar's esophagus Depression History of seizures as a child Hyperthyroidism Ovarian cyst PAST SURGICAL HISTORY Procedure Laterality Date COLONOSCOPY 07/13/2021 gastritis and colitis found EGD 07/13/2021 LAPAROSCOPY W/RMVL ADNEXAL STRUCTURES Left 04/11/2018 Left ovarian cystectomy for dermoid cyst FAMILY HISTORY Problem Relation Age of Onset Hypothyroidism Mother Hypertension Father No Known Problems Brother other (Tachycardia) Maternal Grandmother Diabetes Maternal Grandfather Diabetes Paternal Grandmother Hypertension Paternal Grandmother Hyperlipidemia Paternal Grandmother Ischemic Heart Disease Paternal Grandfather History of heart attacks Stroke Paternal Grandfather Hyperlipidemia Paternal Grandfather Hypertension Paternal Grandfather Anesthesia Problems No Family History Social History Tobacco Use Smoking status: Never Smokeless tobacco: Never Vaping Use Vaping Use: Never used Substance Use Topics Alcohol use: Yes Comment: rarely Drug use: Yes Frequency: 7.0 times per week Types: Marijuana Comment: medical marijuana ALLERGIES Allergen Reactions Bactrim [Sulfametho* Hives Caffine [Caffeine] Other: See Comments tachycardia Penicillins Hives MEDICATIONS: Current Outpatient Medications Medication Sig omeprazole (PRILOSEC) 20 mg capsule Take 1 capsule by mouth twice daily. ondansetron (ZOFRAN) 4 mg tablet Take 1 tablet by mouth every 8 hours as needed for nausea/vomiting. melatonin 1 mg tablet Take 10-20 mg by mouth daily at bedtime. ibuprofen (MOTRIN) 600 mg tablet Take 1 tablet by mouth every 6 hours as needed for Pain. FOR PAIN. Surgical Lubricant Jelly gel For MRI Female Pelvis, MRI department to provide. Administer intra-vaginal Surgilube immediately prior the MRI procedure (total amount to patient toleranace). PNV 67-iron ps-folate no.1-dha (VITAFOL ULTRA) 29 mg iron- 1 mg-200 mg cap Take 1 capsule by mouth once daily. (Patient not taking: Reported on 02/21/2022 ) Surgical Lubricant Jelly gel For MRI Female Pelvis, MRI department to provide. Administer intra-vaginal Surgilube immediately prior the MRI procedure (total amount to patient toleranace). No current facility-administered medications for this visit. COVID VACCINATION STATUS: Not vaccinated, prior infection - body aches, fatigue and headache - 05/2021 - lasted 2 weeks. No complications or treatment needed REVIEW OF SYSTEMS: Pain Assessment: General: No weight loss, malaise or fevers. Neuro: Postive for History of petit mal seizures as a child - last age 5 or 6. Migraines - takes Zofran prn, Negative for Stroke-residual deficit Parkinson's Disease Multiple Sclerosis Respiratory: No history of current cough or dyspnea, or pneumonia in the past 6 weeks. No history of respiratory/pulmonary symptoms or problems. Cardiovascular: No history of HTN requiring medication, no history of angina, CHF, [place], cardiac surgery or stents. Denies rest pain, gangrene or revascularization/amputation for PVD. No history of cardiovascular symptoms or problems. GI: Positive for GERD, Huizar's, Negative for Vomiting, Hepatitis, Pancreatitis : No history of dysuria, frequency or incontinence,, stones or chronic kidney disease ORDER CLERK: See HPI : Denies, Patient's last menstrual period was 05/07/2022. Endocrine: history of hyperthyroidism - was temporarily on methimazole, but it resolved by early 2019. No further symptoms. Denies DM/symptoms. Denies oral steroids in the last 30 days Hematology: No history of bleeding or clotting disorder. Pt is not taking anti- coagulation or platelet medications. No history of hematological symptoms or problems. Oncology: No history of CA metastasis, chemo within 30 days, or radiotherapy within 90 days. Has not lost 10% of body wt in 6 months. No history of oncological symptoms or problems. Psych: No history of psychiatric symptoms or problems. Musculoskeletal: Negative for joint pain or swelling, back pain or muscle pain. Skin: Negative for lesions, rash and itching. Objective PHYSICAL EXAM: Pulse 84[patient counted[ Ht 5' 8 [patient reported[ (1.73m) Wt 185 lb (83.9kg) LMP 05/07/2022 BMI 28.14 kg/(m^2). VIDEO EXAM: (if completed, performed via video enabled technology) GENERAL: alert and appropriate, in no distress, well-hydrated, well nourished, and happy, smiling, interactive SKIN: no rash noted HEAD: normocephalic, no abnormality or lesion noted EYES: no injection NOSE: external nose normal without rhinorrhea NECK: full ROM RESPIRATORY: breathing non-labored and no grunting/flaring/retractions CHEST: equal chest rise with normal respiratory effort HEART: Patient confirmed radial pulse and counted aloud with regular rhythm. HR 84 BPM. No cyanosis ABDOMEN: mild TTP noted in the LLQ NEUROLOGIC: no cerebral deficits noted Diagnostic tests reviewed for today's visit: All in Epic Glucose (mg/dL) Date Value 10/04/2021 79 03/18/2021 88 Potassium (mmol/L) Date Value 10/04/2021 4.1 03/18/2021 4.2 Sodium (mmol/L) Date Value 10/04/2021 139 03/18/2021 138 Chloride (mmol/L) Date Value 10/04/2021 103 03/18/2021 106 CO2 (mmol/L) Date Value 10/04/2021 24 03/18/2021 22 Creatinine (mg/dL) Date Value 10/04/2021 0.70 03/18/2021 0.70 BUN (mg/dL) Date Value 10/04/2021 13 03/18/2021 10 Anion Gap (mmol/L) Date Value 10/04/2021 12 03/18/2021 10 Calcium (mg/dL) Date Value 03/18/2021 9.8 Calcium, Total (mg/dL) Date Value 10/04/2021 10.1 Protein, Total (g/dL) Date Value 10/04/2021 7.5 03/18/2021 7.4 Albumin (g/dL) Date Value 10/04/2021 4.6 03/18/2021 4.2 Bilirubin, Total (mg/dL) Date Value 10/04/2021 <0.2 03/18/2021 <0.2 Alkaline Phosphatase (U/L) Date Value 10/04/2021 61 03/18/2021 60 AST (U/L) Date Value 10/04/2021 19 03/18/2021 17 ALT (U/L) Date Value 10/04/2021 19 03/18/2021 10 TSH Date Value Ref Range Status 10/04/2021 3.350 0.270 - 4.200 mIU/L Final Comment: If the patient is , TSH reference range varies by gestational period: First Trimester (weeks 9-12): 0.180-2.990 mIU/L Second Trimester: 0.110-3.980 mIU/L Third Trimester: 0.480-4.710 mIU/L Cristian Vergara et al. A Practical Approach for the Verifications and Determination of Site- and Trimester-Specific Reference Intervals for Thyroid Function tests in . Thyroid, 2019:29:3:412-420.Yong Chacko, et al. 2017 Guidelines of the [place] Thy[employer] for the Diagnosis and Management of Thyroid Disease during and the . Thyroid, 2017:27:3:315-389. Holter monitor 12/13/2015 IMPRESSIONS AND FINDINGS: Sinus rhythm with frequent sinus tachycardia, heart rate 49-173 bpm, average rate is 87 bpm Two rare supraventricular ectopics in isolation Rare multiform ventricular ectopics in isolation and fusion complexes Diary returned; symptoms of chest discomfort/pain, arm pain; chest dis- comfort; palpitations, chest discomfort/pain; palpitations, short of bretah, chest discomfort/pain; palpitations, dizziness, short of breath, chest dis- comfort; are associated with sinus rhythm and sinus tachycardia Scanned by Beatrice MCMILLAN on 12/17/15 Impression/Recommendations ASSESSMENT: 1. Preop examination Scheduled for above procedure 2. 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 Reports controlled on medication. Stable 3. History of hyperthyroidism Transient treatment with Methimazole -discontinued mediation in 2019. TSH has been normal since. Denies palpitations, jitteriness or sudden weight loss. Stable and asymptomatic 4. Medical marijuana use Encouraged to hold pre-op due to potential blood thinning effects 5. Menorrhagia with regular cycle Patient reports periods are regular and are very heavy. Check updated CBC pre-op METS: Climb a flight of stairs or walk up a hill (5.50 METs) Patient denies any chest pain or undue shortness of breath with the above physical activity. ASA Class: 2 ANESTHESIA FINDINGS: Intubation History: No history of difficult intubation Significant Anesthesia Considerations: None Airway Exam: General: Normal appearance Mallampati Score is CLASS II ULBT: Class II - Lower incisors can bite the upper lip below the barbie line Neck: Normal appearance and function Mouth: Normal tongue size and Mouth opening greater than 2 finger breaths Dentition: Intact Airway History: No abnormal airway history STOP BANG Score: Criteria: None Score = 0 PLAN: This patient is optimally prepared for surgery pending updated CBC. CONSULTS: Patient does not require consults for optimization at this time. The Following Tests/Procedures Have Been Initiated: No orders of the defined types were placed in this encounter. Planned Anesthetic: Per anesthesia choice Instructions Given to Patient: Patient given verbal instructions and voices comprehension and compliance. Copy sent electronically via My Chart, email, or mobile device. This is a virtual visit. It required patient-provider interaction for the medical decision making as documented above. SIGNATURE: Radha Calvillo PA-C PATIENT NAME: Mary Oleary DATE: 05/10/2022 TIME: 5:00 PM PAGER/CONTACT #: [facility] Instructions* Patient Instructions* Alesha Desai - 05/10/2022 2:12 PM EDT ICT DEVELOPMENT MANAGER [phone] OFFICE [phone] SURGICAL SCHEDULERS documented [facility] History of Past illness Narrative* Problem Noted Date Resolved Date History of hyperthyroidism 05/10/202208/18 Hyperthyroidism 10/30/2018 08/18/2022 documented as of this encounter (statuses as of 08/18/2022) [facility] History of Past illness Narrative* Problem Noted Date Resolved Date History of hyperthyroidism 05/10/202208/18 Hyperthyroidism 10/30/2018 08/18/2022 documented as of this encounter (statuses as of 08/21/2022) [facility] History of Past illness Narrative* Problem Noted Date Resolved Date History of hyperthyroidism 05/10/202208/18 Hyperthyroidism 10/30/2018 08/18/2022 documented as of this encounter (statuses as of 09/12/2022) [facility] History of Past illness Narrative* Problem Noted Date Resolved Date History of hyperthyroidism 05/10/202208/18 Hyperthyroidism 10/30/2018 08/18/2022 documented as of this encounter (statuses as of 09/12/2022) [facility] History of Past illness Narrative* Problem Noted Date Resolved Date History of hyperthyroidism 05/10/202208/18 Hyperthyroidism 10/30/2018 08/18/2022 documented as of this encounter (statuses as of 09/12/2022) [facility] History of Past illness Narrative* Problem Noted Date Resolved Date History of hyperthyroidism 05/10/202208/18 Hyperthyroidism 10/30/2018 08/18/2022 documented as of this encounter (statuses as of 10/04/2022) [facility] History of Past illness Narrative* Problem Noted Date Resolved Date History of hyperthyroidism 05/10/202208/18 Hyperthyroidism 10/30/2018 08/18/2022 documented as of this encounter (statuses as of 10/04/2022) [facility] History of Past illness Narrative* Problem Noted Date Resolved Date History of hyperthyroidism 05/10/202208/18 Hyperthyroidism 10/30/2018 08/18/2022 documented as of this encounter (statuses as of 10/04/2022) [facility] of Past illness Narrative* Problem Noted Date Resolved Date History of hyperthyroidism 05/10/202208/18 Hyperthyroidism 10/30/2018 08/18/2022 documented as of this encounter (statuses as of 10/04/2022) [facility] of Past illness Narrative* Problem Noted Date Resolved Date History of hyperthyroidism 05/10/202208/18 Hyperthyroidism 10/30/2018 08/18/2022 documented as of this encounter (statuses as of 10/04/2022) [facility] of Past illness Narrative* Problem Noted Date Resolved Date History of hyperthyroidism 05/10/202208/18 Hyperthyroidism 10/30/2018 08/18/2022 documented as of this encounter (statuses as of 10/04/2022) [facility] of Past illness Narrative* Problem Noted Date Resolved Date History of hyperthyroidism 05/10/202208/18 Hyperthyroidism 10/30/2018 08/18/2022 documented as of this encounter (statuses as of 10/04/2022) [facility] History of Present illness Narrative* Yousuf Resendiz MD - 05/10/2022 1:45 PM EDT Images from the original note were not included. [facility] [place] SECTION FOR MINIMALLY INVASIVE GYNECOLOGIC SURGERY OUTPATIENT VISIT DATE 05/10/2022 VISIT TYPE VIRTUAL HPI: Mary Oleary is a 26 year old female patient followed in Minimally Invasive Gynecologic Surgery for preoperative consent for upcoming Diagnostic Laparoscopy. Please see note from 04/12/2022 for full details. After thorough discussion of options, she is scheduled for the above described procedure with Dr. Wright on 05/29/2022. PAST MEDICAL HISTORY Diagnosis Date Anxiety Huizar's esophagus Depression Hyperthyroidism Ovarian cyst PAST SURGICAL HISTORY Procedure Laterality Date COLONOSCOPY 07/13/2021 gastritis and colitis found EGD 07/13/2021 LAPAROSCOPY W/RMVL ADNEXAL STRUCTURES Left 04/11/2018 Left ovarian cystectomy for dermoid cyst Current Outpatient Medications on File Prior to Visit Medication Sig Surgical Lubricant Jelly gel For MRI Female Pelvis, MRI department to provide. Administer intra-vaginal Surgilube immediately prior the MRI procedure (total amount to patient toleranace). PNV 67-iron ps-folate no.1-dha (VITAFOL ULTRA) 29 mg iron- 1 mg-200 mg cap Take 1 capsule by mouth once daily. (Patient not taking: Reported on 02/21/2022 ) Surgical Lubricant Jelly gel For MRI Female Pelvis, MRI department to provide. Administer intra-vaginal Surgilube immediately prior the MRI procedure (total amount to patient toleranace). omeprazole (PRILOSEC) 20 mg capsule Take 1 capsule by mouth twice daily. ondansetron (ZOFRAN) 4 mg tablet Take 1 tablet by mouth every 8 hours as needed for nausea/vomiting. melatonin 1 mg tablet Take 10-20 mg by mouth daily at bedtime. ibuprofen (MOTRIN) 600 mg tablet Take 1 tablet by mouth every 6 hours as needed for Pain. FOR PAIN. No current facility-administered medications on file prior to visit. ALLERGIES Allergen Reactions Bactrim [Sulfametho* Hives Caffine [Caffeine] Other: See Comments tachycardia Penicillins Hives There is no immunization history on file for this patient. Social History Social History Narrative Not on file FAMILY HISTORY Problem Relation Age of Onset Hypothyroidism Mother Hypertension Father No Known Problems Brother other (Tachycardia) Maternal Grandmother Diabetes Maternal Grandfather Diabetes Paternal Grandmother Hypertension Paternal Grandmother Hyperlipidemia Paternal Grandmother Ischemic Heart Disease Paternal Grandfather History of heart attacks Stroke Paternal Grandfather Hyperlipidemia Paternal Grandfather Hypertension Paternal Grandfather OB History T0 L0 SAB0 IAB0 Ectopic0 Multiple0 Live Births0 OB History T0 L0 SAB0 IAB0 Ectopic0 Multiple0 Live Births0 Patient's last menstrual period was 04/11/2022. Review of Systems: Per HPI Physical Exam: NO EXAMINATION OR VITALS PERFORMED THIS IS A VIRTUAL VISIT Assessment and Care Plan: High-tone pelvic floor dysfunction in female (primary encounter diagnosis) She states she has not been feeling well. She began PFPT 3 weeks ago, and states it has been going well, but has not noted any improvement yet. We reviewed and discussed the surgical process and the 1-2 week postop recovery timeline. We discussed that we will need to evaluate her baseline fertility first and see how superficial endometriosis may affect it. I explained the biopsy process and the expected turnaround time for results. Advised that depending on the amount of endometriosis found, she will likely need to follow up withthe chronic pelvic pain team for continued management. Pre-procedure consent Mary Oleary is a 26 year old with symptomatic high-tone pelvic floor dysfunction who has tried or refused conservative therapies and would like to proceed with surgical management in theform of Diagnostic Laparoscopy scheduled with Dr. Wright on 05/29/2022. CONSENT: The risks, benefits and alternatives as well as the indications of her planned surgery were reviewed with the patient today. Risks including but not limited to the following were outlined indetail: Bleeding rarely requiring blood transfusion with the associated risk of viral transmission of Hepatitis 1/700,000, HIV 1/2,000,000. The risks and benefits of autologous blood transfusion with predonation were also discussed. Infection requiring antibiotics, potential prolonged or re-hospitalization as well as possible re-operation. Damage to adjacent organs including but not limited to: bladder, bowels, ureters (tubes that connect kidneys to bladder), pelvic organs (ovaries, fallopian tubes, uterus or womb), blood vessels and nerves, with the possibility of re-operation. Medical complications associated with surgery and anesthesia including but not limited to: deep vein thromobosis (DVT, or blood clot in the leg), pulmonary embolus (PE, blood clot in the lungs), heart attack, stroke, or . All questions were answered to the patient s satisfaction and the informed consent as well as consent for blood transfusion was signed today. The risks and benefits of autologous blood transfusion were also reviewed and the patient has declined this option. The risks, benefits and alternatives of the planned procedure have been discussed with the patient and/or her legal artist's representative, all questions have been answered and she agrees to proceed. Scribe Attestation: By signing my name below, I, Alesha Desai, attest that this documentation has been prepared under the direction and in the presence of Dr. Adriana Resendiz MD. Electronically Signed:tana Saunders, May 10, 2022 9:49 AM Yousuf Resendiz MD, FACOG Associate Staff Minimally Invasive Gynecologic Surgery [facility] [email or web address] documented in this encounterK[facility] History of Present illness Narrative* Jenny Diaz, PT - 05/09/2022 1:33 PM EDT Episode Visit Count: 3 Therapist That Will Accept/Oversee The Plan Of Care: Jenny Diaz Start of Care Date: 04/21/22 Onset Date: 04/21/18 Patient Identified by Name and Date of : Yes REHABILITATION AND SPORTS THERAPY PHYSICAL THERAPY TREATMENT NOTE ASSESSMENT: Mary Oleary tolerated the session with no issues. She demonstrated improvements inbowel function and pain with urination. The patient will continue to benefit from ongoing skilled physical therapy to progress toward set goals. PLAN FOR NEXT VISIT: internal/external manual work SUBJECTIVE: Patient Reason for Visit: Pt reports good compliance with HEP, is more aware of mm tension. Pt reports dilators came in yesterday, plans to start using them soon. Pt reports pain with urination has improved. Pt reports improvement in bowel function, able to empty bowels without straining, more regular bowel movements. Pain: Pain Pain Level: 4 Pain Location: Back Description: Aching;Dull Frequency: Continuous Post Treatment Pain Post Treatment Pain Level: No Change OBJECTIVE MEASURES WITH LEVEL OF FUNCTION: Pelvic Floor Difficulty evacuating / Excessive Straining: No Incomplete emptying: No Bowel Movement Frequency: 3x/week Pelvic Floor Muscle Assessment Consent for pelvic assessment/testing and treatment: Patient was educated regarding pelvic floor physical therapy assessment/treatment which may include pelvic floor and girdle muscle assessment externally or internally (vaginal or rectal approach).;Patient verbalized consent for the above treatment approaches today. Patient understands they have control of the treatment and an opportunity to stop treatment at any time. (Internal PF manual work deferre due to pt request, currently on period.) Pelvic Floor Manual Assessment External Pelvic Region Tenderness/ Hyperactivity - Trunk: Lower abdominals Lower abdominals: Bilateral (1/2) External Pelvic Region Tenderness/ Hyperactivity - Lower Extremity: Adductor Adductor: Bilateral (2/2) Tissue Restriction/Tenderness Scale: 1= mild, 2= moderate, 3= severe TREATMENT: Therapeutic Exercise: 1: *standing sidebend stretch, [id number] each 2: *supine hip flexor stretch, [id number] each 3: *BKTC stretch, [id number] Skilled Intervention: Patient was educated in proper exercise technique and purpose for exercises. Reviewed and educated patient on additions/changes for home exercise program as above (*). Skilled judgment was provided in selection of appropriate interventions. Provided written instruction for home exercise program to facilitate proper performance and compliance. Manual Therapy: 1: MFR to B lower abdominals, supine 2: MFR to B adductors, supine Skilled Intervention: Manual skills to improve joint mobility, ROM, and decrease pain. Utilized anatomy knowledge of the therapist, and assessment of patient's response to intervention. Billing Therapeutic Exercise Treatment Minutes: 12 Manual TherapyTreatment Minutes: 27 Total Treatment Time Minutes (timed/untimed): 39 Jenny Diaz PT documented in this [facility] History of Present illness Narrative* Jenny Diaz PT - 04/21/2022 10:46 AM EDT Episode Visit Count: 1 Therapist That Will Accept/Oversee The Plan Of Care: Jenny Diaz Start of Care Date: 04/21/22 Onset Date: 04/21/18 Patient Identified by Name and Date of : Yes REHABILITATION AND SPORTS THERAPY PHYSICAL THERAPY EVALUATION PLAN OF CARE: Assessment: Mary Oleary presents with chief complaint of pelvic pain that interferes with altered sexual function;walking;bowel function;bladder function . She presents with impairments in decreased pelvic floor ROM; pelvic floor muscle tightness/tenderness; decreased flexibility in B hamstrings; impaired sexual, bladder, and bowel function. PROMIS (Patient-Reported Outcomes Measurement Information System) scores were unable to be reviewed. Prognosis for therapy is Good due to: current objective clinical presentation . She will benefit from skilled therapy services to meet the goals established for this plan of care as noted below. Goals for Episode of Care: created on 04/21/22 through 07/20/22 [place] in home exercise program. Patient will increase flexibility of B hamstrings to WNL to decrease pain. Incontinence: Patient reports ability to start stream in less than 5 seconds Patient reports increased ability to fully empty bowels without straining Pelvic Pain: Patient reports painfree intercourse Patient displays decreased muscle spasms in pelvic floor to allow for decreased pain levels Patient displays improved muscle dynamics of pelvic floor including ability to lengthen Patient Goals: improve pain, improve bladder/bowel function Planned Interventions, Frequency, and Duration: Current Frequency: 1x/week Duration: 4 weeks (reassess at 4 weeks and progress as indicated) Total Number of Visits Planned: 4 Planned Treatment Interventions: Therapeutic exercise (67245);Manual therapy (27632);Self-care homemanagement (06138);Patient/Family/Caregiver Education PLAN FOR NEXT VISIT: discuss dilators, progress stretches, assess external connective tissue Patient demonstrates good understanding of plan of care and treatment. The above goals and plan of care were discussed and agreed upon by patient/family. SUBJECTIVE: Pt reports long history of pain, started at age 12 and has worsened in the past 4 years. Pt reports being unable to have intercourse with due to pain, sometimes affects walking. Patient Goals: improve pain, improve bladder/bowel function Functional Limitations: altered sexual function;walking;bowel function;bladder function Prior Level of Function: Independent without limitations Relevant History Past Relevant Medical Conditions: (see note) Past Relevant Surgical Conditions: (see note) Employment: [employer]: See Comment [employer] Occupation: [employer] Recreation / Current Exercise: None currently. PAST MEDICAL HISTORY Diagnosis Date Anxiety Huizar's esophagus Depression Hyperthyroidism Ovarian cyst PAST SURGICAL HISTORY Procedure Laterality Date COLONOSCOPY 07/13/2021 gastritis and colitis found EGD 07/13/2021 LAPAROSCOPY W/RMVL ADNEXAL STRUCTURES Left 04/11/2018 Left ovarian cystectomy for dermoid cyst Intake Information: Prescription present Previous Treatment: None Falls Interview: No positive findings with falls interview Aquatic Screen: No Pain: Pain Pain Level: 4 Pain Location: Vaginal;Back Description: Aching;Dull;Stabbing Frequency: Continuous Post Treatment Pain Post Treatment Pain Level: No Change PROMIS Scales Higher is Better 12/02/2019 06/21/2020 03/15/2021 Phys Func - Score - 47 (within normal limits) - Phys Func - Percentile - 38 % - GH Physical - Score 42.3 44.9 42.3 (Good) GH Physical - Percentile 22 % 31 % 22 % GH Mental - Score 48.3 56 53.3 (Very Good) GH Mental - Percentile 43 % 73 % 63 % T-scores: mean of general population = 50. 5 points is clinically meaningfully difference Percentiles provide an indication of how the patient's score ranks in relation to the general population. Higher percentile rankings indicate better function/quality of life. 50th percentile is the average of the general population and indicates half of respondents had a worse score. Lower is Better 06/21/2020 Fatigue - Score 68 (moderate) Fatigue - Percentile 4 % T-scores: mean of general population = 50. 5 points is clinically meaningfully difference Percentiles provide an indication of how the patient's score ranks in relation to the general population. Higher percentile rankings indicate better function/quality of life. 50th percentile is the average of the general population and indicates half of respondents had a worse score. OBJECTIVE MEASURES WITH LEVEL OF FUNCTION: Pelvic Floor Control Method: none Pregnancies: 0 Pain with penetration: Deep and superficial;Pain during intercourse;Pain after intercourse;Avoids tampon use;Pain with internal medical exam Urinary/Bowel History : Urinary History;Bowel History Difficulty starting stream: Yes slow or intermittent stream: Sometimes Incomplete emptying: No Stress Incontinence: No Urgency: No Nocturia (times per night): 1 Daytime Frequency (hours): 2 Fluid Intake: Water (8 oz measurements) Water : 6 Difficulty evacuating / Excessive Straining: Yes Incomplete emptying: Sometimes Bowel Movement Frequency: can vary between 2x/week-4x/day Fecal incontinence: No Pelvic Floor Muscle Assessment Consent for pelvic assessment/testing and treatment: Patient was educated regarding pelvic floor physical therapy assessment/treatment which may include pelvic floor and girdle muscle assessment externally or internally (vaginal or rectal approach).;Patient verbalized consent for the above treatment approaches today. Patient understands they have control of the treatment and an opportunity to stop treatment at any time. Pelvic Floor Muscle Assessment: PERFECT;Muscle Dynamics Power: 3 Contracton Pressure: Moderate squeeze, felt all the way around finger surface Range of Motion: Decreased Ability to Lengthen pelvic floor: Yes Pelvic Floor Manual Assessment Pelvic Floor Tenderness/Hyperactivity: Tested Vaginally in Tested Vaginally in : Supine/hooklying Superficial transverse perineal: Bilateral (1/1) Deep transverse perineal: Bilateral (2/2) Iliococcygeus: Bilateral (2/2, L>R) Obturator internus: Bilateral (2/2, L>R) Pubococcygeus: Bilateral (2/2, L>R) LE AROM R LE AROM: WFL L LE AROM: WFL LE Flexibility Flexibility: Hamstring Flexibility;Hip Adductor;Hip Internal Rotation Flexibility;Hip External Rotation Flexibility R Hamstring Flexibility: Min restrictions L Hamstring Flexibility: Min restrictions R Adductor Flexibility: WNL L Adductor Flexibility: WNL R Hip Internal Rotation Flexibility: WNL L Hip Internal Rotation Flexibility: WNL R Hip External Rotation Flexibility: WNL L Hip External Rotation Flexibility: WNL LE Strength Trunk Strength: Lower Abdominals: 4/5 R LE Strength: 5/5 L LE Strength: 5/5 Tissue Restriction/Tenderness Scale: 1= mild, 2= moderate, 3= severe Education: Education Learning Preferences: Demonstration;Explanation;Performance;Printed Materials Barriers: None Learning/educational needs: Home exercise program;Plan of Care Education Provided: Yes, see treatment interventions for education provided Education Provided To: Patient Education Mode/Type: Demonstration;Explanation/Discussion;Literature/Printed Materials;Performance Response to Education/Teach Back: States/Identifies;Return Demonstration TREATMENT: PT Treatment Interventions: Therapeutic Exercise;Self-Senior Care Management Evaluation Therapeutic Exercise: 1: *diaphragmatic breathing 2: *supine adductor stretch, [id number] 3: *PF lengthening, 2x10 Skilled Intervention: Patient was educated in proper exercise technique and purpose for exercises. Reviewed and educated patient on additions/changes for home exercise program as above (*). Skilled judgment was provided in selection of appropriate interventions. Provided written instruction for home exercise program to facilitate proper performance and compliance. Self-Senior Care Management: 1: Reviewed pelvic floor anatomy and function with 3D pelvic model 2: Reviewed typical vs dysfunctional bladder and bowel health 3: Reviewed toileting techniques to start a stream of urine, fully empty bowels without straining 4: Reviewed impact of stress on mm tension, mm tension on pain, bladder/bowel dysfunction: *body scanning Skilled Intervention: Skilled judgment in the selection of proper modification for activity of daily living/home management based on clinical presentation, deficits, and needs. Educated the patient regarding recommendations and provided written instruction to facilitate compliance. Billing * Evaluation Low Complexity: 1 Unit Therapeutic Exercise Treatment Minutes: 9 Self-Care/Home Management Treatment Minutes: 15 Total Treatment Time Minutes (timed/untimed): 46 Jenny Diaz PT documented in this [facility] Miscellaneous Notes* Telephone Encounter - Christin Everett - 04/13/2022 9:50 AM EDT The patient is aware of the surgery date for 05[facility]. documented in this encounter[facility] History of Present illness Narrative* Yousuf Resendiz MD - 04/12/2022 2:20 PM EDT Images from the original note were not included. [facility] [place] [facility] OUTPATIENT VISIT DATE 04/12/2022 OUTPATIENT VISIT TYPE CONSULT Consultation requested by Dr. Cooper for an opinion regarding Ms. Mary Oleary, and my finalrecommendations will be communicated back to the requesting physician by way of shared medical record or letter via US mail. PRIMARY CARE PHYSICIAN: Wilson Rogers MD SUBJECTIVE Patient's Goal: manage the pain and eventual have children What do you thing is causing your pain? endometrious Is there an event you associate with the onset of your pain? Yes, many actives including intercourse, ovulation and period and bowel movements and urination HISTORY OF PRESENT ILLNESS: Ms. Oleary is a 26 year old female who presents today for evaluation of chronic pelvic pain. In clinic today, pt describes her symptoms as primarily LLQ, which are have been present for 14 years. Pain symptoms include the following details: Location: LLQ Character: dull, achy intense stabbing and burning Radiation: lower back and legs Frequency: 2.5 weeks out of the month Aggravating factors: .many actives including intercourse, ovulation and period and bowel movements and urination Symptoms have been relieved by nothing -Dysmenorrhea: yes -Dysuria: yes -Dyschezia: yes -Dyspareunia: yes The pain is worse during her menses. She describes her periods as being regular, present q 24-27 days, last for 3-5 days, Changes a tampon every 1.5-2 hrs for the first 2 days then decreases. -Colonoscopy: 07/2021 -Previous surgical intervention: laparoscopy left ovarian cyst -Previous non-surgical intervention: No Pelvic floor PT; No Central acting medications; No vaginal baclofen; Nofunctional medicine consult; No behavioral health consult; No pelvic floor injections She is desire future child bearing. She is currently using condoms for contraception. She has miss work/school due to pain. She has not visited the Emergency Room for the pain. SEXUAL AND PHYSICAL ABUSE HISTORY: Have you ever been a victim of emotional,physical or sexual abuse? This can include being humiliated or insulted. No IMAGING: MRI 04/05/22 No evidence of pelvic endometriosis. Ultrasound: 01/31/22 Impression Normal appearing anteverted uterus that measures 78 mm x 33 mm x 43 mm. The central endometrium complex measures 12.1 mm in combined thickness. No abnormal blood flow to suggest a polyp or focal endometrial pathology is observed within the endometrial complex. The contour of the endometrial cavity was normal on 3-D imaging. Both ovaries are visualized and appear normal. No adnexal masses were observed. There is no free fluid visualized in the peritoneal cavity. slide test positive. HISTORIES: Past Gynecologic History: Menarche: 12 LMP: Last pap cytology: 2019 History of abnormal history No History of STI: No History of PID: No Past Obstetrical History: Vaginal delivery: 0 Section: 0 Ectopic: 0 Miscarriage: 0 PAST MEDICAL HISTORY Diagnosis Date Anxiety Huizar's esophagus Depression Hyperthyroidism Ovarian cyst PAST SURGICAL HISTORY Procedure Laterality Date COLONOSCOPY 07/13/2021 gastritis and colitis found EGD 07/13/2021 LAPAROSCOPY W/RMVL ADNEXAL STRUCTURES Left 04/11/2018 Left ovarian cystectomy for dermoid cyst Social History Tobacco Use Smoking status: Never Smokeless tobacco: Never Vaping Use Vaping Use: Never used Substance Use Topics Alcohol use: Yes Comment: occasionally Drug use: No FAMILY HISTORY Problem Relation Age of Onset Hypothyroidism Mother Hypertension Father No Known Problems Brother other (Tachycardia) Maternal Grandmother Diabetes Maternal Grandfather Diabetes Paternal Grandmother Hypertension Paternal Grandmother Hyperlipidemia Paternal Grandmother Ischemic Heart Disease Paternal Grandfather History of heart attacks Stroke Paternal Grandfather Hyperlipidemia Paternal Grandfather Hypertension Paternal Grandfather MEDICATIONS: Surgical Lubricant Jelly gel For MRI Female Pelvis, MRI department to provide. Administer intra-vaginal Surgilube immediately prior the MRI procedure (total amount to patient toleranace). Surgical Lubricant Jelly gel For MRI Female Pelvis, MRI department to provide. Administer intra-vaginal Surgilube immediately prior the MRI procedure (total amount to patient toleranace). omeprazole (PRILOSEC) 20 mg capsule Take 1 capsule by mouth twice daily. ondansetron (ZOFRAN) 4 mg tablet Take 1 tablet by mouth every 8 hours as needed for nausea/vomiting. melatonin 1 mg tablet Take 10-20 mg by mouth daily at bedtime. PNV 67-iron ps-folate no.1-dha (VITAFOL ULTRA) 29 mg iron- 1 mg-200 mg cap Take 1 capsule by mouth once daily. (Patient not taking: Reported on 02/21/2022 ) ibuprofen (MOTRIN) 600 mg tablet Take 1 tablet by mouth every 6 hours as needed for Pain. FOR PAIN. ALLERGIES: ALLERGIES Allergen Reactions Bactrim [Sulfametho* Hives Caffine [Caffeine] Other: See Comments tachycardia Penicillins Hives REVIEW OF SYSTEMS: Constitutional: Denies fever or chills Eyes: Denies change in visual acuity HENT: Denies nasal congestion or sore throat Respiratory: Denies cough or shortness of breath Cardiovascular: Denies chest pain or edema GI: Denies abdominal pain, nausea, vomiting, bloody stools or diarrhea : Denies dysuria Musculoskeletal: Denies back pain or joint pain Integument: Denies rash Neurologic: Denies headache, focal weakness or sensory changes Endocrine: Denies polyuria or polydipsia Lymphatic: Denies swollen glands Psychiatric: Denies depression or anxiety OBJECTIVE: BP 120/81 Pulse 77 Wt 192 lb (87.1kg) LMP 04/11/2022 PHYSICAL EXAMINATION: Vital Signs: 04/12/22 1449 BP: 120/81 Pulse: 77 Weight: 87.1 kg (192 lb) Body mass index is 30.07 kg/m . General Appearance: WDWN, NAD Psychiatric: Normal orientation, mood and affect Breasts: Deferred Skin:No rashes, lesions, or ulcers Lymph: Normal groin Abdomen: Benign, soft, non-tender, no hernia, masses, or lymphadenpathy Pelvic examination: def IMPRESSION: Ms. Oleary is a 26 year old female who presents today with Dysmenorrhea Dyschezia Diarrhea, unspecified type High-tone pelvic floor dysfunction (primary encounter diagnosis). MRI is ~98% specific in the diagnosis of deep endometriosis. Superficial endometriosis is not able to be diagnosed currently by MRI and is currently a diagnosis of exclusion. We discussed that evidence is not clear if surgical management of superficial disease is superior to medical management. Especially in chronic pain patients that are adequetly suppressed and other pathologies are present. We discussed that endometriosis is only one factor in multi-factorial pain syndrome and surgery maynot resolve her pain completely. Patient verbalized understanding. After lengthy counseling, the following plan was confirmed: PLAN: - Case request placed for diagnostic laparoscopy - Follow up for preop as scheduedl Medical Decision Making: Problems: Moderate: 1+ chronic illnesses with change Data: Unique source(s) for external note(s) reviewed: 2 Unique test result(s) reviewed: 1 Risk: High: Decision on elective major surgery w/ risk factors Medical Decision Making Level: 4 - Moderate Scribe Attestation: By signing my name below, I, Chante Mendez Ma, attest that this documentation has been prepared under the direction and in the presence of Dr. Jenny Abarca DO. Electronically Signed:fani White Maibe, April 12, 2022 2:21 PM Yousuf Resendiz MD documented in this encounterK[facility]-31-[facility]22 History of Present illness Narrative* Juan Manuel Vyas RN - 04/05/2022 3:50 PM EDT Radiology Service Progress Note DATE OF SERVICE: April 05, 2022 TIME: 4:15 PM PATIENT WEIGHT: 188LBS PATIENT IDENTITY VERIFICATION COMPLETED USING TWO (2) STANDARD IDENTIFIERS: Name and Date of confirmed by patient verbally and Name and Date of confirmed by identification band. FALL SCREENING: Has the patient had 2 falls in the last year or 1 fall with injury or currently using an Ambulatory Assistive Device (Walker, Cane, Wheelchair, Crutches, etc.)? No PATIENT GENDER DATA: Female. status: : No status: NO. ALLERGIES: Reviewed and unchanged CONTRAST ALLERGY: No EXAM: MRI - CONTRAST TYPE: GROUP II IV SITE: Ambulatory: A peripheral IV was started in the Right antecubital site with a Angio cath: 24 gauge. IV SITE APPEARANCE: Clean,Dry and Intact SIGNATURE: Juan Manuel Vyas RN PATIENT NAME: Mary Oleary DATE: April 05, 2022 TIME: 4:15 PM * GARCIA Alba) - 04/05/2022 3:50 PM EDT Radiology Service Progress Note PATIENT NAME: Mary Oleary DATE OF SERVICE: April 05, 2022 TIME: 5:10 PM PATIENT IDENTITY VERIFICATION COMPLETED USING TWO (2) IDENTIFIERS: Name and Date of confirmedby patient verbally and Name and Date of confirmed by identification band. FALL SCREENING: Has the patient had 2 falls in the last year or 1 fall with injury or currently using an Ambulatory Assistive Device (Walker, Cane, Wheelchair, Crutches, etc.)? No PATIENT GENDER DATA: Female. status: : No status: NO. PATIENT RELEVANT IMPLANT DATA REVIEWED: Yes RADIOLOGY DEPARTMENT: MR; Exam(s) Completed: Body: Female Pelvis PERIPHERAL IV DATA: Site assessment: Clean,Dry and Intact, Site disposition Discontinued SIGNED BY: RT Parth(Jadyn) April 05, 2022 5:10 PM documented in this encounterK[facility]08-[facility]22 History of Present illness Narrative* Violet Marin APRN.DAIRY NUTRITIONIST - 03/14/2022 12:10 PM EDT Subjective Sore Throat Associated symptoms include congestion and coughing. Pertinent negatives include no diarrhea, headaches, shortness of breath or vomiting. Mary Oleary is a 26 year old female who presents with sore throat, cough, chills, body aches, stuffy nose for the past 3 days. She denies exposure to sick contacts. She has been taking Airborne. Review of Systems Constitutional: Negative for chills and fever. HENT: Positive for congestion and sore throat. Respiratory: Positive for cough. Negative for shortness of breath. Cardiovascular: Negative. Gastrointestinal: Negative for diarrhea, nausea and vomiting. Musculoskeletal: Positive for myalgias. Neurological: Negative for headaches. BP 122/80 Pulse 81 Temp 36.7 C (98 F) (Tympanic) Resp 18 Wt 87 kg (191 lb 12.8 oz) LMP 02/11/2022 SpO2 99% BMI 30.04 kg/m PAST MEDICAL HISTORY Diagnosis Date Anxiety Huizar's esophagus Depression Hyperthyroidism Ovarian cyst PAST SURGICAL HISTORY Procedure Laterality Date COLONOSCOPY 07/13/2021 gastritis and colitis found EGD 07/13/2021 LAPAROSCOPY W/RMVL ADNEXAL STRUCTURES Left 04/11/2018 Left ovarian cystectomy for dermoid cyst ALLERGIES Bactrim [Sulfamethoxazole-Trimethoprim], Caffine [Caffeine], and Penicillins MEDICATIONS omeprazole (PRILOSEC) 20 mg capsule Take 1 capsule by mouth twice daily. ondansetron (ZOFRAN) 4 mg tablet Take 1 tablet by mouth every 8 hours as needed for nausea/vomiting. melatonin 1 mg tablet Take 10-20 mg by mouth daily at bedtime. benzonatate (TESSALON PERLE) 100 mg capsule Take 1 capsule by mouth three times daily as needed forup to 10 days. Surgical Lubricant Jelly gel For MRI Female Pelvis, MRI department to provide. Administer intra-vaginal Surgilube immediately prior the MRI procedure (total amount to patient toleranace). PNV 67-iron ps-folate no.1-dha (VITAFOL ULTRA) 29 mg iron- 1 mg-200 mg cap Take 1 capsule by mouth once daily. (Patient not taking: Reported on 02/21/2022 ) Surgical Lubricant Jelly gel For MRI Female Pelvis, MRI department to provide. Administer intra-vaginal Surgilube immediately prior the MRI procedure (total amount to patient toleranace). ibuprofen (MOTRIN) 600 mg tablet Take 1 tablet by mouth every 6 hours as needed for Pain. FOR PAIN. FAMILY HISTORY Problem Relation Age of Onset Hypothyroidism Mother Hypertension Father No Known Problems Brother other (Tachycardia) Maternal Grandmother Diabetes Maternal Grandfather Diabetes Paternal Grandmother Hypertension Paternal Grandmother Hyperlipidemia Paternal Grandmother Ischemic Heart Disease Paternal Grandfather History of heart attacks Stroke Paternal Grandfather Hyperlipidemia Paternal Grandfather Hypertension Paternal Grandfather Social History Tobacco Use Smoking status: Never Smokeless tobacco: Never Vaping Use Vaping Use: Never used Substance Use Topics Alcohol use: Yes Comment: occasionally Drug use: No Objective Physical Exam Vitals and nursing note reviewed. Constitutional: Appearance: Normal appearance. HENT: Right Ear: Tympanic membrane, ear canal and external ear normal. Left Ear: Tympanic membrane, ear canal and external ear normal. Nose: Congestion present. Mouth/Throat: Mouth: Mucous membranes are moist. Pharynx: Uvula midline. Posterior oropharyngeal erythema (slight) present. No oropharyngeal exudate. Cardiovascular: Rate and Rhythm: Normal rate and regular rhythm. Heart sounds: Normal heart sounds. Pulmonary: Effort: Pulmonary effort is normal. No respiratory distress. Breath sounds: Normal breath sounds. No wheezing or rales. Musculoskeletal: Cervical back: Neck supple. Lymphadenopathy: Cervical: No cervical adenopathy. Skin: General: Skin is warm and dry. Findings: No erythema or rash. Neurological: Mental Status: She is alert. ASSESSMENT/PLAN: 1. Sore throat - ICD9: 462, ICD10: J02.9 (primary diagnosis) - suspect viral - Alere Strep Test NEGATIVE, no culture pending - Discussed supportive care treatment with fluids, rest and analgesia. - STREP A MOLECULAR (POC) 2. Viral URI with cough - ICD9: 465.9, ICD10: J06.9 - Discussed viral etiology and rationale for treatment. - Symptomatic treatment with prn analgesia - Supportive care with fluids and rest - offered COVID testing, patient declined. Recommended 5 days of isolation if not testing. - BENZONATATE 100 MG CAPSULE - Follow-up with your PCP in 3-5 days if symptoms have not improved or sooner if symptoms worsen - Discussed red flags and need for immediate medical evaluation if any occur. - Discussed supportive care treatment with fluids, rest and analgesia. - Discussed expected course of illness Violet Marin APRN.CNP documented in this encounterK[facility]08-[facility]-2022 Instructions* Patient Instructions* Violet Marin APRN.CNP - 03/14/2022 12:10 PM EDT ASSESSMENT/PLAN: 1. Sore throat - ICD9: 462, ICD10: J02.9 (primary diagnosis) - suspect viral - Alere Strep Test NEGATIVE, no culture pending - Discussed supportive care treatment with fluids, rest and analgesia. - STREP A MOLECULAR (POC) 2. Viral URI with cough - ICD9: 465.9, ICD10: J06.9 - Discussed viral etiology and rationale for treatment. - Symptomatic treatment with prn analgesia - Supportive care with fluids and rest - offered COVID testing, patient declined. Recommended 5 days of isolation if not testing. - BENZONATATE 100 MG CAPSULE - Follow-up with your PCP in 3-5 days if symptoms have not improved or sooner if symptoms worsen - Discussed red flags and need for immediate medical evaluation if any occur. - Discussed supportive care treatment with fluids, rest and analgesia. - Discussed expected course of illness Violet Marin APRN.CNP Treatment for Viral Upper Respiratory Tract Infections Your body will kill off the virus by itself. Additionally, you can prime your body's immune system.This may help you get better more quickly. Drink lots of fluids - at least one gallon of non-caffeinated liquids per day Make sure you are eating well Get plenty of rest - at least 8 hours of sleep per night for adults and more for children We do not have any medications that kill off these viruses. Antibiotics are used to treat bacterialinfections; however, they are not active against viral infections. There are some things that mighthelp you feel better, though. Vaporizers, humidifiers, hot showers, and hot fluids help open respiratory and sinus passages [place] Nasal Hart may offer relief of nasal and head congestion Kevin's Vapor Rub may relieve congestion Tylenol and Advil help control fevers and headaches Salt water gargles help relieve sore throats Chloraceptic spray or throat lozenges may also help relieve sore throat symptoms Robitussin DM will help loosen up secretions and also provide relief from a cough Occasionally, viral infections turn into something more serious. You should see your doctor or return to the Urgent Care if: You have fevers for longer than five days You have fevers above 102 degrees You are still sick after 10 days You have shortness of breath or wheezing After several days you are getting worse rather than better documented in this encounterK[facility]07-19-2022 Instructions* Patient Instructions* Digna Cooper MD - 02/21/2022 2:59 PM EDT 1 get MRI pelvis main [place] then 2 [facility] consult MINIMALLY INVASIVE GYNECOLOGIC SURGERY (MIGS)/BENIGN GYNECOLOGY CONTACTS: Surgeons: Dr. Jenny Abarca Dr. Suzy Hercules Dr. Yousuf Resendiz Dr. Roshni Sheets Myofascial pain( also known as Pelvic floor dysfunction, high tone pelvic floor,pelvic floor tightness) : Based on the patient s physical exam and history, it is evident that there is a significant component of myofascial pain that is contributing to her symptoms. Myofascial pain is pain that arises from dysfunction, spasticity, and/or hypersensitivity of the muscle, fascia or joints in the abdominalwall, pelvic floor, and/or low back. This is an extremely common, but under-recognized source of pain in women with chronic pelvic pain. We discussed that the most effective treatment modality is usually physical therapy, and that it is extremely important that the patient be seen and evaluated by a physical therapist with specialty training in female pelvic pain. We have ordered a consult to a pelvic floor physical therapist. We counseled her that her pelvic pain may initially worsen during and after the first several visits, and that it may take time and repetitive visits before she noticesan improvement. Unfortunately, there are few alternative treatments for this type of pain, and repetitive surgery can often make myofascial pain worse. Therefore, we strongly encouraged her to complete an entire course of physical therapy. If this treatment is not helpful, we are happy to discuss adjuvant therapies such as trigger point injections or muscle relaxers. SUGGESTED BEGINNER YOGA POSES: HAPPY BABY AND BRIDGE POSE Do reverse kegels , avoid kegel exercises until seen by physical therapist. Resources: Regina Lama P.T. Heal Pelvic Pain (website and book and has DVDs that can be ordered) Www.pelvicpain.org (International pelvic pain society) FOR learning to cope with pain (the modules are free, lasting 1 min each) :www.retrainpain.org TIRED OF WAITING FOR PAIN TO GO AWAY? Learn a science based approach to overcome chronic pain. Contact information: My chart messages will go to the RN or blueprint assembler first to be addressed. If questions are urgent, please call [phone] and press nurse prompt. For urgent Questions: call my attendance secretary with questions, appts related to chronic pelvic pain, [place] ,fax [phone] For refills, I prefer these be sent through [employer] We also have a nurse coordinator Alesha Oneil RN (CELL) My schedule: I see patients in office Sunday/Sunday/ and Fridays: virtual visits only documented in this encounterK[facility]07-19-2022 History of Present illness Narrative* Digna Cooper MD - 02/21/2022 1:30 PM EDT CONSULT: [facility] SERVICE DATE: February 21, 2022 Consultation requested by Digna Hill APRN, CNP for an opinion regarding Ms. Mary Oleary, andmy final recommendations will be communicated back to the requesting physician by way of shared medical record or letter via US mail. PRIMARY CARE PHYSICIAN: Wilson Rogers MD Lives with Self employed SUBJECTIVE Patient's Goal: to figure out what this pain is and to find out a way to treat or manage it What do you think is causing your pain? I think it is endometriosis Is there an event you associate with the onset of your pain? No had it since the onset of my periodat 12 years old on my 12th birthday Have you had pain in your pelvis or lower abdomen for greater than 6 months: Yes, 14 years HPI: 26 year old presents with She is w/ her Painful periods since age 12 w/ menarche, she would miss school and d/w mom & aunt. At age 15, periods were getting progressively worse. Periods worse, /crampier and passing clots. Had pain w/ tampons and cannot use them. She has pain outside of her periods consistently for the past 5 to 6 years. Has pain w/ intercourse x 4 years. 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 They removed the mirena shortly after. After high school, she was getting and first annual age 21 , dermoid cyst removed through [facility] , on left side, she might have3 month of pain on the left but periods justas painful Had dermoid cyst, Then tried control pill and still had painful periods but started getting migraines Switched to nuvaring and severe depression Didn't help the pain Last took med 2019 nothing since then Stopped condoms last year to get and not able Has different kinds o f pain 4days leading up to period scott and feels like fire in gut. Then starts period, w intense cramping and shooting pains, and hurts to urinate, and BM and backhurts, migraines, hurts down the legs. Lays down on couch and cries Heavy flow x Days then stops has baseline daily [place]. The back still hurts and L sided pain/stabbing pains but always there. Duration of painful symptoms: age 12 Location: Vagina:exams intercourse and tampons Pelvis: left lower Back: lower Quality: Pain: sharp, dull, burning, stabbing, aching, fullness and cramping heavy Severity: Mild: 1-3 at the least, and Disabling at the most Radiation lower back (leg/back/abdomen/buttock/vagina) Timing Duration of episode Aggravating factors: urination , intercourse,bowel movements,coughing , ovulation Alleviating factors: heat ice relaxation, lying down, rest Menstrual Symptoms: cycles have gotten shorter but heavy with a ton of clotting,sometimes completely stop and start for one day and then be done Menstrual regulation tried: mirena iud, ocp and nuva ring all three causing unpleasant side effects Waka: painful every time SFSI6: 23 (below 19 indicates Female Sexual Dysfunction) Urinary Symptoms: pain urgency after intercourse PUF: 16 (20+ indicates probable Interstitial Cystitis) GI Symptoms: diarrhea painful Bowel issues also egd done 07/13/21 and colonoscopy Heartburn symptoms told has barretts esophagus, prilosec daily Diagnoses related to pelvic pain: no but ovarian cysts in the past Interventions tried for pain: over the counter pain meds and heat Pain Scales PDI: 15 GAD7: 7(Greater than 8 indicates probable anxiety disorder) PHQ9: 1 (Greater than 14 warrants treatment for depression) SEXUAL AND PHYSICAL ABUSE HISTORY: Have you ever been a victim of emotional, physical or sexual abuse? This can include being humiliated or insulted. No RELEVANT RECORDS AND IMAGING 01/31/2022 Pelvic Ultrasound result: Results-Findings Indication pelvic pain Impression Normal appearing anteverted uterus that measures 78 mm x 33 mm x 43 mm. The central endometrium complex measures 12.1 mm in combined thickness. No abnormal blood flow to suggest a polyp or focal endometrial pathology is observed within the endometrial complex. The contour of the endometrial cavity was normal on 3-D imaging. Both ovaries are visualized and appear normal. No adnexal masses were observed. There is no free fluid visualized in the peritoneal cavity. slide test positive. Recommendations Follow up as clinically indicated. Menstrual History LMP on 01/14/2022 Method Transvaginal, 3D ultrasound examination, Color Doppler examination Uterus Uterus: Visualized Uterus position: anteverted Uterus long 78 mm Uterus ap 33 mm Uterus tr 43 mm Uterus Vol 57.8 cm Endometrial thickness, total 12.1 mm Right Ovary Rt ovary: Visualized Rt ovary D1 25 mm Rt ovary D2 25 mm Rt ovary D3 17 mm Rt ovary Vol 5.4 cm Left Ovary Lt ovary: Visualized Lt ovary D1 26 mm Lt ovary D2 27 mm Lt ovary D3 24 mm Lt ovary Vol 9.0 cm Cul de Sac Visualized. no free fluid visualized HISTORIES OB History T0 L0 SAB0 IAB0 Ectopic0 Multiple0 Live Births0 PAST MEDICAL HISTORY Diagnosis Date Anxiety Huizar's esophagus Depression Hyperthyroidism Ovarian cyst PAST SURGICAL HISTORY Procedure Laterality Date COLONOSCOPY 07/13/2021 gastritis and colitis found EGD 07/13/2021 LAPAROSCOPY W/RMVL ADNEXAL STRUCTURES Left 04/11/2018 Left ovarian cystectomy for dermoid cyst Social History Tobacco Use Smoking status: Never Smoker Smokeless tobacco: Never Used Vaping Use Vaping Use: Never used Substance Use Topics Alcohol use: Yes Comment: occasionally Drug use: No Current Outpatient Medications on File Prior to Visit Medication Sig PNV 67-iron ps-folate no.1-dha (VITAFOL ULTRA) 29 mg iron- 1 mg-200 mg cap Take 1 capsule by mouth once daily. Surgical Lubricant Jelly gel For MRI Female Pelvis, MRI department to provide. Administer intra-vaginal Surgilube immediately prior the MRI procedure (total amount to patient toleranace). omeprazole (PRILOSEC) 20 mg capsule Take 1 capsule by mouth twice daily. ondansetron (ZOFRAN) 4 mg tablet Take 1 tablet by mouth every 8 hours as needed for nausea/vomiting. melatonin 1 mg tablet Take 10-20 mg by mouth daily at bedtime. ibuprofen (MOTRIN) 600 mg tablet Take 1 tablet by mouth every 6 hours as needed for Pain. FOR PAIN. No current facility-administered medications on file prior to visit. ALLERGIES Allergen Reactions Bactrim [Sulfametho* Hives Caffine [Caffeine] Other: See Comments tachycardia Penicillins Hives FAMILY HISTORY Problem Relation Age of Onset Hypothyroidism Mother Hypertension Father No Known Problems Brother other (Tachycardia) Maternal Grandmother Diabetes Maternal Grandfather Diabetes Paternal Grandmother Hypertension Paternal Grandmother Hyperlipidemia Paternal Grandmother Ischemic Heart Disease Paternal Grandfather History of heart attacks Stroke Paternal Grandfather Hyperlipidemia Paternal Grandfather Hypertension Paternal Grandfather ROS OBJECTIVE BP 118/80 Ht 5' 7 (1.70m) Wt 194 lb (88.0kg) LMP 02/11/2022 BMI 30.38 kg/(m^2). PHYSICAL EXAMINATION: Physical Exam Constitutional: Appearance: Normal appearance. Genitourinary: Comments: Spine tenderness neg SI joint neg CVA tenderness neg Leg length - n/a Pubic symphysis tenderness neg Pubic bones neg Abdominal tenderness tender blq Abdominal myofacial trigger points - neg carnetts Vaginal Vestibular tenderness neg Rectal tenderness neg Bladder base tenderness neg Uterus TENDER Retrocervixneg Adnexa neg Pelvic Floor Musculature RIGHT SIDED Pubococcygeus 2 Iliococcygeus 2 Coccygeus 2 Obturator 2 LEFT SIDED Pubococcygeus 3 Iliococcygeus 3 Coccygeus 3 Obturator 3 (Pain Scale 1 to 3, 3= extreme) RV exam - deferred Neurological: Mental Status: She is alert. CPP SUMMARY DIAGNOSES: pfd, dysmenorrhea, menorrhagia Infertility 1st cpp visit February 21, 2022 Surgery 1. none Procedures (TPI, botox, pain bocks, etc) 1. none Nonhormonal Medications 1. none Hormonal medications (IUD, control pill, GNRH) 1. control pill-migraines 2. nuvaring-depression 3. IUDmirena pain Services (GI, urology, pain psych,PFPT) 1. Refer to pfpt and MIGS 2. sched MRI ASSESSMENT Mary Oleary is a 26 year old female with Pelvic pain in female Pelvic and perineal pain Dysmenorrhea (primary encounter diagnosis) Dyschezia Diarrhea, unspecified type Other specified dyspareunia High-tone pelvic floor dysfunction Encounter Diagnosis ICD-10-CM 1. Dysmenorrhea N94.6 MRI FEMALE PELVIS WO/W IVCON iv contrast (will be provided with radiology test) Surgical Lubricant Jelly gel CONSULT TO MINIMALLY INVASIVE GYNECOLOGIC SURGERY 2. Pelvic pain in female R10.2 3. Pelvic and perineal pain R10.2 4. Dyschezia K59.00 CONSULT TO MINIMALLY INVASIVE GYNECOLOGIC SURGERY 5. Diarrhea, unspecified type R19.7 CONSULT TO MINIMALLY INVASIVE GYNECOLOGIC SURGERY 6. Other specified dyspareunia N94.19 7. High-tone pelvic floor dysfunction N94.89 CONSULT TO PHYSICAL THERAPY PLAN Suspect endo/adenomyosis Get MRI then Migs consult Follow up contact after MRI For PFD refer to PFPT, names given. Need to do internal work Digna Tucker, MD Medical Decision Making: Problems: Moderate: 1+ chronic illnesses with change Data: Unique test result(s) reviewed: 1 Risk: Moderate: Moderate risk from testing/treatment and Drug management Medical Decision Making Level: 4 - Moderate documented in this encounterK[facility]-2022 Miscellaneous Notes* Telephone Encounter - Alesha Oneil RN - 02/20/2022 3:41 PM EDT NPAF emailed for appointment with Dr. Digna Cooper on 02/21 @ 1:30. Alesha Oneil RN documented in this encounterK[facility]07-18-2022 History of Present illness Narrative* Digna Hill APRN.MANOHAR - 02/20/2022 2:43 PM EDT Mary Oleary is a 26 year old female who presents for problem visit for painful periods. HPI: Here today with complaint with pain with menses and ovulation since age 12. In last 4 years pain with IC and doesn't want to have IC. History of ovarian cyst, increased pain on left side. Cystectomy left ovary for dermoid cyst 2017. I know something is wrong History of bowel issues, colonoscopy completed and nothing wrong Frequent UTIs, possible overactive bladder Worst symptoms around ovulation and menses. Menses every month but history of having menses twice a month. (twice in July 2021 and twice inJanuary 2021). Menses normally every 24-27 days, bleeding was 3-5 days but now 2-3 days. Filling a tampon every 1.5-2 hrs for the first 2 days then decreases. No bleeding or spotting in between. Pain starts 3 days before menses. Gets bloating, bad lower back pain and shooting down legs. Diarrhea, migraines, nausea. Pain lasts 2-5 days depending on length of menses. Rates pain 8-10/10, pain is burning before menses/aching/stabbing, sharp. . Admits to pain during ovulation 1.5-2 weeks beforemenses starts. Using ovulation predictor kits and showing ovulation and that is when pain is most extreme. Pain can be on both sides but most intense on the left. Denies history of STD. Takes Ibuprofen, heating pad/ice and minimal relief. Took control in the past. Has used Mirena 2018, increased pain and dermoid cyst and was removed. Tried OCP and cause headaches and nausea. Switched to NuvaRing and caused depression. This was end of 2017/beginning of 2018. Current partner x 10 years, x 4 years. No history of STDs. Has always had pain with intercourse. Has been trying to conceive for 1.5 years and has been unable to conceive. OPK shows ovulation. OB History T0 L0 SAB0 IAB0 Ectopic0 Multiple0 Live Births0 [employer] History LMP: 02/11/2022, Having periods Age at Menarche: Age at First : Age at Menopause: [employer] History Comments: Sexual Activity: Yes; Male Contraception: Condom PAST MEDICAL HISTORY Diagnosis Date Anxiety Huizar's esophagus Depression Hyperthyroidism Ovarian cyst PAST SURGICAL HISTORY Procedure Laterality Date COLONOSCOPY 07/13/2021 gastritis and colitis found EGD 07/13/2021 LAPAROSCOPY W/RMVL ADNEXAL STRUCTURES Left 04/11/2018 Left ovarian cystectomy for dermoid cyst FAMILY HISTORY Problem Relation Age of Onset Hypothyroidism Mother Hypertension Father No Known Problems Brother other (Tachycardia) Maternal Grandmother Diabetes Maternal Grandfather Diabetes Paternal Grandmother Hypertension Paternal Grandmother Hyperlipidemia Paternal Grandmother Ischemic Heart Disease Paternal Grandfather History of heart attacks Stroke Paternal Grandfather Hyperlipidemia Paternal Grandfather Hypertension Paternal Grandfather Social History Tobacco Use Smoking status: Never Smoker Smokeless tobacco: Never Used Vaping Use Vaping Use: Never used Substance Use Topics Alcohol use: Yes Comment: occasionally Drug use: No Current Outpatient Medications Medication Sig Surgical Lubricant Jelly gel For MRI Female Pelvis, MRI department to provide. Administer intra-vaginal Surgilube immediately prior the MRI procedure (total amount to patient toleranace). omeprazole (PRILOSEC) 20 mg capsule Take 1 capsule by mouth twice daily. ondansetron (ZOFRAN) 4 mg tablet Take 1 tablet by mouth every 8 hours as needed for nausea/vomiting. melatonin 1 mg tablet Take 10-20 mg by mouth daily at bedtime. ibuprofen (MOTRIN) 600 mg tablet Take 1 tablet by mouth every 6 hours as needed for Pain. FOR PAIN. No current facility-administered medications for this visit. Allergies As of Date: 02/20/2022 Allergen Noted Reaction BACTRIM [SULFAMETHOXAZOLE-TRIMETH*06/17/2018 Hives CAFFINE [CAFFEINE] 05/24/2011 Other: See Comments PENICILLINS 05/24/2011 Hives Fully Assessed 02/20/2022 REVIEW OF SYSTEMS Abdomen: No bloating, early satiety, indigestion, or increased flatulence. No abdominal pain, nausea, vomiting, diarrhea, or constipation. Bladder: No dysuria, gross hematuria, urinary frequency, urinary urgency, or incontinence. Breast: No breast lumps, nipple d/c, overlying skin changes, redness or skin retraction. Expanded ROS: N/A Allergies and current medication updated:Yes EXAM: BP 118/80 Wt 195 lb (88.5kg) LMP 02/11/2022 GENERAL: pleasant, female in no apparent distress HEENT: Normocephalic, atraumatic, mucus membranes moist and no lesions NECK: Supple, full range of motion, no adenopathy and thyroid normal DERMATOLOGY: Normal and without lesions PELVIC: deferred BIMANUAL: deferred NEURO: alert and oriented x3,exam grossly non-focal EXTREMITIES: normal Pelvic US 01/31/22 Impression Normal appearing anteverted uterus that measures 78 mm x 33 mm x 43 mm. The central endometrium complex measures 12.1 mm in combined thickness. No abnormal blood flow to suggest a polyp or focal endometrial pathology is observed within the endometrial complex. The contour of the endometrial cavity was normal on 3-D imaging. Both ovaries are visualized and appear normal. No adnexal masses were observed. There is no free fluid visualized in the peritoneal cavity. slide test positive. Recommendations Follow up as clinically indicated. Component Latest Ref Rng & Units 10/04/2021 01/30/2022 01/30/2022 01/30/2022 2:54 PM 2:54 PM 2:54 PM WBC 3.70 - 11.00 k/uL 9.84 RBC 3.90 - 5.20 m/uL 4.53 Hemoglobin 11.5 - 15.5 g/dL 13.1 Hematocrit 36.0 - 46.0 % 41.7 MCV 80.0 - 100.0 fL 92.1 MCH 26.0 - 34.0 pg 28.9 MCHC 30.5 - 36.0 g/dL 31.4 RDW-CV 11.5 - 15.0 % 12.2 Platelet Count 150 - 400 k/uL 292 MPV 9.0 - 12.7 fL 9.8 Neut% % 68.5 Abs Neut (ANC) 1.45 - 7.50 k/uL 6.74 Lymph% % 22.4 Abs Lymph 1.00 - 4.00 k/uL 2.20 [place]% % 5.9 Abs [place] <0.87 k/uL 0.58 Eosin% % 2.0 Abs Eosin <0.46 k/uL 0.20 Baso% % 0.6 Abs Baso <0.11 k/uL 0.06 Immature Gran % % 0.6 IMMATURE GRANS (ABS) <0.10 k/uL 0.06 NRBC /100 WBC 0.0 Absolute nRBC <0.01 k/uL <0.01 DTYPE Auto Protein, Total 6.3 - 8.0 g/dL 7.5 Albumin 3.9 - 4.9 g/dL 4.6 Calcium 8.5 - 10.2 mg/dL 10.1 Bilirubin, Total 0.2 - 1.3 mg/dL <0.2 (L) Alkaline Phosphatase 34 - 123 U/L 61 AST 13 - 35 U/L 19 ALT 7 - 38 U/L 19 Glucose 74 - 99 mg/dL 79 BUN 7 - 21 mg/dL 13 Creatinine 0.58 - 0.96 mg/dL 0.70 Sodium 136 - 144 mmol/L 139 Potassium 3.7 - 5.1 mmol/L 4.1 Chloride 97 - 105 mmol/L 103 CO2 22 - 30 mmol/L 24 Anion Gap 9 - 18 mmol/L 12 eGFR >=60 mL/min/1.73m 122 Bacterial Vaginosis* BACTERIAL VAGINOSIS RESULT: Stain results consistent with normal vaginal pavel. No Yeast observed Few Polymorphonuclear leukocytes TSH 0.270 - 4.200 mIU/L 3.350 ASSESSMENT AND PLAN: 1. Pelvic pain in female - ICD9: 625.9, ICD10: R10.2 (primary diagnosis) - CONSULT TO ORDER CLERK PELVIC PAIN - US normal. Recommend referral to pelvic pain as she is wanting to conceive but would like answersat this time for diagnosis/pain. Does not want control at this time. After meeting with pelvic pain can then refer to infertility clinic. Patient agreeable to plan. 2. Female infertility - ICD9: 628.9, ICD10: N97.9 - CONSULT TO INFERTILITY CLINIC -Recommend PNV, prescription sent. Digna Hill APRN.CNM I spent a total of 30 minutes on the date of the service which included preparing to see the patient, [id number] patient care, completing clinical documentation, obtaining and/or reviewing separately obtained history, performing a medically appropriate examination, counseling and educating the pat ient/family/caregiver and ordering medications, tests, or procedures. documented in this encounterK[facility]07-06-2022 Miscellaneous Notes* Telephone Encounter - Regina Oneill APRN.CNP - 02/08/2022 1:50 PM EDT Spoke with pt per phone. She is concerned that she may have endometriosis due to having several symptoms during her recent research - dysmenorrhea, dyspareunia, low pack pian, bloating, pain with ovulation, constant cramping and burning, random nausea, pain with urination, rectal pian, attempting without success for 1+ years. Pelvic US 01/24/2022 - normal with positive slide sign. Case discussed with Dr Henriquez - MRI ordered. If not approved, will do HSG. Pt agreeable to plan. Regina Oneill APRN.CNP documented in this encounterK[facility]06-28-2022 Miscellaneous Notes* Telephone Encounter - Regina Oneill APRN.CNP - 01/31/2022 3:33 PM EDT See result phone note. Regina Oneill APRN.CNP documented in this encounterK[facility]06-28-2022 Miscellaneous Notes* Telephone Encounter - Regina Oneill APRN.CNP - 01/31/2022 3:30 PM EDT Pt called per myself with normal pelvic ultrasound results. BVC negative. She continues to have LLQpain. Denies constipation. Did have a normal colonoscopy 07/2021 after having abnormal stools. Recommending appointment with PCP for further evaluation and pt agrees. Regina Oneill APRN.ELDER documented in this encounterK[facility]06-27-2022 Miscellaneous Notes* Telephone Encounter - Krystina Cha RN - 01/30/2022 9:52 AM EDT Patient called back in. Rating pain a 3/10 on pain scale right now. States it gets severe intermittently. Last night was almost unbearable. Scheduled with AG today. Krystina Cha RN * Telephone Encounter - Mila Loaiza RN - 01/30/2022 7:05 AM EDT Left message for patient to return phone call documented in this encounterK[facility]05-27-2022 History of Present illness Narrative* Judie Biggs APRN.ELDER - 12/30/2021 9:29 AM EDT CC: Patient presents with: Recheck: Adipex follow up HPI Mary Oleary is a 26 year old female who presents today for above. Currently finished with 3rd month of phentermine Weight/BMI Last 1 Encounter Wt Readings: Date: Wt: 12/30/2021 87.5 kg (193 lb) BMI 30.23 kg/(m^2) Last visit Wt: 88.9 kg (196 lb) BMI: 30.70 kg/(m^2) DIET Daily serving of fruits:3-5 Daily serving of vegetables:3-5 Daily serving of protein:1-2 Fluid intake:Water: 7 glasses per day Do you Skip meals:YES - continuing with intermittent fasting Exercise routine: YES Walking 3 times a week about 2 miles each time. Medication side effects: Increased heart rate: No Insomnia: No Constipation: No, but recently saw General Surgery for Anal Fissure they feel was possibly related to hard stools Nervousness: No Impairment of concentration/attention, difficulty with memory, speech or language problems (particularly word-finding difficulties): No ROS as above, otherwise non-contributory. Reviewed PMHx, PSHx, social Hx, medications and allergies. PHYSICAL EXAM BP 112/76 Pulse 88 Resp 16 Wt 87.5 kg (193 lb) LMP 05/17/2021 BMI 30.23 kg/m General Appearance: well appearing, in no acute distress, alert Eyes: conjunctiva pink and moist, no icterus, sclera white, non-injected Lungs: Lungs clear to auscultation. No wheezing, rhonchi, rales. Heart: RRR without murmur, gallop, or rubs. No ectopy ASSESSMENT/PLAN: 1. Obesity (BMI 30-39.9) - ICD9: 278.00, ICD10: E66.9 (primary diagnosis) Weight decreasing - Behavioral intervention - Patient instructed to continue diet changes and exercise regimen to hopefully continue weight loss - Follow up in 6 months 2. Weight loss counseling, encounter for - ICD9: V65.3, ICD10: Z71.3 As above. Prescription instructions reviewed with patient as applicable. Potential red flag symptoms discussed with the patient. Reviewed appropriate action plan to take if red flag symptoms occur. Patient agreeable to treatment plan. Judie Biggs APRN.CNP documented in this encounterK[facility]05-25-2022 History of Present illness Narrative* Piper Perez MD - 12/28/2021 3:08 PM EDT Mary Oleary 1995 REFERRING PHYSICIAN: Beatris Griffith APRN.CNP CHIEF COMPLAINT: Consult (hemorrhoids) HPI: The patient is a 26 year old female presents with anal pain. She notes burning pain during and after a bowel movement. She has noted this intermittently for years . She had a colonoscopy in July 2021, which revealed hemorrhoids. She admits to straining with bowel movements and prolonged sitting on the toilet. She states that she normally has a bowel movement twice a week and has hard stools. PAST MEDICAL HISTORY Diagnosis Date Anxiety Huizar's esophagus Depression Hyperthyroidism PAST SURGICAL HISTORY Procedure Laterality Date COLONOSCOPY 07/13/2021 gastritis and colitis found EGD 07/13/2021 LAPAROSCOPY W/RMVL ADNEXAL STRUCTURES Left 04/11/2018 Left ovarian cystectomy for dermoid cyst Current Outpatient Medications Medication Sig Phentermine HCl (ADIPEX-P) 37.5 mg tablet Take 1 tablet by mouth once daily for 30 days. Do not start before December 04, 2021. ondansetron (ZOFRAN) 4 mg tablet Take 1 tablet by mouth every 8 hours as needed for nausea/vomiting. melatonin 1 mg tablet Take 10-20 mg by mouth daily at bedtime. omeprazole (PRILOSEC) 20 mg capsule Take 1 capsule by mouth once daily. hydrocortisone (ANUSOL-HC) 25 mg suppository 1 Suppository by RECTAL route twice daily. ibuprofen (MOTRIN) 600 mg tablet Take 1 tablet by mouth every 6 hours as needed for Pain. FOR PAIN. ALLERGIES: Bactrim [Sulfamethoxazole-Trimethoprim], Caffine [Caffeine], and Penicillins PERSONAL HISTORY: Social History Tobacco Use Smoking status: Never Smoker Smokeless tobacco: Never Used Vaping Use Vaping Use: Never used Substance Use Topics Alcohol use: Yes Comment: occasionally Drug use: No FAMILY HISTORY Problem Relation Age of Onset Hypothyroidism Mother Hypertension Father No Known Problems Brother other (Tachycardia) Maternal Grandmother Diabetes Maternal Grandfather Diabetes Paternal Grandmother Hypertension Paternal Grandmother Hyperlipidemia Paternal Grandmother Ischemic Heart Disease Paternal Grandfather History of heart attacks Stroke Paternal Grandfather Hyperlipidemia Paternal Grandfather Hypertension Paternal Grandfather The review of systems data was entered by the nurse and reviewed by az Nursing Notes: Uzma Ball LPN 12/28/2021 2:48 PM Signed REVIEW OF SYSTEMS: General: The patient notes fatigue, denies weight loss, denies weight gain, notes feeling hot, and denies feelings of cold. Eyes: The patient denies glaucoma, denies eye injury/surgery, does not wear glasses or contacts. Ear/Nose/Throat: The patient denies allergies, denies hayfever, denies ear infections, and denies bloody noses. Cardiovascular: The patient denies chest pain, denies heart disease, denies high blood pressure,denies cardiac stent, denies prior heart attack, denies irregular heart beat, denies high cholesterol, denies poor circulation, denies heart failure, other cardiac issues, denies claudication, denies cold feet, denies peripheral arterial stent. Respiratory: The patient denies tuberculosis, denies pneumonia, denies frequent cough, denies pulmonary embolism, denies shortness of breath, and denies coughing up blood. Gastrointestinal: The patient denies difficulty swallowing, notes acid reflux, denies ulcers, denies vomiting, denies jaundice/hepatitis, denies gallbladder problems, denies black or tarry stools, notes hemorrhoids, notes bleeding from rectum, denies diverticulitis, denies constipation, denies diarrhea, denies loss of stool control, and denies hernias. Kidney/Bladder: The patient denies kidney stones, denies urine infections, and denies bloody urine. Skin: The patient denies a history of skin cancer, denies bleeding/changing moles, and denies a history of skin rash. Neurologic: The patient denies a history of epilepsy/convulsions, notes headaches, denies head/spinal injuries, and denies stroke/TIA. Psychiatric: The patient denies psychiatric medications, denies depression, and denies voices, denies substance abuse. Endocrine: The patient notes thyroid disorders, denies diabetes, and denies hormonal problems. Hematologic: The patient denies a history of bruising, denies bleeding, and denies anemia, denies blood clots. Infections: The patient denies a history of measles and mumps, denies rheumatic fever, and denies sexually transmitted diseases. Musculoskeletal: The patient denies back pain/injury, denies back problems, denies sciatica, deniesknee/foot trouble, denies arthritis, or denies gout. When was patient's last Mammogram screening? none Last Colonoscopy: 07/2021 Uzma Ball LPN PHYSICAL EXAMINATION: General: The patient is 26 year old female, well nourished, well hydrated in no acute distress. Thepatient is oriented to time, place, and person. VITALS: Blood pressure 102/78, pulse (!) 122, temperature 36.4 C (97.6 F), height 170.2 cm (5' 7 ),weight 88.9 kg (196 lb), last menstrual period 05/17/2021, SpO2 100 %. Body mass index is 30.7 kg/m. Head: Normal cephalic, atraumatic Eyes: pupils are equally round, sclera are clear/anicteric Neck is supple with no tracheal deviation Respiratory: Normal respiratory excursion and pattern. Abdominal exam: Benign Anus/rectum: normal perianal skin, small hemorrhoidal tags, posterior anal fissure, no prolapsed internal hemorrhoids Extremities: no clubbing, cyanosis or edema. Neuro: non focal Psych: normal mood Assessment IMPRESSION: anal fissure PLAN: I have discussed the above with the patient. I have explained anal fissure and hemorrhoidal disease to patient in layman's terms and have drawn pictures for better delineation. I have recommended compounded nifedipine cream - prescribed to [facility] - retail pharmacy. I have explained the application of this medication to the patient. I have also recommended the following Use of witch teo pads - like Tucks - for comfort Use of Sitz baths may help with cleansing, also consider using moist towellettes instead of toilet paper to prevent abrasion to the sensitive skin Use of mineral oil - to prevent need for straining for hard stools, stools will become slick . Use one tablespoon ,once or twice a day - can mix with apple sauce/etc. Soaking in hot tubs with Dreft or epsom salts - to decrease swelling and discomfort Drinking plenty of fluids - 8 - 10 glasses of water per day Avoid caffeinated products - as it will decrease the free water in your body Follow normal bodily urge for bowel movements Avoid straining for bowel movements Avoid prolonged sitting on the toilet Adequate fiber (25-30 grams/day) and water in diet Avoiding prolonged use of hemorrhoidal creams with steroids, using perianal creams with -riky for comfort, etc. I have prescribed a compounded medicated cream to apply to the anal skin. This will help relax youranal sphincter muscles to allow for passage of bowel movements that will avoid further tearing of the skin in the area. This must be applied PRIOR to bowel movements and may also be applied at night. The patient acknowledges the above. I have answered all questions to the patient s satisfaction and the patient has no further questions. Instructions of above, written and given to patient by me. I have confirmed and edited as necessary, the PFSH and ROS obtained by others. Consultation requested by Beatris Griffith for an opinion regarding patient's complaint of anal pain. My final recommendations will be communicated back to the requesting physician by way of shared Medicalrecord or letter to requesting physician via US mail. . Diagnoses: (K60.2) Anal fissure Return to Clinic: The patient is instructed to follow-up with me as per needed. Medical Decision Making: Problems: Low: Acute, uncomplicated illness or injury Risk: Moderate: Drug management Medical Decision Making Level: 3 - Low Piper Perez MD [facility] Instructions* Patient Instructions* Piper Perez MD - 12/28/2021 3:00 PM EDT I have recommended the following for conservative treatment of hemorrhoidal disease: Use of witch teo pads - like Tucks - for comfort Use of Sitz baths may help with cleansing, also consider using moist towellettes instead of toilet paper to prevent abrasion to the sensitive skin Use of mineral oil - to prevent need for straining for hard stools, stools will become slick . Use one tablespoon ,once or twice a day - can mix with apple sauce/etc. Soaking in hot tubs with Dreft or epsom salts - to decrease swelling and discomfort Drinking plenty of fluids - 8 - 10 glasses of free water per day Avoid caffeinated products - as it will decrease the free water in your body Follow normal bodily urge for bowel movements Avoid straining for bowel movements Avoid prolonged sitting on the toilet Adequate fiber (25-30 grams/day) and water in diet I have prescribed a compounded medicated cream to apply to the anal skin. This will help relax youranal sphincter muscles to allow for passage of bowel movements that will avoid further tearing of the skin in the area. This must be applied PRIOR to bowel movements and may also be applied at night. documented [facility] Nurse Note* Uzma Ball, CAD PROGRAMMER - 12/28/2021 2:46 PM EDT REVIEW OF SYSTEMS: General: The patient notes fatigue, denies weight loss, denies weight gain, notes feeling hot, and denies feelings of cold. Eyes: The patient denies glaucoma, denies eye injury/surgery, does not wear glasses or contacts. Ear/Nose/Throat: The patient denies allergies, denies hayfever, denies ear infections, and denies bloody noses. Cardiovascular: The patient denies chest pain, denies heart disease, denies high blood pressure,denies cardiac stent, denies prior heart attack, denies irregular heart beat, denies high cholesterol, denies poor circulation, denies heart failure, other cardiac issues, denies claudication, denies cold feet, denies peripheral arterial stent. Respiratory: The patient denies tuberculosis, denies pneumonia, denies frequent cough, denies pulmonary embolism, denies shortness of breath, and denies coughing up blood. Gastrointestinal: The patient denies difficulty swallowing, notes acid reflux, denies ulcers, denies vomiting, denies jaundice/hepatitis, denies gallbladder problems, denies black or tarry stools, notes hemorrhoids, notes bleeding from rectum, denies diverticulitis, denies constipation, denies diarrhea, denies loss of stool control, and denies hernias. Kidney/Bladder: The patient denies kidney stones, denies urine infections, and denies bloody urine. Skin: The patient denies a history of skin cancer, denies bleeding/changing moles, and denies a history of skin rash. Neurologic: The patient denies a history of epilepsy/convulsions, notes headaches, denies head/spinal injuries, and denies stroke/TIA. Psychiatric: The patient denies psychiatric medications, denies depression, and denies voices, denies substance abuse. Endocrine: The patient notes thyroid disorders, denies diabetes, and denies hormonal problems. Hematologic: The patient denies a history of bruising, denies bleeding, and denies anemia, denies blood clots. Infections: The patient denies a history of measles and mumps, denies rheumatic fever, and denies sexually transmitted diseases. Musculoskeletal: The patient denies back pain/injury, denies back problems, denies sciatica, deniesknee/foot trouble, denies arthritis, or denies gout. When was patient's last Mammogram screening? none Last Colonoscopy: 07/2021 Uzma Ball LPN documented in this [facility] History of Present illness Narrative* Judie Biggs APRN.DAIRY NUTRITIONIST - 12/02/2021 2:11 PM EDT CC: Patient presents with: Recheck: Adipex follow up HPI Mary Oleary is a 26 year old female who presents today for above. Currently taking phentermine. Starting Month 3 of 3 Weight/BMI Last 1 Encounter Wt Readings: Date: Wt: 12/02/2021 91.2 kg (201 lb) BMI 31.48 kg/(m^2) Last visit Wt: 93.4 kg (206 lb) BMI: 32.26 kg/(m^2) DIET Daily serving of fruits:3-5 Daily serving of vegetables:3-5 Daily serving of protein:1-2 Fluid intake:Water: 7 glasses per day Do you Skip meals:YES - is doing intermittent fasting Eating away from home:YES Fast-food/fast-casual and Sit down restaurantTwice weekly Exercise routine: YES Frequency:walking about 3 times a week. Medication side effects: Increased heart rate: No Insomnia: No Constipation: No Nervousness: No Impairment of concentration/attention, difficulty with memory, speech or language problems (particularly word-finding difficulties): No If DM any hypo/hyperglycemia: No ROS as above, otherwise non-contributory. Reviewed PMHx, PSHx, social Hx, medications and allergies. PHYSICAL EXAM BP 122/84 Pulse 92 Resp 16 Wt 91.2 kg (201 lb) LMP 05/17/2021 BMI 31.48 kg/m General Appearance: well appearing, in no acute distress, alert Eyes: conjunctiva pink and moist, no icterus, sclera white, non-injected Lungs: Lungs clear to auscultation. No wheezing, rhonchi, rales. Heart: RRR without murmur, gallop, or rubs. No ectopy PHQ 2 is 0 ASSESSMENT/PLAN: 1. Class 1 obesity with body mass index (BMI) of 33.0 to 33.9 in adult, unspecified obesity type, unspecified whether serious comorbidity present - ICD9: 278.00, V85.33, ICD10: E66.9, Z68.33 Weight decreasing - Behavioral and pharmacological intervention - PHENTERMINE 37.5 MG TABLET for 3rd month - follow up in 1 month 2. Weight loss counseling, encounter for - ICD9: V65.3, ICD10: Z71.3 As above Discussed Contraindications, went over each one and over side effects. tolerance, continuity of medication, controlled medication so cannot be replaced if stolen or if lost. Advised exercising along with this will really help the patient reach her goal of loosing weight. Short term use of this med was discussed. Negative for all the following :Hypersensitivity or idiosyncrasy to phentermine or other sympathomimetic amines or any component of the formulation; history of cardiovascular disease (arrhythmias, congestive heart failure, coronary artery disease, stroke, uncontrolled hypertension); hyperthyroidism, glaucoma, agitated states, history of drug abuse; use during or within 14 days following MAO inhibitor therapy; , breast-feeding. PDMP website checked and validated. All prescriptions have been APPROPRIATELY filled. No suspiciousactivity was identified. 12/02/2021 by Judie Biggs APRN.CNP Prescription instructions reviewed with patient as applicable. Potential red flag symptoms discussed with the patient. Reviewed appropriate action plan to take if red flag symptoms occur. Patient agreeable to treatment plan. Judie Biggs APRN.CNP documented in this [facility] History of Present illness Narrative* Judie Biggs APRN.CNP - 11/04/2021 2:14 PM EDT CC: Patient presents with: Recheck: Adipex follow up HPI Mary Oleary is a 26 year old female who presents today for above. Currently taking Adipex. Starting Month 2 of 3 Weight/BMI Last 1 Encounter Wt Readings: Date: Wt: 11/04/2021 93.4 kg (206 lb) BMI 32.26 kg/(m^2) Last visit Wt: 97.5 kg (215 lb) BMI: 33.67 kg/(m^2) DIET - Started intermittent Fasting Daily serving of fruits:1-2 Daily serving of vegetables:1-2 Daily serving of protein:1-2 Fluid intake:Water: 7 glasses per day Do you Skip meals:intermittent fasting Eating away from home:YES Fast-food/fast-casual 4 times a week Exercise routine: Is trying to walk 2 miles on days that the weather is nice. Medication side effects: Increased heart rate: No Insomnia: No Constipation: did for the first week, but has increased water intake which has stopped this Nervousness: No Impairment of concentration/attention, difficulty with memory, speech or language problems (particularly word-finding difficulties): No ROS as above, otherwise non-contributory. Reviewed PMHx, PSHx, social Hx, medications and allergies. PHYSICAL EXAM BP 122/76 Pulse 92 Resp 16 Wt 93.4 kg (206 lb) LMP 05/17/2021 BMI 32.26 kg/m General Appearance: well appearing, in no acute distress, alert Eyes: conjunctiva pink and moist, no icterus, sclera white, non-injected Lungs: Lungs clear to auscultation. No wheezing, rhonchi, rales. Heart: RRR without murmur, gallop, or rubs. No ectopy ASSESSMENT/PLAN: 1. Class 1 obesity with body mass index (BMI) of 33.0 to 33.9 in adult, unspecified obesity type, unspecified whether serious comorbidity present - ICD9: 278.00, V85.33, ICD10: E66.9, Z68.33 Weight decreasing - Patient making healthy choices and excited that she is losing weight, will continue adipex for month 2 out of 3 - PHENTERMINE 37.5 MG TABLET - Follow up in 4 weeks Discussed Contraindications, went over each one and over side effects. tolerance, continuity of medication, controlled medication so cannot be replaced if stolen or if lost.Advised exercising along with this will really help the patient reach her goal of loosing weight. Short term use of this med was discussed. Negative for all the following :Hypersensitivity or idiosyncrasy to phentermine or other sympathomimetic amines or any component of the formulation; history of cardiovascular disease (arrhythmias, congestive heart failure, coronary artery disease, stroke, uncontrolled hypertension); hyperthyroidism, glaucoma, agitated states, history of drug abuse; use during or within 14 days following MAO inhibitor therapy; , breast-feeding. PDMP website checked and validated. All prescriptions have been APPROPRIATELY filled. No suspiciousactivity was identified. 11/04/2021 by Judie Biggs APRN.CNP Prescription instructions reviewed with patient as applicable. Potential red flag symptoms discussed with the patient. Reviewed appropriate action plan to take if red flag symptoms occur. Patient agreeable to treatment plan. Judie Biggs APRN.CNP documented in this encounter[facility]22 Miscellaneous Notes* Telephone Encounter - Leonela Nichols LPN - 10/25/2021 4:55 PM EDT patient notified and verbalized understanding. Leonela Nichols LPN * Telephone Encounter - Wilson Rogers MD - 10/25/2021 4:47 PM EDT It has phenyl epherine which may make her bp go up ralph that she is on phentermine. So may not be the best. What ever she takes otc should not have phenylepherine. Or pseudoephedrine Regards, Wilson Rogers MD * Telephone Encounter - Mindy Mcdonnell LPN - 10/25/2021 4:06 PM EDT Patient calling back she is going to check with her pharmacist to see if she can get answer to her question. * Telephone Encounter - Suha Doll LPN - 10/25/2021 11:08 AM EDT Pt calls to report she is on Adipex and is asking if she can take Dayquil and Nyquil for a cold while on Adipex. Please review and advise. Suha Doll LPN documented in this encounter[address] History of Past illness Narrative* Problem Noted Date Resolved Date Hyperthyroidism 10/30/2018 08/18/2022 documented as of this encounter (statuses as of 10/05/2022) [address] History of Past illness Narrative* Problem Noted Date Resolved Date Hyperthyroidism 10/30/2018 08/18/2022 documented as of this encounter (statuses as of 10/06/2022) [address] History of Past illness Narrative* Problem Noted Date Resolved Date Hyperthyroidism 10/30/2018 08/18/2022 documented as of this encounter (statuses as of 10/12/2022) [address] History of Past illness Narrative* Problem Noted Date Resolved Date Hyperthyroidism 10/30/2018 08/18/2022 documented as of this encounter (statuses as of 10/17/2022) [address] History of Past illness Narrative* Problem Noted Date Resolved Date Hyperthyroidism 10/30/2018 08/18/2022 documented as of this encounter (statuses as of 10/18/2022) [address] History of Past illness Narrative* Problem Noted Date Resolved Date Hyperthyroidism 10/30/2018 08/18/2022 documented as of this encounter (statuses as of 10/26/2022) [address] History of Past illness Narrative* Problem Noted Date Resolved Date Hyperthyroidism 10/30/2018 08/18/2022 documented as of this encounter (statuses as of 10/26/2022) [address] History of Past illness Narrative* Problem Noted Date Resolved Date Hyperthyroidism 10/30/2018 08/18/2022 documented as of this encounter (statuses as of 10/30/2022) [address] History of Past illness Narrative* Problem Noted Date Resolved Date Hyperthyroidism 10/30/2018 08/18/2022 documented as of this encounter (statuses as of 11/09/2022) [address] History of Past illness Narrative* Problem Noted Date Resolved Date Hyperthyroidism 10/30/2018 08/18/2022 documented as of this encounter (statuses as of 11/10/2022) [address] History of Past illness Narrative* Problem Noted Date Resolved Date Hyperthyroidism 10/30/2018 08/18/2022 documented as of this encounter (statuses as of 11/16/2022) [facility]* Diagnosis Class 1 obesity with body mass index (BMI) of 33.0 to 33.9 in adult, unspecified obesity type, unspecified whether serious comorbidity present documented in this encounter [facility]* Diagnosis Class 1 obesity with body mass index (BMI) of 33.0 to 33.9 in adult, unspecified obesity type, unspecified whether serious comorbidity present- Primary Weight loss counseling, encounter for Dietary surveillance and counseling documented in this encounter [facility]* Diagnosis Hemorrhoids, unspecified hemorrhoid type- Primary documented in this encounter [facility]* Diagnosis Obesity (BMI 30-39.9)- Primary Obesity, unspecified Weight loss counseling, encounter for Dietary surveillance and counseling documented in this encounter [facility]* Diagnosis Anal or rectal pain- Primary Anal fissure documented in this encounter [facility]* Diagnosis Pelvic pain in female- Primary Unspecified symptom associated with female genital organs documented in this encounter [facility]* Diagnosis Pelvic and perineal pain Unspecified symptom associated with female genital organs documented in this encounter [facility]* Diagnosis Pelvic pain in female- Primary Unspecified symptom associated with female genital organs Female infertility Female infertility of unspecified origin documented in [facility] encounter [facility]* Diagnosis Dysmenorrhea- Primary Pelvic pain in female Unspecified symptom associated with female genital organs Pelvic and perineal pain Unspecified symptom associated with female genital organs Dyschezia Unspecified constipation Diarrhea, unspecified type Other specified dyspareunia High-tone pelvic floor dysfunction Other specified disorders of female genital organs documented in [facility] encounter [facility]* Diagnosis Sore throat- Primary Acute pharyngitis Viral URI with cough Acute upper respiratory infections of unspecified site documented in this encounter [facility]* Diagnosis Dysmenorrhea documented in this encounter [facility] note* Diagnosis High-tone pelvic floor dysfunction- Primary Other specified disorders of female genital organs Dysmenorrhea Dyschezia Unspecified constipation High-tone pelvic floor dysfunction Other specified disorders of female genital organs documented in this encounter [facility]* Diagnosis High-tone pelvic floor dysfunction- Primary Other specified disorders of female genital organs Dysmenorrhea Dyschezia Unspecified constipation Diarrhea, unspecified type Dysmenorrhea Dyschezia Unspecified constipation High-tone pelvic floor dysfunction Other specified disorders of female genital organs documented in this encounter [facility]* Diagnosis High-tone pelvic floor dysfunction- Primary Other specified disorders of female genital organs Dysmenorrhea Dyschezia Unspecified constipation High-tone pelvic floor dysfunction Other specified disorders of female genital organs documented in this encounter [facility]* Diagnosis Preop examination- Primary Preoperative examination, unspecified Huizar's esophagus without dysplasia Huizar's esophagus History of hyperthyroidism Personal history of other endocrine, metabolic, and immunity disorders Medical marijuana use Encounter for long-term (current) use of other medications Menorrhagia with regular cycle Excessive or frequent menstruation Dysmenorrhea Dyschezia Unspecified constipation High-tone pelvic floor dysfunction Other specified disorders of female genital organs documented [facility]* Diagnosis High-tone pelvic floor dysfunction in female- Primary Dysmenorrhea Dyschezia Unspecified constipation High-tone pelvic floor dysfunction Other specified disorders of female genital organs documented in this encounter [facility]* Diagnosis High-tone pelvic floor dysfunction- Primary Other specified disorders of female genital organs Dysmenorrhea Dyschezia Unspecified constipation High-tone pelvic floor dysfunction Other specified disorders of female genital organs documented in this encounter [facility]* Diagnosis Educational circumstances- Primary Educational circumstance Dysmenorrhea Dyschezia Unspecified constipation High-tone pelvic floor dysfunction Other specified disorders of female genital organs documented in this encounter [facility]* Diagnosis Pre-op testing- Primary Preoperative examination, unspecified Dysmenorrhea Dyschezia Unspecified constipation High-tone pelvic floor dysfunction Other specified disorders of female genital organs documented in this encounter [facility]* Diagnosis High-tone pelvic floor dysfunction- Primary Other specified disorders of female genital organs Dysmenorrhea Dyschezia Unspecified constipation High-tone pelvic floor dysfunction Other specified disorders of female genital organs documented in this encounter [facility] note* Diagnosis Post-operative state- Primary Other postprocedural status Dysmenorrhea Dyschezia Unspecified constipation High-tone pelvic floor dysfunction Other specified disorders of female genital organs documented in this encounter [facility]* Diagnosis Postoperative state- Primary Other postprocedural status High-tone pelvic floor dysfunction Other specified disorders of female genital organs Pelvic pain in female Unspecified symptom associated with female genital organs documented in this encounter [facility]* Diagnosis High-tone pelvic floor dysfunction- Primary Other specified disorders of female genital organs documented in this encounter [facility]* Diagnosis High-tone pelvic floor dysfunction- Primary Other specified disorders of female genital organs documented in this encounter [facility]* Diagnosis High-tone pelvic floor dysfunction- Primary Other specified disorders of female genital organs Pelvic pain in female Unspecified symptom associated with female genital organs Dysmenorrhea Dysuria Central pain syndrome documented in this encounter [facility] note* Diagnosis High-tone pelvic floor dysfunction- Primary Other specified disorders of female genital organs documented in this encounter [facility] note* Diagnosis High-tone pelvic floor dysfunction- Primary Other specified disorders of female genital organs documented in this encounter [facility] note* Diagnosis Post-operative state Other postprocedural status Chronic pelvic pain in female Unspecified symptom associated with female genital organs documented in this encounter [facility] note* Diagnosis High-tone pelvic floor dysfunction- Primary Other specified disorders of female genital organs documented in this encounter [facility]* Diagnosis Panic attack- Primary Panic disorder without agoraphobia Anxiety Anxiety state, unspecified Medical marijuana use Encounter for long-term (current) use of other medications documented in this encounter [facility] note* Diagnosis High-tone pelvic floor dysfunction- Primary Other specified disorders of female genital organs Central pain syndrome Dysmenorrhea Dysuria Encounter for fertility planning Other specified procreative management Nausea Nausea alone documented in this encounter [facility]* Diagnosis High-tone pelvic floor dysfunction- Primary Other specified disorders of female genital organs Muscle spasm Spasm of muscle documented in this encounter [facility] note* Diagnosis with history of infertility, antepartum- Primary History of depression Personal history of other mental disorder History of hyperthyroidism Personal history of other endocrine, metabolic, and immunity disorders Spotting in Spotting complicating , unspecified as to episode of care or not applicable History of marijuana use related nausea, antepartum Mild hyperemesis gravidarum, antepartum documented in this encounter [facility]* Diagnosis Spotting in early - Primary Spotting complicating , antepartum condition or complication [facility] Diagnosis Mild hyperemesis gravidarum- Primary Mild hyperemesis gravidarum, unspecified as to episode of care [facility] Diagnosis Dehydration- Primary Hyperemesis gravidarum before end of 22 week gestation with dehydration Hyperemesis gravidarum with metabolic disturbance, unspecified as to episode of care [facility] Diagnosis 7 weeks gestation of - Primary state, incidental with history of infertility, antepartum [facility] Diagnosis 11 weeks gestation of - Primary state, incidental Encounter for supervision of normal first in first trimester Supervision of normal first Encounter for screening of mother Unspecified screening [facility] Diagnosis High-tone pelvic floor dysfunction- Primary Other specified disorders of female genital organs Rectal bleeding Hemorrhage of rectum and anus [facility] Diagnosis Anal fissure [facility] Diagnosis Pelvic and perineal pain- Primary Unspecified symptom associated with female genital organs High-tone pelvic floor dysfunction Other specified disorders of female genital organs [facility] Diagnosis Encounter for follow-up ultrasound of anatomy- Primary Encounter for supervision of normal first in second trimester Supervision of normal first Encounter for screening of mother Unspecified screening 21 weeks gestation of state, incidental [facility] Diagnosis UTI symptoms- Primary Other symptoms involving urinary system Cystitis Cystitis, unspecified [facility] Diagnosis High-tone pelvic floor dysfunction- Primary Other specified disorders of female genital organs Pelvic and perineal pain Unspecified symptom associated with female genital organs [facility] Diagnosis High-tone pelvic floor dysfunction- Primary Other specified disorders of female genital organs [facility] Diagnosis High-tone pelvic floor dysfunction- Primary Other specified disorders of female genital organs [facility] Diagnosis Pelvic and perineal pain- Primary Unspecified symptom associated with female genital organs documented in this encounter [facility]* Diagnosis Pelvic and perineal pain- Primary Unspecified symptom associated with female genital organs documented in this encounter [facility] note* Diagnosis Pelvic and perineal pain- Primary Unspecified symptom associated with female genital organs documented in this encounter [facility] note* Diagnosis 25 weeks gestation of - Primary state, incidental High-tone pelvic floor dysfunction Other specified disorders of female genital organs Dermoid cyst of left ovary documented in this encounter [facility] note* Diagnosis Pelvic and perineal pain- Primary Unspecified symptom associated with female genital organs documented in this encounter [facility] note* Diagnosis Pelvic and perineal pain- Primary Unspecified symptom associated with female genital organs High-tone pelvic floor dysfunction Other specified disorders of female genital organs documented in this encounter [facility] note* Diagnosis Pelvic and perineal pain- Primary Unspecified symptom associated with female genital organs High-tone pelvic floor dysfunction Other specified disorders of female genital organs documented in this encounter [facility] note* Diagnosis Pelvic and perineal pain- Primary Unspecified symptom associated with female genital organs High-tone pelvic floor dysfunction Other specified disorders of female genital organs documented in this encounter [facility] note* Diagnosis Pelvic and perineal pain- Primary Unspecified symptom associated with female genital organs High-tone pelvic floor dysfunction Other specified disorders of female genital organs documented in this encounter [facility] note* Diagnosis Pelvic and perineal pain- Primary Unspecified symptom associated with female genital organs documented in this encounter [facility] note* Diagnosis 30 weeks gestation of - Primary state, incidental documented in this encounter [facility] note* Diagnosis Pelvic and perineal pain- Primary Unspecified symptom associated with female genital organs High-tone pelvic floor dysfunction Other specified disorders of female genital organs documented in this encounter [facility] note* Diagnosis Pelvic and perineal pain- Primary Unspecified symptom associated with female genital organs documented in this encounter [facility] note* Diagnosis 32 weeks gestation of - Primary state, incidental documented in this encounter [facility] note* Diagnosis Encounter for ultrasound to check growth- Primary Encounter for routine screening for malformation using ultrasonics with history of infertility, antepartum Nausea and vomiting in Unspecified vomiting of , unspecified as to episode of care 33 weeks gestation of state, incidental documented in this encounter [facility] note* Diagnosis Encounter for supervision of normal first in third trimester- Primary Supervision of normal first 34 weeks gestation of state, incidental [facility] Diagnosis with history of infertility, antepartum- Primary Dermoid cyst of left ovary Encounter for supervision of normal first in third trimester Supervision of normal first 36 weeks gestation of state, incidental [facility] Diagnosis with history of infertility, antepartum- Primary Encounter for supervision of normal first in third trimester Supervision of normal first 37 weeks gestation of state, incidental [facility] Diagnosis Encounter for supervision of normal first in third trimester- Primary Supervision of normal first 38 weeks gestation of state, incidental Intrahepatic cholestasis of in third trimester documented in this encounter [facility] note* Diagnosis care and examination- Primary Routine follow-up Dermoid cyst Benign neoplasm of unspecified site Ovarian cyst, left Other and unspecified ovarian cyst Vaginal discharge Leukorrhea, not specified as infective documented in this encounter [facility] note* Diagnosis Dermoid cyst Benign neoplasm of unspecified site documented in this encounter [facility] for referral (narrative)* - Pending Review Specialty Diagnoses / Procedures Referred By Karen jung Referred To Contact Physical Therapy Diagnoses High-tone pelvic floor dysfunction Procedures CONSULT TO PHYSICAL THERAPY Digna Cooper MD [address] [place] [address] Referral ID Status Reason Start Date Expiration Date V isits Requested Visits Authorized [id number] Pending Review 02/21/2022 05/22/2022 1 1 * Consult, Test, Treat (Routine) - Authorized Specialty Diagnoses / Procedures Referred By Karen jung Referred To Contact Diagnoses Dysmenorrhea Dyschezia Diarrhea, unspecified type Procedures CONSULT TO MINIMALLY INVASIVE GYNECOLOGIC SURGERY OFFICE/OUTPATIENT [facility] 60-74 MINUTES Digna Cooper MD [address] [place] [address] Referral ID Status Reason Start Date Expiration Date Visits Requested Visits Authorized [id number] Authorized PCP Requested Referral Auto-Generate d Referral 02/21/2022 02/21/2023 1 1 * MRI/CT (Routine) - Pending Review Specialty Diagnoses / Procedures Referred By Karen jung Referred To Contact MR IMAGING Diagnoses Dysmenorrhea Procedures MRI FEMALE PELVIS WO/W IVCON MRI PELVIS W/O & W/CONTRAST MATERIAL Digna Cooper MD [address] [id number] Mr Imaging Referral ID Status Reason Start Date Expiration Date Visits Requested Visits Authorized [id number] Pending Review Auto-Generat ed Referral 02/21/2022 03/23/2023 1 1 [facility] for referral (narrative)* Diagnostic Procedure Only (Routine) - Authorized Specialty Diagnoses / Procedures Referred By Karen t Referred To Contact [facility] Diagnoses Encounter for supervision of normal first in first trimester Encounter for screening of mother Procedures OBSTETRIC ULTRASOUND WHI US PREG UTERUS AFTER 1ST TRIMEST GESTATION Radha Melendez MD [address] [place] [id number] [place] [phone] Referral ID Status Reason Start Date Expiration Date Visits Requested Visits Authorized [id number] Authorized Auto-Generat ed Referral 11/27/2022 11/27/2023 1 1 [facility] for referral (narrative)* Diagnostic Procedure Only (Routine) - Authorized Specialty Diagnoses / Procedures Referred By Karen t Referred To Contact US IMAGING Diagnoses Dermoid cyst Procedures US FEMALE PELVIS TRANSVAG US TRANSVAGINAL Digna Hill APRN.CNM [address] [place] [address] Us Imaging [facility] Referral ID Status Reason Start Date Expiration Date Visits Requested Visits Authorized [id number] Authorized Auto-Generat ed Referral 07/10/2023 08/08/2024 1 1 [facility] for visit Narrative* Diagnostic Procedure Only (Routine) - Closed Specialty Diagnoses / Procedures Referred By Contac t Referred To Contact US IMAGING Diagnoses Dermoid cyst Procedures US FEMALE PELVIS TRANSVAG US TRANSVAGINAL Digna Hill APRN.CNM [address] [place] [address] [place] [address] Referral ID Status Reason Start Date Expiration Date V isits Requested Visits Authorized [id number] Closed Auto-Generate d Referral 07/10/2023 08/08/2024 1 1 [facility] Advance Directives No Advanced Directives Records FoundDocuments on File Type Date Recorded 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 Advance Directive(s) 07/13/2021 1:04 PM Documents on File Type Date Recorded 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 Advance Directive(s) 07/13/2021 1:04 PM Reason for Referral Specialty Diagnoses / Procedures Referred By Contac t Referred To Contact General Surgery Diagnoses Hemorrhoids, unspecified hemorrhoid type Procedures CONSULT TO GENERAL SURGERY OFFICE/OUTPATIENT [facility] 60-74 MINUTES Beatris Griffith, COMMANDER INTERNAL AFFAIRS.DAIRY NUTRITIONIST [address] [place] [address] Referral ID Status Reason Start Date Expiration Date Visits Requested Visits Authorized [id number] Authorized PCP Requested Referral 12/22/2021 12/22/2022 1 1 Specialty Diagnoses / Procedures Referred By Contac t Referred To Contact MR IMAGING Diagnoses Pelvic and perineal pain Procedures MRI FEMALE PELVIS WO/W IVCON MRI PELVIS W/O & W/CONTRAST MATERIAL Regina Oneill COMMANDER INTERNAL AFFAIRS.DAIRY NUTRITIONIST [address] [place] [address] Mr Imaging Referral ID Status Reason Start Date Expiration Date Visits Requested Visits Authorized [id number] Pending Review Auto-Generat ed Referral 02/08/2022 03/10/2023 1 1 Specialty Diagnoses / Procedures Referred By Contac t Referred To Contact Diagnoses Female infertility Procedures CONSULT TO INFERTILITY CLINIC OFFICE/OUTPATIENT [facility] 60-74 MINUTES Digna Hill APRN.CNM [address] [place] [address] Referral ID Status Reason Start Date Expiration Date Visits Requested Visits Authorized [id number] Authorized PCP Requested Referral Auto-Generate d Referral 02/20/2022 02/20/2023 1 1 Specialty Diagnoses / Procedures Referred By Contac t Referred To Contact Diagnoses Pelvic pain in female Procedures CONSULT TO ORDER CLERK PELVIC PAIN OFFICE/OUTPATIENT [facility] MDM 60-74 MINUTES Digna Hill APRN.CNLora [address] [place] [address] Referral ID Status Reason Start Date Expiration Date Visits Requested Visits Authorized [id number] Authorized PCP Requested Referral Auto-Generate d Referral 02/20/2022 02/20/2023 1 1 Specialty Diagnoses / Procedures Referred By Contac t Referred To Contact MR IMAGING Diagnoses Dysmenorrhea Procedures MRI FEMALE PELVIS WO/W IVCON MRI PELVIS W/O & W/CONTRAST MATERIAL Digna Cooper MD [address] [place] [address] Mr Imaging Referral ID Status Reason Start Date Expiration Date V isits Requested Visits Authorized [id number] Closed Auto-Generate d Referral 03/13/2022 04/11/2023 1 1 Specialty Diagnoses / Procedures Referred By Contac t Referred To Contact [facility] Diagnoses High-tone pelvic floor dysfunction Procedures PT REHAB FOLLOW UP ORDER THERAPEUTIC EXERCISES RE, EA 15 MIN. THERAPEUTIC EXERCISES RE, EA 15 MIN. Jenny Diaz, PT [address] [place] [address] [facility] [place] [address] [place] [address] Referral ID Status Reason Start Date Expiration Date V isits Requested Visits Authorized [id number] Closed PCP Requested Referral Auto-Generated Referral 04/21/2022 08/05/2022 1 0 Specialty Diagnoses / Procedures Referred By Contac t Referred To Contact [facility] Diagnoses High-tone pelvic floor dysfunction Procedures CONSULT TO PHYSICAL THERAPY PHYSICAL THERAPY EVALUATION HIGH COMPLEX 45 MINS Mary Jo Gonzalez APRN.DAIRY NUTRITIONIST [address] [place] [address] [address] Referral ID Status Reason Start Date Expiration Date Visits Requested Visits Authorized [id number] Pending Review Auto-Generat ed Referral 06/14/2022 06/14/2023 1 1 Specialty Diagnoses / Procedures Referred By Contac t Referred To Contact [facility] Diagnoses High-tone pelvic floor dysfunction Procedures PT REHAB FOLLOW UP ORDER THERAPEUTIC EXERCISES RE, EA 15 MIN. Jenny Diaz, PT [address] [place] [address] [place] [phone] Referral ID Status Reason Start Date Expiration Date Visits Requested Visits Authorized [id number] Pending Review PCP Requested Referral Auto-Generate d Referral 2 09/18/2022 1 1 Referral ID Status Reason Start Date Expiration Date Visits Requested Visits Authorized [id number] Pending Review PCP Requested Referral Auto-Generate d Referral 2 10/19/2022 1 1 Specialty Diagnoses / Procedures Referred By Contac t Referred To Contact Diagnoses Encounter for fertility planning Procedures CONSULT TO INFERTILITY CLINIC OFFICE/OUTPATIENT [facility] MDM 60-74 MINUTES Digna Cooper MD [address] [place] [address] Referral ID Status Reason Start Date Expiration Date Visits Requested Visits Authorized [id number] Authorized PCP Requested Referral Auto-Generate d Referral 09/12/2022 09/08/2023 1 1 Specialty Diagnoses / Procedures Referred By Contac t Referred To Contact [facility] Diagnoses High-tone pelvic floor dysfunction Muscle spasm Procedures BOTULINUM TOXIN A PER 1 UNIT Digna Cooper MD [address] [place] [address] [place] [phone] [place] [address] Referral ID Status Reason Start Date Expiration Date Visits Requested Visits Authorized [id number] Pending Review Auto-Generat ed Referral 10/03/2022 01/01/2023 1 1 Specialty Diagnoses / Procedures Referred By Contac t Referred To Contact General Surgery Diagnoses Rectal bleeding Procedures CONSULT TO GENERAL SURGERY OFFICE/OUTPATIENT [facility] 60-74 MINUTES Luci Ryan MD [address] [place] [address] Referral ID Status Reason Start Date Expiration Date Visits Requested Visits Authorized [id number] Authorized PCP Requested Referral 01/11/2023 01/11/2024 1 1 Specialty Diagnoses / Procedures Referred By Contac t Referred To Contact [facility] Diagnoses High-tone pelvic floor dysfunction Procedures CONSULT TO PHYSICAL THERAPY PHYSICAL THERAPY EVALUATION HIGH COMPLEX 45 MINS Luci Ryan MD [address] [place] [address] [address] Referral ID Status Reason Start Date Expiration Date Visits Requested Visits Authorized [id number] Pending Review Auto-Generat ed Referral 01/11/2023 01/11/2024 1 1 Specialty Diagnoses / Procedures Referred By Contac t Referred To Contact [facility] Diagnoses High-tone pelvic floor dysfunction Pelvic and perineal pain Procedures PT REHAB FOLLOW UP ORDER THERAPEUTIC EXERCISES RE, EA [address] [address] [facility] [address] [address] Referral ID Status Reason Start Date Expiration Date Visits Requested Visits Authorized [id number] Pending Review PCP Requested Referral Auto-Generate d Referral 01/30/2023 04/30/2023 1 1 Medications Administered Section Inactive Administered Medications - up to 3 most recent administrations Medication Order MAR Action Action Date Dose Rate Site celecoxib 400 mg cap(s) (CeleBREX) 400 mg, ORAL, ONCE, 1 dose, On Sun05/29/22 at 1330, Preprocedure Given 05/29/2022 1:52 PM EDT 400 mg fentaNYL 50 mcg/mL 50 mcg injection (SUBLIMAZE) 50 mcg, INTRAVENOUS, EVERY 10 MINUTES NEEDED, 4 doses, Starting on 05/29/22 at 1532, Until Tu05/30/22 at 0303, [facility] for Moderate pain (4-6) or Severe Pain (7-10), USE FOR MILD PAIN ONLY IF PATIENT IS UNABLE TO TOLERATE ORAL THERAPY, Recovery or Phase I (only) Given 05/29/2022 3:48 PM EDT 50 mcg Summary Purpose Family History No Family History Records FoundNo Family History Records FoundNo Family History Records Found Health Concerns Problem Noted Date OB Reminders 10/30/2022 Problem Noted Date OB Reminders 10/30/2022 Problem Noted Date OB Reminders 10/30/2022 Problem Noted Date OB Reminders 10/30/2022 Problem Noted Date OB Reminders 10/30/2022 Problem Noted Date OB Reminders 10/30/2022 Problem Noted Date OB Reminders 10/30/2022 Problem Noted Date OB Reminders 10/30/2022 Problem Noted Date OB Reminders 10/30/2022 Problem Noted Date OB Reminders 10/30/2022 Problem Noted Date OB Reminders 10/30/2022 Problem Noted Date OB Reminders 10/30/2022 Problem Noted Date OB Reminders 10/30/2022 Problem Noted Date Diagnosed Date OB Reminders 10/30/2022 Problem Noted Date Diagnosed Date OB Reminders 10/30/2022 Problem Noted Date Diagnosed Date OB Reminders 10/30/2022 Problem Noted Date Diagnosed Date OB Reminders 10/30/2022 Problem Noted Date Diagnosed Date OB Reminders 10/30/2022 Problem Noted Date Diagnosed Date OB Reminders 10/30/2022 Problem Noted Date Diagnosed Date OB Reminders 10/30/2022 Problem Noted Date Diagnosed Date OB Reminders 10/30/2022 Problem Noted Date Diagnosed Date OB Reminders 10/30/2022 Problem Noted Date Diagnosed Date OB Reminders 10/30/2022 Problem Noted Date Diagnosed Date OB Reminders 10/30/2022 Problem Noted Date Diagnosed Date OB Reminders 10/30/2022 Additional Source Comments Source Comments (unrecognize d section and content) In the event this informatio n is protected by the [facility] Confidentiality of Alcohol and Drug Abuse Patient Records regulations: The Federal rules restrict any use of the information to criminally investigate or prosecute any alcohol or drug abuse patient.[facility] the event this information is protected by the Federal Confidentiality of Alcohol and Drug Abuse Patient Records regulations: The Federal rules restrict any use of the information to criminally investigate or prosecute any alcohol or drug abuse patient.[facility] event this information is protected by the Federal Confidentiality of Alcohol and Drug Abuse Patient Records regulations: The Federal rules restrict any use of the information to criminally investigate or prosecute any alcohol or drug abuse patient.[facility] the event this information is protected by the Federal Confidentiality of Alcohol and Drug Abuse Patient Records regulations: The Federal rules restrict any use of the information to criminally investigate or prosecute any alcohol or drug abuse patient.[facility] the event this information is protected by the Federal Confidentiality of Alcohol and Drug Abuse Patient Records regulations: The Federal rules restrict any use of the information to criminally investigate or prosecute any alcohol or drug abuse patient.[facility] the event this information is protected by the Federal Confidentiality of Alcohol and Drug Abuse Patient Records regulations: The Federal rules restrict any use of the information to criminally investigate or prosecute any alcohol or drug abuse patient.[facility] the event this information is protected by the Federal Confidentiality of Alcohol and Drug Abuse Patient Records regulations: The Federal rules restrict any use of the information to criminally investigate or prosecute any alcohol or drug abuse patient.[facility] the event this information is protected by the Federal Confidentiality of Alcohol and Drug Abuse Patient Records regulations: The Federal rules restrict any use of the information to criminally investigate or prosecute any alcohol or drug abuse patient.[facility] the event this information is protected by the Federal Confidentiality of Alcohol and Drug Abuse Patient Records regulations: The Federal rules restrict any use of the information to criminally investigate or prosecute any alcohol or drug abuse patient.[facility] the event this information is protected by the Federal Confidentiality of Alcohol and Drug Abuse Patient Records regulations: The Federal rules restrict any use of the information to criminally investigate or prosecute any alcohol or drug abuse patient.[facility] the event this information is protected by the Federal Confidentiality of Alcohol and Drug Abuse Patient Records regulations: The Federal rules restrict any use of the information to criminally investigate or prosecute any alcohol or drug abuse patient.[facility] the event this information is protected by the Federal Confidentiality of Alcohol and Drug Abuse Patient Records regulations: The Federal rules restrict any use of the information to criminally investigate or prosecute any alcohol or drug abuse patient.[facility] the event this information is protected by the Federal Confidentiality of Alcohol and Drug Abuse Patient Records regulations: The Federal rules restrict any use of the information to criminally investigate or prosecute any alcohol or drug abuse patient.[facility] the event this information is protected by the Federal Confidentiality of Alcohol and Drug Abuse Patient Records regulations: The Federal rules restrict any use of the information to criminally investigate or prosecute any alcohol or drug abuse patient.[facility] the event this information is protected by the Federal Confidentiality of Alcohol and Drug Abuse Patient Records regulations: The Federal rules restrict any use of the information to criminally investigate or prosecute any alcohol or drug abuse patient.[facility] the event this information is protected by the Federal Confidentiality of Alcohol and Drug Abuse Patient Records regulations: The Federal rules restrict any use of the information to criminally investigate or prosecute any alcohol or drug abuse patient.[facility] the event this information is protected by the Federal Confidentiality of Alcohol and Drug Abuse Patient Records regulations: The Federal rules restrict any use of the information to criminally investigate or prosecute any alcohol or drug abuse patient.[facility] the event this information is protected by the Federal Confidentiality of Alcohol and Drug Abuse Patient Records regulations: The Federal rules restrict any use of the information to criminally investigate or prosecute any alcohol or drug abuse patient.[facility] the event this information is protected by the Federal Confidentiality of Alcohol and Drug Abuse Patient Records regulations: The Federal rules restrict any use of the information to criminally investigate or prosecute any alcohol or drug abuse patient.[facility] the event this information is protected by the Federal Confidentiality of Alcohol and Drug Abuse Patient Records regulations: The Federal rules restrict any use of the information to criminally investigate or prosecute any alcohol or drug abuse patient.[facility] the event this information is protected by the Federal Confidentiality of Alcohol and Drug Abuse Patient Records regulations: The Federal rules restrict any use of the information to criminally investigate or prosecute any alcohol or drug abuse patient.[facility] the event this information is protected by the Federal Confidentiality of Alcohol and Drug Abuse Patient Records regulations: The Federal rules restrict any use of the information to criminally investigate or prosecute any alcohol or drug abuse patient.[facility] the event this information is protected by the Federal Confidentiality of Alcohol and Drug Abuse Patient Records regulations: The Federal rules restrict any use of the information to criminally investigate or prosecute any alcohol or drug abuse patient.[facility] the event this information is protected by the Federal Confidentiality of Alcohol and Drug Abuse Patient Records regulations: The Federal rules restrict any use of the information to criminally investigate or prosecute any alcohol or drug abuse patient.[facility]In the event this information is protected by the Federal Confidentiality of Alcohol and Drug Abuse Patient Records regulations: The Federal rules restrict any use of the information to criminally investigate or prosecute any alcohol or drug abuse patient.[facility] DaytonIn the event this information is protected by the Federal Confidentiality of Alcohol and Drug Abuse Patient Records regulations: The Federal rules restrict any use of the information to criminally investigate or prosecute any alcohol or drug abuse patient.[facility] DaytonIn the event this information is protected by the Federal Confidentiality of Alcohol and Drug Abuse Patient Records regulations: The Federal rules restrict any use of the information to criminally investigate or prosecute any alcohol or drug abuse patient.[facility] DaytonIn the event this information is protected by the Federal Confidentiality of Alcohol and Drug Abuse Patient Records regulations: The Federal rules restrict any use of the information to criminally investigate or prosecute any alcohol or drug abuse patient.[facility] DaytonIn the event this information is protected by the Federal Confidentiality of Alcohol and Drug Abuse Patient Records regulations: The Federal rules restrict any use of the information to criminally investigate or prosecute any alcohol or drug abuse patient.[facility] DaytonIn the event this information is protected by the Federal Confidentiality of Alcohol and Drug Abuse Patient Records regulations: The Federal rules restrict any use of the information to criminally investigate or prosecute any alcohol or drug abuse patient.[facility] DaytonIn the event this information is protected by the Federal Confidentiality of Alcohol and Drug Abuse Patient Records regulations: The Federal rules restrict any use of the information to criminally investigate or prosecute any alcohol or drug abuse patient.[facility] DaytonIn the event this information is protected by the Federal Confidentiality of Alcohol and Drug Abuse Patient Records regulations: The Federal rules restrict any use of the information to criminally investigate or prosecute any alcohol or drug abuse patient.[facility] DaytonIn the event this information is protected by the Federal Confidentiality of Alcohol and Drug Abuse Patient Records regulations: The Federal rules restrict any use of the information to criminally investigate or prosecute any alcohol or drug abuse patient.[facility] DaytonIn the event this information is protected by the Federal Confidentiality of Alcohol and Drug Abuse Patient Records regulations: The Federal rules restrict any use of the information to criminally investigate or prosecute any alcohol or drug abuse patient.[facility] DaytonIn the event this information is protected by the Federal Confidentiality of Alcohol and Drug Abuse Patient Records regulations: The Federal rules restrict any use of the information to criminally investigate or prosecute any alcohol or drug abuse patient.[facility] DaytonIn the event this information is protected by the Federal Confidentiality of Alcohol and Drug Abuse Patient Records regulations: The Federal rules restrict any use of the information to criminally investigate or prosecute any alcohol or drug abuse patient.[facility] DaytonIn the event this information is protected by the Federal Confidentiality of Alcohol and Drug Abuse Patient Records regulations: The Federal rules restrict any use of the information to criminally investigate or prosecute any alcohol or drug abuse patient.[facility] DaytonIn the event this information is protected by the Federal Confidentiality of Alcohol and Drug Abuse Patient Records regulations: The Federal rules restrict any use of the information to criminally investigate or prosecute any alcohol or drug abuse patient.[facility] DaytonIn the event this information is protected by the Federal Confidentiality of Alcohol and Drug Abuse Patient Records regulations: The Federal rules restrict any use of the information to criminally investigate or prosecute any alcohol or drug abuse patient.[facility] DaytonIn the event this information is protected by the Federal Confidentiality of Alcohol and Drug Abuse Patient Records regulations: The Federal rules restrict any use of the information to criminally investigate or prosecute any alcohol or drug abuse patient.[facility] DaytonIn the event this information is protected by the Federal Confidentiality of Alcohol and Drug Abuse Patient Records regulations: The Federal rules restrict any use of the information to criminally investigate or prosecute any alcohol or drug abuse patient.[facility] DaytonIn the event this information is protected by the Federal Confidentiality of Alcohol and Drug Abuse Patient Records regulations: The Federal rules restrict any use of the information to criminally investigate or prosecute any alcohol or drug abuse patient.[facility] DaytonIn the event this information is protected by the Federal Confidentiality of Alcohol and Drug Abuse Patient Records regulations: The Federal rules restrict any use of the information to criminally investigate or prosecute any alcohol or drug abuse patient.[facility] DaytonIn the event this information is protected by the Federal Confidentiality of Alcohol and Drug Abuse Patient Records regulations: The Federal rules restrict any use of the information to criminally investigate or prosecute any alcohol or drug abuse patient.[facility] DaytonIn the event this information is protected by the Federal Confidentiality of Alcohol and Drug Abuse Patient Records regulations: The Federal rules restrict any use of the information to criminally investigate or prosecute any alcohol or drug abuse patient.[facility] DaytonIn the event this information is protected by the Federal Confidentiality of Alcohol and Drug Abuse Patient Records regulations: The Federal rules restrict any use of the information to criminally investigate or prosecute any alcohol or drug abuse patient.[facility] DaytonIn the event this information is protected by the Federal Confidentiality of Alcohol and Drug Abuse Patient Records regulations: The Federal rules restrict any use of the information to criminally investigate or prosecute any alcohol or drug abuse patient.[facility] DaytonIn the event this information is protected by the Federal Confidentiality of Alcohol and Drug Abuse Patient Records regulations: The Federal rules restrict any use of the information to criminally investigate or prosecute any alcohol or drug abuse patient.[facility] DaytonIn the event this information is protected by the Federal Confidentiality of Alcohol and Drug Abuse Patient Records regulations: The Federal rules restrict any use of the information to criminally investigate or prosecute any alcohol or drug abuse patient.[facility] DaytonIn the event this information is protected by the Federal Confidentiality of Alcohol and Drug Abuse Patient Records regulations: The Federal rules restrict any use of the information to criminally investigate or prosecute any alcohol or drug abuse patient.[facility] DaytonIn the event this information is protected by the Federal Confidentiality of Alcohol and Drug Abuse Patient Records regulations: The Federal rules restrict any use of the information to criminally investigate or prosecute any alcohol or drug abuse patient.[facility] the event this information is protected by the Federal Confidentiality of Alcohol and Drug Abuse Patient Records regulations: The Federal rules restrict any use of the information to criminally investigate or prosecute any alcohol or drug abuse patient.[facility] DaytonIn the event this information is protected by the Federal Confidentiality of Alcohol and Drug Abuse Patient Records regulations: The Federal rules restrict any use of the information to criminally investigate or prosecute any alcohol or drug abuse patient.[facility] DaytonIn the event this information is protected by the Federal Confidentiality of Alcohol and Drug Abuse Patient Records regulations: The Federal rules restrict any use of the information to criminally investigate or prosecute any alcohol or drug abuse patient.[facility]In the event this information is protected by the Federal Confidentiality of Alcohol and Drug Abuse Patient Records regulations: The Federal rules restrict any use of the information to criminally investigate or prosecute any alcohol or drug abuse patient.[facility] DaytonIn the event this information is protected by the Federal Confidentiality of Alcohol and Drug Abuse Patient Records regulations: The Federal rules restrict any use of the information to criminally investigate or prosecute any alcohol or drug abuse patient.[facility] DaytonIn the event this information is protected by the Federal Confidentiality of Alcohol and Drug Abuse Patient Records regulations: The Federal rules restrict any use of the information to criminally investigate or prosecute any alcohol or drug abuse patient.[facility] DaytonIn the event this information is protected by the Federal Confidentiality of Alcohol and Drug Abuse Patient Records regulations: The Federal rules restrict any use of the information to criminally investigate or prosecute any alcohol or drug abuse patient.[facility] DaytonIn the event this information is protected by the Federal Confidentiality of Alcohol and Drug Abuse Patient Records regulations: The Federal rules restrict any use of the information to criminally investigate or prosecute any alcohol or drug abuse patient.[facility] DaytonIn the event this information is protected by the Federal Confidentiality of Alcohol and Drug Abuse Patient Records regulations: The Federal rules restrict any use of the information to criminally investigate or prosecute any alcohol or drug abuse patient.[facility] DaytonIn the event this information is protected by the Federal Confidentiality of Alcohol and Drug Abuse Patient Records regulations: The Federal rules restrict any use of the information to criminally investigate or prosecute any alcohol or drug abuse patient.[facility] DaytonIn the event this information is protected by the Federal Confidentiality of Alcohol and Drug Abuse Patient Records regulations: The Federal rules restrict any use of the information to criminally investigate or prosecute any alcohol or drug abuse patient.[facility] DaytonIn the event this information is protected by the Federal Confidentiality of Alcohol and Drug Abuse Patient Records regulations: The Federal rules restrict any use of the information to criminally investigate or prosecute any alcohol or drug abuse patient.[facility] DaytonIn the event this information is protected by the Federal Confidentiality of Alcohol and Drug Abuse Patient Records regulations: The Federal rules restrict any use of the information to criminally investigate or prosecute any alcohol or drug abuse patient.[facility] DaytonIn the event this information is protected by the Federal Confidentiality of Alcohol and Drug Abuse Patient Records regulations: The Federal rules restrict any use of the information to criminally investigate or prosecute any alcohol or drug abuse patient.[facility] DaytonIn the event this information is protected by the Federal Confidentiality of Alcohol and Drug Abuse Patient Records regulations: The Federal rules restrict any use of the information to criminally investigate or prosecute any alcohol or drug abuse patient.[facility] DaytonIn the event this information is protected by the Federal Confidentiality of Alcohol and Drug Abuse Patient Records regulations: The Federal rules restrict any use of the information to criminally investigate or prosecute any alcohol or drug abuse patient.[facility] DaytonIn the event this information is protected by the Federal Confidentiality of Alcohol and Drug Abuse Patient Records regulations: The Federal rules restrict any use of the information to criminally investigate or prosecute any alcohol or drug abuse patient.[facility] DaytonIn the event this information is protected by the Federal Confidentiality of Alcohol and Drug Abuse Patient Records regulations: The Federal rules restrict any use of the information to criminally investigate or prosecute any alcohol or drug abuse patient.[facility] DaytonIn the event this information is protected by the Federal Confidentiality of Alcohol and Drug Abuse Patient Records regulations: The Federal rules restrict any use of the information to criminally investigate or prosecute any alcohol or drug abuse patient.[facility] DaytonIn the event this information is protected by the Federal Confidentiality of Alcohol and Drug Abuse Patient Records regulations: The Federal rules restrict any use of the information to criminally investigate or prosecute any alcohol or drug abuse patient.[facility] DaytonIn the event this information is protected by the Federal Confidentiality of Alcohol and Drug Abuse Patient Records regulations: The Federal rules restrict any use of the information to criminally investigate or prosecute any alcohol or drug abuse patient.[facility] DaytonIn the event this information is protected by the Federal Confidentiality of Alcohol and Drug Abuse Patient Records regulations: The Federal rules restrict any use of the information to criminally investigate or prosecute any alcohol or drug abuse patient.[facility] DaytonIn the event this information is protected by the Federal Confidentiality of Alcohol and Drug Abuse Patient Records regulations: The Federal rules restrict any use of the information to criminally investigate or prosecute any alcohol or drug abuse patient.[facility] DaytonIn the event this information is protected by the Federal Confidentiality of Alcohol and Drug Abuse Patient Records regulations: The Federal rules restrict any use of the information to criminally investigate or prosecute any alcohol or drug abuse patient.[facility] DaytonIn the event this information is protected by the Federal Confidentiality of Alcohol and Drug Abuse Patient Records regulations: The Federal rules restrict any use of the information to criminally investigate or prosecute any alcohol or drug abuse patient.[facility] DaytonIn the event this information is protected by the Federal Confidentiality of Alcohol and Drug Abuse Patient Records regulations: The Federal rules restrict any use of the information to criminally investigate or prosecute any alcohol or drug abuse patient.[facility] DaytonIn the event this information is protected by the Federal Confidentiality of Alcohol and Drug Abuse Patient Records regulations: The Federal rules restrict any use of the information to criminally investigate or prosecute any alcohol or drug abuse patient.[facility] DaytonIn the event this information is protected by the Federal Confidentiality of Alcohol and Drug Abuse Patient Records regulations: The Federal rules restrict any use of the information to criminally investigate or prosecute any alcohol or drug abuse patient.[facility] DaytonIn the event this information is protected by the Federal Confidentiality of Alcohol and Drug Abuse Patient Records regulations: The Federal rules restrict any use of the information to criminally investigate or prosecute any alcohol or drug abuse patient.[facility] DaytonIn the event this information is protected by the Federal Confidentiality of Alcohol and Drug Abuse Patient Records regulations: The Federal rules restrict any use of the information to criminally investigate or prosecute any alcohol or drug abuse patient.[facility] DaytonIn the event this information is protected by the Federal Confidentiality of Alcohol and Drug Abuse Patient Records regulations: The Federal rules restrict any use of the information to criminally investigate or prosecute any alcohol or drug abuse patient.[facility] DaytonIn the event this information is protected by the Federal Confidentiality of Alcohol and Drug Abuse Patient Records regulations: The Federal rules restrict any use of the information to criminally investigate or prosecute any alcohol or drug abuse patient.[facility] DaytonIn the event this information is protected by the Federal Confidentiality of Alcohol and Drug Abuse Patient Records regulations: The Federal rules restrict any use of the information to criminally investigate or prosecute any alcohol or drug abuse patient.[facility] DaytonIn the event this information is protected by the Federal Confidentiality of Alcohol and Drug Abuse Patient Records regulations: The Federal rules restrict any use of the information to criminally investigate or prosecute any alcohol or drug abuse patient.[facility] DaytonIn the event this information is protected by the Federal Confidentiality of Alcohol and Drug Abuse Patient Records regulations: The Federal rules restrict any use of the information to criminally investigate or prosecute any alcohol or drug abuse patient.[facility] DaytonIn the event this information is protected by the Federal Confidentiality of Alcohol and Drug Abuse Patient Records regulations: The Federal rules restrict any use of the information to criminally investigate or prosecute any alcohol or drug abuse patient.[facility] DaytonIn the event this information is protected by the Federal Confidentiality of Alcohol and Drug Abuse Patient Records regulations: The Federal rules restrict any use of the information to criminally investigate or prosecute any alcohol or drug abuse patient.[facility] DaytonIn the event this information is protected by the Federal Confidentiality of Alcohol and Drug Abuse Patient Records regulations: The Federal rules restrict any use of the information to criminally investigate or prosecute any alcohol or drug abuse patient.[facility] DaytonIn the event this information is protected by the Federal Confidentiality of Alcohol and Drug Abuse Patient Records regulations: The Federal rules restrict any use of the information to criminally investigate or prosecute any alcohol or drug abuse patient.[facility] DaytonIn the event this information is protected by the Federal Confidentiality of Alcohol and Drug Abuse Patient Records regulations: The Federal rules restrict any use of the information to criminally investigate or prosecute any alcohol or drug abuse patient.[facility] DaytonIn the event this information is protected by the Federal Confidentiality of Alcohol and Drug Abuse Patient Records regulations: The Federal rules restrict any use of the information to criminally investigate or prosecute any alcohol or drug abuse patient.[facility] DaytonIn the event this information is protected by the Federal Confidentiality of Alcohol and Drug Abuse Patient Records regulations: The Federal rules restrict any use of the information to criminally investigate or prosecute any alcohol or drug abuse patient.[facility] DaytonIn the event this information is protected by the Federal Confidentiality of Alcohol and Drug Abuse Patient Records regulations: The Federal rules restrict any use of the information to criminally investigate or prosecute any alcohol or drug abuse patient.[facility]In the event this information is protected by the Federal Confidentiality of Alcohol and Drug Abuse Patient Records regulations: The Federal rules restrict any use of the information to criminally investigate or prosecute any alcohol or drug abuse patient.[facility] DaytonIn the event this information is protected by the Federal Confidentiality of Alcohol and Drug Abuse Patient Records regulations: The Federal rules restrict any use of the information to criminally investigate or prosecute any alcohol or drug abuse patient.[facility] DaytonIn the event this information is protected by the Federal Confidentiality of Alcohol and Drug Abuse Patient Records regulations: The Federal rules restrict any use of the information to criminally investigate or prosecute any alcohol or drug abuse patient.[facility] DaytonIn the event this information is protected by the Federal Confidentiality of Alcohol and Drug Abuse Patient Records regulations: The Federal rules restrict any use of the information to criminally investigate or prosecute any alcohol or drug abuse patient.[facility] DaytonIn the event this information is protected by the Federal Confidentiality of Alcohol and Drug Abuse Patient Records regulations: The Federal rules restrict any use of the information to criminally investigate or prosecute any alcohol or drug abuse patient.[facility] DaytonIn the event this information is protected by the Federal Confidentiality of Alcohol and Drug Abuse Patient Records regulations: The Federal rules restrict any use of the information to criminally investigate or prosecute any alcohol or drug abuse patient.[facility] DaytonIn the event this information is protected by the Federal Confidentiality of Alcohol and Drug Abuse Patient Records regulations: The Federal rules restrict any use of the information to criminally investigate or prosecute any alcohol or drug abuse patient.[facility] the event this information is protected by the Federal Confidentiality of Alcohol and Drug Abuse Patient Records regulations: The Federal rules restrict any use of the information to criminally investigate or prosecute any alcohol or drug abuse patient.[facility]In the event this information is protected by the Federal Confidentiality of Alcohol and Drug Abuse Patient Records regulations: The Federal rules restrict any use of the information to criminally investigate or prosecute any alcohol or drug abuse patient.[facility] DaytonIn the event this information is protected by the Federal Confidentiality of Alcohol and Drug Abuse Patient Records regulations: The Federal rules restrict any use of the information to criminally investigate or prosecute any alcohol or drug abuse patient.[facility]In the event this information is protected by the Federal Confidentiality of Alcohol and Drug Abuse Patient Records regulations: The Federal rules restrict any use of the information to criminally investigate or prosecute any alcohol or drug abuse patient.[facility] Reason for Visit (unrecogniz ed section and content) Specialty Diagnoses / Procedures Referred By Contac t Referred To Contact PHYSICAL THERAPY Diagnoses High-tone pelvic floor dysfunction Procedures CONSULT TO PHYSICAL THERAPY PHYSICAL THERAPY EVALUATION HIGH COMPLEX 45 MINS Luci Ryan MD [address] [place] [address] [address] Referral ID Status Reason Start Date Expiration Date Visits Requested Visits Authorized [id number] Authorized Auto-Generat ed Referral 01/11/2023 08/05/2023 99 99 Reason Comments PT Progress Note Specialty Diagnoses / Procedures Referred By Contac t Referred To Contact Physical Therapy / [facility] Diagnoses High-tone pelvic floor dysfunction Procedures CONSULT TO PHYSICAL THERAPY Digna Cooper MD [address] [place] [id number] [facility] [place] [id number] Referral ID Status Reason Start Date Expiration Date V isits Requested Visits Authorized [id number] Authorized 04/18/2022 08/05/2022 99 99 Reason Comments Physical Therapy Specialty Diagnoses / Procedures Referred By Contac t Referred To Contact Physical Therapy / [facility] INS Diagnoses High-tone pelvic floor dysfunction Procedures CONSULT TO PHYSICAL THERAPY Digna Cooper MD [address] [place] [address] [facility] [address] [address] Reason Comments PT Discharge Specialty Diagnoses / Procedures Referred By Contac t Referred To Contact [facility] Diagnoses High-tone pelvic floor dysfunction Procedures PT REHAB FOLLOW UP ORDER THERAPEUTIC EXERCISES RE, EA 15 MIN. THERAPEUTIC EXERCISES RE, EA 15 MIN. Jenny Diaz, PT [address] [facility] [place] [address] [facility] [address] [address] Referral ID Status Reason Start Date Expiration Date V isits Requested Visits Authorized [id number] Closed PCP Requested Referral Auto-Generated Referral 04/21/2022 08/05/2022 1 0 Reason Comments Medication Question Reason Comments Recheck Adipex follow up Reason Comments Recheck Adipex follow up Reason Comments Consult hemorrhoids Specialty Diagnoses / Procedures Referred By Contac t Referred To Contact General Surgery Diagnoses Hemorrhoids, unspecified hemorrhoid type Procedures CONSULT TO GENERAL SURGERY OFFICE/OUTPATIENT [facility] 60-74 MINUTES Beatris Griffith, COMMANDER INTERNAL AFFAIRS.DAIRY NUTRITIONIST [address] [place] [address] Referral ID Status Reason Start Date Expiration Date V isits Requested Visits Authorized [id number] Closed PCP Requested Referral 12/22/2021 12/22/2022 1 1 Reason Comments ORDER CLERK Ultrasound Reason Comments Results Reason Comments Patient Update Orders Reason Comments Care Coordination NPAF emailed Reason Comments Follow Up Reason Comments New Patient Specialty Diagnoses / Procedures Referred By Contac t Referred To Contact Diagnoses Pelvic pain in female Procedures CONSULT TO ORDER CLERK PELVIC PAIN OFFICE/OUTPATIENT [facility] 60-74 MINUTES Digna Hill, COMMANDER INTERNAL AFFAIRS.CNM [address] [facility] [place] [address] Referral ID Status Reason Start Date Expiration Date V isits Requested Visits Authorized [id number] Closed PCP Requested Referral Auto-Generated Referral 02/20/2022 02/20/2023 1 1 Reason Comments Sore Throat ST x 3 days and chil ls today Reason Comments Radiology MRI Specialty Diagnoses / Procedures Referred By Contac t Referred To Contact MR IMAGING Diagnoses Dysmenorrhea Procedures MRI FEMALE PELVIS WO/W IVCON MRI PELVIS W/O & W/CONTRAST MATERIAL Digna Cooper MD [address] [place] [address] Mr Imaging Referral ID Status Reason Start Date Expiration Date V isits Requested Visits Authorized [id number] Closed Auto-Generate d Referral 03/13/2022 04/11/2023 1 1 Reason Comments Endometriosis Specialty Diagnoses / Procedures Referred By Contac t Referred To Contact Diagnoses Dysmenorrhea Dyschezia Diarrhea, unspecified type Procedures CONSULT TO MINIMALLY INVASIVE GYNECOLOGIC SURGERY OFFICE/OUTPATIENT [facility] MDM 60-74 MINUTES Digna Cooper MD [address] [place] [address] Referral ID Status Reason Start Date Expiration Date V isits Requested Visits Authorized [id number] Closed PCP Requested Referral Auto-Generated Referral 02/21/2022 02/21/2023 1 1 Reason Comments Pre-Op Visit Reason Onset Date Comments Pre-Op Teaching 05/17/2022 Specialty Diagnoses / Procedures Referred By Contac t Referred To Contact Diagnoses Dysmenorrhea Dyschezia High-tone pelvic floor dysfunction Dysmenorrhea [N94.6] Dyschezia [K59.00] High-tone pelvic floor dysfunction [N94.89] Procedures LAPS ABD PRTM&OMENTUM DX W/WO SPEC BR/WA SPX LAPAROSCOPY DIAGNOSTIC [place] [address] Referral ID Status Reason Start Date Expiration Date Visits Re quested Visits Authorized [id number] 1 1 Reason Comments Post Op Reason Comments PT Re-eval Specialty Diagnoses / Procedures Referred By Contac t Referred To Contact PHYSICAL THERAPY Diagnoses High-tone pelvic floor dysfunction Procedures CONSULT TO PHYSICAL THERAPY PHYSICAL THERAPY EVALUATION HIGH COMPLEX 45 MINS Mary Jo Gonzalez, COMMANDER INTERNAL AFFAIRS.DAIRY NUTRITIONIST [address] [place] [address] [facility] [address] [place] [address] Referral ID Status Reason Start Date Expiration Date V isits Requested Visits Authorized [id number] Closed Auto-Generate d Referral 06/14/2022 06/14/2023 1 1 Reason Comments Established Patient Reason Comments Post Op Reason Comments Follow Up anxiety Reason Comments High-tone pelvic floor dysfunction Reason Comments Orders Reason Comments botox auth Reason Comments Schedule Surgery Reason Comments Care Reason Comments Patient Question Reason Comments OB N/V Reason Comments Follow Up Reason Comments Patient Update [employer] Reason Comments Question (OB Question) Reason Onset Date Comments Care 11/27/2022 Reason Comments Consult Chronic constipation , internal and external hemorrhoids, anal fissure and rectal bleeding. Specialty Diagnoses / Procedures Referred By Contac t Referred To Contact General Surgery Diagnoses Rectal bleeding Procedures CONSULT TO GENERAL SURGERY OFFICE/OUTPATIENT [facility] MDM 60-74 MINUTES Luci Ryan MD [address] [place] [address] Referral ID Status Reason Start Date Expiration Date V isits Requested Visits Authorized [id number] Closed PCP Requested Referral 01/11/2023 01/11/2024 1 1 Reason Comments US Specialty Diagnoses / Procedures Referred By Contac t Referred To Contact [facility] Diagnoses Encounter for supervision of normal first in second trimester Encounter for screening of mother Procedures OBSTETRIC ULTRASOUND WHI US PREG UTERUS AFTER 1ST TRIMEST GESTATION Radha Melendez MD [address] [place] [address] [facility] [address] [place] [address] Referral ID Status Reason Start Date Expiration Date V isits Requested Visits Authorized [id number] Closed Auto-Generate d Referral 01/15/2023 01/15/2024 1 1 Reason Comments UTI Burning with urinati on started last night, worse this morning. Currently Specialty Diagnoses / Procedures Referred By Contac t Referred To Contact PHYSICAL THERAPY Diagnoses High-tone pelvic floor dysfunction Procedures CONSULT TO PHYSICAL THERAPY PHYSICAL THERAPY EVALUATION HIGH COMPLEX 45 MINS Luci Ryan MD [address] [place] [address] [address] Reason Onset Date Comments Care 03/02/2023 Reason Onset Date Comments Care 04/06/2023 Reason Onset Date Comments Care 04/20/2023 Specialty Diagnoses / Procedures Referred By Karen jung Referred To Contact [facility] Diagnoses Spotting in early Procedures OBSTETRIC ULTRASOUND WHI US PREG UTERUS AFTER 1ST TRIMEST GESTATION Radha Melendez MD [address] [place] [address] [facility] [address] [place] [address] Referral ID Status Reason Start Date Expiration Date V isits Requested Visits Authorized [id number] Closed Auto-Generate d Referral 10/09/2022 10/09/2023 1 1 Reason Onset Date Comments Care 05/04/2023 Reason Onset Date Comments Care 05/18/2023 Reason Onset Date Comments Care 05/25/2023 Reason Onset Date Comments Population Health Navigation Outreach 05/29/2023 Peds/OB Reason Onset Date Comments Care 05/31/2023 Reason Comments Routine Care Teams (unrecognized sec tion and content) Insurance Marketing Rep Relationship Specialty Start Date End Date Wilson Rogers MD [address] [place], [place] [id number] PCP - General Internal Medicine 09/26/21 Insurance Marketing Rep Relationship Specialty Start Date End Date Wilson Rogers MD [address] [place], [place] [id number] [phone] - General Internal Medicine 09/26/21 Insurance Marketing Rep Relationship Specialty Start Date End Date Wilson Rogers MD [address] [place], [place] [id number] [phone] - General Internal Medicine 09/26/21 Insurance Marketing Rep Relationship Specialty Start Date End Date Wilson Rogers MD [address] [place], [place] [id number] PCP - General Internal Medicine 09/26/21 Insurance Marketing Rep Relationship Specialty Start Date End Date Wilson Rogers MD [address] [facility] [address] PCP - General Internal Medicine 09/26/21 Insurance Marketing Rep Relationship Specialty Start Date End Date Wilson Rogers MD [address] [place] [address] PCP - General Internal Medicine 09/26/21 Insurance Marketing Rep Relationship Specialty Start Date End Date Wilson Rogers MD [address] [facility] [address] PCP - General Internal Medicine 09/26/21 Insurance Marketing Rep Relationship Specialty Start Date End Date Wilson Rogers MD [address] [facility] [address] PCP - General Internal Medicine 09/26/21 Insurance Marketing Rep Relationship Specialty Start Date End Date Wilson Rogers MD [address] [facility] [address] PCP - General Internal Medicine 09/26/21 Insurance Marketing Rep Relationship Specialty Start Date End Date Wilson Rogers MD [address] [facility] [address] PCP - General Internal Medicine 09/26/21 Insurance Marketing Rep Relationship Specialty Start Date End Date Wilson Rogers MD [address] [facility] [address] PCP - General Internal Medicine 09/26/21 Insurance Marketing Rep Relationship Specialty Start Date End Date Wilson Rogers MD [address] [facility] [address] PCP - General Internal Medicine 09/26/21 Insurance Marketing Rep Relationship Specialty Start Date End Date Wilson Rogers MD [address] [place] [address] PCP - General Internal Medicine 09/26/21 Insurance Marketing Rep Relationship Specialty Start Date End Date Wilson Rogers MD [address] [place] [address] PCP - General Internal Medicine 09/26/21 Insurance Marketing Rep Relationship Specialty Start Date End Date Wilson Rogers MD [address] [place] [address] PCP - General Internal Medicine 09/26/21 Insurance Marketing Rep Relationship Specialty Start Date End Date Wilson Rogers MD [address] [place] [address] PCP - General Internal Medicine 09/26/21 Insurance Marketing Rep Relationship Specialty Start Date End Date Wilson Rogers MD [address] [facility] [address] PCP - General Internal Medicine 09/26/21 Insurance Marketing Rep Relationship Specialty Start Date End Date Wilson Rogers MD [address] [place] [address] PCP - General Internal Medicine 09/26/21 Insurance Marketing Rep Relationship Specialty Start Date End Date Wilson Rogers MD [address] [place] [address] PCP - General Internal Medicine 09/26/21 Insurance Marketing Rep Relationship Specialty Start Date End Date Wilson Rogers MD [address] [place] [address] PCP - General Internal Medicine 09/26/21 Insurance Marketing Rep Relationship Specialty Start Date End Date Wilson Rogers MD [address] [place] [address] PCP - General Internal Medicine 09/26/21 Insurance Marketing Rep Relationship Specialty Start Date End Date Wilson Rogers MD [address] [place] [address] PCP - General Internal Medicine 09/26/21 Insurance Marketing Rep Relationship Specialty Start Date End Date Wilson Rogers MD [address] [place] [address] PCP - General Internal Medicine 09/26/21 Insurance Marketing Rep Relationship Specialty Start Date End Date Wilson Rogers MD [address] [place] [address] PCP - General Internal Medicine 09/26/21 Insurance Marketing Rep Relationship Specialty Start Date End Date Wilson Rogers MD [address] [place] [address] PCP - General Internal Medicine 09/26/21 Insurance Marketing Rep Relationship Specialty Start Date End Date Wilson Rogers MD [address] [place] [address] PCP - General Internal Medicine 09/26/21 Insurance Marketing Rep Relationship Specialty Start Date End Date Wilson Rogers MD [address] [place] [address] PCP - General Internal Medicine 09/26/21 Insurance Marketing Rep Relationship Specialty Start Date End Date Wilson Rogers MD [address] [place] [address] PCP - General Internal Medicine 09/26/21 Insurance Marketing Rep Relationship Specialty Start Date End Date Wilson Rogers MD [address] [place] [address] PCP - General Internal Medicine 09/26/21 Insurance Marketing Rep Relationship Specialty Start Date End Date Wilson Rogers MD [address] [place] [address] PCP - General Internal Medicine 09/26/21 Insurance Marketing Rep Relationship Specialty Start Date End Date Wilson Rogers MD [address] [place] [address] PCP - General Internal Medicine 09/26/21 Insurance Marketing Rep Relationship Specialty Start Date End Date Wilson Rogers MD [address] [place] [address] PCP - General Internal Medicine 09/26/21 Insurance Marketing Rep Relationship Specialty Start Date End Date Wilson Rogers MD [address] [place] [address] PCP - General Internal Medicine 09/26/21 Insurance Marketing Rep Relationship Specialty Start Date End Date Wilson Rogers MD [address] [place] [address] PCP - General Internal Medicine 09/26/21 Insurance Marketing Rep Relationship Specialty Start Date End Date Wilson Rogers MD [address] [place] [address] PCP - General Internal Medicine 09/26/21 Insurance Marketing Rep Relationship Specialty Start Date End Date Wilson Rogers MD [address] [place] [address] PCP - General Internal Medicine 09/26/21 Insurance Marketing Rep Relationship Specialty Start Date End Date Wilson Rogers MD [address] [place] [address] PCP - General Internal Medicine 09/26/21 Insurance Marketing Rep Relationship Specialty Start Date End Date Wilson Rogers MD [address] [place] [address] PCP - General Internal Medicine 09/26/21 Insurance Marketing Rep Relationship Specialty Start Date End Date Wilson Rogers MD [address] [place] [address] PCP - General Internal Medicine 09/26/21 Insurance Marketing Rep Relationship Specialty Start Date End Date Wilson Rogers MD [address] [place] [address] PCP - General Internal Medicine 09/26/21 Insurance Marketing Rep Relationship Specialty Start Date End Date Wilson Rogers MD [address] [place] [address] PCP - General Internal Medicine 09/26/21 Insurance Marketing Rep Relationship Specialty Start Date End Date Wilson Rogers MD [address] [place] [address] PCP - General Internal Medicine 09/26/21 Insurance Marketing Rep Relationship Specialty Start Date End Date Wilson Rogers MD [address] [place] [address] PCP - General Internal Medicine 09/26/21 Insurance Marketing Rep Relationship Specialty Start Date End Date Wilson Rogers MD [address] [place] [address] PCP - General Internal Medicine 09/26/21 Insurance Marketing Rep Relationship Specialty Start Date End Date Wilson Rogers MD [address] [place] [address] PCP - General Internal Medicine 09/26/21 Insurance Marketing Rep Relationship Specialty Start Date End Date Wilson Rogers MD [address] [place] [address] PCP - General Internal Medicine 09/26/21 Insurance Marketing Rep Relationship Specialty Start Date End Date Wilson Rogers MD [address] [place] [address] PCP - General Internal Medicine 09/26/21 Insurance Marketing Rep Relationship Specialty Start Date End Date Wilson Rogers MD [address] [place] [address] PCP - General Internal Medicine 09/26/21 Insurance Marketing Rep Relationship Specialty Start Date End Date Wilson Rogers MD [address] [place] [address] PCP - General Internal Medicine 09/26/21 Insurance Marketing Rep Relationship Specialty Start Date End Date Wilson Rogers MD [address] [place] [address] PCP - General Internal Medicine 09/26/21 Insurance Marketing Rep Relationship Specialty Start Date End Date Wilson Rogers MD [address] [place] [address] PCP - General Internal Medicine 09/26/21 Insurance Marketing Rep Relationship Specialty Start Date End Date Wilsno Rogers MD [address] [place] [address] PCP - General Internal Medicine 09/26/21 Insurance Marketing Rep Relationship Specialty Start Date End Date Wilson Rogers MD [address] [place] [address] PCP - General Internal Medicine 09/26/21 Insurance Marketing Rep Relationship Specialty Start Date End Date Wilson Rogers MD [address] [place] [address] PCP - General Internal Medicine 09/26/21 Insurance Marketing Rep Relationship Specialty Start Date End Date Wilson Rogers MD [address] [place] [address] PCP - General Internal Medicine 09/26/21 Insurance Marketing Rep Relationship Specialty Start Date End Date Wilson Rogers MD [address] [place] [address] PCP - General Internal Medicine 09/26/21 Scheduled Active and Recently Administ ered Medications (unrecognized section and content) Continuous Medication Order 05/27/2022 05/28/2022 05/29/2022 lactated ringers iv infusion (CANCELED) 5-30 mL/hr, INTRAVENOUS, CONTINUOUS, Starting on Sun05/29/22 at 1330, Until Sun05/29/22 at 1555, Preprocedure 1339 (New Bag/Syring e/Bottle - Provider: Jorge A Hernandez RN)1555 (Due: Infusion Complete) lactated ringers iv infusion 100 mL/hr, INTRAVENOUS, CONTINUOUS, Starting on Sun05/29/22 at 1600, Until Sun05/30/22 at 0303, Recovery or Phase I (only) 1600 (Due) PRN Medication Order 05/27/2022 05/28/2022 05/29/2022 bupivacaine (PF) 0.25 % (2.5 mg/mL) injection (SENSORCAINE MPF) (CANCELED) X (OR/PROCEDURE) PRN, Starting on Sun05/29/22 at 1502, Until Sun05/29/22 at 1530, Intraprocedure 1502 (Given - Provid er: Yousuf Resendiz MD)1514 (Given - Provider: Yousuf Resendiz MD) fentaNYL 50 mcg/mL 50 mcg injection (SUBLIMAZE) 50 mcg, INTRAVENOUS, EVERY 10 MINUTES NEEDED, 4 doses, Starting on Sun05/29/22 at 1532, Until Sun05/30/22 at 0303, FIRST LINE THERAPY for Moderate pain (4-6) or Severe Pain (7-10), USE FOR MILD PAIN ONLY IF PATIENT IS UNABLE TO TOLERATE ORAL THERAPY, Recovery or Phase I (only) 1538 (Given - Provid er: Graciela Everett RN)1548 (Given - Provider: Graciela Everett RN) HYDROmorphone 0.2 mg injection (DILAUDID) 0.2 mg, INTRAVENOUS, EVERY 5 MINUTES NEEDED, 10 doses, Starting on Sun05/29/22 at 1532, Until Sun05/30/22 at 0303, SECOND LINE THERAPY for Moderate Pain (4-6) Severe Pain (7-10) and Breakthrough Pain, USE FOR MILD PAIN ONLY IF PATIENT IS UNABLE TO TOLERATE ORAL THERAPY, Recovery or Phase I (only) 1603 (Given - Provid er: Graciela Everett RN)1613 (Given - Provider: Graciela Everett RN)1619 (Given - Provider: Graciela Everett RN)1636 (Given - Provider: Graciela Everett RN)1647 (Given - Provider: Graciela Everett RN) meperidine (PF) 12.5 mg injection (DEMEROL) 12.5 mg, INTRAVENOUS, X (PACU ONLY) PRN, Starting on Sun05/29/22 at 1532, Until Tu05/30/22 at 0303, Shivering, May Repeat 12.5 mg in 10 minutes X1 for Continued Shivering, Recovery or Phase I (only) oxyCODONE-acetaminophen 5-325 mg 1-2 tablet (PERCOCET) (COMPLETED) 1-2 tablet, ORAL, NEEDED, 1 dose, Starting on Sun05/29/22 at 1532, Until Discontinued, Moderate Pain (4-6) - Enteral, Recovery or Phase I (only) 1600 (Given - Provid er: Graciela Everett RN) INFORMATION SOURCE (unrecogn ized section and content) DATE CREATED AUTHOR AUTHOR'S ORGANIZ ATION 05/17/2023 [facility] DATE CREATED AUTHOR AUTHOR'S ORGANIZ ATION 07/22/2023 [facility] FOR RECORDS PERTAINING TO PATIENTS WHO ARE OR HAVE BEEN ENROLLED IN A CHEMICAL DEPENDENCY/SUBSTANCEABUSE PROGRAM, SOME INFORMATION MAY BE OMITTED. This clinical summary was aggregated from multiple sources. Caution should be exercised in using it in the provision of clinical care. This summary normalizes information from multiple sources, and as a consequence, information in this document may materially change the coding, format and clinical context of patient data. In addition, data may be omitted in some cases. CLINICAL DECISIONS SHOULD BE BASED ON THE PRIMARY CLINICAL RECORDS. [employer] provides no warranty or guarantee of the accuracy or completeness of information in this document.
--- NOTE | 2023-08-03 05:03 | CT_ITS ---
STUDY: CTA CHEST REASON FOR EXAM: Female, 28 years old. pe RADIATION DOSAGE (If Supplied By Facility): CTDIvol = ( 13.24 ) mGy, DLP = ( 441.76 ) mGycm TECHNIQUE: The examination was performed with the intravenous administration of IV 100mL Isovue-370. Post-processing of the angiographic images was performed, with multiplanar reformation and 3D reconstruction. Individualized dose optimization techniques were used for this CT. COMPARISON: No relevant prior comparison study available FINDINGS: Normal enhancement of the main pulmonary artery and right and left pulmonary arteries. Normal enhancement of the bilateral peripheral pulmonary arteries. There is no demonstrated pulmonary embolism. Normal thoracic aorta and visualized great vessels. There is no demonstrated aortic dissection. Normal heart and pericardium. Normal mediastinum. Normal hilar regions. Normal visualized trachea and bronchi. The lungs are well expanded. Normal pulmonary parenchyma. Normal pleura. Normal chest wall structures. Normal osseous structures. Normal visualized upper abdomen. CT/CTA Chest W/WO Contrast IMPRESSION: Normal CTA chest examination, without a demonstrated pulmonary embolism or arterial dissection. Electronically Signed: Mercedez Mccord MD at 7:32 EST ,
--- NOTE | 2023-08-03 05:04 | ED.VIS.CHEST ---
HPI History of Present Illness Chief Complaint: Chest Pain Narrative Narrative: 28-year-old female presenting with chest pain. She recently delivered a baby. She states she had no problems with chest pain or shortness of breath throughout but does note that she had GERD which is very severe during the last part of her . Patient states he ate [employer] [place] before going to bed and woke up with burning in the stomach on the left side up into the epigastric region and in the chest. She states it does feel sharp at times in the left side of chest. No fevers or chills. She had nausea so she took Zofran. She states she takes omeprazole generally for acid reflux symptoms. Denies cardiac history. Other than recent delivery no other PE risk factors. [facility], [facility] Medical History Anxiety Depression Ovarian cyst Thyroid disorder Home Medications omeprazole 40 mg capsule,delayed release 40 mg PO DAILY #30 caps 08/03/23 [Rx Last Taken Unknown] sucralfate 100 mg/mL oral suspension (Carafate) 10 ml PO BID PRN Epigastric pain #400 mL 08/03/23 [Rx Last Taken Unknown] Allergy/AdvReac Type Severity Reaction Status Date / Time Penicillins Allergy Hives Verified 08/03/23 04:02 sulfamethoxazole Allergy Hives Verified 08/03/23 04:02 [From Bactrim] trimethoprim [From Bactrim] Allergy Hives Verified 08/03/23 04:02 caffeine AdvReac Other Verified 08/03/23 04:02 metoclopramide [From Reglan] AdvReac Other Verified 08/03/23 04:02 Surgical History Hx of exploratory laparotomy Hx of ovarian cystectomy Social History household members: significant other Smoking Status: Never smoker substance use type: does not use ROS ROS ED Constitutional Constitutional ED: Denies chills, fever(s) or sweats Eyes Eyes: Denies blurry vision or change in vision ENT ENT ED: Denies ear pain or sore throat Cardiovascular Cardiovascular: Reports chest pain; Denies palpitations or racing heartbeat Respiratory/Chest Respiratory/Chest: Denies cough, dyspnea or sputum Gastrointestinal Gastrointestinal: Reports abdominal pain and nausea; Denies constipation, diarrhea or vomiting Genitourinary Genitourinary ED: Denies dysuria, hematuria or urinary frequency Musculoskeletal Musculoskeletal: Denies arthralgias, myalgias or neck pain Integumentary Denies abscess, Abrasions or rash Neurologic Neurologic: Denies headache(s), paresthesias or weakness Psychiatric Psychiatric: Denies anxiety, depression, suicidal ideation or suicidal thoughts Endocrine Endocrinology: Denies polydipsia or polyuria EXAM Physical Exam Const Vital Signs: 08/03/23 04:02 08/03/23 04:06 08/03/23 04:44 Temperature 98.3 F Temperature Source Temporal Pulse Rate 89 Respiratory Rate 22 H Respiratory Effort Normal Blood Pressure 124/77 H Blood Pressure Mean 92 Pulse Ox 100 Oxygen Delivery Method Room Air 08/03/23 06:02 Temperature Temperature Source Pulse Rate 75 Respiratory Rate 23 H Respiratory Effort Blood Pressure 107/62 Blood Pressure Mean 77 Pulse Ox 100 Oxygen Delivery Method Room Air Positive well nourished General Appearance ED: NAD; Negative for pallor HEENT Reports moist mucous membranes normocephalic and atraumatic Eyes PERRL and EOMs intact bilaterally Chest Wall inspection of chest normal Resp normal respiratory effort and clear to auscultation bilaterally Auscultation: Negative for rales, rhonchi or wheezes Cardio regular rate and regular rhythm GI normal to inspection, nondistended, normoactive bowel sounds Extremity normal to inspection Neuro oriented x3 and CN's II-XII intact bilaterally Sensorium / Orientation: awake Motor Exam: strength 5/5 throughout Psych mental status grossly normal Skin no rashes or lesions noted General Skin Exam: Negative for jaundice or pallor Heart Score History: Slightly/Non-Suspicious ECG: Normal Age: </= 45 years Risk Factors: No Risk Factors Troponin: </= Normal Limit Score: 0 MDM MDM MDM Narrative Medical decision making narrative: Patient presenting with epigastric/chest pain. Differential includes ACS, PE, pneumonia, gastritis, esophagitis, cholecystitis, choledocholithiasis, pancreatitis. CBC was obtained to assess white blood cell count, hemoglobin, platelets. BMP to assess renal function, electrolytes. High-sensitivity troponin and EKG to assess for ischemia. Chest x-ray to rule out pneumonia. D-dimer will be added to rule out PE given the patient's recent delivery. CBC shows normal white blood cell count of 7.0. Hemoglobin 11.5. Platelets normal 246. Renal function and electrolytes within normal limits. High-sensitivity troponin is 4. EKG on my interpretation shows a sinus rhythm 70 bpm without sign of ischemic change or ectopy. Chest x-ray interpreted by myself shows no acute process. Radiologist reads this as hazy appearance in the right lung base may be pneumonia. Patient lungs are clear. Normal white blood cell count. Is not complaining of shortness of breath. D-dimer is elevated so we will obtain a CTA. She is given a GI cocktail as her symptoms are most likely GI related because she states she ate [employer] [place] last night. Delta troponin was 4 therefore there is no significant interval change. CTA was interpreted as negative for PE, infiltrate, dissection. Patient counseled on findings. Will start her on omeprazole and she is given Carafate. She already has Zofran at home. Return precautions are discussed. Impression: 1. Chest pain?noncardiac 2. Gastritis Lab Data Attestation: I reviewed the patient's lab results. Labs: Laboratory Results - last 24 hr 08/03/23 08/03/23 04:10 06:29 WBC 7.0 RBC 4.27 Hgb 11.5 L Hct 36.8 L MCV 86.2 MCH 26.9 L MCHC 31.3 L RDW Std Deviation 41.3 RDW Coeff of Ria 13.2 Plt Count 246 MPV 9.3 Immature Gran % (Auto) 0.400 Neut % (Auto) 57.7 Lymph % (Auto) 30.7 [place] % (Auto) 8.6 Eos % (Auto) 1.9 Baso % (Auto) 0.7 Absolute Neuts (auto) 4.1 Absolute Lymphs (auto) 2.15 Nucleated RBC % 0 D-Dimer Quant (PE/DVT) 0.59 H* Sodium 141 Potassium 3.5 Chloride 111 H Carbon Dioxide 22.0 Anion Gap 8 BUN 13 Creatinine 0.87 Estim Creat Clear Calc 96.25 Est GFR (MDRD) Af Amer 99 Est GFR (MDRD) Non-Af 81 BUN/Creatinine Ratio 14.9 Glucose 103 Calcium 9.4 Total Bilirubin 0.40 Direct Bilirubin 0.10 AST 26 ALT 20 Alkaline Phosphatase 62 Troponin I High Sens 4 4 Total Protein 7.3 Albumin 3.8 Globulin 3.5 Lipase 29 Radiography Diagnostic Testing: Clinical Impression(s) from Imaging Studies Chest X-Ray 08/03/23 04:33 IMPRESSION: Hazy appearance of the right lung base which may represent a developing infiltrate possible pneumonia, allowing for technique. Consider follow-up PA and lateral film of the chest to clarify. Electronically Signed: Sandhya Miranda MD at 5:01 EST , Chest CTA 08/03/23 05:03 IMPRESSION: Normal CTA chest examination, without a demonstrated pulmonary embolism or arterial dissection. Electronically Signed: Mercedez Mccord MD at 7:32 EST , Discharge Plan Triage Chief Complaint: Chest Pain ED Provider: Von Gonzlaez Dx/Rx/DC Orders Instructions: ED Chest Pain, Noncardiac, ED GERD (Adult) Prescriptions: New sucralfate [Carafate] 100 mg/mL suspension 10 ml PO BID PRN (Reason: Epigastric pain) Qty: 400 0RF omeprazole 40 mg capsule,delayed release(DR/EC) 40 mg PO DAILY Qty: 30 0RF Primary Care Provider: Emy Valencia Referrals: Emy Valencia MD [Primary Care Provider] - Disposition Disposition: Home, Self Care
[2023-08-03 05:31] LABS: AST(SGOT) 26 U/L (15-37); Alanine Aminotransfer ALT/SGPT 20 U/L (13-56); Albumin, Serum 3.8 g/dL (3.2-5.0); Alkaline Phosphatase 62 U/L (45-117); Globulin 3.5 g/dL (2.2-4.2); Lipase 29 U/L (13-75); Protein, Total 7.3 g/dL (6.4-8.2)
[2023-08-03] MEDS: Mag Hydrox/Al Hydrox/Simeth 30 ML UDC PO (05:42)
[2023-08-03 06:02] VITALS: BP 107/62; PULSE 75; RESP 23; O2SAT 100
[2023-08-03 06:18] LABS: Reflex Troponin-HS? (from REC) Y
[2023-08-03 06:56] LABS: Troponin-I HS 4 pg/mL (3.0-54.0)
[2023-08-03 07:44] VITALS: BP 123/69; PULSE 83; RESP 16; O2SAT 97
== END 2023-08-03 07:46 | disposition home or self-care (01) ==
PROVIDERS: Emergency Provider Student in an Organized Health Care Education/Training Program; PCP Internal Medicine; Referring Provider Student in an Organized Health Care Education/Training Program; Visit Provider Student in an Organized Health Care Education/Training Program
DX: R07.9 Chest pain, unspecified (principal); K29.70 Gastritis, unspecified, without bleeding; R06.02 Shortness of breath; K21.9 Gastro-esophageal reflux disease without esophagitis; Z79.899 Other long term (current) drug therapy
CPT/HCPCS: 71045; 71275; 80048; 80076; 83690; 84484; 85025; 85379; 93005; 99283; Q9967; A4216

== ENCOUNTER 2024-07-09 22:49 | Emergency (ER) | payer BC, SELFPAY ==
[2024-07-09 22:50] VITALS: BP 125/80; PULSE 122; RESP 16; TEMP 36.2; O2SAT 100
--- NOTE | 2024-07-09 23:12 | EX.ED.DYSGE1 ---
HPI History of Present Illness Chief Complaint: Anxiety Informant: patient Onset/Context/Timing Onset: Days (5) Context: Gradual Onset Timing: Continuous Quality: Stabbing Location: Abdomen Worsened by: Drinking water Relieved by: Nothing Narrative Narrative: Patient presents with I am dehydrated. Patient states she has not been able to eat or drink anything for the past 5 days. Patient states it is gradually getting worse. Patient states she has diffuse pain across her entire abdomen. Patient describes it as stabbing. Patient states it is worse whenever she tries to drink anything. Patient states nothing makes it better. Patient denies any fevers or chills. Patient admits to some mild rhinorrhea and a sore throat yesterday. Patient states she had some diarrhea today. Patient denies any melena or hematochezia. Patient denies any urinary complaints. [facility] Medical History (Updated 07/10/24 @ 01:[address] Josue Jim, DO) Hyperemesis gravidarum Thyroid disorder Depression Anxiety Ovarian cyst Home Medications ?Medication ?Instructions ?Recorded ?Last Taken ?Type omeprazole 40 mg capsule,delayed 40 mg PO DAILY #30 caps 08/03/23 Unknown Rx release sucralfate 100 mg/mL oral 10 ml PO BID PRN Epigastric pain 08/03/23 Unknown Rx suspension (Carafate) #400 mL levothyroxine 112 mcg tablet 112 mcg PO DAILY 07/10/24 Unknown History ondansetron 4 mg disintegrating 4 mg PO Q8H PRN PRN Nausea #10 tabs 07/10/24 Unknown Rx tablet Allergy/AdvReac Type Severity Reaction Status Date / Time Penicillins Allergy Hives Verified 07/09/24 22:52 sulfamethoxazole (From Allergy Hives Verified 07/09/24 22:52 Bactrim) trimethoprim (From Bactrim) Allergy Hives Verified 07/09/24 22:52 caffeine AdvReac Other Verified 07/09/24 22:52 metoclopramide (From Reglan) AdvReac Other Verified 07/09/24 22:52 Surgical History Hx of exploratory laparotomy Hx of ovarian cystectomy Social History household members: significant other Smoking Status: Never smoker substance use type: does not use ROS ROS ED Constitutional Constitutional ED: Denies chills or fever(s) Eyes Eyes: Denies blurry vision or change in vision ENT ENT ED: Reports rhinorrhea and sore throat Cardiovascular Cardiovascular: Reports chest pain; Denies palpitations Respiratory/Chest Respiratory/Chest: Denies cough or dyspnea Gastrointestinal Gastrointestinal: Reports abdominal pain, diarrhea and nausea; Denies melena or vomiting Genitourinary Genitourinary ED: Denies dysuria or hematuria Musculoskeletal Musculoskeletal: Reports neck pain; Denies back pain Integumentary Denies abscess or rash Neurologic Neurologic: Reports headache(s); Denies weakness Allergic/Immunologic Allergic/Immunologic ED: Denies mouth swelling or urticaria EXAM Physical Exam Const Vital Signs: 07/09/24 22:50 07/10/24 00:50 07/10/24 01:22 Temperature 97.1 F L 98.1 F Temperature Source Temporal Pulse Rate 122 H 99 99 Respiratory Rate 16 19 H 19 H Blood Pressure 125/80 H 113/72 113/72 Blood Pressure Mean 95 85 85 Pulse Ox 100 100 100 Oxygen Delivery Method Room Air Room Air Positive well nourished and well developed General Appearance ED: well developed and NAD HEENT Reports dry mucous membranes Mouth ED: Yes dry mucous membranes Mouth: dry mucous membranes Neck supple and no JVD Resp normal respiratory effort and clear to auscultation bilaterally Cardio regular rhythm Rate: tachycardic GI non-distended Palpation: soft and tender epigastric, LLQ, RLQ, LUQ, RUQ, periumbilical and suprapubic; Negative for guarding or rebound tenderness present Extremity General Extremety ED: Negative for edema or tenderness General Extremity: Negative for edema Neuro oriented x3, CN's II-XII intact bilaterally and no sensory deficits noted Sensorium / Orientation: alert Motor Exam: strength 5/5 throughout Psych mental status grossly normal MDM MDM MDM Narrative Medical decision making narrative: Differential diagnosis includes dehydration, hyperthyroidism, hypothyroidism, bowel obstruction, perforation, electrolyte abnormality, pancreatitis, urinary tract infection, and anxiety. CBC will be obtained to assess for leukocytosis and anemia. Comprehensive metabolic profile will be obtained to assess for electrolyte abnormality, renal function, and hepatic function. Lipase will be obtained to assess for pancreatitis. Urinalysis will be obtained to assess for urinary tract infection and hematuria. Serum hCG will be obtained to assess for . CT scan of the abdomen pelvis will be obtained to assess for bowel obstruction, perforation, and colitis. Lab Data Attestation: I reviewed the patient's lab results. Lab results narrative: CBC was reviewed and was within normal limits. Comprehensive metabolic profile was reviewed and was essentially within normal limits. Lipase was reviewed and was normal at 26. TSH was reviewed and was elevated at 27.2. Serum hCG was reviewed and was negative. Urinalysis was reviewed. There is a leukocyte esterase of 100 with 10-25 white blood cells. There are 5-10 epithelial cells. There is 2+ bacteria. Urine ketones were 150. Labs: Laboratory Results - last 24 hr 07/09/24 07/10/24 23:36 00:02 WBC 6.2 RBC 4.49 Hgb 13.5 Hct 39.9 MCV 88.9 MCH 30.1 MCHC 33.8 RDW Std Deviation 43.3 RDW Coeff of Ria 13.3 Plt Count 184 MPV 9.7 Immature Gran % (Auto) 0.600 Neut % (Auto) 84.4 H Lymph % (Auto) 8.7 L [place] % (Auto) 5.1 Eos % (Auto) 0.6 Baso % (Auto) 0.6 Absolute Neuts (auto) 5.3 Absolute Lymphs (auto) 0.54 L Nucleated RBC % 0 Sodium 139 Potassium 3.7 Chloride 110 H Carbon Dioxide 18.0 L Anion Gap 11 BUN 15 Creatinine 0.86 Estim Creat Clear Calc 96.49 Est GFR (MDRD) Af Amer 100 Est GFR (MDRD) Non-Af 82 BUN/Creatinine Ratio 17.4 Glucose 99 Calcium 9.6 Total Bilirubin 1.00 AST 6 L ALT 12 L Alkaline Phosphatase 56 Total Protein 8.2 Albumin 4.6 Globulin 3.6 Albumin/Globulin Ratio 1.3 Lipase 26 TSH 27.200 H Serum , Qual NEGATIVE Urine Color Yellow Urine Clarity Clear Urine pH 6.0 Ur Specific [place] 1.025 Urine Protein 30 H Urine Glucose (UA) Normal Urine Ketones 150 A* Urine Occult Blood Negative Urine Nitrite Negative Urine Bilirubin 1 H Urine Urobilinogen Normal Ur Leukocyte Esterase 100 H Urine RBC 0 SEEN Urine WBC 10-25 SEEN Ur Squamous Epith Cells 5-10 SEEN Urine Bacteria 2+ Urine Mucus 4+ Additional Tests and Interventions Additional Tests or Interventions: Urine culture was ordered. Treatment and Re-Evaluation :: Patient was given IV fluids and Zofran here. Patient was also given a dose of hydroxyzine. Patient was feeling better on reevaluation. Patient was advised of her findings. The elevation of her TSH is most likely from being unable to keep her medications down over the past few days. Since the patient is not having any symptoms of urinary tract infection, antibiotics are not necessary at this time unless urine culture grows significant bacteria. Patient was instructed to start with a liquid diet and advance as tolerated. Patient was given a prescription for Zofran. Patient was instructed to follow-up with her primary care physician in 5 to 7 days. Patient was instructed to return if worse in any way. Patient understood and was agreeable with the plan. All questions were answered. Discharge Plan Triage Chief Complaint: Anxiety ED Provider: Josue Jim Dx/Rx/DC Orders Clinical Impression: Nausea and vomiting, Dehydration, Hypothyroidism Instructions: ED Dehydration (Adult), ED Vomiting (Adult) Prescriptions: New ondansetron 4 mg tablet,disintegrating 4 mg PO Q8H PRN PRN (Reason: Nausea) Qty: 10 0RF No Action sucralfate [Carafate] 100 mg/mL suspension 10 ml PO BID PRN (Reason: Epigastric pain) Qty: 400 0RF omeprazole 40 mg capsule,delayed release(DR/EC) 40 mg PO DAILY Qty: 30 0RF levothyroxine 112 mcg tablet 112 mcg PO DAILY Primary Care Provider: Emy Valencia Referrals: Emy Valencia MD [Primary Care Provider] - 3-5 Days Print Language: Lithuanian Disposition Disposition: Home, Self Care Discharge Date/Time: 07/10/24 01:23
[2024-07-09 23:34] VITALS: BMI 25.3
[2024-07-09] MEDS: Ondansetron 4 MG/2 ML Vial IV (23:38)
[2024-07-09] MEDS: 0.9% Normal Saline (1000mL) 1,000 ML 999 ML IV (23:39)
[2024-07-09 23:44] LABS: Absolute Lymphocyte Count 0.54 X10^3/uL (0.83-4.51); Absolute Neutrophil Count 5.3 X10^3/uL (2.0-7.7); Basophil# 0.04 X10^3/uL; Basophil% 0.6 % (0-1); Eosinophil# 0.04 X10^3/uL; Eosinophils% 0.6 % (0-5); Hematocrit 39.9 % (37-47); Hemoglobin 13.5 g/dL (12.0-15.0); Lymphocyte # 0.54 X10^3/ul (0.83-4.51); Lymphocyte % 8.7 % (19-41); Mean Corp Hgb Conc 33.8 g/dL (32-36); Mean Corpuscular Hgb 30.1 pg (27.0-32.0); Mean Corpuscular Volume 88.9 fL (81-99); Mean Platelet Vol. 9.7 fl (6.2-12.0); Monocyte# 0.32 X10^3/uL; Monocyte% 5.1 % (0-10); NRBC Flagged by Analyzer 0 % (0-5); Neutrophil # 5.26 X10^3/uL (2.7-7.7); Neutrophil % 84.4 % (47-70); POSITIVE DIFFERENTIAL YES; Platelet Count 184 K/mm3 (150-450); RBC Distribution Width CV 13.3 % (11.6-14.6); RBC Distribution Width SD 43.3 fl (35.1-43.9); Red Blood Count 4.49 M/mm3 (4.2-5.4); White Blood Count 6.2 K/mm3 (4.4-11.0)
[2024-07-09 23:51] LABS: Internal QC Validated? YES +Cl - CLEAR BKGD; Pregnancy, Serum, hCG Quali. NEGATIVE Negative; Record Kit Lot#, Serum Preg. 872158
[2024-07-10] LABS: ALB/GLOB Ratio 1.3 RATIO (0.9-2.4); AST(SGOT) 6 U/L (15-37); Alanine Aminotransfer ALT/SGPT 12 U/L (13-56); Albumin, Serum 4.6 g/dL (3.2-5.0); Alkaline Phosphatase 56 U/L (45-117); Anion Gap 11 (5-15); BUN 15 mg/dL (7-18); BUN/Creat Ratio 17.4 RATIO (10-20); Calcium,Total 9.6 mg/dL (8.5-10.1); Chloride 110 mmol/L (98-107); Creatinine, Serum 0.86 mg/dL (0.55-1.02); EST Glomerular Filtration Rate 82 mL/min (>60); Est Glom Filt Rate - Afr Amer 100 mL/min (>60); Estimated Creatinine Clearance 96.49 ml/min; Globulin 3.6 g/dL (2.2-4.2); Glucose 99 mg/dL (74-106); Lipase 26 U/L (13-75); Potassium 3.7 mmol/L (3.5-5.1); Protein, Total 8.2 g/dL (6.4-8.2); Sodium Level 139 mmol/L (136-145)
[2024-07-10 00:10] LABS: Red Blood Cells-Urine 0 SEEN /hpf (0-5)
[2024-07-10 00:11] LABS: Color, Urine Yellow (Yellow); Glucose, Dipstick Normal (Normal); Leukocyte Esterase-Dipstick 100 /ul (Negative); Nitrite-Dipstick Negative (Negative); Occult Blood-Urine Negative /ul (Negative); Protein-Dipstick 30 mg/dl (Negative); Specific Gravity, Urine 1.025 (1.002-1.030); Urine Clarity Clear (Clear); Urine Urobilinogen Normal (Normal)
[2024-07-10 00:27] LABS: Urine Bilirubin Dipstick 1 mg/dL (Negative)
[2024-07-10 00:29] LABS: Ketone-Dipstick 150 mg/dl (Negative)
[2024-07-10 00:36] LABS: White Blood Cells 10-25 SEEN /hpf (0-5)
[2024-07-10 00:37] LABS: Bacteria 2+ /hpf (None Seen); Mucous, Urine 4+ /hpf (<or=2+); Squamous Epithelial Cells - UA 5-10 SEEN /hpf (5-10)
[2024-07-10 00:50] VITALS: BP 113/72; PULSE 99; RESP 19; O2SAT 100
[2024-07-10] MEDS: hydrOXYzine PAM 25 MG Capsule 50 MG PO (00:52)
[2024-07-10 01:22] VITALS: BP 113/72; PULSE 99; RESP 19; TEMP 36.7; O2SAT 100
== END 2024-07-10 01:23 | disposition home or self-care (01) ==
PROVIDERS: Emergency Provider Emergency Medicine; PCP Internal Medicine; Visit Provider Emergency Medicine
DX: R11.2 Nausea with vomiting, unspecified (principal); E86.0 Dehydration; E03.9 Hypothyroidism, unspecified; F41.9 Anxiety disorder, unspecified; R07.9 Chest pain, unspecified; Z79.890 Hormone replacement therapy
CPT/HCPCS: 80053; 81001; 83690; 84443; 84703; 85025; 87086; 96361; 96374; 99282; A4216; J2405